=== PATIENT | female | born 1980 | race Caucasian/White ===

== ENCOUNTER 2016-12-05 14:22 | Emergency (ER) | payer SELFPAY ==
[~2016-12-05] VITALS: Ht 162.6 cm; Wt 95.3 kg
--- NOTE | 2016-12-05 15:18 | ED GU-Female ---
General Chief Complaint: -Female Stated Complaint: HEAVY MENSTRUAL BLEEDING FOR 7 WEEKS Nursing Triage Note: PT C/O HEAVY VAGINAL BLEEDING X 7 WEEKS. SHE IS ALSO C/O CRAMPING AND BLOATING. Nursing Sepsis Screen: No Definite Risk Source: patient Exam Limitations: no limitations History of Present Illness Time seen by provider: 15:18 Initial Comments 36-year-old female patient presents to the emergency department complaints of heavy bleeding for 7 weeks. States she was seen by Dr. Avalos in [place] approximately 2 months ago. Does complain of abdominal bloating and cramping. 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 Denies dizziness, SOA, chest pain. Patient does report recurrent outbreak of genital warts. Has had previous abnormal Pap smears and biopsies/colposcopies. States it has been several years since her last Pap smear. Timing/Duration: other (7 wks) Severity/Quality: cramping Location: vaginal (vaginal bleeding), other (generalized abdomen) Radiation: none Activities at Onset: none Prior Genitourinary Problems: none Sexual Honaker History: single partner Allergies and Home Medications Allergies Coded Allergies: Penicillins (Unverified Allergy, Unknown, 12/05/16) Home Medications Metronidazole 500 Mg Tablet, 500 MG PO BID, #14 Ref 0 Prescribed by: OZZIE INIGUEZ on 12/05/161708 Tramadol HCl 50 Mg Tablet, 50 MG PO Q4H PRN for PAIN-MODERATE TO SEVERE, #10 Ref 0 Prescribed by: OZZIE INIGUEZ on 12/05/161708 Constitutional: No chills, No diaphoresis, No dizziness, No fever, No malaise, No weakness EENTM: no symptoms reported Respiratory: No cough, No dyspnea on exertion, No short of breath Cardiovascular: No chest pain, No palpitations, No syncope Gastrointestinal: see HPI, abdominal pain, No constipation, No diarrhea, No nausea, No vomiting Genitourinary: see HPI, denies burning, denies dysuria, denies frequency, denies flank pain, other (vaginal bleeding and recurrent genital wart outbreak) Musculoskeletal: no symptoms reported Skin: see HPI Psychiatric/Neurological: No Symptoms Reported Hematologic/Lymphatic: No Symptoms Reported All Other Systemes Reviewed Negative Unless Noted: Yes (Negative excepted noted.) Past Jjhlhel-Qclfsi-Pkxtns Hx Patient Social History Alcohol Use: Denies Use Recreational Drug Use: No Smoking Status: Current Everyday Smoker Type Used: Cigarettes 2nd Hand Smoke Exposure: Yes Recent Foreign Travel: No Contact w/Someone Who Travel: No Recent Infectious Disease Expo: No Recent Hopitalizations: No Physical Abuse: No Sexual Abuse: No Seasonal Allergies Seasonal Allergies: No Surgeries History of Surgeries: Yes (COLONOSCOPIES, colposcopies, genital wart destruction) Surgeries: Appendectomy, Orthopedic Respiratory History of Respiratory Disorde: No Cardiovascular History of Cardiac Disorders: No Reproductive System : No Hx : 3 Hx Para: 1 Hx Total # of Abortions (Spona: 2 Hx Reproductive Disorders: Yes (ovarian cysts) Sexually Transmitted Disease: Yes (genital warts) HIV/AIDS: No Female Reproductive Disorders: Polycystic Ovarian Dis Genitourinary History of Genitourinary Disor: No Gastrointestinal History of Gastrointestinal Di: No Musculoskeletal History of Musculoskeletal Dis: No Endocrine History of Endocrine Disorders: No HEENT History of HEENT Disorders: No Cancer History of Cancer: No Psychosocial Suicide Risk Score: 0 Integumentary History of Skin or Integumenta: No Reviewed Nursing Assessment Reviewed/Agree w Nursing PMH: Yes Family Medical History Significant Family History: No Pertinent Family Hx Physical Exam Vital Signs Vital Sign - Last 12Hours 12/05/16 14:47 Temp 97.1 Pulse 88 Resp 20 B/P (MAP) 176/133 Pulse Ox 99 O2 Delivery Room Air Capillary Refill : Less Than 3 Seconds General Appearance: WD/WN, no apparent distress HEENT: PERRL/EOMI, pharynx normal Neck: supple, normal inspection Cardiovascular: normal peripheral pulses, regular rate, rhythm, no edema, no murmur Respiratory: lungs clear, normal breath sounds, no respiratory distress, no accessory muscle use Gastrointestinal: normal bowel sounds, soft, no organomegaly, No distended, No guarding, No rebound, tenderness (mild lower abdominal tenderness. ) Pelvic: no cerv. motion tender, no masses, lesions (flesh colored, raised lesions of the labia and perineum consistent with genital warts.), No mass, tender adnexa (R>L), No tender uterus, vaginal bleeding (dark blood noted in the vagina. ) Back: normal inspection, no CVA tenderness Extremities: no pedal edema, normal capillary refill Neurologic/Psychiatric: alert, normal mood/affect, oriented x 3 Skin: normal color, warm/dry Progress/Results/Core Measures Results/Orders Lab Results Laboratory Tests Test 12/05/16 15:10 12/05/16 16:50 Range/Units White Blood Count 6.5 4.3-11.0 10^3/uL Red Blood Count 4.76 4.35-5.85 10^6/uL Hemoglobin 14.1 11.5-16.0 G/DL Hematocrit 42 35-52 % Mean Corpuscular Volume 87 80-99 FL Mean Corpuscular Hemoglobin 30 25-34 PG Mean Corpuscular Hemoglobin Concent 34 32-36 G/DL Red Cell Distribution Width 13.2 10.0-14.5 % Platelet Count 218 130-400 10^3/uL Mean Platelet Volume 9.6 7.4-10.4 FL Neutrophils (%) (Auto) 55 42-75 % Lymphocytes (%) (Auto) 37 12-44 % Monocytes (%) (Auto) 7 0-12 % Eosinophils (%) (Auto) 2 0-10 % Basophils (%) (Auto) 0 0-10 % Neutrophils # (Auto) 3.6 1.8-7.8 X 10^3 Lymphocytes # (Auto) 2.4 1.0-4.0 X 10^3 Monocytes # (Auto) 0.4 0.0-1.0 X 10^3 Eosinophils # (Auto) 0.1 0.0-0.3 10^3/uL Basophils # (Auto) 0.0 0.0-0.1 10^3/uL Prothrombin Time 12.5 12.2-14.7 SEC INR Comment 0.9 0.8-1.4 Activated Partial Thromboplast Time 29 24-35 SEC Sodium Level 137 135-145 MMOL/L Potassium Level 3.9 3.6-5.0 MMOL/L Chloride Level 108 H 98-107 MMOL/L Carbon Dioxide Level 24 21-32 MMOL/L Anion Gap 5 5-14 MMOL/L Blood Urea Nitrogen 13 7-18 MG/DL Creatinine 0.73 0.60-1.30 MG/DL Estimat Glomerular Filtration Rate > 60 BUN/Creatinine Ratio 18 Glucose Level 92 70-105 MG/DL Calcium Level 9.0 8.5-10.1 MG/DL Total Bilirubin 0.4 0.1-1.0 MG/DL Aspartate Amino Transf (AST/SGOT) 13 5-34 U/L Alanine Aminotransferase (ALT/SGPT) 14 0-55 U/L Alkaline Phosphatase 65 40-136 U/L Total Protein 7.2 6.4-8.2 GM/DL Albumin 4.2 3.2-4.5 GM/DL Serum Test, Qualitative NEGATIVE NEGATIVE Micro Results Microbiology 12/05/16 Genital Culture - Preliminary, Resulted Gardnerella Vaginalis 12/05/16 Wet Prep - Final, Resulted My Orders Orders - OZZIE INIGUEZ Cbc With Automated Diff (12/05/16 14:50) Comprehensive Metabolic Panel (12/05/16 14:50) Hcg,Qualitative Serum (12/05/16 14:50) Protime With Inr (12/05/16 14:50) Partial Thromboplastin Time (12/05/16 14:50) Wet Prep (12/05/16 16:23) Neisseria Gonorrhea Dna (12/05/16 16:23) Chlamydia Dna (12/05/16 16:23) Genital Culture (12/05/16 16:23) Hydrocodone/Apap 5/325 Tablet (Lortab 5 (12/05/16 16:38) Ketorolac Injection (Toradol Injection) (12/05/16 16:38) Im/Sub-Q Injection Non-Ab Ed (12/05/16 ) Vital Signs/I&O Blood Pressure Mean: 147 Departure Communication (Admissions) Progress Notes all laboratory and diagnostic findings discussed with the patient. patient reports pain is improved with the toradol and lortab. plan for dsch to home with f/u as an outpatient with Dr. Medrano or Mariaelena Mccarthy APRN as patient requests to see a female provider. Patient to call for appointment time. Patient given a Rx for flagyl for bacterial vaginosis. Patient instructed to return to the ED for worsened symptoms or any other concerns. Patient ambulated from the ED without difficulty. Impression Impression: Primary Impression: Bacterial vaginosis Additional Impressions: Menorrhagia Genital warts Disposition: HOME, SELF-CARE Condition: Improved Departure-Patient Inst. Decision time for Depature: 17:06 Referrals: SHELTON FLORES KAY W ARNP RAY, MARIANNE C MD (PCP) Primary Care Physician LIS MEDRANO DO Patient Instructions: Bacterial Vaginosis (DC), IRREGULAR VAGINAL BLEEDING Add. Discharge Instructions: All discharge instructions reviewed with patient and/or family. Voiced understanding. Medications as directed. Tylenol Extra Strength over-the- counter as directed for pain. Ibuprofen 800 mg by mouth every 8 hours as needed for pain. No intercourse until released by the counselor/art therapist of your choice. Follow-up with the counselor/art therapist of your choice as an outpatient for a recheck, outpatient ultrasound, formal Pap smear, and further treatment. Call tomorrow for appointment time. Return to the emergency department for worsened pain, fever, vaginal bleeding with greater than 2 pads per hour for greater than 2 hours, vaginal discharge, or any other concerns. Scripts Tramadol HCl (Tramadol HCl) 50 Mg Tablet 50 MG PO Q4H Y for PAIN-MODERATE TO SEVERE, #10 TAB 0 Refills Prov: OZZIE INIGUEZ 12/05/16 Metronidazole (Metronidazole) 500 Mg Tablet 500 MG PO BID, #14 TAB 0 Refills Prov: OZZIE INIGUEZ 12/05/16 Work/School Note: Work Release Form Date Seen in the Emergency Department: Dec 05, 2016 Return to Work: Dec 07, 2016 OZZIE INIGUEZ Dec 05, 2016 15:18
[2016-12-05 15:21] LABS: BASOPHILS % (AUTO) 0 % (0-10); EOSINOPHILS # (AUTO) 0.1 10^3/uL (0.0-0.3); EOSINOPHILS % (AUTO) 2 % (0-10); LYMPHOCYTES # (AUTO) 2.4 X 10^3 (1.0-4.0); LYMPHOCYTES % (AUTO) 37 % (12-44); MEAN CORPUSCULAR HEMOGLOBIN 30 PG (25-34); MEAN CORPUSCULAR HGB CONC 34 G/DL (32-36); MEAN CORPUSCULAR VOLUME 87 FL (80-99); MEAN PLATELET VOLUME 9.6 FL (7.4-10.4); MONOCYTES # (AUTO) 0.4 X 10^3 (0.0-1.0); MONOCYTES % (AUTO) 7 % (0-12); NEUTROPHILS # (AUTO) 3.6 X 10^3 (1.8-7.8); NEUTROPHILS % (AUTO) 55 % (42-75); PLATELET COUNT 218 10^3/uL (130-400); RED BLOOD COUNT 4.76 10^6/uL (4.35-5.85); RED CELL DISTRIBUTION WIDTH 13.2 % (10.0-14.5); WHITE BLOOD COUNT 6.5 10^3/uL (4.3-11.0)
[2016-12-05 15:30] LABS: INR 0.9 (0.8-1.4); PROTHROMBIN TIME PATIENT 12.5 SEC (12.2-14.7)
[2016-12-05 15:40] LABS: ALANINE AMINOTRANSFERASE 14 U/L (0-55); ALBUMIN 4.2 GM/DL (3.2-4.5); ANION GAP 5 MMOL/L (5-14); ASPARTATE AMINO TRANSFERASE 13 U/L (5-34); BILIRUBIN,TOTAL 0.4 MG/DL (0.1-1.0); BLOOD UREA NITROGEN 13 MG/DL (7-18); BUN/CREATININE RATIO 18; CARBON DIOXIDE 24 MMOL/L (21-32); CHLORIDE 108 MMOL/L (98-107); CREATININE SERUM 0.73 MG/DL (0.60-1.30); GFR ESTIMATED > 60; GLUCOSE 92 MG/DL (70-105); POTASSIUM 3.9 MMOL/L (3.6-5.0); SODIUM 137 MMOL/L (135-145); TOTAL PROTEIN 7.2 GM/DL (6.4-8.2)
[2016-12-05] MEDS ORDERED: HYDROcodone/APAP 5 MG/325 MG (LORTAB) TAB PO STA (16:38)
[2016-12-05] MEDS ORDERED: KETOROLAC 60 MG/2 ML VIAL IM STA (16:38)
[2016-12-05] MEDS ORDERED: TRAM50TA2 PO (17:09)
[2016-12-05] MEDS ORDERED: METR500T21 PO (17:09)
[2016-12-05 17:27] VITALS: BP 176/133
== END 2016-12-05 17:27 | disposition home or self-care (01) ==
LOC: ER 14:26
DX: N76.0 Acute vaginitis (principal); B96.89 Other specified bacterial agents as the cause of diseases classified elsewhere; N92.0 Excessive and frequent menstruation with regular cycle; A63.0 Anogenital (venereal) warts; F17.210 Nicotine dependence, cigarettes, uncomplicated; Z90.49 Acquired absence of other specified parts of digestive tract; Z87.448 Personal history of other diseases of urinary system
CPT/HCPCS: 36415; 80053; 84703; 85025; 85610; 85730; 87070; 87210; 87491; 87591; 96372; 99284

== ENCOUNTER 2016-12-26 09:20 | Emergency (ER) | payer SELFPAY ==
[~2016-12-26] VITALS: Ht 162.6 cm; Wt 95.3 kg
[~2016-12-26 09:20] MED LIST: METR500T21 PO; TRAM50TA2 PO
[2016-12-26] MEDS ORDERED: TIZA4CAP8 PO (10:03)
[2016-12-26] MEDS ORDERED: ATEN100T PO (10:03)
[2016-12-26] MEDS ORDERED: DILT120C8 PO (10:03)
[2016-12-26] MEDS ORDERED: NS IV 1000 ML 1,000 ML IV STA (10:24)
--- NOTE | 2016-12-26 10:28 | ED Headache ---
General Chief Complaint: Head/Cervical Problems Stated Complaint: MIGRAINE Nursing Triage Note: AMBULATED TO ROOM 09 WITH COMPLAINTS OF A MIGRAINE. SHE BELIEVES IT IS RELATED TO HER NEW MEDICATION TIXINADINE. Nursing Sepsis Screen: No Definite Risk Source: patient, spouse Exam Limitations: no limitations History of Present Illness Time seen by provider: 10:16 Initial Comments Patient has ER by private conveyance with chief complaint of migraine headache. She has a history of migraines but they do not have infrequent enough that she' s ever needed any prophylactic medicines and does not have any sumatriptan. She recently moved here does not have a primary care physician yet. She has used Vicodin in the past which helped. She is having quite a bit of nausea but no vomiting so far. Anorexia. She has first started expressing this headache about a week ago after using tizanidine a couple times for some back spasms. She thought that tizanidine might of been there culprit so she stopped using it and her migraine headache that better in the next couple days and then she said she had some more back spasms or use another dose last night and her migraine came back on. There is no aura however she does have photophobia phonophobia and describes the headache as right-sided throbbing frontal and constant. She does not have any blindness weakness numbness or paresthesias. She has not have any incontinence of bowel or bladder. She has no cough shortness of breath or chest pain. She has used Motrin with the last dose being about 5 or 6 hours ago. Allergies and Home Medications Allergies Coded Allergies: Penicillins (Unverified Allergy, Unknown, 12/05/16) Home Medications Atenolol 100 Mg Tablet, 100 MG PO DAILY, (Reported) Diltiazem HCl 120 Mg Cap.er.deg, 120 MG PO DAILY, (Reported) Tizanidine HCl 4 Mg Capsule, 4 MG PO PRN, (Reported) Constitutional: No chills, No fever, malaise Eyes: Denies Blindness, Denies Blurred Vision, Denies Drainage Ears, Nose, Mouth, Throat: denies ear pain, denies nose pain Respiratory: No cough, No short of breath Cardiovascular: No chest pain, No palpitations Gastrointestinal: No constipation, No diarrhea, nausea, No vomiting Genitourinary: No discharge, No dysuria Skin: No dryness, No pruritus, No rash Psychiatric/Neurological: See HPI, Headache, Denies Numbness, Denies Paresthesia, Denies Pre-Existing Deficit, Denies Seizure Past Qfvqyqf-Eggehm-Snkmho Hx Patient Social History Alcohol Use: Denies Use Recreational Drug Use: Yes (POT) Smoking Status: Current Everyday Smoker Type Used: Cigarettes 2nd Hand Smoke Exposure: Yes Recent Foreign Travel: No Contact w/Someone Who Travel: No Recent Infectious Disease Expo: No Recent Hopitalizations: No Seasonal Allergies Seasonal Allergies: No Surgeries History of Surgeries: Yes (COLONOSCOPIES, colposcopies, genital wart destruction) Surgeries: Appendectomy, Orthopedic Respiratory History of Respiratory Disorde: No Cardiovascular History of Cardiac Disorders: No Neurological History of Neurological Disord: Yes Neurological Disorders: Headaches /Migraines Reproductive System Hx Reproductive Disorders: Yes (ovarian cysts) Sexually Transmitted Disease: Yes (genital warts) HIV/AIDS: No Female Reproductive Disorders: Polycystic Ovarian Dis Genitourinary History of Genitourinary Disor: No Gastrointestinal History of Gastrointestinal Di: No Musculoskeletal History of Musculoskeletal Dis: No Endocrine History of Endocrine Disorders: No HEENT History of HEENT Disorders: No Cancer History of Cancer: No Integumentary History of Skin or Integumenta: No Family Medical History Significant Family History: No Pertinent Family Hx Physical Exam Vital Signs Vital Sign - Last 12Hours 12/26/16 09:45 Temp 98.0 Pulse 72 Resp 18 B/P (MAP) 147/107 Pulse Ox 97 Capillary Refill : Less Than 3 Seconds General Appearance: WD/WN, mild distress HEENT: PERRL/EOMI, TMs normal, pharynx normal Neck: non-tender, normal inspection Cardiovascular: normal peripheral pulses, regular rate, rhythm, no edema Respiratory: chest non-tender, lungs clear, no respiratory distress Gastrointestinal: non tender, soft Psychiatric: alert, oriented x 3 Crainal Nerves: normal hearing, normal speech, PERRL Coordination/Gait: normal gait Motor/Sensory: no motor deficit, no sensory deficit Skin: normal color, warm/dry Progress/Results/Core Measures Results/Orders My Orders Orders - MIMI WEEKS Ketorolac Injection (Toradol Injection) (12/26/16 10:30) Saline Lock/Iv-Start (12/26/16 10:24) Ns Iv 1000 Ml (Sodium Chloride 0.9%) (12/26/16 10:24) Prochlorperazine Injection (Compazine In (12/26/16 10:30) Ondansetron Injection (Zofran Injectio (12/26/16 10:30) Sumatriptan Injection (Imitrex Injection (12/26/16 10:30) Medications Given in ED Current Medications Medications Dose Ordered Sig/Franklin Route Start Time Stop Time Status Last Admin Dose Admin Ketorolac Tromethamine 15 mg ONCE ONCE IVP 12/26/16 10:30 12/26/16 10:31 DC 12/26/16 10:45 15 MG Ondansetron HCl 4 mg ONCE ONCE IVP 12/26/16 10:30 12/26/16 10:31 DC 12/26/16 10:45 4 MG Prochlorperazine Edisylate 10 mg ONCE ONCE IV 12/26/16 10:30 12/26/16 10:31 DC 12/26/16 10:46 10 MG Sumatriptan Succinate 6 mg ONCE ONCE SQ 12/26/16 10:30 12/26/16 10:31 DC 12/26/16 10:43 6 MG Vital Signs/I&O Vital Sign - Last 12Hours 12/26/16 09:45 Temp 98.0 Pulse 72 Resp 18 B/P (MAP) 147/107 Pulse Ox 97 Blood Pressure Mean: 120 Progress Note : Time: 11:54 Progress Note Patient present to ER with a headache 8 out of 10 and is now down to a 5 out of 10. Her nausea is gone and she feels much better. We'll give her some Compazine and Imitrex and she is going to follow up with her PCP from [place], [place] and try to establish someone closer eventually. Departure Impression Impression: Primary Impression: Migraine Qualified Codes: G43.009 - Migraine without aura, not intractable, without status migrainosus Disposition: 01 HOME, SELF-CARE Condition: Stable Departure-Patient Inst. Decision time for Depature: 11:55 Referrals: FIDENCIO JUSTIN MD (PCP/Family) Primary Care Physician Patient Instructions: Migraine Headache (DC) Add. Discharge Instructions: Drink plenty of cool fluids and get some rest in a call him quite dark place. Earplugs and I am asked are recommended. If you're having nausea you can take the Compazine every 6 hours by mouth and if your headache persists you can take the Imitrex. Plan to follow up with her primary care physician for further management of your migraine. All discharge instructions reviewed with patient and/or family. Voiced understanding. Scripts Prochlorperazine Maleate (Compazine) 10 Mg Tablet 10 MG PO Q6H Y for NAUSEA/VOMITING-1ST LINE, #10 TAB 0 Refills Prov: MIMI WEEKS 12/26/16 Sumatriptan Succinate (Sumatriptan Succinate) 25 Mg Tablet 25 MG PO Q2H Y for MIGRAINE, #8 TAB 0 Refills Do not exceed 4 tablets in 24 hours. Prov: MIMI WEEKS 12/26/16 Work/School Note: Work Release Form Date Seen in the Emergency Department: Dec 26, 2016 Return to Work: Dec 28, 2016 Restrictions: No Restrictions MIMI WEEKS Dec 26, 2016 10:28
[2016-12-26] MEDS ORDERED: SUMAtriptan 6 MG/0.5 ML (IMITREX) INJ SQ ONE (10:30)
[2016-12-26] MEDS ORDERED: KETOROLAC 30 MG/ML VIAL IVP ONE (10:30)
[2016-12-26] MEDS ORDERED: ONDANSETRON 4 MG/2 ML (SDV) Z0FRAN IVP ONE (10:30)
[2016-12-26] MEDS ORDERED: PROCHLORPERAZINE 10 MG/2ML INJ (COMPAZINE) IV ONE (10:30)
[2016-12-26] MEDS ORDERED: PROC-1 PO (11:59)
[2016-12-26] MEDS ORDERED: SUMA25TA4 PO (11:59)
[2016-12-26 12:04] VITALS: BP 147/102
[2016-12-27] MEDS ORDERED: PROM25TA14 PO (17:47)
== END 2016-12-26 12:04 | disposition home or self-care (01) ==
LOC: EDUNIT# 09:20 → ER 09:24
DX: G43.909 Migraine, unspecified, not intractable, without status migrainosus (principal); F17.210 Nicotine dependence, cigarettes, uncomplicated; F12.10 Cannabis abuse, uncomplicated; Z87.448 Personal history of other diseases of urinary system; Z90.49 Acquired absence of other specified parts of digestive tract
CPT/HCPCS: 96361; 96372; 96374; 96375

== ENCOUNTER 2016-12-27 14:55 | Emergency (ER) | payer SELFPAY ==
[~2016-12-27] VITALS: Ht 162.6 cm; Wt 95.3 kg
[~2016-12-27 14:55] MED LIST changes: +ATEN100T PO; +DILT120C8 PO; +PROC-1 PO; +SUMA25TA4 PO; +TIZA4CAP8 PO
--- NOTE | 2016-12-27 15:57 | ED Headache ---
General Chief Complaint: Head/Cervical Problems Stated Complaint: SEIZURE Nursing Triage Note: patient reports headache for 1 week. patient reports was taking a bath and got out and had a seizure. Nursing Sepsis Screen: No Definite Risk Source: patient, family (PAULIE ANDRADE MD) History of Present Illness Time seen by provider: 15:56 Initial Comments This 36-year-old white female presents with recurrent migraine headache. She's had long-standing migraine headaches. She normally responds well to Toradol IV. The patient denies associated fever, chills, hematemesis, diarrhea, or chest pain palpitations. Patient has had paresthesias in both right and left side of her body. She denies loss of visual acuity or balance. (PAULIE ANDRADE MD) Initial Comments Requested by emergency department practical nursing instructor to evaluate patient. Evaluation 37-year-old female for recurrent migraines, she has had a long medical history, she is currently going through additional testing and evaluation by Dr. Avalos and Gaby. Her records are multiple facilities across several states, and they're all being obtained by Dr. Avalos. There is concerns of possible lupus or MS. patient was evaluated for migraines yesterday she was prescribed Imitrex and Compazine, she has not obtained either of these as she has no financial ability to pay for her prescriptions. Her partner will be paid in 6 days and then she will be able to obtain these. Location: frontal Prior Headaches/Recent Trauma: chronic headaches (SRINI QUISPE) Allergies and Home Medications Allergies Coded Allergies: Penicillins (Unverified Allergy, Unknown, 12/05/16) Home Medications Atenolol 100 Mg Tablet, 100 MG PO DAILY, (Reported) Diltiazem HCl 120 Mg Cap.er.deg, 120 MG PO DAILY, (Reported) Prochlorperazine Maleate 10 Mg Tablet, 10 MG PO Q6H PRN for NAUSEA/VOMITING-1ST LINE, #10 Ref 0 Prescribed by: MIMI WEEKS on 12/26/16 1159 Promethazine HCl 25 Mg Tablet, 25 MG PO Q6H PRN for NAUSEA/VOMITING, #12 Ref 0 Prescribed by: SRINI QUISPE on 12/27/16 1747 Sumatriptan Succinate 25 Mg Tablet, 25 MG PO Q2H PRN for MIGRAINE, #8 Ref 0 Do not exceed 4 tablets in 24 hours. Prescribed by: MIMI WEEKS on 12/26/16 1159 Tizanidine HCl 4 Mg Capsule, 4 MG PO PRN, (Reported) Constitutional: No chills, No fever Eyes: Denies Blurred Vision Ears, Nose, Mouth, Throat: denies epistaxis Respiratory: No cough Cardiovascular: No chest pain Gastrointestinal: No abdominal pain, No constipation, nausea Genitourinary: no symptoms reported Musculoskeletal: no symptoms reported Skin: no symptoms reported Psychiatric/Neurological: Numbness, Paresthesia (PAULIE ANDRADE MD) Past Yphbzwn-Ktxzvz-Noqgxq Hx Patient Social History Alcohol Use: Denies Use Recreational Drug Use: No Smoking Status: Current Everyday Smoker Type Used: Cigarettes 2nd Hand Smoke Exposure: Yes Recent Foreign Travel: No Contact w/Someone Who Travel: No Recent Infectious Disease Expo: No Recent Hopitalizations: No (PAULIE ANDRADE MD) Seasonal Allergies Seasonal Allergies: No (PAULIE ANDRADE MD) Surgeries History of Surgeries: Yes (COLONOSCOPIES, colposcopies, genital wart destruction) Surgeries: Appendectomy, Orthopedic (PAULIE ANDRADE MD) Respiratory History of Respiratory Disorde: No (PAULIE ANDRADE MD) Cardiovascular History of Cardiac Disorders: No (PAULIE ANDRADE MD) Neurological History of Neurological Disord: Yes Neurological Disorders: Headaches /Migraines (PAULIE ANDRADE MD) Reproductive System Hx Reproductive Disorders: Yes (ovarian cysts) Sexually Transmitted Disease: Yes (genital warts) HIV/AIDS: No Female Reproductive Disorders: Polycystic Ovarian Dis (PAULIE ANDRADE MD) Genitourinary History of Genitourinary Disor: No (PAULIE ANDRADE MD) Gastrointestinal History of Gastrointestinal Di: No (PAULIE ANDRADE MD) Musculoskeletal History of Musculoskeletal Dis: No (PAULIE ANDRADE MD) Endocrine History of Endocrine Disorders: No (PAULIE ANDRADE MD) HEENT History of HEENT Disorders: No (PAULIE ANDRADE MD) Cancer History of Cancer: No (PAULIE ANDRADE MD) Integumentary History of Skin or Integumenta: No (PAULIE ANDRADE MD) Reviewed Nursing Assessment Reviewed/Agree w Nursing PMH: Yes (PAULIE ANDRADE MD) Family Medical History Significant Family History: No Pertinent Family Hx (PAULIE ANDRADE MD) Physical Exam Vital Signs Vital Sign - Last 12Hours 12/27/16 12/27/16 14:56 17:48 Temp 98.7 Pulse 58 Resp 18 B/P (MAP) 139/92 Pulse Ox 97 (SRINI QUISPE) Vital Signs Capillary Refill : Less Than 3 Seconds (PAULIE ANDRADE MD) General Appearance: WD/WN, no apparent distress HEENT: normal ENT inspection Neck: normal inspection Cardiovascular: normal peripheral pulses, regular rate, rhythm Respiratory: chest non-tender, lungs clear Gastrointestinal: normal bowel sounds, non tender Back: normal inspection, no CVA tenderness Extremities: normal range of motion, non-tender, normal inspection Psychiatric: alert, oriented x 3, depressed affect Crainal Nerves: normal hearing, normal speech, PERRL (PAULIE ANDRADE MD) Progress/Results/Core Measures Results/Orders Medications Given in ED Current Medications Medications Dose Ordered Sig/Franklin Route Start Time Stop Time Status Last Admin Dose Admin Diphenhydramine HCl 25 mg ONCE ONCE IM 12/27/16 16:00 12/27/16 16:01 DC 12/27/16 16:30 25 MG Ketorolac Tromethamine 30 mg ONCE ONCE IVP 12/27/16 16:00 12/27/16 16:01 DC 12/27/16 16:29 30 MG Promethazine HCl 25 mg ONCE ONCE IVP 12/27/16 16:00 12/27/16 16:01 DC 12/27/16 16:30 25 MG (SRINI QUISPE) Vital Signs/I&O Vital Sign - Last 12Hours 12/27/16 12/27/16 14:56 17:48 Temp 98.7 98.7 Pulse 58 58 Resp 18 18 B/P (MAP) 139/92 Pulse Ox 97 (SRINI QUISPE) Blood Pressure Mean: 108 Progress Note : Progress Note 1630 evaluation can occur with Dr. Andrade's, cranial nerves II through XII grossly intact. She has reported paresthesias in the right upper extremity at this time however she reports prior to arrival she had them in the left upper extremity and they have resolved. 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 Discussed at length the importance of her establishing care at [facility], as her resources or limited in they will have more ability to assist her. Her symptoms and treatment will be difficult to manage if she is unable to obtain the prescriptions we have recommended. She verbalized understanding of this and agrees to follow-up with Dr. Avalos in [place]. (SRINI QUISPE) Departure Impression Impression: Primary Impression: Migraine Qualified Codes: G43.019 - Migraine without aura, intractable, without status migrainosus Disposition: HOME, SELF-CARE Condition: Stable Departure-Patient Inst. Decision time for Depature: 17:00 (SRINI QUISPE) Referrals: FIDENCIO AVALOS MD (PCP/Family) Primary Care Physician Patient Instructions: Migraine Headache (DC) Add. Discharge Instructions: Take medication as prescribed. All up with primary care provider. Return to emergency room for seizure activity or new problems. All discharge instructions reviewed with patient and/or family. Voiced understanding. Scripts Promethazine HCl (Promethazine Tablet) 25 Mg Tablet 25 MG PO Q6H Y for NAUSEA/VOMITING, #12 TAB 0 Refills Prov: SRINI QUISPE 12/27/16 PAULIE ANDRADE MD Dec 27, 2016 15:57 SRINI QUISPE Dec 27, 2016 17:47
[2016-12-27] MEDS ORDERED: KETOROLAC 30 MG/ML VIAL IVP ONE (16:00)
[2016-12-27] MEDS ORDERED: NS IV 1000 ML 1,000 ML IV SCH (16:00)
[2016-12-27] MEDS ORDERED: PROMETHAZINE INJ 25 MG/ML (PHENERGAN) AMP IVP ONE (16:00)
[2016-12-27] MEDS ORDERED: diphenhydrAMINE 50 MG/ML INJ (BENADRYL) IM ONE (16:00)
[2016-12-27] MEDS ORDERED: PROM25TA14 PO (17:47)
[2016-12-27 17:48] VITALS: BP 139/92
== END 2016-12-27 17:48 | disposition home or self-care (01) ==
LOC: EDUNIT# 14:55 → ER 14:56
DX: G43.909 Migraine, unspecified, not intractable, without status migrainosus (principal); F17.210 Nicotine dependence, cigarettes, uncomplicated; Z87.448 Personal history of other diseases of urinary system; Z90.49 Acquired absence of other specified parts of digestive tract
CPT/HCPCS: 96361; 96372; 96374; 96375; 99282

== ENCOUNTER 2018-02-27 17:10 | Emergency (ER) | payer BC, OTHER ==
[~2018-02-27] VITALS: Ht 162.6 cm; Wt 99.8 kg
[~2018-02-27 17:10] MED LIST changes: +METR-197 PO; -METR500T21 PO; +PROM25TA14 PO
--- OUTSIDE RECORDS SUMMARY | 2018-02-27 17:15 | XMS REPORT ---
Author Author MAO MOSES [facility] Address [address] [place] [address] Care Team Providers Care Efficiency Expert Name Role Phone MAO MOSES Unavailable PROBLEMS Type Condition ICD9-CM Code [id number] Code Onset Dates Condition Status SNOMED Code Problem Severe episode of recurrent major depressive disorder, without psychotic features F33.2 Active 61583440 Problem Neuropathy G62.9 Active 739386694 Problem Night terrors, adult F51.4 Active 349213726 Problem Menorrhagia with regular cycle N92.0 Active 416527096 Problem Intractable migraine without aura and without status migrainosus G43.019 Active 085989612 Problem Cannabis use disorder, mild, abuse F12.10 Active 01316843 Problem History of PCOS Z87.42 Active 005450178 Problem Opioid use disorder, severe, in sustained remission F11.21 Active 80147427 Problem Methamphetamine use disorder, mild, 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 Active 859298168 Problem Bipolar disorder, current episode mixed, severe, without psychotic features F31.63 Active 297985104 Problem PTSD (post-traumatic stress disorder) F43.10 Active 83409777 Problem Pain in right hip M25.551 Active 70564901 Problem Pain in left elbow M25.522 Active 27456883 Problem Seizure R56.9 Active 12436534 Problem Pain in left hip M25.552 Active 49904160 Problem Muscle spasm M62.838 Active 58289152 Problem Obesity (BMI 30-39.9) E66.9 Active 246622022 Problem Pain in right elbow M25.521 Active 337773993 Problem Essential hypertension I10 Active 38574733 Problem Rash and nonspecific skin eruption R21 Active 665951288 Problem Anxiety F41.9 Active 31760102 ALLERGIES Substance Reaction Event Type Date Status Penicillin V Potassium hives Drug Allergy Jan, Active Morphine Sulfate rash Drug Allergy Jan, Active ENCOUNTERS Encounter Location Date Diagnosis [facility] [place] [id number] [place] [address] Mar, [place] [address] [address] Feb, [facility] [place] [id number] [place] [address]- [address]871 Jan, Lower back pain M54.5 [place] [address] [address] Jan, Essential hypertension I10 [place] [address] [address] Jan, Intractable migraine without aura and without status migrainosus G43.019 and Essential hypertension I10 [place] [address] [address] Dec, Menorrhagia with regular cycle N92.0 [place] [address] [address] Jun, [place] [address] [address] Jun, Muscle spasm M62.838 ; Acute left-sided low back pain without sciatica M54.5 and Bipolar disorder, current episode mixed, severe, without psychotic features F31.63 [place] [id number] [place] [address]- 1472 Jun, [place] [id number] [place] [address]34- 29[address] May, Essential hypertension I10 ; Neuropathy G62.9 ; Acute non- recurrent maxillary sinusitis J01.00 ; Intractable migraine without aura and without status migrainosus G43.019 and Night terrors, adult F51.4 [place] [id number] [place] [address]- [address] Apr, [place] [address] [address] 07 Apr, 2017 Bipolar disorder, current episode mixed, severe, without psychotic features F31.63 ; PTSD (post-traumatic stress disorder) F43.10 ; Cannabis use disorder, mild, abuse F12.10 ; Methamphetamine use disorder, mild, 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 and Opioid use disorder, severe, in sustained remission F11.21 [place] [address] [address] 06 Apr, 2017 Severe episode of recurrent major depressive disorder, without psychotic features F33.2 ; Anxiety F41.9 and PTSD (post-traumatic stress disorder) F43.10 [place] [address] [address] Feb, Muscle spasm M62.838 [place] [address] [address] Feb, Intractable migraine without aura and without status migrainosus G43.019 [place] [address] [address] Jan, Rheumatoid factor positive with cyclic citrullinated peptide (CCP) antibody negative R76.8 ; Muscle spasm M62.838 ; Folliculitis L73.9 ; Essential hypertension I10 and Obesity (BMI 30-39.9) E66.9 [place] [id number] [place] [address] 83[address] Jan, Intractable migraine without aura and without status migrainosus G43.019 ; Dysuria R30.0 ; Essential hypertension I10 ; Anxiety F41.9 ; Vaginal discharge N89.8 ; Seizure R56.9 and Muscle spasm M62.[address] [facility] [id number] [place] [address] Dec, Lower back pain M54.5 [facility] [place] [address] [address] Dec, Intractable migraine without aura and without status migrainosus G43.019 ; Seizure R56.9 ; Muscle spasm M62.838 ; Pain in right elbow M25.521 ; Pain in left elbow M25.522 ; Pain in right hip M25.551 ; Pain in left hip M25.552 ; Rash and nonspecific skin eruption R21 and History of PCOS Z87.42 IMMUNIZATIONS No Known Immunizations SOCIAL HISTORY Never Assessed REASON FOR VISIT Pt states she is having pain in lower back, knees, and hips Sukhjinder COHEN PLAN OF CARE Activity Details Follow Up 03/06 w/ Nohelia Echevarria Reason:establish care VITAL SIGNS Height 5'4" in 2018-01-22 Weight 219.2 lbs 2018-01-22 Temperature 98.5 degrees Fahrenheit 2018-01-22 Heart Rate 90 bpm 2018-01-22 Respiratory Rate 18 2018-01-22 BMI 37.62 kg/m2 2018-01-22 Blood pressure systolic 112 mmHg 2018-01-22 Blood pressure diastolic 82 mmHg 2018-01-22 MEDICATIONS Medication Instructions Dosage Frequency Start Date End Date Duration Status Baclofen 10 MG/20ML as directed Active Ibuprofen 800 MG Orally Three times a day 1 tablet with food or milk as needed 8h Active Flonase 50 MCG/ACT Nasally Once a day 1 spray in each nostril 24h May, 30 day(s) Active Topamax 25 MG Orally Twice a day 2 tablets 12h Dec, 30 days Active Cyclobenzaprine HCl 5 MG Orally Three times a day 1 tablet as needed 8h Jan, 10 days Active Diclofenac Sodium 1 % Transdermal 2 times a day Apply 2 grams to lower back. 12h Jan, 14 days Active Diltiazem CD 240 MG Orally Once a day 1 capsule 24h Jan, 30 day (s) Active Imitrex 25 MG Orally Twice a day prn 1 tablet as needed Jan, Active Atenolol 100 mg Orally Once a day 1 tablet 24h 30 days Active RESULTS No Results PROCEDURES No Known procedures INSTRUCTIONS MEDICATIONS ADMINISTERED No Known Medications MEDICAL (GENERAL) HISTORY Type Description Date Medical History HTN Medical History RA Medical History Depression Medical History Barretts esophagus Medical History SVT/Afib Medical History hx of conversion disorder seizure activity-hx of neurology in [place]. Medical History demyelinating disease Surgical History Right knee scope for meniscus tear Surgical History Appendectomy Surgical History Colonoscopy- reports of IBS Surgical History EGD- Barretts esophagus Surgical History D& C x 2 Hospitalization History Surgeries only Hospitalization History inpatient psychiatric treatment 2005 x 2 for OD and 2011 x 2 for OD in [place]
--- OUTSIDE RECORDS SUMMARY | 2018-02-27 17:15 | XMS REPORT ---
Author Author KATHY GAONA Organization [facility] [place] Address [address] [place] [address] Care Team Providers Care Machine Skiver Name Role Phone SHILO GAONATA Unavailable PROBLEMS Type Condition ICD9-CM Code [id number] Code Onset Dates Condition Status SNOMED Code Problem Severe episode of recurrent major depressive disorder, without psychotic features F33.2 Active 47565985 Problem Neuropathy G62.9 Active 601786542 Problem Night terrors, adult F51.4 Active 618843029 Problem Menorrhagia with regular cycle N92.0 Active 195705097 Problem Intractable migraine without aura and without status migrainosus G43.019 Active 441558254 Problem Cannabis use disorder, mild, abuse F12.10 Active 13021684 Problem History of PCOS Z87.42 Active 196665916 Problem Opioid use disorder, severe, in sustained remission F11.21 Active 56753564 Problem Methamphetamine use disorder, mild, 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 Active 270873120 Problem Bipolar disorder, current episode mixed, severe, without psychotic features F31.63 Active 248638036 Problem PTSD (post-traumatic stress disorder) F43.10 Active 38751428 Problem Pain in right hip M25.551 Active 76822584 Problem Pain in left elbow M25.522 Active 61206221 Problem Seizure R56.9 Active 36431840 Problem Pain in left hip M25.552 Active 64072684 Problem Muscle spasm M62.838 Active 15063364 Problem Obesity (BMI 30-39.9) E66.9 Active 076847483 Problem Pain in right elbow M25.521 Active 852411284 Problem Essential hypertension I10 Active 42436048 Problem Rash and nonspecific skin eruption R21 Active 585087279 Problem Anxiety F41.9 Active 15727670 ALLERGIES No Information ENCOUNTERS Encounter Location Date Diagnosis [facility] [place] [address] [facility] [id number] [address] Mar, [facility] [place] [address] [address] Mar, [facility] [place] [id number] [place], [place] [id number] Mar, [facility] [place] [id number] [place] [address]- [address] Feb, [facility] [place] [id number] [place] [address]09- [address] Feb, [facility] [place] [id number] [place] [address] 0[address]- 9463 Feb, [facility] [place] [id number] [place] [address] 0[address]21- [address] Feb, [facility] [place] [id number] [place] [address] 02321- 9406 Feb, Bipolar disorder, current episode mixed, severe, without psychotic features F31.63 and Increased frequency of urination R35.0 [facility] [place] [address] [place] [address]31- 7[address] Feb, Bipolar disorder, current episode mixed, severe, without psychotic features F31.63 ; PTSD (post-traumatic stress disorder) F43.10 ; Cannabis use disorder, mild, abuse F12.10 ; Opioid use disorder, severe, in sustained remission F11.21 ; Methamphetamine use disorder, mild, 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 and Increased frequency of urination R35.0 [facility] [place] [address] [place] [address]46- 23[address] Jan, Lower back pain M54.5 [facility] [place] [id number] [place] [address] 99816- 9269 Jan, Essential hypertension I10 [facility] [place] [id number] [place] [address]57- 2029 Jan, Intractable migraine without aura and without status migrainosus G43.019 and Essential hypertension I10 [facility] [place] [id number] [place] [address] 31618- 8[address] Dec, Menorrhagia with regular cycle N92.0 [place] [address] [address] Jun, [place] [id number] [place] [address]- [address]28 Jun, Muscle spasm M62.838 ; Acute left-sided low back pain without sciatica M54.5 and Bipolar disorder, current episode mixed, severe, without psychotic features F31.63 [place] [id number] [place] [address] 00993- 0379 Jun, [place] [id number] [place] [address] 36847- 2[address] May, Essential hypertension I10 ; Neuropathy G62.9 ; Acute non- recurrent maxillary sinusitis J01.00 ; Intractable migraine without aura and without status migrainosus G43.019 and Night terrors, adult F51.4 [place] [id number] [place] [address] 60[address]- [address] Apr, [place] [address] [address] 07 Apr, 2017 Bipolar disorder, current episode mixed, severe, without psychotic features F31.63 ; PTSD (post-traumatic stress disorder) F43.10 ; Cannabis use disorder, mild, abuse F12.10 ; Methamphetamine use disorder, mild, 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 and Opioid use disorder, severe, in sustained remission F11.21 [place] [id number] [place] [address]48- 27[address] 06 Apr, 2017 Severe episode of recurrent major depressive disorder, without psychotic features F33.2 ; Anxiety F41.9 and PTSD (post-traumatic stress disorder) F43.10 [place] [id number] [place] [address]11- [address] 08 Feb, 2017 Muscle spasm M62.838 [place] [address] [address]- [address] Feb, Intractable migraine without aura and without status migrainosus G43.019 [facility] [place] [address] [address]- [address] Jan, Rheumatoid factor positive with cyclic citrullinated peptide (CCP) antibody negative R76.8 ; Muscle spasm M62.838 ; Folliculitis L73.9 ; Essential hypertension I10 and Obesity (BMI 30-39.9) E66.9 [facility] [place] [id number] [place] [address] 01431- 8[address] Jan, Intractable migraine without aura and without status migrainosus G43.019 ; Dysuria R30.0 ; Essential hypertension I10 ; Anxiety F41.9 ; Vaginal discharge N89.8 ; Seizure R56.9 and Muscle spasm M62.838 [facility] [id number] [place] [phone] Dec, Lower back pain M54.5 [facility] [place] [id number] [place] [address] 73775- [address]58 Dec, Intractable migraine without aura and without [...] SOCIAL HISTORY Never Assessed REASON FOR VISIT med update PLAN OF CARE VITAL SIGNS MEDICATIONS Medication Instructions Dosage Frequency Start Date End Date Duration Status Fish Oil 1000 MG Orally Once a day 1 capsule 24h Feb, 30 day(s ) Active RESULTS No Results PROCEDURES No Known procedures INSTRUCTIONS MEDICATIONS ADMINISTERED No Known Medications MEDICAL (GENERAL) HISTORY Type Description Date Medical History HTN Medical History RA Medical History Depression Medical History Barretts esophagus Medical History SVT/Afib Medical History hx of conversion disorder seizure activity-hx of neurology in [place]. Medical History demyelinating disease Surgical History Right knee scope for meniscus tear Surgical History Appendectomy Surgical History Colonoscopy- reports of IBS Surgical History EGD- Barretts esophagus Surgical History D& C x 2 Hospitalization History Surgeries only Hospitalization History inpatient psychiatric treatment 2006 x 2 for OD and 2012 x 2 for OD in [place]
--- OUTSIDE RECORDS SUMMARY | 2018-02-27 17:15 | XMS REPORT ---
Author Author JIMENEZ KATHY Organization [facility] Address [address] [place] [address] Care Team Providers Care Joiner Apprentice Name Role Phone KATHY GAONA Unavailable PROBLEMS Type Condition ICD9-CM Code [id number] Code Onset Dates Condition Status SNOMED Code Problem Severe episode of recurrent major depressive disorder, without psychotic features F33.2 Active 04617787 Problem Neuropathy G62.9 Active 533303152 Problem Night terrors, adult F51.4 Active 179160836 Problem Menorrhagia with regular cycle N92.0 Active 221916761 Problem Intractable migraine without aura and without status migrainosus G43.019 Active 121028935 Problem Cannabis use disorder, mild, abuse F12.10 Active 03004832 Problem History of PCOS Z87.42 Active 432134878 Problem Opioid use disorder, severe, in sustained remission F11.21 Active 74395987 Problem Methamphetamine use disorder, mild, 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 Active 435470613 Problem Bipolar disorder, current episode mixed, severe, without psychotic features F31.63 Active 576625081 Problem PTSD (post-traumatic stress disorder) F43.10 Active 42754553 Problem Pain in right hip M25.551 Active 69232870 Problem Pain in left elbow M25.522 Active 80325352 Problem Seizure R56.9 Active 02679762 Problem Pain in left hip M25.552 Active 99548813 Problem Muscle spasm M62.838 Active 09070119 Problem Obesity (BMI 30-39.9) E66.9 Active 305364951 Problem Pain in right elbow M25.521 Active 187107227 Problem Essential hypertension I10 Active 32331456 Problem Rash and nonspecific skin eruption R21 Active 506807108 Problem Anxiety F41.9 Active 20089231 ALLERGIES Substance Reaction Event Type Date Status Penicillin V Potassium hives Drug Allergy Jan, Active Morphine Sulfate rash Drug Allergy Jan, Active ENCOUNTERS Encounter Location Date Diagnosis [facility] [id number] [place] [address] Jan, Essential hypertension I10 [place] [address] [address] Jan, Intractable migraine without aura and without status migrainosus G43.019 and Essential hypertension I10 [place] [address] [address]- [address] Dec, Menorrhagia with regular cycle N92.0 [place] [id number] [place] [address]- 5040 Jun, [address] [address] Jun, Muscle spasm M62.838 ; Acute left-sided low back pain without sciatica M54.5 and Bipolar disorder, current episode mixed, severe, without psychotic features F31.63 [place] [address] [address]- [address] Jun, [place] [id number] [place] [address]- 9[address] May, Essential hypertension I10 ; Neuropathy G62.9 ; Acute non- recurrent maxillary sinusitis J01.00 ; Intractable migraine without aura and without status migrainosus G43.019 and Night terrors, adult F51.4 [place] [id number] [place] [address] 8[address]- 2696 Apr, [place] [id number] [place] [address] 51352- 3246 07 Apr, 2017 Bipolar disorder, current episode mixed, severe, without psychotic features F31.63 ; PTSD (post-traumatic stress disorder) F43.10 ; Cannabis use disorder, mild, abuse F12.10 ; Methamphetamine use disorder, mild, 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 and Opioid use disorder, severe, in sustained remission F11.21 [place] [id number] [place] [address] 39[address]- 9893 Apr, Severe episode of recurrent major depressive disorder, without psychotic features F33.2 ; Anxiety F41.9 and PTSD (post-traumatic stress disorder) F43.10 [place] [address] [address]- [address] Feb, Muscle spasm M62.838 [facility] [address] [address]- [address] Feb, Intractable migraine without aura and without status migrainosus G43.019 [place] [address] [address]- [address] Jan, Rheumatoid factor positive with cyclic citrullinated peptide (CCP) antibody negative R76.8 ; Muscle spasm M62.838 ; Folliculitis L73.9 ; Essential hypertension I10 and Obesity (BMI 30-39.9) E66.9 [place] [address] [address]- [address] Jan, Intractable migraine without aura and without status migrainosus G43.019 ; Dysuria R30.0 ; Essential hypertension I10 ; Anxiety F41.9 ; Vaginal discharge N89.8 ; Seizure R56.9 and Muscle spasm M62.838 [facility] [address] [address] Dec, Lower back pain M54.5 [place] [address] [address]- [address]26 Dec, Intractable migraine without aura and without status migrainosus G43.019 ; Seizure R56.9 ; Muscle spasm M62.838 ; Pain in right elbow M25.521 ; Pain in left elbow M25.522 ; Pain in right hip M25.551 ; Pain in left hip M25.552 ; Rash and nonspecific skin eruption R21 and History of PCOS Z87.42 IMMUNIZATIONS Vaccine Route Administration Date Status PHENERGAN (IM) 25 MG (25 MG/ML) IM Intramuscular Jan 09, 2018 Administered TORADOL (IM) 60 MG/2ML (UP TO 15 MG) IM Intramuscular Jan 09, 2018 Administered SOCIAL HISTORY Never Assessed REASON FOR VISIT Migraine x1 week Ken Meyer MA, Patient would also like to discuss a mole on her breast that she has had for over a year, it is growing and is changing colors now. PLAN OF CARE Activity Details Follow Up 4 Weeks Reason:needs IPT VITAL SIGNS Height 5'4" in 2018-01-09 Weight 220.6 lbs 2018-01-09 Temperature 97.4 degrees Fahrenheit 2018-01-09 Heart Rate 89 bpm 2018-01-09 Respiratory Rate 20 2018-01-09 BMI 37.86 kg/m2 2018-01-09 Blood pressure systolic 130 mmHg 2018-01-09 Blood pressure diastolic 72 mmHg 2018-01-09 MEDICATIONS Medication Instructions Dosage Frequency Start Date End Date Duration Status Imitrex 25 MG Orally Twice a day prn 1 tablet as needed Jan, Active Topamax 25 MG Orally Twice a day 2 tablets 12h Dec, 30 days Active Ibuprofen 800 MG Orally Three times a day 1 tablet with food or milk as needed 8h Active Diltiazem HCl ER 120 MG Orally Twice a day 1 capsule 12h 30 days Active Atenolol 100 mg Orally Once a day 1 tablet 24h 30 days Active Baclofen 10 MG/20ML as directed Active Flonase 50 MCG/ACT Nasally Once a day 1 spray in each nostril 24h May, 30 day(s) Active RESULTS No Results PROCEDURES Procedure Date Ordered Result Body Site TORADOL (IM) 60 MG/2ML (UP TO 15 MG) Jan 09, 2018 PHENERGAN (IM) 25 MG (25 MG/ML) Jan 09, 2018 THER/PROPH/DIAG INJ, SC/IM Jan 09, 2018 INSTRUCTIONS MEDICATIONS ADMINISTERED No Known Medications MEDICAL (GENERAL) HISTORY Type Description Date Medical History HTN Medical History RA Medical History Depression Medical History Barretts esophagus Medical History SVT/Afib Medical History hx of conversion disorder seizure activity-hx of neurology in [place]. Medical History demyelinating disease Surgical History Right knee scope for meniscus tear Surgical History Appendectomy Surgical History Colonoscopy- reports of IBS Surgical History EGD- Barretts esophagus Surgical History D& C x 2 Hospitalization History Surgeries only Hospitalization History inpatient psychiatric treatment 2005 x 2 for OD and 2012 x 2 for OD in [place]
--- OUTSIDE RECORDS SUMMARY | 2018-02-27 17:15 | XMS REPORT ---
Author Author MELLISA LEWIS Organization [facility] Address [address] [place] [address] Care Team Providers Care Records Specialist Name Role Phone MELLISA LEWIS Unavailable PROBLEMS Type Condition ICD9-CM Code LSF12-NP Code Onset Dates Condition Status SNOMED Code Problem Severe episode of recurrent major depressive disorder, without psychotic features F33.2 Active 18556849 Problem Neuropathy G62.9 Active 021267301 Problem Night terrors, adult F51.4 Active 422485035 Problem Menorrhagia with regular cycle N92.0 Active 114532529 Problem Intractable migraine without aura and without status migrainosus G43.019 Active 582172737 Problem Cannabis use disorder, mild, abuse F12.10 Active 24040629 Problem History of PCOS Z87.42 Active 629509073 Problem Opioid use disorder, severe, in sustained remission F11.21 Active 06092341 Problem Methamphetamine use disorder, mild, 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 Active 450048657 Problem Bipolar disorder, current episode mixed, severe, without psychotic features F31.63 Active 771677445 Problem PTSD (post-traumatic stress disorder) F43.10 Active 39846548 Problem Pain in right hip M25.551 Active 86194871 Problem Pain in left elbow M25.522 Active 69799952 Problem Seizure R56.9 Active 99271775 Problem Pain in left hip M25.552 Active 54514611 Problem Muscle spasm M62.838 Active 86311391 Problem Obesity (BMI 30-39.9) E66.9 Active 559619190 Problem Pain in right elbow M25.521 Active 270293537 Problem Essential hypertension I10 Active 45705300 Problem Rash and nonspecific skin eruption R21 Active 380511662 Problem Anxiety F41.9 Active 13708981 ALLERGIES No Information ENCOUNTERS Encounter Location Date Diagnosis [facility] [address] [facility] [id number] [address] Mar, [place] [address] [place] [id number] [place] [address] Mar, [place] [address] [place] [id number] [place] [address] Mar, [place] [address] [place] [id number] [place] [address] Feb, Bipolar disorder, current episode mixed, severe, without psychotic features F31.63 and Increased frequency of urination R35.0 [place] [address] [place] [id number] [place] [address] 10 Feb, 2018 Bipolar disorder, current episode mixed, severe, without psychotic features F31.63 ; PTSD (post-traumatic stress disorder) F43.10 ; Cannabis use disorder, mild, abuse F12.10 ; Opioid use disorder, severe, in sustained remission F11.21 ; Methamphetamine use disorder, mild, 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 and Increased frequency of urination R35.0 [place] [address] [place] [id number] [place] [address] Jan, Lower back pain M54.5 [place] [address] [place] [id number] [place] [address] Jan, Essential hypertension I10 [place] [address] [place] [id number] [place] [address]- [address] Jan, Intractable migraine without aura and without status migrainosus G43.019 and Essential hypertension I10 [place] [address] [place] [id number] [place] [address] Dec, Menorrhagia with regular cycle N92.0 [place] [address] [address] Jun, [place] [address] [place] [id number] [place] [address] 39[address]- 6647 Jun, Muscle spasm M62.838 ; Acute left-sided low back pain without sciatica M54.5 and Bipolar disorder, current episode mixed, severe, without psychotic features F31.63 [place] [address] [place] [id number] [place] [address] 9[address]61- 28[address] Jun, [place] [id number] [place] [address] 9[address] May, Essential hypertension I10 ; Neuropathy G62.9 ; Acute non- recurrent maxillary sinusitis J01.00 ; Intractable migraine without aura and without status migrainosus G43.019 and Night terrors, adult F51.4 [place] [address] [place] [id number] [place] [address] 23748- 34[address] 28 Apr, [address] [address] 07 Apr, 2017 Bipolar disorder, current episode mixed, severe, without psychotic features F31.63 ; PTSD (post-traumatic stress disorder) F43.10 ; Cannabis use disorder, mild, abuse F12.10 ; Methamphetamine use disorder, mild, 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 and Opioid use disorder, severe, in sustained remission F11.21 [place] [address] [place] [id number] [place] [address] 79372- [address] 06 Apr, 2017 Severe episode of recurrent major depressive disorder, without psychotic features F33.2 ; Anxiety F41.9 and PTSD (post-traumatic stress disorder) F43.10 [place] [id number] [place] [address] 89117- 37[address] Feb, Muscle spasm M62.838 [place] [id number] [place] [address] 79420- 9328 Feb, Intractable migraine without aura and without status migrainosus G43.[address] [address] Jan, Rheumatoid factor positive with cyclic citrullinated peptide (CCP) antibody negative R76.8 ; Muscle spasm M62.838 ; Folliculitis L73.9 ; Essential hypertension I10 and Obesity (BMI 30-39.9) E66.9 [address] [address] Jan, Intractable migraine without aura and without status migrainosus G43.019 ; Dysuria R30.0 ; Essential hypertension I10 ; Anxiety F41.9 ; Vaginal discharge N89.8 ; Seizure R56.9 and Muscle spasm M62.838 [facility] [address] [facility] [id number] [address] Dec, Lower back pain M54.5 [facility] [address] [facility] [id number] [address] Dec, Intractable migraine without aura and without [...] SOCIAL HISTORY Never Assessed REASON FOR VISIT Lab PLAN OF CARE Activity Details Pending Test LIPID PANEL Pending Test CMP Pending Test CBC Pending Test TSH Pending Test A1C VITAL SIGNS MEDICATIONS Unknown Medications RESULTS No Results PROCEDURES Procedure Date Ordered Result Body Site COMPLETE CBC W/AUTO DIFF WBC Feb 13, 2018 COMPREHEN METABOLIC PANEL Feb 13, 2018 Hemoglobin Test Send Out 0 dollar Feb 13, 2018 ASSAY THYROID STIM HORMONE Feb 13, 2018 VENIPUNCT, ROUTINE* Feb 13, 2018 LIPID PANEL Feb 13, 2018 INSTRUCTIONS MEDICATIONS ADMINISTERED No Known Medications MEDICAL (GENERAL) HISTORY Type Description Date Medical History HTN Medical History RA Medical History Depression Medical History Barretts esophagus Medical History SVT/Afib Medical History hx of conversion disorder seizure activity-hx of neurology in [place]. Medical History demyelinating disease Surgical History Right knee scope for meniscus tear Surgical History Appendectomy Surgical History Colonoscopy- reports of IBS Surgical History EGD- Barretts esophagus Surgical History D& C x 2 Hospitalization History Surgeries only Hospitalization History inpatient psychiatric treatment 2005 x 2 for OD and 2011 x 2 for OD in [place]
--- OUTSIDE RECORDS SUMMARY | 2018-02-27 17:15 | XMS REPORT ---
Author Author WANDA MELLISA Organization [facility] Address [address] [place] [address] Care Team Providers Care Dependency Counselor Name Role Phone JUNIORJOVITA VALDIVIAA Unavailable PROBLEMS Type Condition ICD9-CM Code NLB20-IR Code Onset Dates Condition Status SNOMED Code Problem Severe episode of recurrent major depressive disorder, without psychotic features F33.2 Active 77067327 Problem Neuropathy G62.9 Active 813537992 Problem Night terrors, adult F51.4 Active 654767548 Problem Menorrhagia with regular cycle N92.0 Active 734823221 Problem Intractable migraine without aura and without status migrainosus G43.019 Active 088837613 Problem Cannabis use disorder, mild, abuse F12.10 Active 68775592 Problem History of PCOS Z87.42 Active 191525051 Problem Opioid use disorder, severe, in sustained remission F11.21 Active 20792583 Problem Methamphetamine use disorder, mild, 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 Active 083016420 Problem Bipolar disorder, current episode mixed, severe, without psychotic features F31.63 Active 964947183 Problem PTSD (post-traumatic stress disorder) F43.10 Active 34574598 Problem Pain in right hip M25.551 Active 98614768 Problem Pain in left elbow M25.522 Active 52924748 Problem Seizure R56.9 Active 85155225 Problem Pain in left hip M25.552 Active 23626984 Problem Muscle spasm M62.838 Active 23733022 Problem Obesity (BMI 30-39.9) E66.9 Active 765937713 Problem Pain in right elbow M25.521 Active 641893752 Problem Essential hypertension I10 Active 70351795 Problem Rash and nonspecific skin eruption R21 Active 412442530 Problem Anxiety F41.9 Active 12165111 ALLERGIES No Information ENCOUNTERS Encounter Location Date Diagnosis [facility] [address] [facility] [id number], [place] [address] Mar, [facility] [address] [place] [id number] [place] [address] Mar, [facility] [address] [address] Feb, Bipolar disorder, current episode mixed, severe, without psychotic features F31.63 ; PTSD (post-traumatic stress disorder) F43.10 ; Cannabis use disorder, mild, abuse F12.10 ; Opioid use disorder, severe, in sustained remission F11.21 ; Methamphetamine use disorder, mild, 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 and Increased frequency of urination R35.0 [facility] [address] [address] Jan, Lower back pain M54.5 [facility] [address] [address] Jan, Essential hypertension I10 [place] [address] [address]- [address] Jan, Intractable migraine without aura and without status migrainosus G43.019 and Essential hypertension I10 [facility] [address] [address] Dec, Menorrhagia with regular cycle N92.0 [facility] [address] [address] Jun, [facility] [address] [address] Jun, Muscle spasm M62.838 ; Acute left-sided low back pain without sciatica M54.5 and Bipolar disorder, current episode mixed, severe, without psychotic features F31.63 [facility] [address] [address] Jun, [facility] [address] [address] May, Essential hypertension I10 ; Neuropathy G62.9 ; Acute non- recurrent maxillary sinusitis J01.00 ; Intractable migraine without aura and without status migrainosus G43.019 and Night terrors, adult F51.4 [place] [address] [place] [address] Apr, [place] [address] [address] 07 Apr, 2017 Bipolar disorder, current episode mixed, severe, without psychotic features F31.63 ; PTSD (post-traumatic stress disorder) F43.10 ; Cannabis use disorder, mild, abuse F12.10 ; Methamphetamine use disorder, mild, 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 and Opioid use disorder, severe, in sustained remission F11.21 [place] [address] [address] 06 Apr, 2017 Severe episode of recurrent major depressive disorder, without psychotic features F33.2 ; Anxiety F41.9 and PTSD (post-traumatic stress disorder) F43.10 [place] [address] [address]- [address] Feb, Muscle spasm M62.838 [place] [address] [address]- [address] Feb, Intractable migraine without aura and without status migrainosus G43.019 [place] [address] [address] Jan, Rheumatoid factor positive with cyclic citrullinated peptide (CCP) antibody negative R76.8 ; Muscle spasm M62.838 ; Folliculitis L73.9 ; Essential hypertension I10 and Obesity (BMI 30-39.9) E66.9 [place] [address] [address]- [address] Jan, Intractable migraine without aura and without status migrainosus G43.019 ; Dysuria R30.0 ; Essential hypertension I10 ; Anxiety F41.9 ; Vaginal discharge N89.8 ; Seizure R56.9 and Muscle spasm M62.838 [facility] [address] [place] [address] Dec, Lower back pain M54.5 [facility] [address] [facility] [id number], [place] [address] Dec, Intractable migraine without aura and without [...] SOCIAL HISTORY Never Assessed REASON FOR VISIT f/uRyan guillermo ma PLAN OF CARE Activity Details Follow Up 4 Weeks Reason: VITAL SIGNS Height 5'4" in 2018-02-10 Weight 220.1 lbs 2018-02-10 Heart Rate 112 bpm 2018-02-10 Respiratory Rate 20 2018-02-10 BMI 37.78 kg/m2 2018-02-10 Blood pressure systolic 134 mmHg 2018-02-10 Blood pressure diastolic 104 mmHg 2018-02-10 MEDICATIONS Medication Instructions Dosage Frequency Start Date End Date Duration Status Diltiazem CD 240 MG Orally Once a day 1 capsule 24h Jan, 30 day (s) Active Cyclobenzaprine HCl 5 MG Orally Three times a day 1 tablet as needed 8h Jan, 10 days Active Atenolol 100 mg Orally Once a day 1 tablet 24h 30 days Active Abilify 10 MG Orally Once a day 1 tablet 24h Feb, 30 day(s) Active Flonase 50 MCG/ACT Nasally Once a day 1 spray in each nostril 24h May, 30 day(s) Active Diclofenac Sodium 1 % Transdermal 2 times a day Apply 2 grams to lower back. 12h Jan, 14 days Active Topamax 25 MG Orally Twice a day 2 tablets 12h Dec, Active Ibuprofen 800 MG Orally Three times a day 1 tablet with food or milk as needed 8h Active Baclofen 10 MG/20ML as directed Active Imitrex 25 MG Orally Twice a day prn 1 tablet as needed Jan, Active Doxepin HCl 10 MG Orally Once a day 1 capsule at bedtime 24h Feb, 30 day(s) Active RESULTS No Results PROCEDURES No Known procedures INSTRUCTIONS MEDICATIONS ADMINISTERED No Known Medications MEDICAL (GENERAL) HISTORY Type Description Date Medical History HTN Medical History RA Medical History Depression Medical History Barretts esophagus Medical History SVT/Afib Medical History hx of conversion disorder seizure activity-hx of neurology in [place]. Medical History demyelinating disease Surgical History Right knee scope for meniscus tear Surgical History Appendectomy Surgical History Colonoscopy- reports of IBS Surgical History EGD- Barretts esophagus Surgical History D& C x 2 Hospitalization History Surgeries only Hospitalization History inpatient psychiatric treatment 2005 x 2 for OD and 2012 x 2 for OD in [place]
--- OUTSIDE RECORDS SUMMARY | 2018-02-27 17:16 | XMS REPORT ---
Author Author DANIELSPRISCILLA Hale Organization [facility] Address [address] [place] [address] Care Team Providers Care Machine Stacker Name Role Phone PRISCILLA DANIELS Unavailable PROBLEMS Type Condition ICD9-CM Code XPS76-NB Code Onset Dates Condition Status SNOMED Code Problem Anxiety F41.9 Active 49116819 Problem Night terrors, adult F51.4 Active 810043980 Problem Severe episode of recurrent major depressive disorder, without psychotic features F33.2 Active 65975943 Problem Bipolar disorder, current episode mixed, severe, without psychotic features F31.63 Active 682757706 Problem History of PCOS Z87.42 Active 597483417 Problem PTSD (post-traumatic stress disorder) F43.10 Active 18756313 Problem Methamphetamine use disorder, mild, 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 Active 642147707 Problem Neuropathy G62.9 Active 073716780 Problem Cannabis use disorder, mild, abuse F12.10 Active 39868762 Problem Opioid use disorder, severe, in sustained remission F11.21 Active 59408984 Problem Pain in right hip M25.551 Active 19590222 Problem Pain in left elbow M25.522 Active 40851302 Problem Seizure R56.9 Active 06335904 Problem Pain in left hip M25.552 Active 18078119 Problem Rash and nonspecific skin eruption R21 Active 928307259 Problem Muscle spasm M62.838 Active 03679601 Problem Pain in right elbow M25.521 Active 591410229 Problem Obesity (BMI 30-39.9) E66.9 Active 824103879 Problem Intractable migraine without aura and without status migrainosus G43.019 Active 802080187 Problem Essential hypertension I10 Active 60118144 ALLERGIES No Information ENCOUNTERS Encounter Location Date Diagnosis [facility] [address] [facility] [id number] [address] Jun, [facility] [address] [place] [id number] [place] [address] Jun, Muscle spasm M62.838 ; Acute left-sided low back pain without sciatica M54.5 and Bipolar disorder, current episode mixed, severe, without psychotic features F31.63 [place] [address] [place] [id number] [place] [address]- [address] Jun, [place] [address] [address] May, Essential hypertension I10 ; Neuropathy G62.9 ; Acute non- recurrent maxillary sinusitis J01.00 ; Intractable migraine without aura and without status migrainosus G43.019 and Night terrors, adult F51.4 [place] [address] [address] Apr, [address] [address] Apr, Bipolar disorder, current episode mixed, severe, without psychotic features F31.63 ; PTSD (post-traumatic stress disorder) F43.10 ; Cannabis use disorder, mild, abuse F12.10 ; Methamphetamine use disorder, mild, 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 and Opioid use disorder, severe, in sustained remission F11.21 [place] [address] [place] [id number] [place] [address] Apr, Severe episode of recurrent major depressive disorder, without psychotic features F33.2 ; Anxiety F41.9 and PTSD (post-traumatic stress disorder) F43.10 [place] [address] [place] [id number] [place] [address] Feb, Muscle spasm M62.[address] [address] Feb, Intractable migraine without aura and without status migrainosus G43.019 [place] [address] [place] [id number] [place] [address]- [address] Jan, Rheumatoid factor positive with cyclic citrullinated peptide (CCP) antibody negative R76.8 ; Muscle spasm M62.838 ; Folliculitis L73.9 ; Essential hypertension I10 and Obesity (BMI 30-39.9) E66.9 [facility] [address] [id number], [place] [address] Jan, Intractable migraine without aura and without status migrainosus G43.019 ; Dysuria R30.0 ; Essential hypertension I10 ; Anxiety F41.9 ; Vaginal discharge N89.8 ; Seizure R56.9 and Muscle spasm M62.838 [facility] [address] [facility] [id number], [place] [address] Dec, Lower back pain M54.5 [facility] [address] [id number], [place] [address] Dec, Intractable migraine without aura and without [...] SOCIAL HISTORY Never Assessed REASON FOR VISIT FYI PLAN OF CARE VITAL SIGNS MEDICATIONS Medication Instructions Dosage Frequency Start Date End Date Duration Status Baclofen 20 mg Orally Three times a day 1 tablet with food or milk 8h Active RESULTS No Results PROCEDURES No Known procedures INSTRUCTIONS MEDICATIONS ADMINISTERED No Known Medications MEDICAL (GENERAL) HISTORY Type Description Date Medical History HTN Medical History RA Medical History Depression Medical History Barretts esophagus Medical History SVT/Afib Medical History hx of conversion disorder seizure activity-hx of neurology in [place]. Medical History demyelinating disease Surgical History Right knee scope for meniscus tear Surgical History Appendectomy Surgical History Colonoscopy- reports of IBS Surgical History EGD- Barretts esophagus Surgical History D& C x 2 Hospitalization History Surgeries only Hospitalization History inpatient psychiatric treatment 2005 x 2 for OD and 2012 x 2 for OD in [place]
--- OUTSIDE RECORDS SUMMARY | 2018-02-27 17:16 | XMS REPORT ---
Author Author DANIELSPRISCILLA Hale Organization [facility] Address [address] [place] [address] Care Team Providers Care Traffic Observer Name Role Phone PRISCILLA DANIELS Unavailable PROBLEMS Type Condition ICD9-CM Code [id number] Code Onset Dates Condition Status SNOMED Code Problem Anxiety F41.9 Active 52992230 Problem Night terrors, adult F51.4 Active 236038432 Problem Severe episode of recurrent major depressive disorder, without psychotic features F33.2 Active 32460640 Problem Bipolar disorder, current episode mixed, severe, without psychotic features F31.63 Active 335297581 Problem History of PCOS Z87.42 Active 308352824 Problem PTSD (post-traumatic stress disorder) F43.10 Active 30422632 Problem Methamphetamine use disorder, mild, 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 Active 771824921 Problem Neuropathy G62.9 Active 558535928 Problem Cannabis use disorder, mild, abuse F12.10 Active 68453932 Problem Opioid use disorder, severe, in sustained remission F11.21 Active 99855131 Problem Pain in right hip M25.551 Active 48931966 Problem Pain in left elbow M25.522 Active 77512145 Problem Seizure R56.9 Active 84481267 Problem Pain in left hip M25.552 Active 80229792 Problem Rash and nonspecific skin eruption R21 Active 129329928 Problem Muscle spasm M62.838 Active 39663774 Problem Pain in right elbow M25.521 Active 133835401 Problem Obesity (BMI 30-39.9) E66.9 Active 503071507 Problem Intractable migraine without aura and without status migrainosus G43.019 Active 537875586 Problem Essential hypertension I10 Active 41870836 ALLERGIES No Information ENCOUNTERS Encounter Location Date Diagnosis [facility] [address] [facility] [address] [facility] [id number], [place] [address] Jun, [facility] [address] [address] [id number] [place] [address] Jun, Muscle spasm M62.838 ; Acute left-sided low back pain without sciatica M54.5 and Bipolar disorder, current episode mixed, severe, without psychotic features F31.63 [place] [address] [place] [id number] [place] [address] Jun, [place] [address] [address] May, Essential hypertension I10 ; Neuropathy G62.9 ; Acute non- recurrent maxillary sinusitis J01.00 ; Intractable migraine without aura and without status migrainosus G43.019 and Night terrors, adult F51.4 [place] [address] [address] Apr, [address] [address] Apr, Bipolar disorder, current episode mixed, severe, without psychotic features F31.63 ; PTSD (post-traumatic stress disorder) F43.10 ; Cannabis use disorder, mild, abuse F12.10 ; Methamphetamine use disorder, mild, 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 and Opioid use disorder, severe, in sustained remission F11.21 [place] [address] [place] [id number] [place] [address] Apr, Severe episode of recurrent major depressive disorder, without psychotic features F33.2 ; Anxiety F41.9 and PTSD (post-traumatic stress disorder) F43.10 [place] [address] [place] [id number] [place] [address] Feb, Muscle spasm M62.[address] [address] Feb, Intractable migraine without aura and without status migrainosus G43.019 [place] [address] [place] [address] [id number] [place] [address] Jan, Rheumatoid factor positive with cyclic citrullinated peptide (CCP) antibody negative R76.8 ; Muscle spasm M62.838 ; Folliculitis L73.9 ; Essential hypertension I10 and Obesity (BMI 30-39.9) E66.9 [facility] [address] [id number], [place] [address] Jan, Intractable migraine without aura and without status migrainosus G43.019 ; Dysuria R30.0 ; Essential hypertension I10 ; Anxiety F41.9 ; Vaginal discharge N89.8 ; Seizure R56.9 and Muscle spasm M62.838 [facility] [address] [facility] [id number], [place] [address] Dec, Lower back pain M54.5 [facility] [id number], [place] [address] Dec, Intractable migraine without aura and without [...] SOCIAL HISTORY Never Assessed REASON FOR VISIT Medication question PLAN OF CARE VITAL SIGNS MEDICATIONS Unknown Medications RESULTS No Results PROCEDURES No Known procedures INSTRUCTIONS MEDICATIONS ADMINISTERED No Known Medications MEDICAL (GENERAL) HISTORY Type Description Date Medical History HTN Medical History RA Medical History Depression Medical History Barretts esophagus Medical History SVT/Afib Medical History hx of conversion disorder seizure activity-hx of neurology in [place]. Medical History demyelinating disease Surgical History Right knee scope for meniscus tear Surgical History Appendectomy Surgical History Colonoscopy- reports of IBS Surgical History EGD- Barretts esophagus Surgical History D& C x 2 Hospitalization History Surgeries only Hospitalization History inpatient psychiatric treatment 2005 x 2 for OD and 2011 x 2 for OD in [place]
--- OUTSIDE RECORDS SUMMARY | 2018-02-27 17:16 | XMS REPORT ---
Author Author DANIELSPRISCILLA Hale Organization [facility] Address [address] [place] [address] Care Team Providers Care Agronomy Research Manager Name Role Phone PRISCILLA DANIELS Unavailable PROBLEMS Type Condition ICD9-CM Code BWT36-EC Code Onset Dates Condition Status SNOMED Code Problem Anxiety F41.9 Active 84834022 Problem Night terrors, adult F51.4 Active 873493713 Problem Severe episode of recurrent major depressive disorder, without psychotic features F33.2 Active 80570382 Problem Bipolar disorder, current episode mixed, severe, without psychotic features F31.63 Active 994041316 Problem History of PCOS Z87.42 Active 611158968 Problem PTSD (post-traumatic stress disorder) F43.10 Active 88692240 Problem Methamphetamine use disorder, mild, 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 Active 205891342 Problem Neuropathy G62.9 Active 300828789 Problem Cannabis use disorder, mild, abuse F12.10 Active 77232720 Problem Opioid use disorder, severe, in sustained remission F11.21 Active 00642766 Problem Pain in right hip M25.551 Active 30895750 Problem Pain in left elbow M25.522 Active 65609535 Problem Seizure R56.9 Active 06632830 Problem Pain in left hip M25.552 Active 59426108 Problem Rash and nonspecific skin eruption R21 Active 020351005 Problem Muscle spasm M62.838 Active 04927987 Problem Pain in right elbow M25.521 Active 188926960 Problem Obesity (BMI 30-39.9) E66.9 Active 362305869 Problem Intractable migraine without aura and without status migrainosus G43.019 Active 715565473 Problem Essential hypertension I10 Active 33026657 ALLERGIES Substance Reaction Event Type Date Status Penicillin V Potassium hives Drug Allergy Jan, Active Morphine Sulfate Unknown Drug Allergy Jan, Active ENCOUNTERS Encounter Location Date Diagnosis [facility] [address] [facility] [id number] [address] Jun, [place] [address] [place] [address] Jun, Muscle spasm M62.838 ; Acute left-sided low back pain without sciatica M54.5 and Bipolar disorder, current episode mixed, severe, without psychotic features F31.63 [place] [address] [place] [id number] [place] [address] Jun, [place] [address] [place] [id number] [place] [address] May, Essential hypertension I10 ; Neuropathy G62.9 ; Acute non- recurrent maxillary sinusitis J01.00 ; Intractable migraine without aura and without status migrainosus G43.019 and Night terrors, adult F51.4 [place] [address] [place] [id number] [place] [address] Apr, [address] [address] Apr, Bipolar disorder, current episode mixed, severe, without psychotic features F31.63 ; PTSD (post-traumatic stress disorder) F43.10 ; Cannabis use disorder, mild, abuse F12.10 ; Methamphetamine use disorder, mild, 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 and Opioid use disorder, severe, in sustained remission F11.21 [place] [address] [place] [id number] [place] [address] Apr, Severe episode of recurrent major depressive disorder, without psychotic features F33.2 ; Anxiety F41.9 and PTSD (post-traumatic stress disorder) F43.10 [place] [address] [place] [id number] [place] [address] Feb, Muscle spasm M62.838 [place] [address] [place] [id number] [place] [address] Feb, Intractable migraine without aura and without status migrainosus G43.019 [place] [address] [place] [id number] Jan, Rheumatoid factor positive with cyclic citrullinated peptide (CCP) antibody negative R76.8 ; Muscle spasm M62.838 ; Folliculitis L73.9 ; Essential hypertension I10 and Obesity (BMI 30-39.9) E66.9 [facility] [address] [place] [address] [id number], [place] [address] Jan, Intractable migraine without aura and without status migrainosus G43.019 ; Dysuria R30.0 ; Essential hypertension I10 ; Anxiety F41.9 ; Vaginal discharge N89.8 ; Seizure R56.9 and Muscle spasm M62.838 [facility] [address] [place] [address] Dec, Lower back pain M54.5 [facility] [address] [place] [address] [id number], [place] [address] Dec, Intractable migraine without aura and without [...] SOCIAL HISTORY Never Assessed REASON FOR VISIT Establish Care---RAJENRDA Villavicencio PLAN OF CARE Activity Details Follow Up 3 Months Reason:[facility] SIGNS Height 5'4" in 2017-01-31 Weight 219.0 lbs 2017-01-31 Temperature 98.5 degrees Fahrenheit 2017-01-31 Heart Rate 90 bpm 2017-01-31 Respiratory Rate 18 2017-01-31 BMI 37.59 kg/m2 2017-01-31 Blood pressure systolic 137 mmHg 2017-01-31 Blood pressure diastolic 83 mmHg 2017-01-31 MEDICATIONS Medication Instructions Dosage Frequency Start Date End Date Duration Status Amitriptyline HCl 50 mg Orally Once a day 1 tablet daily at bedtime 24h Jan, 30 day(s) Active Baclofen 5mg Orally Three times a day 1 tablet with food or milk 8h Active Baclofen 10 mg Orally Three times a day 1 tablet with food or milk 8h Apr, 30 days Active Diltiazem HCl ER 120 MG Orally Twice a day 1 capsule 12h 30 days Active ibuprofen 1 tab Active Atenolol 100 mg Orally Once a day 1 tablet 24h 30 days Active Topamax 25 MG Orally Twice a day 1 tablet each evening for one week then one tablet twice daily 12h Dec, 30 day(s) Active Benzoyl Peroxide-Erythromycin 5-3 % Externally Twice a day apply thin layer to affected areas on shins 12h Jan, Feb, 10 days Active RESULTS Name Result Date Reference Range ESR/SED RATE 2017-01-31 SED RATE BY MODIFIED WESTERGREN 11 < OR=20 PROCEDURES Procedure Date Ordered Result Body Site RBC SED RATE, AUTOMATED Jan 31, 2017 VENIPUNCT, ROUTINE* Jan 31, 2017 INSTRUCTIONS MEDICATIONS ADMINISTERED No Known Medications MEDICAL (GENERAL) HISTORY Type Description Date Medical History HTN Medical History RA Medical History Depression Medical History Barretts esophagus Medical History SVT/Afib Medical History hx of conversion disorder seizure activity-hx of neurology in [place]. Medical History demyelinating disease Surgical History Right knee scope for meniscus tear Surgical History Appendectomy Surgical History Colonoscopy- reports of IBS Surgical History EGD- Barretts esophagus Surgical History D& C x 2 Hospitalization History Surgeries only Hospitalization History inpatient psychiatric treatment 2005 x 2 for OD and 2011 x 2 for OD in [place]
--- OUTSIDE RECORDS SUMMARY | 2018-02-27 17:16 | XMS REPORT ---
Author Author KATHY GAONA Organization [facility] Address [address] [place] [address] Care Team Providers Care Shot Blast Equipment Operator Name Role Phone SHILO GAONATA Unavailable PROBLEMS Type Condition ICD9-CM Code XEF31-SM Code Onset Dates Condition Status SNOMED Code Problem Severe episode of recurrent major depressive disorder, without psychotic features F33.2 Active 62421939 Problem Neuropathy G62.9 Active 954036332 Problem Night terrors, adult F51.4 Active 072785928 Problem Menorrhagia with regular cycle N92.0 Active 928516124 Problem Intractable migraine without aura and without status migrainosus G43.019 Active 309572498 Problem Cannabis use disorder, mild, abuse F12.10 Active 60727928 Problem History of PCOS Z87.42 Active 953746244 Problem Opioid use disorder, severe, in sustained remission F11.21 Active 30890888 Problem Methamphetamine use disorder, mild, 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 Active 236998248 Problem Bipolar disorder, current episode mixed, severe, without psychotic features F31.63 Active 829989872 Problem PTSD (post-traumatic stress disorder) F43.10 Active 71143439 Problem Pain in right hip M25.551 Active 60841085 Problem Pain in left elbow M25.522 Active 87213136 Problem Seizure R56.9 Active 76582148 Problem Pain in left hip M25.552 Active 49906284 Problem Muscle spasm M62.838 Active 10785705 Problem Obesity (BMI 30-39.9) E66.9 Active 702625073 Problem Pain in right elbow M25.521 Active 165098434 Problem Essential hypertension I10 Active 18126355 Problem Rash and nonspecific skin eruption R21 Active 240575829 Problem Anxiety F41.9 Active 91472745 ALLERGIES No Information ENCOUNTERS Encounter Location Date Diagnosis [facility] [address] [facility] [id number], [place] [address] Jan, Essential hypertension I10 [place] [address] [place] [id number] [place] [address] Jan, Intractable migraine without aura and without status migrainosus G43.019 and Essential hypertension I10 [place] [address] [place] [id number] [place] [address] Dec, Menorrhagia with regular cycle N92.0 [place] [address] [address] Jun, [place] [address] [place] [id number] [place] [address] Jun, Muscle spasm M62.838 ; Acute left-sided low back pain without sciatica M54.5 and Bipolar disorder, current episode mixed, severe, without psychotic features F31.63 [place] [address] [place] [id number] [place] [address]- [address] Jun, [place] [address] [place] [id number] [place] [address]- [address] May, Essential hypertension I10 ; Neuropathy G62.9 ; Acute non- recurrent maxillary sinusitis J01.00 ; Intractable migraine without aura and without status migrainosus G43.019 and Night terrors, adult F51.4 [place] [address] [place] [id number] [place] [address]- [address] Apr, [place] [address] [place] [id number] [place] [address]- [address] Apr, Bipolar disorder, current episode mixed, severe, without psychotic features F31.63 ; PTSD (post-traumatic stress disorder) F43.10 ; Cannabis use disorder, mild, abuse F12.10 ; Methamphetamine use disorder, mild, 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 and Opioid use disorder, severe, in sustained remission F11.21 [place] [address] [place] [id number] [place] [address]- [address] 06 Apr, 2017 Severe episode of recurrent major depressive disorder, without psychotic features F33.2 ; Anxiety F41.9 and PTSD (post-traumatic stress disorder) F43.10 [place] [address] [place] [address] [id number] [place] [address]- 5[address] Feb, Muscle spasm M62.838 [facility] [address] [place] [id number] [place] [address] Feb, Intractable migraine without aura and without status migrainosus G43.019 [place] [address] [address] Jan, Rheumatoid factor positive with cyclic citrullinated peptide (CCP) antibody negative R76.8 ; Muscle spasm M62.838 ; Folliculitis L73.9 ; Essential hypertension I10 and Obesity (BMI 30-39.9) E66.9 [place] [address] [address] Jan, Intractable migraine without aura and without status migrainosus G43.019 ; Dysuria R30.0 ; Essential hypertension I10 ; Anxiety F41.9 ; Vaginal discharge N89.8 ; Seizure R56.9 and Muscle spasm M62.838 [facility] [address] [address] Dec, Lower back pain M54.5 [place] [address] [address] Dec, Intractable migraine without aura and without [...] SOCIAL HISTORY Never Assessed REASON FOR VISIT Cardiezem PLAN OF CARE VITAL SIGNS MEDICATIONS Medication Instructions Dosage Frequency Start Date End Date Duration Status Diltiazem CD 240 MG Orally Once a day 1 capsule 24h Jan, 30 day (s) Active RESULTS No Results PROCEDURES No Known procedures INSTRUCTIONS MEDICATIONS ADMINISTERED No Known Medications MEDICAL (GENERAL) HISTORY Type Description Date Medical History HTN Medical History RA Medical History Depression Medical History Barretts esophagus Medical History SVT/Afib Medical History hx of conversion disorder seizure activity-hx of neurology in [place]. Medical History demyelinating disease Surgical History Right knee scope for meniscus tear Surgical History Appendectomy Surgical History Colonoscopy- reports of IBS Surgical History EGD- Barretts esophagus Surgical History D& C x 2 Hospitalization History Surgeries only Hospitalization History inpatient psychiatric treatment 2006 x 2 for OD and 2012 x 2 for OD in [place]
--- OUTSIDE RECORDS SUMMARY | 2018-02-27 17:16 | XMS REPORT ---
Author Author DANIELSPRISCILLA Hale Organization [facility] Address [address] [place] [address] Care Team Providers Care Tomb Maker Helper Name Role Phone PRISCILLA DANIELS Unavailable PROBLEMS Type Condition ICD9-CM Code SQK87-II Code Onset Dates Condition Status SNOMED Code Problem Anxiety F41.9 Active 52349204 Problem Night terrors, adult F51.4 Active 799568566 Problem Severe episode of recurrent major depressive disorder, without psychotic features F33.2 Active 47752489 Problem Bipolar disorder, current episode mixed, severe, without psychotic features F31.63 Active 656342612 Problem History of PCOS Z87.42 Active 974537692 Problem PTSD (post-traumatic stress disorder) F43.10 Active 47457155 Problem Methamphetamine use disorder, mild, 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 Active 282079380 Problem Neuropathy G62.9 Active 515388609 Problem Cannabis use disorder, mild, abuse F12.10 Active 65884745 Problem Opioid use disorder, severe, in sustained remission F11.21 Active 47301759 Problem Pain in right hip M25.551 Active 86126522 Problem Pain in left elbow M25.522 Active 16055553 Problem Seizure R56.9 Active 94513768 Problem Pain in left hip M25.552 Active 60241006 Problem Rash and nonspecific skin eruption R21 Active 212102901 Problem Muscle spasm M62.838 Active 54571660 Problem Pain in right elbow M25.521 Active 872433340 Problem Obesity (BMI 30-39.9) E66.9 Active 068402375 Problem Intractable migraine without aura and without status migrainosus G43.019 Active 207024786 Problem Essential hypertension I10 Active 05292641 ALLERGIES No Information ENCOUNTERS Encounter Location Date Diagnosis [facility] [address] [facility] [id number] [address] Jun, [facility] [address] [place] [id number] [place] [address] Jun, Muscle spasm M62.838 ; Acute left-sided low back pain without sciatica M54.5 and Bipolar disorder, current episode mixed, severe, without psychotic features F31.63 [place] [address] [place] [id number] [place] [address] Jun, [place] [address] [address] May, Essential hypertension I10 ; Neuropathy G62.9 ; Acute non- recurrent maxillary sinusitis J01.00 ; Intractable migraine without aura and without status migrainosus G43.019 and Night terrors, adult F51.4 [place] [address] [address] Apr, [address] [address] Apr, Bipolar disorder, current episode mixed, severe, without psychotic features F31.63 ; PTSD (post-traumatic stress disorder) F43.10 ; Cannabis use disorder, mild, abuse F12.10 ; Methamphetamine use disorder, mild, 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 and Opioid use disorder, severe, in sustained remission F11.21 [place] [address] [place] [id number] [place] [address] Apr, Severe episode of recurrent major depressive disorder, without psychotic features F33.2 ; Anxiety F41.9 and PTSD (post-traumatic stress disorder) F43.10 [place] [address] [place] [id number] [place] [address]- [address] Feb, Muscle spasm M62.[address] [address] Feb, Intractable migraine without aura and without status migrainosus G43.019 [place] [address] [place] [id number] [place] [address] Jan, Rheumatoid factor positive with cyclic citrullinated peptide (CCP) antibody negative R76.8 ; Muscle spasm M62.838 ; Folliculitis L73.9 ; Essential hypertension I10 and Obesity (BMI 30-39.9) E66.9 [facility] [address] [place] [id number] [address] Jan, Intractable migraine without aura and without status migrainosus G43.019 ; Dysuria R30.0 ; Essential hypertension I10 ; Anxiety F41.9 ; Vaginal discharge N89.8 ; Seizure R56.9 and Muscle spasm M62.838 [facility] [address] [facility] [id number] [address] Dec, Lower back pain M54.5 [facility] [address] [place] [id number] [address] Dec, Intractable migraine without aura and without [...] HISTORY Never Assessed REASON FOR VISIT Medication refill request PLAN OF CARE VITAL SIGNS MEDICATIONS Medication Instructions Dosage Frequency Start Date End Date Duration Status Topamax 25 MG Orally Twice a day 1 tablet each evening for one week then one tablet twice daily 12h Dec, 30 day(s) Active RESULTS No Results PROCEDURES No Known procedures INSTRUCTIONS MEDICATIONS ADMINISTERED No Known Medications MEDICAL (GENERAL) HISTORY Type Description Date Medical History HTN Medical History RA Medical History Depression Medical History Barretts esophagus Medical History SVT/Afib Medical History hx of conversion disorder seizure activity-hx of neurology in [place]. Medical History demyelinating disease Surgical History Right knee scope for meniscus tear Surgical History Appendectomy Surgical History Colonoscopy- reports of IBS Surgical History EGD- Barretts esophagus Surgical History D& C x 2 Hospitalization History Surgeries only Hospitalization History inpatient psychiatric treatment 2005 x 2 for OD and 2012 x 2 for OD in [place]
--- OUTSIDE RECORDS SUMMARY | 2018-02-27 17:16 | XMS REPORT ---
Author Author IAN ORDAZ Organization [facility] Address [address] [place] [address] Care Team Providers Care Can Inspector Name Role Phone IAN ORDAZ Unavailable PROBLEMS Type Condition ICD9-CM Code [id number] Code Onset Dates Condition Status SNOMED Code Problem Severe episode of recurrent major depressive disorder, without psychotic features F33.2 Active 79986123 Problem Neuropathy G62.9 Active 578468659 Problem Night terrors, adult F51.4 Active 341304450 Problem Menorrhagia with regular cycle N92.0 Active 822538040 Problem Intractable migraine without aura and without status migrainosus G43.019 Active 283223623 Problem Cannabis use disorder, mild, abuse F12.10 Active 17320516 Problem History of PCOS Z87.42 Active 207348730 Problem Opioid use disorder, severe, in sustained remission F11.21 Active 67145874 Problem Methamphetamine use disorder, mild, 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 Active 542759923 Problem Bipolar disorder, current episode mixed, severe, without psychotic features F31.63 Active 366833518 Problem PTSD (post-traumatic stress disorder) F43.10 Active 98355994 Problem Pain in right hip M25.551 Active 20536164 Problem Pain in left elbow M25.522 Active 76914089 Problem Seizure R56.9 Active 79605340 Problem Pain in left hip M25.552 Active 51593491 Problem Muscle spasm M62.838 Active 54221446 Problem Obesity (BMI 30-39.9) E66.9 Active 472955206 Problem Pain in right elbow M25.521 Active 806673607 Problem Essential hypertension I10 Active 50450924 Problem Rash and nonspecific skin eruption R21 Active 555196834 Problem Anxiety F41.9 Active 71950906 ALLERGIES Substance Reaction Event Type Date Status Penicillin V Potassium hives Drug Allergy Dec, Active Morphine Sulfate rash Drug Allergy Dec, Active ENCOUNTERS Encounter Location Date Diagnosis [place] [id number] [place] [address] 09 Dec, 2017 Menorrhagia with regular cycle N92.0 [place] [address] [address] Jun, [place] [address] [address] Jun, Muscle spasm M62.838 ; Acute left-sided low back pain without sciatica M54.5 and Bipolar disorder, current episode mixed, severe, without psychotic features F31.63 [place] [address] [place] [id number] [place] [address] Jun, [place] [address] [place] [id number] [place] [address] May, Essential hypertension I10 ; Neuropathy G62.9 ; Acute non- recurrent maxillary sinusitis J01.00 ; Intractable migraine without aura and without status migrainosus G43.019 and Night terrors, adult F51.4 [place] [address] [place] [id number] [place] [address] Apr, [place] [address] [place] [id number] [place] [address] 07 Apr, 2017 Bipolar disorder, current episode mixed, severe, without psychotic features F31.63 ; PTSD (post-traumatic stress disorder) F43.10 ; Cannabis use disorder, mild, abuse F12.10 ; Methamphetamine use disorder, mild, 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 and Opioid use disorder, severe, in sustained remission F11.21 [place] [address] [place] [id number] [place] [address] 260[address] 06 Apr, 2017 Severe episode of recurrent major depressive disorder, without psychotic features F33.2 ; Anxiety F41.9 and PTSD (post-traumatic stress disorder) F43.10 [place] [address] [place] [id number] [place] [address] Feb, Muscle spasm M62.838 [place] [address] [place] [address] 18[address] 349[address] Feb, Intractable migraine without aura and without status migrainosus G43.019 [place] [address] [place] [id number] [place] [address] Jan, Rheumatoid factor positive with cyclic citrullinated peptide (CCP) antibody negative R76.8 ; Muscle spasm M62.838 ; Folliculitis L73.9 ; Essential hypertension I10 and Obesity (BMI 30-39.9) E66.9 [place] [address] [address] Jan, Intractable migraine without aura and without status migrainosus G43.019 ; Dysuria R30.0 ; Essential hypertension I10 ; Anxiety F41.9 ; Vaginal discharge N89.8 ; Seizure R56.9 and Muscle spasm M62.838 [facility] [address] [place] [id number] [place] [address] Dec, Lower back pain M54.5 [place] [address] [place] [id number] [place] [address] 109[address] Dec, Intractable migraine without aura and without [...] SOCIAL HISTORY Never Assessed REASON FOR VISIT Vaginal bleeding, irregular--tcuppettRN, Pt reports for the past 6 months has been having irregular periods. She has had a period every month except for one month, but has been having severe pain and bloating. This period this month has been really light and pt usually has heavy periods. PLAN OF CARE Activity Details Follow Up prn Reason: VITAL SIGNS Height 5'4" in 2017-12-10 Weight 221.9 lbs 2017-12-10 Temperature 98.8 degrees Fahrenheit 2017-12-10 Heart Rate 84 bpm 2017-12-10 Respiratory Rate 20 2017-12-10 BMI 38.08 kg/m2 2017-12-10 Blood pressure systolic 142 mmHg 2017-12-10 Blood pressure diastolic 72 mmHg 2017-12-10 MEDICATIONS Medication Instructions Dosage Frequency Start Date End Date Duration Status Ibuprofen 800 MG Orally Three times a day 1 tablet with food or milk as needed 8h Active Diltiazem HCl ER 120 MG Orally Twice a day 1 capsule 12h 90 days Active Topamax 25 MG Orally Twice a day 2 tablets 12h 27 Dec, 2016 90 days Active Flonase 50 MCG/ACT Nasally Once a day 1 spray in each nostril 24h May, 30 day(s) Active Atenolol 100 mg Orally Once a day 1 tablet 24h 90 days Active RESULTS No Results PROCEDURES No Known procedures INSTRUCTIONS MEDICATIONS ADMINISTERED No Known Medications MEDICAL (GENERAL) HISTORY Type Description Date Medical History HTN Medical History RA Medical History Depression Medical History Barretts esophagus Medical History SVT/Afib Medical History hx of conversion disorder seizure activity-hx of neurology in [place]. Medical History demyelinating disease Surgical History Right knee scope for meniscus tear Surgical History Appendectomy Surgical History Colonoscopy- reports of IBS Surgical History EGD- Barretts esophagus Surgical History D& C x 2 Hospitalization History Surgeries only Hospitalization History inpatient psychiatric treatment 2005 x 2 for OD and 2011 x 2 for OD in [place]
--- OUTSIDE RECORDS SUMMARY | 2018-02-27 17:16 | XMS REPORT ---
Author Author SUTHERLANDPRISCILLA Hale Organization [facility] Address [address] [place] [address] Care Team Providers Care Brokerage Branch Manager Name Role Phone PRISCILLA SUTHERLAND Unavailable PROBLEMS Type Condition ICD9-CM Code DIP68-GO Code Onset Dates Condition Status SNOMED Code Problem Anxiety F41.9 Active 94670050 Problem Night terrors, adult F51.4 Active 810773890 Problem Severe episode of recurrent major depressive disorder, without psychotic features F33.2 Active 17753001 Problem Bipolar disorder, current episode mixed, severe, without psychotic features F31.63 Active 016358195 Problem History of PCOS Z87.42 Active 730773329 Problem PTSD (post-traumatic stress disorder) F43.10 Active 94019612 Problem Methamphetamine use disorder, mild, 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 Active 020255149 Problem Neuropathy G62.9 Active 274750260 Problem Cannabis use disorder, mild, abuse F12.10 Active 86020320 Problem Opioid use disorder, severe, in sustained remission F11.21 Active 40911451 Problem Pain in right hip M25.551 Active 90958853 Problem Pain in left elbow M25.522 Active 82517624 Problem Seizure R56.9 Active 97157129 Problem Pain in left hip M25.552 Active 64188802 Problem Rash and nonspecific skin eruption R21 Active 007171796 Problem Muscle spasm M62.838 Active 00262403 Problem Pain in right elbow M25.521 Active 144288154 Problem Obesity (BMI 30-39.9) E66.9 Active 341506244 Problem Intractable migraine without aura and without status migrainosus G43.019 Active 194124385 Problem Essential hypertension I10 Active 06900033 ALLERGIES No Information ENCOUNTERS Encounter Location Date Diagnosis [facility] [address] [facility] [id number] [address] Jun, [facility] [address] [place] [id number] [place] [address] Jun, Muscle spasm M62.838 ; Acute left-sided low back pain without sciatica M54.5 and Bipolar disorder, current episode mixed, severe, without psychotic features F31.63 [place] [address] [place] [id number] [place] [address] Jun, [place] [address] [address] May, Essential hypertension I10 ; Neuropathy G62.9 ; Acute non- recurrent maxillary sinusitis J01.00 ; Intractable migraine without aura and without status migrainosus G43.019 and Night terrors, adult F51.4 [place] [address] [address] Apr, [address] [address] Apr, Bipolar disorder, current episode mixed, severe, without psychotic features F31.63 ; PTSD (post-traumatic stress disorder) F43.10 ; Cannabis use disorder, mild, abuse F12.10 ; Methamphetamine use disorder, mild, 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 and Opioid use disorder, severe, in sustained remission F11.21 [place] [address] [place] [id number] [place] [address] 8[address]89- [address] Apr, Severe episode of recurrent major depressive disorder, without psychotic features F33.2 ; Anxiety F41.9 and PTSD (post-traumatic stress disorder) F43.10 [place] [address] [place] [id number] [place] [address] 614[address]- 94[address] Feb, Muscle spasm M62.[address] [address] Feb, Intractable migraine without aura and without status migrainosus G43.019 [place] [address] [place] [id number] [place] [address] 7[address]- [address] Jan, Rheumatoid factor positive with cyclic citrullinated peptide (CCP) antibody negative R76.8 ; Muscle spasm M62.838 ; Folliculitis L73.9 ; Essential hypertension I10 and Obesity (BMI 30-39.9) E66.9 [facility] [address] [address] Jan, Intractable migraine without aura and without status migrainosus G43.019 ; Dysuria R30.0 ; Essential hypertension I10 ; Anxiety F41.9 ; Vaginal discharge N89.8 ; Seizure R56.9 and Muscle spasm M62.838 [facility] [address] [place] [address] Dec, Lower back pain M54.5 [facility] [address] [place] [id number] [place] [address]- [address] Dec, Intractable migraine without aura and without [...] SOCIAL HISTORY Never Assessed REASON FOR VISIT lower back pain. denies any injury. also complaining of dysuria. ua obtained and negative for any infection. encouraged pt to increase water intake and keep appt with leora sutherland. barbara pt has an appt with leora sutherland on 01/31/2017 PLAN OF CARE VITAL SIGNS Height 5'4" in 2016-12-31 Weight 212.6 lbs 2016-12-31 BMI 36.49 kg/m2 2016-12-31 MEDICATIONS Medication Instructions Dosage Frequency Start Date End Date Duration Status Atenolol 100 MG Orally Once a day 1 tablet 24h Active Topamax 25 MG Orally Twice a day 1 tablet each evening for one week then one tablet twice daily 12h Dec, 30 day(s) Active Diltiazem HCl ER 120 MG Orally Twice a day 1 capsule 12h Active Baclofen 20 mg Orally every 8 hrs take 15 mg three times per day as needed 8h Dec, Jan, 30 day(s) Active ibuprofen 1 tab Active RESULTS Name Result Date Reference Range UA LONG DIP (IN HOUSE) 2016-12-31 Lot # [id number] Exp date 01/31/18 Clarity clear Color yellow Odor no GLU negative CHRIS negative KET negative SG 1.015 BLO negative pH 7.0 Protein negative URO 0.2 NIT negative GONZALEZ negative Lot # [id number] Exp date 06/2017 PROCEDURES Procedure Date Ordered Result Body Site URINALYSIS, AUTO, W/O SCOPE Dec 31, 2016 INSTRUCTIONS MEDICATIONS ADMINISTERED No Known Medications MEDICAL (GENERAL) HISTORY Type Description Date Medical History HTN Medical History RA Medical History Depression Medical History Barretts esophagus Medical History SVT/Afib Medical History hx of conversion disorder seizure activity-hx of neurology in [place]. Medical History demyelinating disease Surgical History Right knee scope for meniscus tear Surgical History Appendectomy Surgical History Colonoscopy- reports of IBS Surgical History EGD- Barretts esophagus Surgical History D& C x 2 Hospitalization History Surgeries only Hospitalization History inpatient psychiatric treatment 2005 x 2 for OD and 2011 x 2 for OD in [place]
--- OUTSIDE RECORDS SUMMARY | 2018-02-27 17:17 | XMS REPORT ---
Author Author DANIELSPRISCILLA Hale Organization [facility] Address [address] [place] [address] Care Team Providers Care Field Party Manager Name Role Phone PRISCILLA DANIELS Unavailable PROBLEMS Type Condition ICD9-CM Code JED72-UQ Code Onset Dates Condition Status SNOMED Code Problem Anxiety F41.9 Active 08382315 Problem Night terrors, adult F51.4 Active 719913550 Problem Severe episode of recurrent major depressive disorder, without psychotic features F33.2 Active 52716020 Problem Bipolar disorder, current episode mixed, severe, without psychotic features F31.63 Active 262597114 Problem History of PCOS Z87.42 Active 961693839 Problem PTSD (post-traumatic stress disorder) F43.10 Active 58008435 Problem Methamphetamine use disorder, mild, 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 Active 915766653 Problem Neuropathy G62.9 Active 240538765 Problem Cannabis use disorder, mild, abuse F12.10 Active 99107074 Problem Opioid use disorder, severe, in sustained remission F11.21 Active 65492920 Problem Pain in right hip M25.551 Active 02259836 Problem Pain in left elbow M25.522 Active 94959861 Problem Seizure R56.9 Active 50833593 Problem Pain in left hip M25.552 Active 18324647 Problem Rash and nonspecific skin eruption R21 Active 386987826 Problem Muscle spasm M62.838 Active 46572420 Problem Pain in right elbow M25.521 Active 819546415 Problem Obesity (BMI 30-39.9) E66.9 Active 322610061 Problem Intractable migraine without aura and without status migrainosus G43.019 Active 582964177 Problem Essential hypertension I10 Active 28548998 ALLERGIES No Information ENCOUNTERS Encounter Location Date Diagnosis [facility] [address] [facility] [id number] [address] Jun, [facility] [address] [place] [id number] [place] [address] Jun, Muscle spasm M62.838 ; Acute left-sided low back pain without sciatica M54.5 and Bipolar disorder, current episode mixed, severe, without psychotic features F31.63 [place] [address] [place] [id number] [place] [address] Jun, [place] [address] [address] May, Essential hypertension I10 ; Neuropathy G62.9 ; Acute non- recurrent maxillary sinusitis J01.00 ; Intractable migraine without aura and without status migrainosus G43.019 and Night terrors, adult F51.4 [place] [address] [address] Apr, [address] [address] Apr, Bipolar disorder, current episode mixed, severe, without psychotic features F31.63 ; PTSD (post-traumatic stress disorder) F43.10 ; Cannabis use disorder, mild, abuse F12.10 ; Methamphetamine use disorder, mild, 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 and Opioid use disorder, severe, in sustained remission F11.21 [place] [address] [place] [id number] [place] [address]- [address] Apr, Severe episode of recurrent major depressive disorder, without psychotic features F33.2 ; Anxiety F41.9 and PTSD (post-traumatic stress disorder) F43.10 [place] [address] [place] [id number] [place] [address]- [address] Feb, Muscle spasm M62.[address] [address]- [address] Feb, Intractable migraine without aura and without status migrainosus G43.019 [place] [address] [place] [id number] [place] [address]- [address] Jan, Rheumatoid factor positive with cyclic citrullinated peptide (CCP) antibody negative R76.8 ; Muscle spasm M62.838 ; Folliculitis L73.9 ; Essential hypertension I10 and Obesity (BMI 30-39.9) E66.9 [facility] [address] [place] [id number] [address] Jan, Intractable migraine without aura and without status migrainosus G43.019 ; Dysuria R30.0 ; Essential hypertension I10 ; Anxiety F41.9 ; Vaginal discharge N89.8 ; Seizure R56.9 and Muscle spasm M62.838 [facility] [address] [facility] [id number] [address] Dec, Lower back pain M54.5 [facility] [address] [place] [id number] [address] Dec, Intractable migraine without aura and without [...] SOCIAL HISTORY Never Assessed REASON FOR VISIT Xray results. PLAN OF CARE VITAL SIGNS MEDICATIONS Unknown Medications RESULTS No Results PROCEDURES No Known procedures INSTRUCTIONS MEDICATIONS ADMINISTERED No Known Medications MEDICAL (GENERAL) HISTORY Type Description Date Medical History HTN Medical History RA Medical History Depression Medical History Barretts esophagus Medical History SVT/Afib Medical History hx of conversion disorder seizure activity-hx of neurology in [place]. Medical History demyelinating disease Surgical History Right knee scope for meniscus tear Surgical History Appendectomy Surgical History Colonoscopy- reports of IBS Surgical History EGD- Barretts esophagus Surgical History D& C x 2 Hospitalization History Surgeries only Hospitalization History inpatient psychiatric treatment 2005 x 2 for OD and 2011 x 2 for OD in [place]
--- OUTSIDE RECORDS SUMMARY | 2018-02-27 17:17 | XMS REPORT ---
Author Author DANIELSPRISCILLA Hale Organization [facility] Address [address] [place] [address] Care Team Providers Care Story Editor Name Role Phone PRISCILLA DANIELS Unavailable PROBLEMS Type Condition ICD9-CM Code [id number] Code Onset Dates Condition Status SNOMED Code Problem Anxiety F41.9 Active 94049230 Problem Night terrors, adult F51.4 Active 397001931 Problem Severe episode of recurrent major depressive disorder, without psychotic features F33.2 Active 11708557 Problem Bipolar disorder, current episode mixed, severe, without psychotic features F31.63 Active 273925909 Problem History of PCOS Z87.42 Active 512481784 Problem PTSD (post-traumatic stress disorder) F43.10 Active 04776417 Problem Methamphetamine use disorder, mild, 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 Active 317991154 Problem Neuropathy G62.9 Active 222356831 Problem Cannabis use disorder, mild, abuse F12.10 Active 69766016 Problem Opioid use disorder, severe, in sustained remission F11.21 Active 02141918 Problem Pain in right hip M25.551 Active 98786286 Problem Pain in left elbow M25.522 Active 99453020 Problem Seizure R56.9 Active 06758245 Problem Pain in left hip M25.552 Active 95398187 Problem Rash and nonspecific skin eruption R21 Active 292111555 Problem Muscle spasm M62.838 Active 75091557 Problem Pain in right elbow M25.521 Active 312395663 Problem Obesity (BMI 30-39.9) E66.9 Active 171177344 Problem Intractable migraine without aura and without status migrainosus G43.019 Active 257697510 Problem Essential hypertension I10 Active 02560133 ALLERGIES Substance Reaction Event Type Date Status Penicillin V Potassium hives Drug Allergy May, Active Morphine Sulfate rash Drug Allergy May, Active ENCOUNTERS Encounter Location Date Diagnosis [facility] [address] [facility] [id number] [address] Jun, [place] [address] [place] [address] Jun, Muscle spasm M62.838 ; Acute left-sided low back pain without sciatica M54.5 and Bipolar disorder, current episode mixed, severe, without psychotic features F31.63 [place] [address] [place] [id number] [place] [phone] Jun, [place] [address] [place] [id number] [place] [address] May, Essential hypertension I10 ; Neuropathy G62.9 ; Acute non- recurrent maxillary sinusitis J01.00 ; Intractable migraine without aura and without status migrainosus G43.019 and Night terrors, adult F51.4 [place] [address] [place] [id number] [place] [address] Apr, [address] [address] Apr, Bipolar disorder, current episode mixed, severe, without psychotic features F31.63 ; PTSD (post-traumatic stress disorder) F43.10 ; Cannabis use disorder, mild, abuse F12.10 ; Methamphetamine use disorder, mild, 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 and Opioid use disorder, severe, in sustained remission F11.21 [place] [address] [place] [id number] [place] [address] Apr, Severe episode of recurrent major depressive disorder, without psychotic features F33.2 ; Anxiety F41.9 and PTSD (post-traumatic stress disorder) F43.10 [place] [address] [place] [id number] [place] [address] Feb, Muscle spasm M62.838 [place] [address] [place] [id number] [place] [address] Feb, Intractable migraine without aura and without status migrainosus G43.019 [place] [address] [place] [id number] Jan, Rheumatoid factor positive with cyclic citrullinated peptide (CCP) antibody negative R76.8 ; Muscle spasm M62.838 ; Folliculitis L73.9 ; Essential hypertension I10 and Obesity (BMI 30-39.9) E66.9 [facility] [address] [id number] [address] Jan, Intractable migraine without aura and without status migrainosus G43.019 ; Dysuria R30.0 ; Essential hypertension I10 ; Anxiety F41.9 ; Vaginal discharge N89.8 ; Seizure R56.9 and Muscle spasm M62.838 [facility] [address] [place] [phone] Dec, Lower back pain M54.5 [facility] [address] [id number] [address] Dec, Intractable migraine without aura and without [...] SOCIAL HISTORY Never Assessed REASON FOR VISIT Blood Pressure f/u Ester COHEN, pt. started school- having pains in knees, hands , and feet. hx of fibromyalgia. Wanted to see if she could get anything for the numbness and pain PLAN OF CARE Activity Details Follow Up 3 Months, prn Reason:CHM/HTN VITAL SIGNS Height 5'4" in 2017-05-21 Weight 228.1 lbs 2017-05-21 Temperature 96.9 degrees Fahrenheit 2017-05-21 Heart Rate 76 bpm 2017-05-21 Respiratory Rate 2017-05-21 BMI 39.15 kg/m2 2017-05-21 Blood pressure systolic 138 mmHg 2017-05-21 Blood pressure diastolic 94 mmHg 2017-05-21 MEDICATIONS Medication Instructions Dosage Frequency Start Date End Date Duration Status Flonase 50 MCG/ACT Nasally Once a day 1 spray in each nostril 24h 20 Mar, 2018 30 day(s) Active Azithromycin 250 MG Orally Once a day 2 tablets on the first day, then 1 tablet daily for 4 days 24h May, May, 5 day(s) Active Abilify 5 MG Orally Once a day 1 tablet 24h Apr, 30 day(s) Active Atenolol 100 mg Orally Once a day 1 tablet 24h 90 days Active Topamax 25 MG Orally Twice a day 2 tablets 12h Dec, 90 days Active Diltiazem HCl ER 120 MG Orally Twice a day 1 capsule 12h 90 days Active Duloxetine HCl 30 MG Orally Once a day 1 capsule 24h May, 30 day(s) Active Baclofen 20 mg Orally Three times a day 1 tablet with food or milk 8h Sep, 30 days Active Prazosin HCl 1 MG Orally Once a day 1 cap every night 5 nights then take 2 caps every night 24h Apr, 90 days Active RESULTS No Results PROCEDURES No Known procedures INSTRUCTIONS MEDICATIONS ADMINISTERED No Known Medications MEDICAL (GENERAL) HISTORY Type Description Date Medical History HTN Medical History RA Medical History Depression Medical History Barretts esophagus Medical History SVT/Afib Medical History hx of conversion disorder seizure activity-hx of neurology in [place]. Medical History demyelinating disease Surgical History Right knee scope for meniscus tear Surgical History Appendectomy Surgical History Colonoscopy- reports of IBS Surgical History EGD- Barretts esophagus Surgical History D& C x 2 Hospitalization History Surgeries only Hospitalization History inpatient psychiatric treatment 2005 x 2 for OD and 2012 x 2 for OD in [place]
--- OUTSIDE RECORDS SUMMARY | 2018-02-27 17:17 | XMS REPORT ---
Author Author WANDAJOVITAA Organization [facility] Address [address] [place] [address] Care Team Providers Care Veterinary Parasitologist Name Role Phone JUNIORMELLISA VALDIVIA Unavailable PROBLEMS Type Condition ICD9-CM Code [id number] Code Onset Dates Condition Status SNOMED Code Problem Anxiety F41.9 Active 06634005 Problem Night terrors, adult F51.4 Active 079034878 Problem Severe episode of recurrent major depressive disorder, without psychotic features F33.2 Active 23452910 Problem Bipolar disorder, current episode mixed, severe, without psychotic features F31.63 Active 037489846 Problem History of PCOS Z87.42 Active 736352809 Problem PTSD (post-traumatic stress disorder) F43.10 Active 13616072 Problem Methamphetamine use disorder, mild, 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 Active 175284188 Problem Neuropathy G62.9 Active 910358309 Problem Cannabis use disorder, mild, abuse F12.10 Active 95148519 Problem Opioid use disorder, severe, in sustained remission F11.21 Active 84231663 Problem Pain in right hip M25.551 Active 36578367 Problem Pain in left elbow M25.522 Active 43947660 Problem Seizure R56.9 Active 09083247 Problem Pain in left hip M25.552 Active 49805094 Problem Rash and nonspecific skin eruption R21 Active 725496419 Problem Muscle spasm M62.838 Active 70269167 Problem Pain in right elbow M25.521 Active 711541184 Problem Obesity (BMI 30-39.9) E66.9 Active 658548191 Problem Intractable migraine without aura and without status migrainosus G43.019 Active 453518161 Problem Essential hypertension I10 Active 10711927 ALLERGIES Substance Reaction Event Type Date Status Penicillin V Potassium hives Drug Allergy Apr, Active Morphine Sulfate rash Drug Allergy Apr, Active ENCOUNTERS Encounter Location Date Diagnosis [facility] [address] [facility] [id number] [place] [address] Jun, [place] [address] [place] [address] Jun, Muscle spasm M62.838 ; Acute left-sided low back pain without sciatica M54.5 and Bipolar disorder, current episode mixed, severe, without psychotic features F31.63 [place] [address] [place] [id number] [place] [address] Jun, [place] [address] [place] [id number] [place] [address] May, Essential hypertension I10 ; Neuropathy G62.9 ; Acute non- recurrent maxillary sinusitis J01.00 ; Intractable migraine without aura and without status migrainosus G43.019 and Night terrors, adult F51.4 [place] [address] [place] [id number] [place] [address]12- [address]573 Apr, [place] [address] [place] [id number] [place] [address] 6[address]33[address] Apr, Bipolar disorder, current episode mixed, severe, without psychotic features F31.63 ; PTSD (post-traumatic stress disorder) F43.10 ; Cannabis use disorder, mild, abuse F12.10 ; Methamphetamine use disorder, mild, 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 and Opioid use disorder, severe, in sustained remission F11.21 [place] [address] [place] [address] Apr, Severe episode of recurrent major depressive disorder, without psychotic features F33.2 ; Anxiety F41.9 and PTSD (post-traumatic stress disorder) F43.10 [place] [address] [place] [id number] [place] [address]116- [address] Feb, Muscle spasm M62.838 [place] [address] [place] [id number] [place] [address]26- [address] Feb, Intractable migraine without aura and without status migrainosus G43.019 [place] [address] [place] [address] Jan, Rheumatoid factor positive with cyclic citrullinated peptide (CCP) antibody negative R76.8 ; Muscle spasm M62.838 ; Folliculitis L73.9 ; Essential hypertension I10 and Obesity (BMI 30-39.9) E66.9 [facility] [address] [place] [address] 28032- [address] Jan, Intractable migraine without aura and without status migrainosus G43.019 ; Dysuria R30.0 ; Essential hypertension I10 ; Anxiety F41.9 ; Vaginal discharge N89.8 ; Seizure R56.9 and Muscle spasm M62.838 [facility] [address] [place] [address] Dec, Lower back pain M54.5 [facility] [address] [place] [id number] [place] [address]41- [address] Dec, Intractable migraine without aura and without [...] SOCIAL HISTORY Never Assessed REASON FOR VISIT intake PLAN OF CARE Activity Details Follow Up 4 Weeks Reason: VITAL SIGNS Height 5'4" in 2017 Weight 225 lbs 2017 Heart Rate 88 bpm 2017 Respiratory Rate 20 2017 BMI 38.62 kg/m2 2017 Blood pressure systolic 138 mmHg 2017 Blood pressure diastolic 80 mmHg 2017 MEDICATIONS Medication Instructions Dosage Frequency Start Date End Date Duration Status Atenolol 100 mg Orally Once a day 1 tablet 24h 30 days Active Diltiazem HCl ER 120 MG Orally Twice a day 1 capsule 12h 30 days Active Amitriptyline HCl 50 MG TAKE ONE TABLET BY MOUTH ONCE DAILY AT BEDTIME 30 Not-Taking Topamax 50 MG Orally Twice a day 1 tablet 12h Dec, 30 days Active Baclofen 20 mg Orally Three times a day 1 tablet with food or milk 8h Active Abilify 5 MG Orally Once a day 1 tablet 24h Apr, 30 day(s) Active Prazosin HCl 1 MG Orally Once a day 1 cap every night 5 nights then take 2 caps every night 24h Apr, 30 day(s) Active RESULTS No Results PROCEDURES No Known procedures INSTRUCTIONS MEDICATIONS ADMINISTERED No Known Medications MEDICAL (GENERAL) HISTORY Type Description Date Medical History HTN Medical History RA Medical History Depression Medical History Barretts esophagus Medical History SVT/Afib Medical History hx of conversion disorder seizure activity-hx of neurology in [place]. Medical History demyelinating disease Surgical History Right knee scope for meniscus tear Surgical History Appendectomy Surgical History Colonoscopy- reports of IBS Surgical History EGD- Barretts esophagus Surgical History D& C x 2 Hospitalization History Surgeries only Hospitalization History inpatient psychiatric treatment 2005 x 2 for OD and 2012 x 2 for OD in [place]
--- OUTSIDE RECORDS SUMMARY | 2018-02-27 17:17 | XMS REPORT ---
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 Name Role Phone PRISCILLA DANIELS Unavailable PROBLEMS Type Condition ICD9-CM Code [id number] Code Onset Dates Condition Status SNOMED Code Problem Anxiety F41.9 Active 15230493 Problem Night terrors, adult F51.4 Active 214238896 Problem Severe episode of recurrent major depressive disorder, without psychotic features F33.2 Active 80798659 Problem Bipolar disorder, current episode mixed, severe, without psychotic features F31.63 Active 886406081 Problem History of PCOS Z87.42 Active 776544221 Problem PTSD (post-traumatic stress disorder) F43.10 Active 81367948 Problem Methamphetamine use disorder, mild, 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 Active 458517856 Problem Neuropathy G62.9 Active 837691733 Problem Cannabis use disorder, mild, abuse F12.10 Active 62473909 Problem Opioid use disorder, severe, in sustained remission F11.21 Active 75798489 Problem Pain in right hip M25.551 Active 29596045 Problem Pain in left elbow M25.522 Active 72343186 Problem Seizure R56.9 Active 17569784 Problem Pain in left hip M25.552 Active 87968316 Problem Rash and nonspecific skin eruption R21 Active 056265995 Problem Muscle spasm M62.838 Active 02416174 Problem Pain in right elbow M25.521 Active 888527438 Problem Obesity (BMI 30-39.9) E66.9 Active 314013230 Problem Intractable migraine without aura and without status migrainosus G43.019 Active 761716500 Problem Essential hypertension I10 Active 34645772 ALLERGIES Substance Reaction Event Type Date Status Penicillin V Potassium hives Drug Allergy Jun, Active Morphine Sulfate rash Drug Allergy Jun, Active ENCOUNTERS Encounter Location Date Diagnosis [facility] [address] [facility] [id number] [address] Jun, [place] [address] [place] [address]- [address] Jun, Muscle spasm M62.838 ; Acute left-sided low back pain without sciatica M54.5 and Bipolar disorder, current episode mixed, severe, without psychotic features F31.63 [place] [address] [place] [id number] [place] [address] Jun, [place] [address] [place] [id number] [place] [address] 10416- [address] May, Essential hypertension I10 ; Neuropathy G62.9 ; Acute non- recurrent maxillary sinusitis J01.00 ; Intractable migraine without aura and without status migrainosus G43.019 and Night terrors, adult F51.4 [place] [address] [place] [id number] [place] [address]119- [address]707 Apr, [address] [address] Apr, Bipolar disorder, current episode mixed, severe, without psychotic features F31.63 ; PTSD (post-traumatic stress disorder) F43.10 ; Cannabis use disorder, mild, abuse F12.10 ; Methamphetamine use disorder, mild, 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 and Opioid use disorder, severe, in sustained remission F11.21 [place] [address] [place] [id number] [place] [address] 00973- 2702 Apr, Severe episode of recurrent major depressive disorder, without psychotic features F33.2 ; Anxiety F41.9 and PTSD (post-traumatic stress disorder) F43.10 [place] [address] [place] [id number] [place] [address] 00209- 5248 Feb, Muscle spasm M62.838 [place] [address] [place] [id number] [place] [address] 15236- 9056 Feb, Intractable migraine without aura and without status migrainosus G43.019 [place] [address] [place] [phone] Jan, Rheumatoid factor positive with cyclic citrullinated peptide (CCP) antibody negative R76.8 ; Muscle spasm M62.838 ; Folliculitis L73.9 ; Essential hypertension I10 and Obesity (BMI 30-39.9) E66.9 [facility] [address] [place] [id number] [address] Jan, Intractable migraine without aura and without status migrainosus G43.019 ; Dysuria R30.0 ; Essential hypertension I10 ; Anxiety F41.9 ; Vaginal discharge N89.8 ; Seizure R56.9 and Muscle spasm M62.838 [facility] [address] [place] [id number] [place] [address] Dec, Lower back pain M54.5 [facility] [address] [place] [id number] [address] Dec, Intractable migraine without aura and without [...] SOCIAL HISTORY Never Assessed REASON FOR VISIT Back pain, x 3days, left side, questioning pinched nerve or pulled muscle.RONNY Thompson PLAN OF CARE Activity Details Follow Up 3 Months, prn Reason: VITAL SIGNS Height 5'4" in 2017-06-25 Weight 228.6 lbs 2017-06-25 Temperature 97.9 degrees Fahrenheit 2017-06-25 Heart Rate 85 bpm 2017-06-25 Respiratory Rate 18 2017-06-25 BMI 39.23 kg/m2 2017-06-25 Blood pressure systolic 118 mmHg 2017-06-25 Blood pressure diastolic 66 mmHg 2017-06-25 MEDICATIONS Medication Instructions Dosage Frequency Start Date End Date Duration Status Atenolol 100 mg Orally Once a day 1 tablet 24h 90 days Active Diltiazem HCl ER 120 MG Orally Twice a day 1 capsule 12h 90 days Active Topamax 25 MG Orally Twice a day 2 tablets 12h 27 Dec, 2016 90 days Active Baclofen 10 MG TAKE ONE TABLET BY MOUTH THREE TIMES DAILY WITH FOOD OR MILK 30 Not-Taking Flonase 50 MCG/ACT Nasally Once a day 1 spray in each nostril 24h May, 30 day(s) Active Baclofen 20 mg Orally Three times a day 1 tablet with food or milk 8h Oct, 30 days Active PredniSONE 10 mg Orally Once a day 4 tabs x 4 days, 3 tabs x 4 days, 2 tabs x 4 days then 1 tab x 4 days 24h Jun, July, 16 days Active Duloxetine HCl 30 MG Orally Once a day 1 capsule 24h May, 30 day(s) Active Prazosin HCl 1 MG Orally Once a day 1 cap every night 5 nights then take 2 caps every night 24h Apr, 90 days Active Abilify 5 MG Orally Once a day 1 tablet 24h Apr, 30 day(s) Active RESULTS Name Result Date Reference Range Xray : Spine, Lumbar 2-3 views (IN HOUSE) 2017-06-25 PROCEDURES Procedure Date Ordered Result Body Site X-RAY EXAM OF LOWER SPINE June 25, 2017 INSTRUCTIONS MEDICATIONS ADMINISTERED No Known Medications [...] and 2011 x 2 for OD in [place]
--- OUTSIDE RECORDS SUMMARY | 2018-02-27 17:18 | XMS REPORT | Continuity of Care Document ---
Author Author [facility] Organization [facility] Address Unknown Phone Unavailable Allergies Active Description Code Type Severity Reaction Onset Reported/Identified Relationship to Patient Clinical Status Yes Hydromorphone Drug Allergy N/ A Adverse Reaction 08/17/2010 Yes Latex Drug Allergy N/A Adverse Reaction 08/17/2010 Yes Penicillins Drug Allergy N/A Adverse Reaction 08/17/2010 Yes No Known Drug Allergies Drug Allergy N/A N/A 05/21/2013 Yes No Known Drug Allergies Drug Allergy N/A N/A 05/21/2013 Yes HYDROmorphone NKMA N/A Adverse Reaction 07/01/2013 Yes Latex NKMA N/A Adverse Reaction 07/01/2013 Yes penicillin NKMA N/A Adverse Reaction 07/01/2013 Yes Penicillins Penicillins Drug Allergy Severe RASH/HIVES/REDNESS/VOMITING Yes amoxicillin trihydrate amoxicillin trihydrate Drug Allergy Moderate SAME PCN REACTION 08/14/2013 Yes hydromorphone HCl hydromorphone HCl Drug Allergy Moderate RASH 08/14/2013 Yes latex latex Drug Allergy Moderate RASH/HIVES/REDNESS 08/14/2013 Yes potassium clavulanate potassium clavulanate Drug Allergy Moderate SAME PCN REACTION 08/14/2013 Yes Penicillins [id number] Drug Allergy Unknown N/A 12/05/2016 Medications Medication Packaging Start Date Stop Date Route Dosage Sig DILTIAZEM HCL [id number] 11/13/2012 12/13/2012 ORAL [id number] Problems Date Dx Coded Attending Type Code Diagnosis Diagnosed By 08/09/2012 F 300.00 Carrol Garcia MD 08/09/2012 F 311 Carrol Garcia MD 08/09/2012 F 401.9 Carrol Garcia MD 08/09/2012 F 786.59 Carrol Garcia MD 08/09/2012 F 787.02 Joes BECK, Carrol Haque 08/18/2012 Alessandra Martinez MD Final 558.9 NONINF GASTROENT NEC NOS 08/18/2012 Alessandra Martinez MD Admitting 789.00 ABDOMINAL PAIN-SITE NOS 08/18/2012 Alessandra Martinez MD 789.09 ABDOMINAL PAIN-SITE NEC 05/21/2013 Final 300.00 ANXIETY STATE NOS 05/21/2013 Final 345.90 EPILEPSY NOS W/O INTRACT 05/21/2013 Final 401.9 HYPERTENSION NOS 05/21/2013 Final 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.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 05/21/2013 Final 714.0 RHEUMATOID ARTHRITIS 05/21/2013 Admitting 789.00 ABDOMINAL PAIN-SITE NOS 06/13/2013 Sree Samayoa III, MD Final 305.1 TOBACCO USE DISORDER 06/13/2013 Sree Samayoa III, MD Final 311 DEPRESSIVE DISORDER NEC 06/13/2013 Sree Samayoa III, MD Final 345.90 EPILEPSY NOS W/O INTRACT 06/13/2013 Sree Samayoa III, MD Final 401.9 HYPERTENSION NOS 06/13/2013 Sree Samayoa III, MD Final 427.89 OTH CARDIAC DYSRHYTHMIAS 06/13/2013 Sree Samayoa III, MD Final 788.0 RENAL COLIC 06/13/2013 Sree Samayoa III, MD Admitting 789.03 RLQ ABDOMINAL PAIN 12/05/2016 OZZIE JACKSON Ot 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 12/05/2016 OZZIE JACKSNO Ot B96.89 OTH BACTERIAL AGENTS THE CAUSE OF DIS 12/05/2016 OZZIE JACKSON Ot F17.210 NICOTINE DEPENDENCE, CIGARETTES, UNCOMPL 12/05/2016 OZZIE JACKSON Ot N76.0 ACUTE VAGINITIS 12/05/2016 OZZIE JACKSON Ot N92.0 EXCESSIVE AND FREQUENT MENSTRUATION WITH 12/05/2016 OZZIE JACKSON Ot N93.9 ABNORMAL UTERINE AND VAGINAL BLEEDING, U 12/05/2016 OZZIE JACKSON Ot Z87.448 PERSONAL HISTORY OF OTHER DISEASES OF UR 12/05/2016 OZZIE JACKSON Ot Z90.49 ACQUIRED ABSENCE OF OTHER SPECIFIED PART 12/11/2016 HIRA PA, OZZIE L Ot 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 12/11/2016 OZZIE JACKSON Sukhi Ot B96.89 OTH BACTERIAL AGENTS THE CAUSE OF DIS 12/11/2016 HIRA CHURCHILL OZZIE Sukhi Ot F17.210 NICOTINE DEPENDENCE, CIGARETTES, UNCOMPL 12/11/2016 HIRA KERLINE OZZIE Sukhi Ot N76.0 ACUTE VAGINITIS 12/11/2016 HIRA KERLINE OZZIE Sukhi Ot N92.0 EXCESSIVE AND FREQUENT MENSTRUATION WITH 12/11/2016 HIRA KERLINE OZZIE Sukhi Ot N93.9 ABNORMAL UTERINE AND VAGINAL BLEEDING, U 12/11/2016 HIRA KERLINE OZZIE Sukhi Ot Z87.448 PERSONAL HISTORY OF OTHER DISEASES OF UR 12/11/2016 HIRA CHURCHILL OZZIE Sukhi Ot Z90.49 ACQUIRED ABSENCE OF OTHER SPECIFIED PART 12/26/2016 MIMI WEEKS MD Ot F12.10 CANNABIS ABUSE, UNCOMPLICATED 12/26/2016 MIMI WEEKS MD Ot F17.210 NICOTINE DEPENDENCE, CIGARETTES, UNCOMPL 12/26/2016 MIMI WEEKS MD Ot G43.909 MIGRAINE, UNSP, NOT INTRACTABLE, WITHOUT 12/26/2016 MIMI WEEKS MD Ot Z87.448 PERSONAL HISTORY OF OTHER DISEASES OF UR 12/26/2016 MIMI WEEKS MD, Ot Z90.49 ACQUIRED ABSENCE OF OTHER SPECIFIED PART Procedures There is no data. <section xmlns="urn:hl7-org:v3" xmlns:xsi="http:// www.w3.org/2001/XMLSchema-instance"> <templateId root= "[email or web address]" /> <templateId root= "[email or web address]" /> <code codeSystemName="LOINC" codeSystem= "[id number]" code="07590-3" displayName="Results" /> <title>Results< /title> <text> <table> <thead> <tr> <th>Test</th> <th>Result</th> <th>Range</th> </tr> </thead> < tbody> <tr> <th colspan="10">[facility] PANEL, [facility] - 13:35</th> </tr> <tr> <td>POTASSIUM</td> <td> 3.7 mmol/L</td> <td>3.5-5.3</td> </tr> <tr> <td> EST GFR (MDRD)</td> <td>> 60 mL/min</td> <td>> 59</td> </tr> <tr> <td>ANION GAP</td> <td>14 mmol/L</td > <td>5-15</td> </tr> <tr> <td>EST CrCl (CG)</td > <td>> 60 mL/min</td> <td>> 59</td> </tr> <tr> <td>GLUCOSE</td> <td>101 mg/dL</td> <td>70-99< /td> </tr> <tr> <td>CALCIUM</td> <td>8.6 mg/dL</ td> <td>8.5-10.1</td> </tr> <tr> <td>BLOOD UREA NITROGEN</td> <td>16 mg/dL</td> <td>7-20</td> </tr> <tr> <td>CREATININE</td> <td>0.8 mg/dL</td> <td> 0.6-1.0</td> </tr> <tr> <td>SODIUM</td> <td>140 mmol/L</td> <td>135-148</td> </tr> <tr> <td> CHLORIDE</td> <td>105 mmol/L</td> <td>98-110</td> </tr > <tr> <td>AST/SGOT</td> <td>13 Units/L</td> < td>10-37</td> </tr> <tr> <td>ALT/SGPT</td> <td> 25 Units/L</td> <td>< 66</td> </tr> <tr> <td> CARBON DIOXIDE</td> <td>21 mmol/L</td> <td>21-32</td> < /tr> <tr> <td>TOTAL PROTEIN</td> <td>8.3 gm/dL</td> <td>6.4-8.2</td> </tr> <tr> <td>ALBUMIN</td> <td>4.0 gm/dL</td> <td>3.4-5.0</td> </tr> <tr> <td>BILI TOTAL</td> <td>0.4 mg/dL</td> <td>0.0-1.0</td> </tr> <tr> <td>ALKALINE PHOSPHATASE TOTAL</td> < td>60 Units/L</td> <td>50-136</td> </tr> <tr> < th colspan="10">LIPASE - 08/19/12 13:35</th> </tr> <tr> < td>LIPASE</td> <td>74 Units/L</td> <td>73-393</td> </tr > <tr> < colspan="10">CBC W/DIFF - 08/19/12 13:35</th> </tr> <tr> <td>COMMENT</td> <td>REVIEWED </td> <td /> </tr> <tr> <td>GRANULOCYTE #</td> <td> 7.8 k/cumm</td> <td>2.0-9.0</td> </tr> <tr> <td> GRANULOCYTE %</td> <td>83 %</td> <td>50-75</td> </tr> <tr> <td>LYMPHOCYTE #</td> <td>1.1 k/cumm</td> <td>1.0-4.0</td> </tr> <tr> <td>LYMPHOCYTE &#37 ;</td> <td>12 %</td> <td>20-30</td> </tr> < tr> <td>MEAN CELL HGB</td> <td>30.1 pg</td> <td>27.0- 33.0</td> </tr> <tr> <td>MEAN CELL HGB CONCENTRATION</td > <td>33.2 g/dl</td> <td>32.0-36.0</td> </tr> < tr> <td>MEAN CELL VOLUME</td> <td>90.5 fl</td> <td> 80.0-100.0</td> </tr> <tr> <td>MONOCYTE #</td> < td>0.5 k/cumm</td> <td>0.1-1.0</td> </tr> <tr> < td>MONOCYTE %</td> <td>5 %</td> <td>4-6</td> </ tr> <tr> <td>RED BLOOD CELL</td> <td>4.97 m/cumm</td> <td>4.00-6.00</td> </tr> <tr> <td>RED CELL DISTRIBUTION WIDTH</td> <td>13.5 %</td> <td>11.0-15.6</td > </tr> <tr> <td>WHITE BLOOD CELL</td> <td>9.4 k /cumm</td> <td>5.0-10.0</td> </tr> <tr> <td> HEMOGLOBIN</td> <td>14.9 gm/dL</td> <td>12.0-16.0</td> </tr> <tr> <td>HEMATOCRIT</td> <td>45.0 %</td> <td>37.0-47.0</td> </tr> <tr> <td>PLATELET COUNT</ td> <td>263 k/cumm</td> <td>150-450</td> </tr> < tr> <th colspan="10">UR TEST - 08/19/12 13:55</th> </ tr> <tr> <td>UR TEST</td> <td>NEGATIVE </td> <td>NEGATIVE</td> </tr> <tr> <th colspan="10"> URINALYSIS WITH MICROSCOPIC - 08/19/12 13:55</th> </tr> <tr> <td>UA LEUKOCYTE ESTERASE DIPSTICK</td> <td>1+ </td> <td> NEGATIVE</td> </tr> <tr> <td>UA NITRITE DIPSTICK</td> <td>NEGATIVE </td> <td>NEGATIVE</td> </tr> <tr> <td>UA PROTEIN DIPSTICK</td> <td>1+ </td> <td>NEGATIVE </td> </tr> <tr> <td>UA GLUCOSE DIPSTICK</td> < td>NEGATIVE </td> <td>NEGATIVE</td> </tr> <tr> < td>UA KETONE DIPSTICK</td> <td>TRACE </td> <td>NEGATIVE</td> </tr> <tr> <td>UA UROBILINOGEN DIPSTICK</td> <td >NORMAL </td> <td>NORMAL</td> </tr> <tr> <td>UA BILIRUBIN DIPSTICK</td> <td>NEGATIVE </td> <td>NEGATIVE</td> </tr> <tr> <td>UA BLOOD DIPSTICK</td> <td> NEGATIVE </td> <td>NEGATIVE</td> </tr> <tr> <td> UA BACTERIA</td> <td>2+ </td> <td>NEGATIVE</td> </tr> <tr> <td>UA EPITHELIAL CELLS</td> <td>2+ epi/hpf</td> <td>0 - 1+</td> </tr> <tr> <td>UA MUCUS</td> <td>1+ </td> <td>NEG TO 1+</td> </tr> <tr> <td>UA RBC</td> <td>0-3 rbc/hpf</td> <td>0 - 3</td> </tr> <tr> <td>UA VOLUME FOR EXAM</td> <td>10.0 mL</td > <td>(12mL STD)</td> </tr> <tr> <td>UA WBC</td > <td>2-5 wbc/hpf</td> <td>0 - 5</td> </tr> <tr > <td>UA SPECIFIC GRAVITY</td> <td>1.020 </td> <td> 1.015-1.025</td> </tr> <tr> <td>UR PH</td> <td> 5.0 </td> <td>5.0-7.0</td> </tr> <tr> <th colspan="10">CAMPYLOBACTER ANTIGEN - 08/19/12 15:00</th> </tr> <tr > <td>Uncategorized</td> <td> </td> <td /> </ tr> <tr> <th colspan="10">STOOL LEUKOCYTES - 08/19/12 15:00</th > </tr> <tr> <td>Uncategorized</td> <td> </td> <td /> </tr> <tr> <th colspan="10">URINALYSIS, ROUTINE - 05/12/13 02:03</th> </tr> <tr> <td>UA LEUKOCYTE ESTERASE DIPSTICK</td> <td>TRACE </td> <td>NEGATIVE< /td> </tr> <tr> <td>UA NITRITE DIPSTICK</td> <td >NEGATIVE </td> <td>NEGATIVE</td> </tr> <tr> <td >UA PROTEIN DIPSTICK</td> <td>NEGATIVE </td> <td>NEGATIVE</td > </tr> <tr> <td>UA GLUCOSE DIPSTICK</td> <td> NEGATIVE </td> <td>NEGATIVE</td> </tr> <tr> <td> UA KETONE DIPSTICK</td> <td>NEGATIVE </td> <td>NEGATIVE</td> </tr> <tr> <td>UA UROBILINOGEN DIPSTICK</td> <td >NORMAL </td> <td>NORMAL</td> </tr> <tr> <td>UA BILIRUBIN DIPSTICK</td> <td>NEGATIVE </td> <td>NEGATIVE</td> </tr> <tr> <td>UA BLOOD DIPSTICK</td> <td>4+ </ td> <td>NEGATIVE</td> </tr> <tr> <td>UA BACTERIA </td> <td>3+ </td> <td>NEGATIVE</td> </tr> <tr> <td>UA EPITHELIAL CELLS</td> <td>2+ epi/hpf</td> <td >0 - 1+</td> </tr> <tr> <td>UA MUCUS</td> <td>3 + </td> <td>NEG TO 1+</td> </tr> <tr> <td>UA RBC </td> <td>3-5 rbc/hpf</td> <td>0 - 3</td> </tr> <tr> <td>UA VOLUME FOR EXAM</td> <td>12.0 mL</td> <td >(12mL STD)</td> </tr> <tr> <td>UA WBC</td> <td> 0-1 wbc/hpf</td> <td>0 - 5</td> </tr> <tr> <td> UA SPECIFIC GRAVITY</td> <td>1.020 </td> <td>1.015-1.025</td> </tr> <tr> <td>UR PH</td> <td>6.0 </td> <td>5.0-7.0</td> </tr> <tr> <th colspan="10">CHEM/HEM PROFILE-BEDSIDE - 07/08/13 15:37</th> </tr> <tr> <td> POTASSIUM</td> <td>3.9 mmol/L</td> <td>3.5-5.3</td> </ tr> <tr> <td>METHOD</td> <td>Bedside </td> < td /> </tr> <tr> <td>ANION GAP</td> <td>17 mmol/ L</td> <td>10-20</td> </tr> <tr> <td>METHOD</td > <td>Bedside </td> <td /> </tr> <tr> < td>GLUCOSE</td> <td>127 mg/dL</td> <td>70-99</td> </tr > <tr> <td>BLOOD UREA NITROGEN</td> <td>8 mg/dL</td> <td>7-20</td> </tr> <tr> <td>CREATININE</td> <td>0.7 mg/dL</td> <td>0.6-1.0</td> </tr> <tr> <td>HEMOGLOBIN</td> <td>15.6 gm/dL</td> <td>12.0-16.0</ td> </tr> <tr> <td>HEMATOCRIT</td> <td>46.0 &#37 ;</td> <td>37.0-47.0</td> </tr> <tr> <td>SODIUM< /td> <td>141 mmol/L</td> <td>135-148</td> </tr> <tr> <td>CHLORIDE</td> <td>105 mmol/L</td> <td>98-110 </td> </tr> <tr> <td>CARBON DIOXIDE</td> <td>24 mmol/L</td> <td>21-32</td> </tr> <tr> <td> CALCIUM IONIZED</td> <td>4.8 mg/dL</td> <td>4.5-5.3</td> </tr> <tr> < colspan="10">URINALYSIS, ROUTINE - 07/08/13 15 :46</th> </tr> <tr> <td>UA LEUKOCYTE ESTERASE DIPSTICK</ td> <td>1+ </td> <td>NEGATIVE</td> </tr> <tr> <td>UA NITRITE DIPSTICK</td> <td>NEGATIVE </td> <td> NEGATIVE</td> </tr> <tr> <td>UA PROTEIN DIPSTICK</td> <td>TRACE </td> <td>NEGATIVE</td> </tr> <tr> <td>UA GLUCOSE DIPSTICK</td> <td>NEGATIVE </td> <td> NEGATIVE</td> </tr> <tr> <td>UA KETONE DIPSTICK</td> <td>NEGATIVE </td> <td>NEGATIVE</td> </tr> <tr> <td>UA UROBILINOGEN DIPSTICK</td> <td>NORMAL </td> <td> NORMAL</td> </tr> <tr> <td>UA BILIRUBIN DIPSTICK</td> <td>POSITIVE </td> <td>NEGATIVE</td> </tr> <tr> <td>UA BLOOD DIPSTICK</td> <td>2+ </td> <td>NEGATIVE</ td> </tr> <tr> <td>UA SPECIFIC GRAVITY</td> <td> 1.010 </td> <td>1.015-1.025</td> </tr> <tr> <td> UR PH</td> <td>7.0 </td> <td>5.0-7.0</td> </tr> <tr> <th colspan="10">UA MICROSCOPIC - 07/08/13 15:46</th> </tr > <tr> <td>UA BACTERIA</td> <td>2+ </td> <td> NEGATIVE</td> </tr> <tr> <td>UA EPITHELIAL CELLS</td> <td>3+ epi/hpf</td> <td>0 - 1+</td> </tr> <tr> <td>UA MUCUS</td> <td>5+ </td> <td>NEG TO 1+</td> </tr> <tr> <td>UA RBC</td> <td>20-50 rbc/hpf</td> <td>0 - 3</td> </tr> <tr> <td>UA VOLUME FOR EXAM< /td> <td>12.0 mL</td> <td>(12mL STD)</td> </tr> <tr> <td>UA WBC</td> <td>0-1 wbc/hpf</td> <td>0 - 5</ td> </tr> <tr> < colspan="10">URINALYSIS, ROUTINE - 12:55</th> </tr> <tr> <td>UA LEUKOCYTE ESTERASE DIPSTICK</td> <td>TRACE </td> <td>NEGATIVE</td> </tr> <tr> <td>UA NITRITE DIPSTICK</td> <td>NEGATIVE </td> <td>NEGATIVE</td> </tr> <tr> <td>UA PROTEIN DIPSTICK</td> <td>TRACE </td> <td>NEGATIVE</td> </tr> <tr> <td>UA GLUCOSE DIPSTICK</td> <td>NEGATIVE </td> <td>NEGATIVE</td> </tr> <tr> <td>UA KETONE DIPSTICK</td> <td>NEGATIVE </td> <td>NEGATIVE</td> </tr > <tr> <td>UA UROBILINOGEN DIPSTICK</td> <td>NORMAL </ td> <td>NORMAL</td> </tr> <tr> <td>UA BILIRUBIN DIPSTICK</td> <td>NEGATIVE </td> <td>NEGATIVE</td> </tr > <tr> <td>UA BLOOD DIPSTICK</td> <td>3+ </td> <td>NEGATIVE</td> </tr> <tr> <td>UA SPECIFIC GRAVITY</ td> <td>1.025 </td> <td>1.015-1.025</td> </tr> < tr> <td>UR PH</td> <td>5.0 </td> <td>5.0-7.0</td> </tr> <tr> < colspan="10">UA MICROSCOPIC - 07/22/13 12:55 </th> </tr> <tr> <td>UA AMORPHOUS SEDIMENT</td> <td>2+ </td> <td /> </tr> <tr> <td>UA BACTERIA</ td> <td>3+ </td> <td>NEGATIVE</td> </tr> <tr> <td>UA EPITHELIAL CELLS</td> <td>3+ epi/hpf</td> <td> 0 - 1+</td> </tr> <tr> <td>UA MUCUS</td> <td>4+ </td> <td>NEG TO 1+</td> </tr> <tr> <td>UA RBC</ td> <td>3-5 rbc/hpf</td> <td>0 - 3</td> </tr> < tr> <td>UA VOLUME FOR EXAM</td> <td>12.0 mL</td> <td> (12mL STD)</td> </tr> <tr> <td>UA WBC</td> <td>2 -5 wbc/hpf</td> <td>0 - 5</td> </tr> <tr> < colspan="10">CBC W/DIFF - 07/22/13 13:55</th> </tr> <tr> <td>EOSINOPHIL #</td> <td>0.1 k/cumm</td> <td>0.1-0.5</td> </tr> <tr> <td>EOSINOPHIL %</td> <td>2 %</ td> <td>2-4</td> </tr> <tr> <td>GRANULOCYTE #</ td> <td>3.1 k/cumm</td> <td>2.0-9.0</td> </tr> < tr> <td>GRANULOCYTE %</td> <td>57 %</td> <td> 50-75</td> </tr> <tr> <td>LYMPHOCYTE #</td> <td> 1.8 k/cumm</td> <td>1.0-4.0</td> </tr> <tr> <td> LYMPHOCYTE %</td> <td>33 %</td> <td>20-30</td> </tr> <tr> <td>MEAN CELL HGB</td> <td>30.5 pg</td> <td>27.0-33.0</td> </tr> <tr> <td>MEAN CELL HGB CONCENTRATION</td> <td>34.3 g/dL</td> <td>32.0-37.0</td> </tr> <tr> <td>MEAN CELL VOLUME</td> <td>89.1 fl</td > <td>80.0-100.0</td> </tr> <tr> <td>MONOCYTE #< /td> <td>0.5 k/cumm</td> <td>0.1-1.0</td> </tr> <tr> <td>MONOCYTE %</td> <td>8 %</td> <td>4-6 </td> </tr> <tr> <td>RED BLOOD CELL</td> <td> 4.42 m/cumm</td> <td>4.00-6.00</td> </tr> <tr> < td>RED CELL DISTRIBUTION WIDTH</td> <td>12.7 %</td> <td> 11.0-15.6</td> </tr> <tr> <td>WHITE BLOOD CELL</td> <td>5.5 k/cumm</td> <td>5.0-10.0</td> </tr> <tr> <td>HEMOGLOBIN</td> <td>13.5 gm/dL</td> <td>12.0-16.0</ td> </tr> <tr> <td>HEMATOCRIT</td> <td>39.4 &#37 ;</td> <td>37.0-47.0</td> </tr> <tr> <td> PLATELET COUNT</td> <td>186 k/cumm</td> <td>150-450</td> </tr> <tr> <th colspan="10">METABOLIC PANEL, COMPREHN - 07/22 13:55</th> </tr> <tr> <td>POTASSIUM</td> <td >3.8 mmol/L</td> <td>3.5-5.3</td> </tr> <tr> <td >EST GFR (MDRD)</td> <td>> 60 mL/min</td> <td>> 59</td> </tr> <tr> <td>ANION GAP</td> <td>9 mmol/L</td > <td>5-15</td> </tr> <tr> <td>EST CrCl (CG)</td > <td>> 60 mL/min</td> <td>> 59</td> </tr> <tr> <td>GLUCOSE</td> <td>82 mg/dL</td> <td>70-99</ td> </tr> <tr> <td>CALCIUM</td> <td>8.1 mg/dL</ td> <td>8.5-10.1</td> </tr> <tr> <td>BLOOD UREA NITROGEN</td> <td>12 mg/dL</td> <td>7-20</td> </tr> <tr> <td>CREATININE</td> <td>0.8 mg/dL</td> <td> 0.6-1.0</td> </tr> <tr> <td>SODIUM</td> <td>142 mmol/L</td> <td>135-148</td> </tr> <tr> <td> CHLORIDE</td> <td>107 mmol/L</td> <td>98-110</td> </tr > <tr> <td>AST/SGOT</td> <td>17 Units/L</td> < td>10-37</td> </tr> <tr> <td>ALT/SGPT</td> <td> 24 Units/L</td> <td>< 66</td> </tr> <tr> <td> CARBON DIOXIDE</td> <td>26 mmol/L</td> <td>21-32</td> < /tr> <tr> <td>TOTAL PROTEIN</td> <td>6.1 gm/dL</td> <td>6.4-8.2</td> </tr> <tr> <td>ALBUMIN</td> <td>3.2 gm/dL</td> <td>3.4-5.0</td> </tr> <tr> <td>BILI TOTAL</td> <td>0.2 mg/dL</td> <td>0.0-1.0</td> </tr> <tr> <td>ALKALINE PHOSPHATASE TOTAL</td> < td>53 IU/L</td> <td>45-117</td> </tr> <tr> <th colspan="10">LIPASE - 07/22/13 13:55</th> </tr> <tr> <td> LIPASE</td> <td>120 Units/L</td> <td>73-393</td> </tr> <tr> <th colspan="10">Complete blood count (CBC) with automated white blood cell (WBC) differential - 12/05/16 15:10</th> </tr > <tr> <td>Blood leukocytes automated count (number/volume)</td > <td>6.5 10*3/uL</td> <td>4.3-11.0</td> </tr> < tr> <td>Blood erythrocytes automated count (number/volume)</td> <td>4.76 10*6/uL</td> <td>4.35-5.85</td> </tr> <tr> <td>Venous blood hemoglobin measurement (mass/volume)</td> <td> 14.1 g/dL</td> <td>11.5-16.0</td> </tr> <tr> <td >Blood hematocrit (volume fraction)</td> <td>42 %</td> <td >35-52</td> </tr> <tr> <td>Automated erythrocyte mean corpuscular volume</td> <td>87 [foz_us]</td> <td>80-99</td> </tr> <tr> <td>Automated erythrocyte mean corpuscular hemoglobin (mass per erythrocyte)</td> <td>30 pg</td> <td>25- 34</td> </tr> <tr> <td>Automated erythrocyte mean corpuscular hemoglobin concentration measurement (mass/volume)</td> <td >34 g/dL</td> <td>32-36</td> </tr> <tr> <td> Automated erythrocyte distribution width ratio</td> <td>13.2 %</td > <td>10.0-14.5</td> </tr> <tr> <td>Automated blood platelet count (count/volume)</td> <td>218 10*3/uL</td> <td>130-400</td> </tr> <tr> <td>Automated blood platelet mean volume measurement</td> <td>9.6 [foz_us]</td> <td>7.4- 10.4</td> </tr> <tr> <td>Automated blood neutrophils/100 leukocytes</td> <td>55 %</td> <td>42-75</td> </tr> <tr> <td>Automated blood lymphocytes/100 leukocytes</td> <td>37 %</td> <td>12-44</td> </tr> <tr> <td>Blood monocytes/100 leukocytes</td> <td>7 %</td> <td>0 -12</td> </tr> <tr> <td>Automated blood eosinophils/100 leukocytes</td> <td>2 %</td> <td>0-10</td> </tr> <tr> <td>Automated blood basophils/100 leukocytes</td> < td>0 %</td> <td>0-10</td> </tr> <tr> <td> Blood neutrophils automated count (number/volume)</td> <td>3.6 10*3</td > <td>1.8-7.8</td> </tr> <tr> <td>Blood lymphocytes automated count (number/volume)</td> <td>2.4 10*3</td> <td>1.0-4.0</td> </tr> <tr> <td>Blood monocytes automated count (number/volume)</td> <td>0.4 10*3</td> <td>0.0 -1.0</td> </tr> <tr> <td>Automated eosinophil count</td> <td>0.1 10*3/uL</td> <td>0.0-0.3</td> </tr> <tr > <td>Automated blood basophil count (count/volume)</td> <td> 0.0 10*3/uL</td> <td>0.0-0.1</td> </tr> <tr> < th colspan="10">PT panel in platelet poor plasma by coagulation assay - 15:10</th> </tr> <tr> <td>Prothrombin time (PT) in platelet poor plasma by coagulation assay</td> <td>12.5 s</td> <td>12.2-14.7</td> </tr> <tr> <td>INR in platelet poor plasma or blood by coagulation assay</td> <td>0.9 </td> <td> 0.8-1.4</td> </tr> <tr> <th colspan="10">Activated partial thromboplastin time (aPTT) in platelet poor plasma bycoagulation assay - 12/05/16 15:10</th> </tr> <tr> <td>Activated partial thromboplastin time (aPTT) in platelet poor plasma bycoagulation assay</td> <td>29 s</td> <td>24-35</td> </tr> <tr> < th colspan="10">Serum or plasma choriogonadotropin ( test) detection - 12/05/16 15:10</th> </tr> <tr> <td>Serum or plasma choriogonadotropin ( test) detection</td> <td>NEGATIVE </td> <td>NEGATIVE</td> </tr> <tr> <th colspan="10"> Comprehensive metabolic panel - 12/05/16 15:10</th> </tr> <tr> <td>Serum or plasma sodium measurement (moles/volume)</td> <td> 137 mmol/L</td> <td>135-145</td> </tr> <tr> <td> Serum or plasma potassium measurement (moles/volume)</td> <td>3.9 mmol/ L</td> <td>3.6-5.0</td> </tr> <tr> <td>Serum or plasma chloride measurement (moles/volume)</td> <td>108 mmol/L</td> <td>98-107</td> </tr> <tr> <td>Carbon dioxide</td > <td>24 mmol/L</td> <td>21-32</td> </tr> <tr> <td>Serum or plasma anion gap determination (moles/volume)</td> <td>5 mmol/L</td> <td>5-14</td> </tr> <tr> < td>Serum or plasma urea nitrogen measurement (mass/volume)</td> <td>13 mg/dL</td> <td>7-18</td> </tr> <tr> <td>Serum or plasma creatinine measurement (mass/volume)</td> <td>0.73 mg/dL</td > <td>0.60-1.30</td> </tr> <tr> <td>Serum or plasma urea nitrogen/creatinine mass ratio</td> <td>18 </td> < td>NRG</td> </tr> <tr> <td>Serum or plasma creatinine measurement with calculation of estimated glomerular filtration rate</td> <td>> </td> <td>NRG</td> </tr> <tr> <td> Serum or plasma glucose measurement (mass/volume)</td> <td>92 mg/dL</td > <td>70-105</td> </tr> <tr> <td>Serum or plasma calcium measurement (mass/volume)</td> <td>9.0 mg/dL</td> <td>8.5-10.1</td> </tr> <tr> <td>Serum or plasma total bilirubin measurement (mass/volume)</td> <td>0.4 mg/dL</td> <td>0.1-1.0</td> </tr> <tr> <td>Serum or plasma alkaline phosphatase measurement (enzymatic activity/volume)</td> <td> 65 U/L</td> <td>40-136</td> </tr> <tr> <td> Serum or plasma aspartate aminotransferase measurement (enzymatic activity/ volume)</td> <td>13 U/L</td> <td>5-34</td> </tr> <tr> <td>Serum or plasma alanine aminotransferase measurement ( enzymatic activity/volume)</td> <td>14 U/L</td> <td>0-55</td> </tr> <tr> <td>Serum or plasma protein measurement (mass /volume)</td> <td>7.2 g/dL</td> <td>6.4-8.2</td> </tr> <tr> <td>Serum or plasma albumin measurement (mass/volume)</td > <td>4.2 g/dL</td> <td>3.2-4.5</td> </tr> <tr> <th colspan="10">Bacteria identification in genital specimen by aerobe culture - 12/05/16 16:50</th> </tr> <tr> <td>FREE TEXT EXTERNAL</td> <td>PLUS NORMAL JELANI </td> <td>NRG</td> </tr> <tr> <td>QUANTITY OF GROWTH</td> <td>Scant Growth </td> <td>NRG</td> </tr> <tr> <td> Bacteria identification in genital specimen by aerobe culture</td> <td> [id number] </td> <td>NRG</td> </tr> <tr> <th colspan="10">Microscopic examination by wet preparation - 12/05/16 16:50</th> </tr> <tr> <td>WET PREP RESULTS</td> <td>AT 1658 , 12-06-16 BY </td> <td>NRG</td> </tr> <tr> < th colspan="10">Neisseria gonorrhoeae DNA detection by probe and signal amplification method - 12/05/16 16:50</th> </tr> <tr> <td >Gonorrhea amp DNA-urine</td> <td>Not Detected </td> <td>Not Detected</td> </tr> <tr> <th colspan="10">Chlamydia trachomatis DNA detection by probe and signal amplification method - 12/05/16 16 :50</th> </tr> <tr> <td>Chlamydia trachomatis DNA detection by probe and target amplification method</td> <td>Not Detected </td> <td>Not Detected</td> </tr> <tr> <th colspan="10">A1C - 01/10/17 12:02</th> </tr> <tr> <td >HEMOGLOBIN A1c</td> <td>5.0 % of total Hgb</td> <td>< 5.7</td> </tr> <tr> <th colspan="10">SUREPATH PAP AND HPV mRNA E6/E7 - 01/10/17 12:02</th> </tr> <tr> <td> CLINICAL INFORMATION:</td> <td> </td> <td>NRG</td> </tr > <tr> <td>LMP:</td> <td>01/04/17 </td> <td>NRG </td> </tr> <tr> <td>PREV. PAP:</td> <td> ABNORMAL </td> <td>NRG</td> </tr> <tr> <td> PREV. BX:</td> <td> </td> <td>NRG</td> </tr> <tr > <td>SOURCE:</td> <td>[facility] </td> <td>NRG</td> </tr> <tr> <td>STATEMENT OF ADEQUACY:</td> <td> </ td> <td>NRG</td> </tr> <tr> <td>INTERPRETATION/ RESULT:</td> <td> </td> <td>NRG</td> </tr> <tr> <td>COP:</td> <td> </td> <td>NRG</td> </tr> <tr> <td>HPV mRNA E6/E7, SUREPATH VIAL</td> <td>Not Detected </td> <td>NOT DETECTED</td> </tr> <tr > <td>GENERAL CATEGORIZATION:</td> <td> </td> <td>NRG </td> </tr> <tr> <td>COMMENT:</td> <td> </td> <td>NRG</td> </tr> <tr> <td>PATHOLOGIST:</td> <td> </td> <td>NRG</td> </tr> <tr> <th colspan="10">INSULIN LEVEL - 01/10/17 12:02</th> </tr> <tr> <td>INSULIN</td> <td>16.8 uIU/mL </td> <td>2.0-19.6</td> </tr> <tr> <th colspan="10">ESR/SED RATE - 01/31/17 09:10 </th> </tr> <tr> <td>SED RATE BY MODIFIED WESTERGREN</td > <td>11 mm/h</td> <td>< OR=20</td> </tr> <tr > <th colspan="10">TSH - 02/13/18 12:57</th> </tr> <tr> <td>TSH</td> <td>0.55 mIU/L</td> <td>NRG</td> </tr> <tr> <th colspan="10">A1C - 02/13/18 12:57</th> </ tr> <tr> <td>HEMOGLOBIN A1c</td> <td>5.1 % of total Hgb</td> <td><5.7</td> </tr> </tbody> </table> </text> <entry> <organizer moodCode="EVN" classCode="BATTERY"> < templateId root="[id number]" /> <id nullFlavor="NA" /> <code codeSystem="local" code="METABC" displayName="METABOLIC PANEL, COMPREHN" /> <statusCode code="completed" /> <component> < observation moodCode="EVN" classCode="OBS"> <templateId root= "2.16.840.1.454689.10..22.4.2" /> <id nullFlavor="NA" /> < code codeSystem="local" code="K" displayName="POTASSIUM" /> < statusCode code="completed" /> <effectiveTime value="320180668526" /> <value unit="mmol/L" xsi:type="PQ" value="3.7" /> < referenceRange> <observationRange> <text>3.5-5.3</text> </observationRange> </referenceRange> </observation > </component> <component> <observation moodCode="EVN" classCode="OBS"> <templateId root="216.840.1.005063.10...4.2" /> <id nullFlavor="NA" /> <code codeSystem="local" code="eGFR" displayName="EST GFR (MDRD)" /> <statusCode code="completed" /> <effectiveTime value="548565446256" /> <value unit="mL/min" xsi:type ="PQ" value="> 60" /> <referenceRange> <observationRange > <text>> 59</text> </observationRange> </ referenceRange> </observation> </component> <component> <observation moodCode="EVN" classCode="OBS"> <templateId root= "16.840.1.929719.10..4.2" /> <id nullFlavor="NA" /> < code codeSystem="local" code="GAP" displayName="ANION GAP" /> < statusCode code="completed" /> <effectiveTime value="347751474388" /> <value unit="mmol/L" xsi:type="PQ" value="14" /> < referenceRange> <observationRange> <text>5-15</text> </observationRange> </referenceRange> </observation> </component> <component> <observation moodCode="EVN" classCode= "OBS"> <templateId root="16.840.1.965407.10..4.2" /> < id nullFlavor="NA" /> <code codeSystem="local" code="eCrCl" displayName ="EST CrCl (CG)" /> <statusCode code="completed" /> < effectiveTime value="319686160475" /> <value unit="mL/min" xsi:type="PQ " value="> 60" /> <referenceRange> <observationRange> <text>> 59</text> </observationRange> </ referenceRange> </observation> </component> <component> <observation moodCode="EVN" classCode="OBS"> <templateId root= "216.840.1.629570.22.4.2" /> <id nullFlavor="NA" /> < code codeSystem="local" code="GLU" displayName="GLUCOSE" /> < statusCode code="completed" /> <effectiveTime value="011719128059" /> <value unit="mg/dL" xsi:type="PQ" value="101" /> < interpretationCode codeSystem="local" code="*" /> <referenceRange> <observationRange> <text>70-99</text> </ observationRange> </referenceRange> </observation> </ component> <component> <observation moodCode="EVN" classCode="OBS"> <templateId root="04.19.840.1.405940.12.21.21.4.2" /> <id nullFlavor="NA" /> <code codeSystem="local" code="CA" displayName= "CALCIUM" /> <statusCode code="completed" /> <effectiveTime value="856236281186" /> <value unit="mg/dL" xsi:type="PQ" value="8.6" / > <referenceRange> <observationRange> <text>8.5 -10.1</text> </observationRange> </referenceRange> </ observation> </component> <component> <observation moodCode= "EVN" classCode="OBS"> <templateId root="04.19.840.1.033351.12.21.21.4.2 " /> <id nullFlavor="NA" /> <code codeSystem="local" code="BUN " displayName="BLOOD UREA NITROGEN" /> <statusCode code="completed" /> <effectiveTime value="" /> <value unit="mg/dL" xsi:type="PQ" value="16" /> <referenceRange> < observationRange> <text>7-20</text> </observationRange> </referenceRange> </observation> </component> < component> <observation moodCode="EVN" classCode="OBS"> < templateId root="2.16.840.1.143441.12.21.21.4.2" /> <id nullFlavor="NA " /> <code codeSystem="local" code="CREAT" displayName="CREATININE" /> <statusCode code="completed" /> <effectiveTime value= "" /> <value unit="mg/dL" xsi:type="PQ" value="0.8" /> <referenceRange> <observationRange> <text>0.6-1.0< /text> </observationRange> </referenceRange> </ observation> </component> <component> <observation moodCode= "EVN" classCode="OBS"> <templateId root="2.16.840.1.724091.12.21.21.4.2 " /> <id nullFlavor="NA" /> <code codeSystem="local" code="NA " displayName="SODIUM" /> <statusCode code="completed" /> < effectiveTime value="" /> <value unit="mmol/L" xsi:type="PQ " value="140" /> <referenceRange> <observationRange> <text>135-148</text> </observationRange> </ referenceRange> </observation> </component> <component> <observation moodCode="EVN" classCode="OBS"> <templateId root= "216.840.1.033519.10..22.4.2" /> <id nullFlavor="NA" /> < code codeSystem="local" code="CL" displayName="CHLORIDE" /> < statusCode code="completed" /> <effectiveTime value="" /> <value unit="mmol/L" xsi:type="PQ" value="105" /> < referenceRange> <observationRange> <text>98-110</text> </observationRange> </referenceRange> </observation> </component> <component> <observation moodCode="EVN" classCode ="OBS"> <templateId root="16.840.1.667650.12.21.21.4.2" /> < id nullFlavor="NA" /> <code codeSystem="local" code="AST" displayName= "AST/SGOT" /> <statusCode code="completed" /> <effectiveTime value="" /> <value unit="Units/L" xsi:type="PQ" value="13" /> <referenceRange> <observationRange> <text>10 -37</text> </observationRange> </referenceRange> </ observation> </component> <component> <observation moodCode= "EVN" classCode="OBS"> <templateId root="04.19.840.1.547826.1022.4.2 " /> <id nullFlavor="NA" /> <code codeSystem="local" code="ALT " displayName="ALT/SGPT" /> <statusCode code="completed" /> < effectiveTime value="" /> <value unit="Units/L" xsi:type= "PQ" value="25" /> <referenceRange> <observationRange> <text>< 66</text> </observationRange> </ referenceRange> </observation> </component> <component> <observation moodCode="EVN" classCode="OBS"> <templateId root= "16.840.1.783138.22.4.2" /> <id nullFlavor="NA" /> < code codeSystem="local" code="CO2" displayName="CARBON DIOXIDE" /> < statusCode code="completed" /> <effectiveTime value="" /> <value unit="mmol/L" xsi:type="PQ" value="21" /> < referenceRange> <observationRange> <text>21-32</text> </observationRange> </referenceRange> </observation> </component> <component> <observation moodCode="EVN" classCode= "OBS"> <templateId root="04.19.840.1.703782.12.21.214.2" /> < id nullFlavor="NA" /> <code codeSystem="local" code="TP" displayName= "TOTAL PROTEIN" /> <statusCode code="completed" /> < effectiveTime value="" /> <value unit="gm/dL" xsi:type="PQ " value="8.3" /> <interpretationCode codeSystem="local" code="*" /> <referenceRange> <observationRange> <text>6.4-8.2 </text> </observationRange> </referenceRange> </ observation> </component> <component> <observation moodCode= "EVN" classCode="OBS"> <templateId root="04.19.840.1.389115.12.21.21.4.2 " /> <id nullFlavor="NA" /> <code codeSystem="local" code="ALB " displayName="ALBUMIN" /> <statusCode code="completed" /> < effectiveTime value="" /> <value unit="gm/dL" xsi:type="PQ " value="4.0" /> <referenceRange> <observationRange> <text>3.4-5.0</text> </observationRange> </ referenceRange> </observation> </component> <component> <observation moodCode="EVN" classCode="OBS"> <templateId root= "2.16.840.1.859164.10..22.4.2" /> <id nullFlavor="NA" /> < code codeSystem="local" code="BILTOT" displayName="BILI TOTAL" /> < statusCode code="completed" /> <effectiveTime value="765588228320" /> <value unit="mg/dL" xsi:type="PQ" value="0.4" /> < referenceRange> <observationRange> <text>0.0-1.0</text> </observationRange> </referenceRange> </observation > </component> <component> <observation moodCode="EVN" classCode="OBS"> <templateId root="216.840.1.221950.10...4.2" /> <id nullFlavor="NA" /> <code codeSystem="local" code="ALKP" displayName="ALKALINE PHOSPHATASE TOTAL" /> <statusCode code="completed " /> <effectiveTime value="968474196983" /> <value unit="Units /L" xsi:type="PQ" value="60" /> <referenceRange> < observationRange> <text>50-136</text> </observationRange > </referenceRange> </observation> </component> </ organizer> </entry> <entry> <organizer moodCode="EVN" classCode="BATTERY"> <templateId root="2.16.840.1.693470.10.20.22.4.1" /> <id nullFlavor= "NA" /> <code codeSystem="local" code="LIP" displayName="LIPASE" /> < statusCode code="completed" /> <component> <observation moodCode= "EVN" classCode="OBS"> <templateId root="16.840.1.435654.10..4.2 " /> <id nullFlavor="NA" /> <code codeSystem="local" code="LIP " displayName="LIPASE" /> <statusCode code="completed" /> < effectiveTime value="171932044052" /> <value unit="Units/L" xsi:type= "PQ" value="74" /> <referenceRange> <observationRange> <text>73-393</text> </observationRange> </ referenceRange> </observation> </component> </organizer> </entry > <entry> <organizer moodCode="EVN" classCode="BATTERY"> <templateId root="16.840.1.475449.10..22.4.1" /> <id nullFlavor="NA" /> <code codeSystem="local" code="CBCD" displayName="CBC W/DIFF" /> <statusCode code ="completed" /> <component> <observation moodCode="EVN" classCode= "OBS"> <templateId root="16.840.1.992168.10...4.2" /> < id nullFlavor="NA" /> <code codeSystem="local" code="CBCCOM" displayName="COMMENT" /> <statusCode code="completed" /> < effectiveTime value="113100091870" /> <value unit="" xsi:type="PQ" value="REVIEWED" /> <referenceRange> <observationRange> <text /> </observationRange> </referenceRange> </observation> </component> <component> <observation moodCode="EVN" classCode="OBS"> <templateId root= "04.19.840.1.448868.10.20.22.4.2" /> <id nullFlavor="NA" /> < code codeSystem="local" code="GR#" displayName="GRANULOCYTE #" /> < statusCode code="completed" /> <effectiveTime value="573961180617" /> <value unit="k/cumm" xsi:type="PQ" value="7.8" /> < referenceRange> <observationRange> <text>2.0-9.0</text> </observationRange> </referenceRange> </observation > </component> <component> <observation moodCode="EVN" classCode="OBS"> <templateId root="04.19.840.1.967436.1022.4.2" /> <id nullFlavor="NA" /> <code codeSystem="local" code="GR% " displayName="GRANULOCYTE %" /> <statusCode code="completed" /> <effectiveTime value="" /> <value unit="%" xsi: type="PQ" value="83" /> <interpretationCode codeSystem="local" code="* " /> <referenceRange> <observationRange> <text> 50-75</text> </observationRange> </referenceRange> </ observation> </component> <component> <observation moodCode= "EVN" classCode="OBS"> <templateId root="04.19.840.1.332368.10.2022.4.2 " /> <id nullFlavor="NA" /> <code codeSystem="local" code="LY# " displayName="LYMPHOCYTE #" /> <statusCode code="completed" /> <effectiveTime value="966544177802" /> <value unit="k/cumm" xsi:type ="PQ" value="1.1" /> <referenceRange> <observationRange> <text>1.0-4.0</text> </observationRange> </ referenceRange> </observation> </component> <component> <observation moodCode="EVN" classCode="OBS"> <templateId root= "16.840.1.856091.10.20.22.4.2" /> <id nullFlavor="NA" /> < code codeSystem="local" code="LY%" displayName="LYMPHOCYTE %" /> <statusCode code="completed" /> <effectiveTime value="205678134241" /> <value unit="%" xsi:type="PQ" value="12" /> < interpretationCode codeSystem="local" code="*" /> <referenceRange> <observationRange> <text>20-30</text> </ observationRange> </referenceRange> </observation> </ component> <component> <observation moodCode="EVN" classCode="OBS"> <templateId root="04.19.840.1.006394.10.4.2" /> <id nullFlavor="NA" /> <code codeSystem="local" code="MCH" displayName= "MEAN CELL HGB" /> <statusCode code="completed" /> < effectiveTime value="234373672061" /> <value unit="pg" xsi:type="PQ" value="30.1" /> <referenceRange> <observationRange> <text>27.0-33.0</text> </observationRange> </ referenceRange> </observation> </component> <component> <observation moodCode="EVN" classCode="OBS"> <templateId root= "04.19.840.1.412199.10.20.22.4.2" /> <id nullFlavor="NA" /> < code codeSystem="local" code="MCHC" displayName="MEAN CELL HGB CONCENTRATION" / > <statusCode code="completed" /> <effectiveTime value= "578235815215" /> <value unit="g/dl" xsi:type="PQ" value="33.2" /> <referenceRange> <observationRange> <text>32.0- 36.0</text> </observationRange> </referenceRange> </ observation> </component> <component> <observation moodCode= "EVN" classCode="OBS"> <templateId root="216.840.1.144141.10.20.22.4.2 " /> <id nullFlavor="NA" /> <code codeSystem="local" code="MCV " displayName="MEAN CELL VOLUME" /> <statusCode code="completed" /> <effectiveTime value="" /> <value unit="fl" xsi:type ="PQ" value="90.5" /> <referenceRange> <observationRange> <text>80.0-100.0</text> </observationRange> </ referenceRange> </observation> </component> <component> <observation moodCode="EVN" classCode="OBS"> <templateId root= "16.840.1.757283.10.20.22.4.2" /> <id nullFlavor="NA" /> < code codeSystem="local" code="MO#" displayName="MONOCYTE #" /> < statusCode code="completed" /> <effectiveTime value="945486267163" /> <value unit="k/cumm" xsi:type="PQ" value="0.5" /> < referenceRange> <observationRange> <text>0.1-1.0</text> </observationRange> </referenceRange> </observation > </component> <component> <observation moodCode="EVN" classCode="OBS"> <templateId root="216.840.1.502112.10.20.22.4.2" /> <id nullFlavor="NA" /> <code codeSystem="local" code="MO% " displayName="MONOCYTE %" /> <statusCode code="completed" /> <effectiveTime value="371215672903" /> <value unit="%" xsi: type="PQ" value="5" /> <referenceRange> <observationRange> <text>4-6</text> </observationRange> </ referenceRange> </observation> </component> <component> <observation moodCode="EVN" classCode="OBS"> <templateId root= "16.840.1.801506.10..22.4.2" /> <id nullFlavor="NA" /> < code codeSystem="local" code="RBC" displayName="RED BLOOD CELL" /> < statusCode code="completed" /> <effectiveTime value="770394145985" /> <value unit="m/cumm" xsi:type="PQ" value="4.97" /> < referenceRange> <observationRange> <text>4.00-6.00</text > </observationRange> </referenceRange> </observation > </component> <component> <observation moodCode="EVN" classCode="OBS"> <templateId root="16.840.1.559639.10.20.22.4.2" /> <id nullFlavor="NA" /> <code codeSystem="local" code="RDW" displayName="RED CELL DISTRIBUTION WIDTH" /> <statusCode code= "completed" /> <effectiveTime value="326737491069" /> <value unit="%" xsi:type="PQ" value="13.5" /> <referenceRange> <observationRange> <text>11.0-15.6</text> </ observationRange> </referenceRange> </observation> </ component> <component> <observation moodCode="EVN" classCode="OBS"> <templateId root="216.840.1.863939.10..4.2" /> <id nullFlavor="NA" /> <code codeSystem="local" code="WBC" displayName= "WHITE BLOOD CELL" /> <statusCode code="completed" /> < effectiveTime value="475466907739" /> <value unit="k/cumm" xsi:type="PQ " value="9.4" /> <referenceRange> <observationRange> <text>5.0-10.0</text> </observationRange> </ referenceRange> </observation> </component> <component> <observation moodCode="EVN" classCode="OBS"> <templateId root= "04.19.840.1.281853.12.21.21.4.2" /> <id nullFlavor="NA" /> < code codeSystem="local" code="HGBT" displayName="HEMOGLOBIN" /> < statusCode code="completed" /> <effectiveTime value="759955762439" /> <value unit="gm/dL" xsi:type="PQ" value="14.9" /> < referenceRange> <observationRange> <text>12.0-16.0</text > </observationRange> </referenceRange> </observation > </component> <component> <observation moodCode="EVN" classCode="OBS"> <templateId root="16.840.1.178312.12.21.21.4.2" /> <id nullFlavor="NA" /> <code codeSystem="local" code="HCTT" displayName="HEMATOCRIT" /> <statusCode code="completed" /> < effectiveTime value="930100503787" /> <value unit="%" xsi:type="PQ " value="45.0" /> <referenceRange> <observationRange> <text>37.0-47.0</text> </observationRange> </ referenceRange> </observation> </component> <component> <observation moodCode="EVN" classCode="OBS"> <templateId root= "216.840.1.104955.12.21.21.4.2" /> <id nullFlavor="NA" /> < code codeSystem="local" code="PLT" displayName="PLATELET COUNT" /> < statusCode code="completed" /> <effectiveTime value="273565234284" /> <value unit="k/cumm" xsi:type="PQ" value="263" /> < referenceRange> <observationRange> <text>150-450</text> </observationRange> </referenceRange> </observation > </component> </organizer> </entry> <entry> <organizer moodCode= "EVN" classCode="BATTERY"> <templateId root="216.840.1.586918.12.21.21.4.1 " /> <id nullFlavor="NA" /> <code codeSystem="local" code="PREGU" displayName="UR TEST" /> <statusCode code="completed" /> < component> <observation moodCode="EVN" classCode="OBS"> < templateId root="216.840.1.817494.22.4.2" /> <id nullFlavor="NA " /> <code codeSystem="local" code="PREGU" displayName="UR TEST" /> <statusCode code="completed" /> <effectiveTime value= "235561688072" /> <value unit="" xsi:type="PQ" value="NEGATIVE" /> <referenceRange> <observationRange> <text>NEGATIVE </text> </observationRange> </referenceRange> </ observation> </component> </organizer> </entry> <entry> <organizer moodCode="EVN" classCode="BATTERY"> <templateId root= "16.840.1.942228.10.22.4.1" /> <id nullFlavor="NA" /> <code codeSystem="local" code="UAM" displayName="URINALYSIS WITH MICROSCOPIC" /> <statusCode code="completed" /> <component> <observation moodCode= "EVN" classCode="OBS"> <templateId root="216.840.1.208326.10..4.2 " /> <id nullFlavor="NA" /> <code codeSystem="local" code= "LEUESU" displayName="UA LEUKOCYTE ESTERASE DIPSTICK" /> <statusCode code="completed" /> <effectiveTime value="701174090006" /> < value unit="" xsi:type="PQ" value="1+" /> <interpretationCode codeSystem="local" code="*" /> <referenceRange> < observationRange> <text>NEGATIVE</text> </ observationRange> </referenceRange> </observation> </ component> <component> <observation moodCode="EVN" classCode="OBS"> <templateId root="16.840.1.037065.12.21.21.4.2" /> <id nullFlavor="NA" /> <code codeSystem="local" code="NITRIU" displayName= "UA NITRITE DIPSTICK" /> <statusCode code="completed" /> < effectiveTime value="266298799506" /> <value unit="" xsi:type="PQ" value="NEGATIVE" /> <referenceRange> <observationRange> <text>NEGATIVE</text> </observationRange> </ referenceRange> </observation> </component> <component> <observation moodCode="EVN" classCode="OBS"> <templateId root= "216.840.1.901485.10.4.2" /> <id nullFlavor="NA" /> < code codeSystem="local" code="PROTEIU" displayName="UA PROTEIN DIPSTICK" /> <statusCode code="completed" /> <effectiveTime value= "380629969610" /> <value unit="" xsi:type="PQ" value="1+" /> < interpretationCode codeSystem="local" code="*" /> <referenceRange> <observationRange> <text>NEGATIVE</text> </ observationRange> </referenceRange> </observation> </ component> <component> <observation moodCode="EVN" classCode="OBS"> <templateId root="04.19.840.1.498135.12.21.214.2" /> <id nullFlavor="NA" /> <code codeSystem="local" code="DGLUU" displayName= "UA GLUCOSE DIPSTICK" /> <statusCode code="completed" /> < effectiveTime value="997240353475" /> <value unit="" xsi:type="PQ" value="NEGATIVE" /> <referenceRange> <observationRange> <text>NEGATIVE</text> </observationRange> </ referenceRange> </observation> </component> <component> <observation moodCode="EVN" classCode="OBS"> <templateId root= "16.840.1.496676.12.21.21.4.2" /> <id nullFlavor="NA" /> < code codeSystem="local" code="KETONU" displayName="UA KETONE DIPSTICK" /> <statusCode code="completed" /> <effectiveTime value=" " /> <value unit="" xsi:type="PQ" value="TRACE" /> < interpretationCode codeSystem="local" code="*" /> <referenceRange> <observationRange> <text>NEGATIVE</text> </ observationRange> </referenceRange> </observation> </ component> <component> <observation moodCode="EVN" classCode="OBS"> <templateId root="04.19.840.1.927128.12.21.21.4.2" /> <id nullFlavor="NA" /> <code codeSystem="local" code="UROBILU" displayName= "UA UROBILINOGEN DIPSTICK" /> <statusCode code="completed" /> <effectiveTime value="143190270765" /> <value unit="" xsi:type="PQ" value="NORMAL" /> <referenceRange> <observationRange> <text>NORMAL</text> </observationRange> </ referenceRange> </observation> </component> <component> <observation moodCode="EVN" classCode="OBS"> <templateId root= "840.1.188083.12.21.214.2" /> <id nullFlavor="NA" /> < code codeSystem="local" code="BILU" displayName="UA BILIRUBIN DIPSTICK" /> <statusCode code="completed" /> <effectiveTime value="598495479858 " /> <value unit="" xsi:type="PQ" value="NEGATIVE" /> < referenceRange> <observationRange> <text>NEGATIVE</text > </observationRange> </referenceRange> </observation > </component> <component> <observation moodCode="EVN" classCode="OBS"> <templateId root="04.19.840.1.617248.12.21.21.4.2" /> <id nullFlavor="NA" /> <code codeSystem="local" code="IGNACIA" displayName="UA BLOOD DIPSTICK" /> <statusCode code="completed" /> <effectiveTime value="654532688914" /> <value unit="" xsi:type= "PQ" value="NEGATIVE" /> <referenceRange> <observationRange > <text>NEGATIVE</text> </observationRange> </ referenceRange> </observation> </component> <component> <observation moodCode="EVN" classCode="OBS"> <templateId root= "216.840.1.232766.10..22.4.2" /> <id nullFlavor="NA" /> < code codeSystem="local" code="BACU" displayName="UA BACTERIA" /> < statusCode code="completed" /> <effectiveTime value="067907812821" /> <value unit="" xsi:type="PQ" value="2+" /> < interpretationCode codeSystem="local" code="*" /> <referenceRange> <observationRange> <text>NEGATIVE</text> </ observationRange> </referenceRange> </observation> </ component> <component> <observation moodCode="EVN" classCode="OBS"> <templateId root="216.840.1.731709.10.20.22.4.2" /> <id nullFlavor="NA" /> <code codeSystem="local" code="EPIU" displayName=" UA EPITHELIAL CELLS" /> <statusCode code="completed" /> < effectiveTime value="770407786790" /> <value unit="epi/hpf" xsi:type= "PQ" value="2+" /> <interpretationCode codeSystem="local" code="*" /> <referenceRange> <observationRange> <text>0 - 1 +</text> </observationRange> </referenceRange> </ observation> </component> <component> <observation moodCode= "EVN" classCode="OBS"> <templateId root="216.840.1.359498.10..22.4.2 " /> <id nullFlavor="NA" /> <code codeSystem="local" code= "MUCUSU" displayName="UA MUCUS" /> <statusCode code="completed" /> <effectiveTime value="" /> <value unit="" xsi:type= "PQ" value="1+" /> <referenceRange> <observationRange> <text>NEG TO 1+</text> </observationRange> </ referenceRange> </observation> </component> <component> <observation moodCode="EVN" classCode="OBS"> <templateId root= "16.840.1.168411.12.21.21.4.2" /> <id nullFlavor="NA" /> < code codeSystem="local" code="RBCU" displayName="UA RBC" /> < statusCode code="completed" /> <effectiveTime value="" /> <value unit="rbc/hpf" xsi:type="PQ" value="0-3" /> < referenceRange> <observationRange> <text>0 - 3</text> </observationRange> </referenceRange> </observation> </component> <component> <observation moodCode="EVN" classCode= "OBS"> <templateId root="04.19.840.1.609348.22.4.2" /> < id nullFlavor="NA" /> <code codeSystem="local" code="UAVOL" displayName ="UA VOLUME FOR EXAM" /> <statusCode code="completed" /> < effectiveTime value="" /> <value unit="mL" xsi:type="PQ" value="10.0" /> <referenceRange> <observationRange> <text>(12mL STD)</text> </observationRange> </ referenceRange> </observation> </component> <component> <observation moodCode="EVN" classCode="OBS"> <templateId root= "216.840.1.255218.10.4.2" /> <id nullFlavor="NA" /> < code codeSystem="local" code="WBCU" displayName="UA WBC" /> < statusCode code="completed" /> <effectiveTime value="" /> <value unit="wbc/hpf" xsi:type="PQ" value="2-5" /> < referenceRange> <observationRange> <text>0 - 5</text> </observationRange> </referenceRange> </observation> </component> <component> <observation moodCode="EVN" classCode= "OBS"> <templateId root="04.19.840.1.325877.12.21.21.4.2" /> < id nullFlavor="NA" /> <code codeSystem="local" code="SPGRU" displayName ="UA SPECIFIC GRAVITY" /> <statusCode code="completed" /> < effectiveTime value="" /> <value unit="" xsi:type="PQ" value="1.020" /> <referenceRange> <observationRange> <text>1.015-1.025</text> </observationRange> </ referenceRange> </observation> </component> <component> <observation moodCode="EVN" classCode="OBS"> <templateId root= "16.840.1.175256...4.2" /> <id nullFlavor="NA" /> < code codeSystem="local" code="GORDY" displayName="UR PH" /> <statusCode code="completed" /> <effectiveTime value="897771390281" /> < value unit="" xsi:type="PQ" value="5.0" /> <referenceRange> <observationRange> <text>5.0-7.0</text> </ observationRange> </referenceRange> </observation> </ component> </organizer> </entry> <entry> <organizer moodCode="EVN" classCode="BATTERY"> <templateId root="2.16.840.1.455990.10.20.22.4.1" /> <id nullFlavor="NA" /> <code codeSystem="local" code="CAMPYAG" displayName="CAMPYLOBACTER ANTIGEN" /> <statusCode code="completed" /> <component> <observation moodCode="EVN" classCode="OBS"> < templateId root="2.16.840.1.725020.10.20.22.4.2" /> <id nullFlavor="NA " /> <code codeSystem="local" code="UNC" displayName="Uncategorized" / > <statusCode code="completed" /> <effectiveTime value= "[id number]" /> <value xsi:type="ST" value="<pre><b>CAMPYLOBACTER ANTIGEN - STOOL CULTURE - E. COLI SHIGA-LIKE TOXIN</b> See BelowCAMPYLOBACTER ANTIGEN(F) Katie Date/Time: 08/19/2012 15:00 Sunny Date/Time: 08/21/2012 07:50SOURCE: STOOLSPEC DESC: CAMPYLOBACTER ANTIGENNEGATIVEST. [facility] [phone] [place] [id number] BelowSTOOL CULTURE(F) Katie Date/Time: 08/19/2012 15:00 Sunny Date/Time: 08/21/2012 07:50SOURCE: STOOLSPEC DESC: NO [place]ES[place] OR SHIGNEGATIVE FOR SALMONELLA AND SHIGELLANO E. COLI 0157NO E. COLI 0157 :H7 ISOLATEDST. [facility] [phone] [place], [place] [address]Bip BelowE. COLI SHIGA-LIKE TOXIN(F) Katie Date/Time: 08/19/2012 15:00 Sunny Date/Time: 08/21/2012 07:50SOURCE: STOOLSPEC DESC: SHIGA-TOXIN 1NEGATIVESHIGA-TOXIN 2NEGATIVESAINT [facility] [phone] [place] [address]</pre>" /> <referenceRange> < observationRange> <text /> </observationRange> </referenceRange> </observation> </component> </organizer> </ entry> <entry> <organizer moodCode="EVN" classCode="BATTERY"> < templateId root="2.16.840.1.941422.10.20.22.4.1" /> <id nullFlavor="NA" /> <code codeSystem="local" code="STWBC" displayName="STOOL LEUKOCYTES" /> <statusCode code="completed" /> <component> <observation moodCode="EVN" classCode="OBS"> <templateId root= "2.16.840.1.162832.10..22.4.2" /> <id nullFlavor="NA" /> < code codeSystem="local" code="UNC" displayName="Uncategorized" /> < statusCode code="completed" /> <effectiveTime value="[id number]" /> <value xsi:type="ST" value="<pre><b>STOOL LEUKOCYTES</b> See BelowSTOOL LEUKOCYTES(F) Katie Date/Time: 08/19/2012 15:00 Sunny Date/Time: 08/19/2012 22:49SOURCE: STOOLSPEC DESC: LIQUIDSTWBC RESULTNO NEUTROPHILS [facility] [phone] [place] [address]</pre>" /> <referenceRange> < observationRange> <text /> </observationRange> </referenceRange> </observation> </component> </organizer> </ entry> <entry> <organizer moodCode="EVN" classCode="BATTERY"> < templateId root="2.16.840.1.546765..22.4.1" /> <id nullFlavor="NA" /> <code codeSystem="local" code="UA" displayName="URINALYSIS, ROUTINE" /> <statusCode code="completed" /> <component> <observation moodCode="EVN" classCode="OBS"> <templateId root= "04.19.840.1.145963.12.21.21.4.2" /> <id nullFlavor="NA" /> < code codeSystem="local" code="LEUESU" displayName="UA LEUKOCYTE ESTERASE DIPSTICK" /> <statusCode code="completed" /> <effectiveTime value="348067031710" /> <value unit="" xsi:type="PQ" value="TRACE" /> <interpretationCode codeSystem="local" code="*" /> < referenceRange> <observationRange> <text>NEGATIVE</text > </observationRange> </referenceRange> </observation > </component> <component> <observation moodCode="EVN" classCode="OBS"> <templateId root="840.1.023026.12.21.21.4.2" /> <id nullFlavor="NA" /> <code codeSystem="local" code="NITRIU" displayName="UA NITRITE DIPSTICK" /> <statusCode code="completed" /> <effectiveTime value="249125344173" /> <value unit="" xsi:type= "PQ" value="NEGATIVE" /> <referenceRange> <observationRange > <text>NEGATIVE</text> </observationRange> </ referenceRange> </observation> </component> <component> <observation moodCode="EVN" classCode="OBS"> <templateId root= "04.19.840.1.422085.12.21.21.4.2" /> <id nullFlavor="NA" /> < code codeSystem="local" code="PROTEIU" displayName="UA PROTEIN DIPSTICK" /> <statusCode code="completed" /> <effectiveTime value= "068288437894" /> <value unit="" xsi:type="PQ" value="NEGATIVE" /> <referenceRange> <observationRange> <text>NEGATIVE </text> </observationRange> </referenceRange> </ observation> </component> <component> <observation moodCode= "EVN" classCode="OBS"> <templateId root="04.19.840.1.538045...4.2 " /> <id nullFlavor="NA" /> <code codeSystem="local" code= "DGLUU" displayName="UA GLUCOSE DIPSTICK" /> <statusCode code= "completed" /> <effectiveTime value="363327084766" /> <value unit="" xsi:type="PQ" value="NEGATIVE" /> <referenceRange> < observationRange> <text>NEGATIVE</text> </ observationRange> </referenceRange> </observation> </ component> <component> <observation moodCode="EVN" classCode="OBS"> <templateId root="04.19.840.1.388246.22.4.2" /> <id nullFlavor="NA" /> <code codeSystem="local" code="KETONU" displayName= "UA KETONE DIPSTICK" /> <statusCode code="completed" /> < effectiveTime value="680864607129" /> <value unit="" xsi:type="PQ" value="NEGATIVE" /> <referenceRange> <observationRange> <text>NEGATIVE</text> </observationRange> </ referenceRange> </observation> </component> <component> <observation moodCode="EVN" classCode="OBS"> <templateId root= "04.19.840.1.722192.12.21.21.4.2" /> <id nullFlavor="NA" /> < code codeSystem="local" code="UROBILU" displayName="UA UROBILINOGEN DIPSTICK" / > <statusCode code="completed" /> <effectiveTime value= "606438809949" /> <value unit="" xsi:type="PQ" value="NORMAL" /> <referenceRange> <observationRange> <text>NORMAL</ text> </observationRange> </referenceRange> </ observation> </component> <component> <observation moodCode= "EVN" classCode="OBS"> <templateId root="216.840.1.281790.12.21.21.4.2 " /> <id nullFlavor="NA" /> <code codeSystem="local" code= "BILU" displayName="UA BILIRUBIN DIPSTICK" /> <statusCode code= "completed" /> <effectiveTime value="400324007374" /> <value unit="" xsi:type="PQ" value="NEGATIVE" /> <referenceRange> < observationRange> <text>NEGATIVE</text> </ observationRange> </referenceRange> </observation> </ component> <component> <observation moodCode="EVN" classCode="OBS"> <templateId root="216.840.1.086316.12.21.21.4.2" /> <id nullFlavor="NA" /> <code codeSystem="local" code="IGNACIA" displayName="UA BLOOD DIPSTICK" /> <statusCode code="completed" /> < effectiveTime value="061098761111" /> <value unit="" xsi:type="PQ" value="4+" /> <interpretationCode codeSystem="local" code="*" /> <referenceRange> <observationRange> <text>NEGATIVE</ text> </observationRange> </referenceRange> </ observation> </component> <component> <observation moodCode= "EVN" classCode="OBS"> <templateId root="216.840.1.470150.10..4.2 " /> <id nullFlavor="NA" /> <code codeSystem="local" code= "BACU" displayName="UA BACTERIA" /> <statusCode code="completed" /> <effectiveTime value="255892185588" /> <value unit="" xsi:type= "PQ" value="3+" /> <interpretationCode codeSystem="local" code="*" /> <referenceRange> <observationRange> <text> NEGATIVE</text> </observationRange> </referenceRange> </observation> </component> <component> <observation moodCode ="EVN" classCode="OBS"> <templateId root= "16.840.1.913163.12.21.21.4.2" /> <id nullFlavor="NA" /> < code codeSystem="local" code="EPIU" displayName="UA EPITHELIAL CELLS" /> <statusCode code="completed" /> <effectiveTime value="556111588095" /> <value unit="epi/hpf" xsi:type="PQ" value="2+" /> < interpretationCode codeSystem="local" code="*" /> <referenceRange> <observationRange> <text>0 - 1+</text> </ observationRange> </referenceRange> </observation> </ component> <component> <observation moodCode="EVN" classCode="OBS"> <templateId root="16.840.1.081271.12.21.21.4.2" /> <id nullFlavor="NA" /> <code codeSystem="local" code="MUCUSU" displayName= "UA MUCUS" /> <statusCode code="completed" /> <effectiveTime value="471790276640" /> <value unit="" xsi:type="PQ" value="3+" /> <interpretationCode codeSystem="local" code="*" /> < referenceRange> <observationRange> <text>NEG TO 1+</text > </observationRange> </referenceRange> </observation > </component> <component> <observation moodCode="EVN" classCode="OBS"> <templateId root="216.840.1.444695.1022.4.2" /> <id nullFlavor="NA" /> <code codeSystem="local" code="RBCU" displayName="UA RBC" /> <statusCode code="completed" /> < effectiveTime value="880642988238" /> <value unit="rbc/hpf" xsi:type= "PQ" value="3-5" /> <interpretationCode codeSystem="local" code="*" /> <referenceRange> <observationRange> <text>0 - 3</text> </observationRange> </referenceRange> </ observation> </component> <component> <observation moodCode= "EVN" classCode="OBS"> <templateId root="04.19.840.1.608324.12.21.21.4.2 " /> <id nullFlavor="NA" /> <code codeSystem="local" code= "UAVOL" displayName="UA VOLUME FOR EXAM" /> <statusCode code="completed " /> <effectiveTime value="356701373303" /> <value unit="mL" xsi:type="PQ" value="12.0" /> <referenceRange> < observationRange> <text>(12mL STD)</text> </ observationRange> </referenceRange> </observation> </ component> <component> <observation moodCode="EVN" classCode="OBS"> <templateId root="216.840.1.221172.12.21.21.4.2" /> <id nullFlavor="NA" /> <code codeSystem="local" code="WBCU" displayName=" UA WBC" /> <statusCode code="completed" /> <effectiveTime value="722679314540" /> <value unit="wbc/hpf" xsi:type="PQ" value="0-1 " /> <referenceRange> <observationRange> <text> 0 - 5</text> </observationRange> </referenceRange> </ observation> </component> <component> <observation moodCode= "EVN" classCode="OBS"> <templateId root="2.16.840.1.207591.12.21.21.4.2 " /> <id nullFlavor="NA" /> <code codeSystem="local" code= "SPGRU" displayName="UA SPECIFIC GRAVITY" /> <statusCode code= "completed" /> <effectiveTime value="848071145933" /> <value unit="" xsi:type="PQ" value="1.020" /> <referenceRange> < observationRange> <text>1.015-1.025</text> </ observationRange> </referenceRange> </observation> </ component> <component> <observation moodCode="EVN" classCode="OBS"> <templateId root="2.16.840.1.354062.12.21.21.4.2" /> <id nullFlavor="NA" /> <code codeSystem="local" code="GORDY" displayName="UR PH" /> <statusCode code="completed" /> <effectiveTime value= "886129075861" /> <value unit="" xsi:type="PQ" value="6.0" /> <referenceRange> <observationRange> <text>5.0-7.0</text > </observationRange> </referenceRange> </observation > </component> </organizer> </entry> <entry> <organizer moodCode= "EVN" classCode="BATTERY"> <templateId root="16.840.1.058577.10...4.1 " /> <id nullFlavor="NA" /> <code codeSystem="local" code="iCHEM8" displayName="CHEM/HEM PROFILE-BEDSIDE" /> <statusCode code="completed" /> <component> <observation moodCode="EVN" classCode="OBS"> < templateId root="04.19.840.1.185803...4.2" /> <id nullFlavor="NA " /> <code codeSystem="local" code="K" displayName="POTASSIUM" /> <statusCode code="completed" /> <effectiveTime value=" " /> <value unit="mmol/L" xsi:type="PQ" value="3.9" /> < referenceRange> <observationRange> <text>3.5-5.3</text> </observationRange> </referenceRange> </observation > </component> <component> <observation moodCode="EVN" classCode="OBS"> <templateId root="04.19.840.1.617089.10...4.2" /> <id nullFlavor="NA" /> <code codeSystem="local" code="CMETHOD " displayName="METHOD" /> <statusCode code="completed" /> < effectiveTime value="" /> <value unit="" xsi:type="PQ" value="Bedside" /> <referenceRange> <observationRange> <text /> </observationRange> </referenceRange> </observation> </component> <component> <observation moodCode="EVN" classCode="OBS"> <templateId root= "16.840.1.035470...4.2" /> <id nullFlavor="NA" /> < code codeSystem="local" code="GAP" displayName="ANION GAP" /> < statusCode code="completed" /> <effectiveTime value="" /> <value unit="mmol/L" xsi:type="PQ" value="17" /> < referenceRange> <observationRange> <text>10-20</text> </observationRange> </referenceRange> </observation> </component> <component> <observation moodCode="EVN" classCode= "OBS"> <templateId root="2.16.840.1.604820.10..4.2" /> < id nullFlavor="NA" /> <code codeSystem="local" code="HMETHOD" displayName="METHOD" /> <statusCode code="completed" /> < effectiveTime value="" /> <value unit="" xsi:type="PQ" value="Bedside" /> <referenceRange> <observationRange> <text /> </observationRange> </referenceRange> </observation> </component> <component> <observation moodCode="EVN" classCode="OBS"> <templateId root= "2.16.840.1.865353.10...4.2" /> <id nullFlavor="NA" /> < code codeSystem="local" code="GLU" displayName="GLUCOSE" /> < statusCode code="completed" /> <effectiveTime value="" /> <value unit="mg/dL" xsi:type="PQ" value="127" /> < interpretationCode codeSystem="local" code="*" /> <referenceRange> <observationRange> <text>70-99</text> </ observationRange> </referenceRange> </observation> </ component> <component> <observation moodCode="EVN" classCode="OBS"> <templateId root="216.840.1.282688.10..22.4.2" /> <id nullFlavor="NA" /> <code codeSystem="local" code="BUN" displayName= "BLOOD UREA NITROGEN" /> <statusCode code="completed" /> < effectiveTime value="" /> <value unit="mg/dL" xsi:type="PQ " value="8" /> <referenceRange> <observationRange> <text>7-20</text> </observationRange> </referenceRange > </observation> </component> <component> <observation moodCode="EVN" classCode="OBS"> <templateId root= "216.840.1.040748...22.4.2" /> <id nullFlavor="NA" /> < code codeSystem="local" code="CREAT" displayName="CREATININE" /> < statusCode code="completed" /> <effectiveTime value="" /> <value unit="mg/dL" xsi:type="PQ" value="0.7" /> < referenceRange> <observationRange> <text>0.6-1.0</text> </observationRange> </referenceRange> </observation > </component> <component> <observation moodCode="EVN" classCode="OBS"> <templateId root="16.840.1.258660.10..22.4.2" /> <id nullFlavor="NA" /> <code codeSystem="local" code="HGBT" displayName="HEMOGLOBIN" /> <statusCode code="completed" /> < effectiveTime value="" /> <value unit="gm/dL" xsi:type="PQ " value="15.6" /> <referenceRange> <observationRange> <text>12.0-16.0</text> </observationRange> </ referenceRange> </observation> </component> <component> <observation moodCode="EVN" classCode="OBS"> <templateId root= "216.840.1.995760.10..4.2" /> <id nullFlavor="NA" /> < code codeSystem="local" code="HCTT" displayName="HEMATOCRIT" /> < statusCode code="completed" /> <effectiveTime value="" /> <value unit="%" xsi:type="PQ" value="46.0" /> < referenceRange> <observationRange> <text>37.0-47.0</text > </observationRange> </referenceRange> </observation > </component> <component> <observation moodCode="EVN" classCode="OBS"> <templateId root="04.19.840.1.260783.12.21.21.4.2" /> <id nullFlavor="NA" /> <code codeSystem="local" code="NA" displayName="SODIUM" /> <statusCode code="completed" /> < effectiveTime value="" /> <value unit="mmol/L" xsi:type="PQ " value="141" /> <referenceRange> <observationRange> <text>135-148</text> </observationRange> </ referenceRange> </observation> </component> <component> <observation moodCode="EVN" classCode="OBS"> <templateId root= "216.840.1.230310...4.2" /> <id nullFlavor="NA" /> < code codeSystem="local" code="CL" displayName="CHLORIDE" /> < statusCode code="completed" /> <effectiveTime value="" /> <value unit="mmol/L" xsi:type="PQ" value="105" /> < referenceRange> <observationRange> <text>98-110</text> </observationRange> </referenceRange> </observation> </component> <component> <observation moodCode="EVN" classCode ="OBS"> <templateId root="216.840.1.483712.10.20.22.4.2" /> < id nullFlavor="NA" /> <code codeSystem="local" code="CO2" displayName= "CARBON DIOXIDE" /> <statusCode code="completed" /> < effectiveTime value="" /> <value unit="mmol/L" xsi:type="PQ " value="24" /> <referenceRange> <observationRange> <text>21-32</text> </observationRange> </ referenceRange> </observation> </component> <component> <observation moodCode="EVN" classCode="OBS"> <templateId root= "04.19.840.1.463541.10...4.2" /> <id nullFlavor="NA" /> < code codeSystem="local" code="CAION" displayName="CALCIUM IONIZED" /> < statusCode code="completed" /> <effectiveTime value="975473336503" /> <value unit="mg/dL" xsi:type="PQ" value="4.8" /> < referenceRange> <observationRange> <text>4.5-5.3</text> </observationRange> </referenceRange> </observation > </component> </organizer> </entry> <entry> <organizer moodCode= "EVN" classCode="BATTERY"> <templateId root="16.840.1.151638.10.20.22.4.1 " /> <id nullFlavor="NA" /> <code codeSystem="local" code="UA" displayName="URINALYSIS, ROUTINE" /> <statusCode code="completed" /> < component> <observation moodCode="EVN" classCode="OBS"> < templateId root="216.840.1.043922.12.21.21.4.2" /> <id nullFlavor="NA " /> <code codeSystem="local" code="LEUESU" displayName="UA LEUKOCYTE ESTERASE DIPSTICK" /> <statusCode code="completed" /> < effectiveTime value="" /> <value unit="" xsi:type="PQ" value="1+" /> <interpretationCode codeSystem="local" code="*" /> <referenceRange> <observationRange> <text>NEGATIVE</ text> </observationRange> </referenceRange> </ observation> </component> <component> <observation moodCode= "EVN" classCode="OBS"> <templateId root="04.19.840.1.708060.12.21.214.2 " /> <id nullFlavor="NA" /> <code codeSystem="local" code= "NITRIU" displayName="UA NITRITE DIPSTICK" /> <statusCode code= "completed" /> <effectiveTime value="" /> <value unit="" xsi:type="PQ" value="NEGATIVE" /> <referenceRange> < observationRange> <text>NEGATIVE</text> </ observationRange> </referenceRange> </observation> </ component> <component> <observation moodCode="EVN" classCode="OBS"> <templateId root="04.19.840.1.710049.12.21.21.4.2" /> <id nullFlavor="NA" /> <code codeSystem="local" code="PROTEIU" displayName= "UA PROTEIN DIPSTICK" /> <statusCode code="completed" /> < effectiveTime value="" /> <value unit="" xsi:type="PQ" value="TRACE" /> <interpretationCode codeSystem="local" code="*" /> <referenceRange> <observationRange> <text> NEGATIVE</text> </observationRange> </referenceRange> </observation> </component> <component> <observation moodCode ="EVN" classCode="OBS"> <templateId root= "04.19.840.1.280885.10.4.2" /> <id nullFlavor="NA" /> < code codeSystem="local" code="DGLUU" displayName="UA GLUCOSE DIPSTICK" /> <statusCode code="completed" /> <effectiveTime value=" " /> <value unit="" xsi:type="PQ" value="NEGATIVE" /> < referenceRange> <observationRange> <text>NEGATIVE</text > </observationRange> </referenceRange> </observation > </component> <component> <observation moodCode="EVN" classCode="OBS"> <templateId root="840.1.580630.12.21.21.4.2" /> <id nullFlavor="NA" /> <code codeSystem="local" code="KETONU" displayName="UA KETONE DIPSTICK" /> <statusCode code="completed" /> <effectiveTime value="" /> <value unit="" xsi:type= "PQ" value="NEGATIVE" /> <referenceRange> <observationRange > <text>NEGATIVE</text> </observationRange> </ referenceRange> </observation> </component> <component> <observation moodCode="EVN" classCode="OBS"> <templateId root= "04.19.840.1.097531.12.21.21.4.2" /> <id nullFlavor="NA" /> < code codeSystem="local" code="UROBILU" displayName="UA UROBILINOGEN DIPSTICK" / > <statusCode code="completed" /> <effectiveTime value= "" /> <value unit="" xsi:type="PQ" value="NORMAL" /> <referenceRange> <observationRange> <text>NORMAL</ text> </observationRange> </referenceRange> </ observation> </component> <component> <observation moodCode= "EVN" classCode="OBS"> <templateId root="216.840.1.805814.10..22.4.2 " /> <id nullFlavor="NA" /> <code codeSystem="local" code= "BILU" displayName="UA BILIRUBIN DIPSTICK" /> <statusCode code= "completed" /> <effectiveTime value="" /> <value unit="" xsi:type="PQ" value="POSITIVE" /> <interpretationCode codeSystem="local" code="*" /> <referenceRange> < observationRange> <text>NEGATIVE</text> </ observationRange> </referenceRange> </observation> </ component> <component> <observation moodCode="EVN" classCode="OBS"> <templateId root="216.840.1.064564.10.20.22.4.2" /> <id nullFlavor="NA" /> <code codeSystem="local" code="IGNACIA" displayName="UA BLOOD DIPSTICK" /> <statusCode code="completed" /> < effectiveTime value="" /> <value unit="" xsi:type="PQ" value="2+" /> <interpretationCode codeSystem="local" code="*" /> <referenceRange> <observationRange> <text>NEGATIVE</ text> </observationRange> </referenceRange> </ observation> </component> <component> <observation moodCode= "EVN" classCode="OBS"> <templateId root="216.840.1.384019.10..22.4.2 " /> <id nullFlavor="NA" /> <code codeSystem="local" code= "SPGRU" displayName="UA SPECIFIC GRAVITY" /> <statusCode code= "completed" /> <effectiveTime value="" /> <value unit="" xsi:type="PQ" value="1.010" /> <interpretationCode codeSystem= "local" code="*" /> <referenceRange> <observationRange> <text>1.015-1.025</text> </observationRange> </ referenceRange> </observation> </component> <component> <observation moodCode="EVN" classCode="OBS"> <templateId root= "16.840.1.684681.12.21.21.4.2" /> <id nullFlavor="NA" /> < code codeSystem="local" code="GORDY" displayName="UR PH" /> <statusCode code="completed" /> <effectiveTime value="" /> < value unit="" xsi:type="PQ" value="7.0" /> <referenceRange> <observationRange> <text>5.0-7.0</text> </ observationRange> </referenceRange> </observation> </ component> </organizer> </entry> <entry> <organizer moodCode="EVN" classCode="BATTERY"> <templateId root="216.840.1.182102.10..22.4.1" /> <id nullFlavor="NA" /> <code codeSystem="local" code="UAMICRO" displayName="UA MICROSCOPIC" /> <statusCode code="completed" /> < component> <observation moodCode="EVN" classCode="OBS"> < templateId root="04.19.840.1.143885.10..22.4.2" /> <id nullFlavor="NA " /> <code codeSystem="local" code="BACU" displayName="UA BACTERIA" /> <statusCode code="completed" /> <effectiveTime value= "" /> <value unit="" xsi:type="PQ" value="2+" /> < interpretationCode codeSystem="local" code="*" /> <referenceRange> <observationRange> <text>NEGATIVE</text> </ observationRange> </referenceRange> </observation> </ component> <component> <observation moodCode="EVN" classCode="OBS"> <templateId root="840.1.184006.12.21.21.4.2" /> <id nullFlavor="NA" /> <code codeSystem="local" code="EPIU" displayName=" UA EPITHELIAL CELLS" /> <statusCode code="completed" /> < effectiveTime value="" /> <value unit="epi/hpf" xsi:type= "PQ" value="3+" /> <interpretationCode codeSystem="local" code="*" /> <referenceRange> <observationRange> <text>0 - 1 +</text> </observationRange> </referenceRange> </ observation> </component> <component> <observation moodCode= "EVN" classCode="OBS"> <templateId root="04.19.840.1.782524.10..4.2 " /> <id nullFlavor="NA" /> <code codeSystem="local" code= "MUCUSU" displayName="UA MUCUS" /> <statusCode code="completed" /> <effectiveTime value="" /> <value unit="" xsi:type= "PQ" value="5+" /> <interpretationCode codeSystem="local" code="*" /> <referenceRange> <observationRange> <text>NEG TO 1+</text> </observationRange> </referenceRange> </ observation> </component> <component> <observation moodCode= "EVN" classCode="OBS"> <templateId root="16.840.1.154184.10..22.4.2 " /> <id nullFlavor="NA" /> <code codeSystem="local" code= "RBCU" displayName="UA RBC" /> <statusCode code="completed" /> <effectiveTime value="" /> <value unit="rbc/hpf" xsi:type ="PQ" value="20-50" /> <interpretationCode codeSystem="local" code="*" /> <referenceRange> <observationRange> <text>0 - 3</text> </observationRange> </referenceRange> </ observation> </component> <component> <observation moodCode= "EVN" classCode="OBS"> <templateId root="04.19.840.1.123260...4.2 " /> <id nullFlavor="NA" /> <code codeSystem="local" code= "UAVOL" displayName="UA VOLUME FOR EXAM" /> <statusCode code="completed " /> <effectiveTime value="" /> <value unit="mL" xsi:type="PQ" value="12.0" /> <referenceRange> < observationRange> <text>(12mL STD)</text> </ observationRange> </referenceRange> </observation> </ component> <component> <observation moodCode="EVN" classCode="OBS"> <templateId root="16.840.1.349194.10..22.4.2" /> <id nullFlavor="NA" /> <code codeSystem="local" code="WBCU" displayName=" UA WBC" /> <statusCode code="completed" /> <effectiveTime value="535034469225" /> <value unit="wbc/hpf" xsi:type="PQ" value="0-1 " /> <referenceRange> <observationRange> <text> 0 - 5</text> </observationRange> </referenceRange> </ observation> </component> </organizer> </entry> <entry> <organizer moodCode="EVN" classCode="BATTERY"> <templateId root= "16.840.1.608885.10...4.1" /> <id nullFlavor="NA" /> <code codeSystem="local" code="UA" displayName="URINALYSIS, ROUTINE" /> < statusCode code="completed" /> <component> <observation moodCode= "EVN" classCode="OBS"> <templateId root="16.840.1.739784.10...4.2 " /> <id nullFlavor="NA" /> <code codeSystem="local" code= "LEUESU" displayName="UA LEUKOCYTE ESTERASE DIPSTICK" /> <statusCode code="completed" /> <effectiveTime value="[id number]" /> < value unit="" xsi:type="PQ" value="TRACE" /> <interpretationCode codeSystem="local" code="*" /> <referenceRange> < observationRange> <text>NEGATIVE</text> </ observationRange> </referenceRange> </observation> </ component> <component> <observation moodCode="EVN" classCode="OBS"> <templateId root="04.19.840.1.259126.10...4.2" /> <id nullFlavor="NA" /> <code codeSystem="local" code="NITRIU" displayName= "UA NITRITE DIPSTICK" /> <statusCode code="completed" /> < effectiveTime value="" /> <value unit="" xsi:type="PQ" value="NEGATIVE" /> <referenceRange> <observationRange> <text>NEGATIVE</text> </observationRange> </ referenceRange> </observation> </component> <component> <observation moodCode="EVN" classCode="OBS"> <templateId root= "04.19.840.1.437719.12.21.21.4.2" /> <id nullFlavor="NA" /> < code codeSystem="local" code="PROTEIU" displayName="UA PROTEIN DIPSTICK" /> <statusCode code="completed" /> <effectiveTime value= "" /> <value unit="" xsi:type="PQ" value="TRACE" /> <interpretationCode codeSystem="local" code="*" /> <referenceRange> <observationRange> <text>NEGATIVE</text> </ observationRange> </referenceRange> </observation> </ component> <component> <observation moodCode="EVN" classCode="OBS"> <templateId root="840.1.898776.12.21.21.4.2" /> <id nullFlavor="NA" /> <code codeSystem="local" code="DGLUU" displayName= "UA GLUCOSE DIPSTICK" /> <statusCode code="completed" /> < effectiveTime value="" /> <value unit="" xsi:type="PQ" value="NEGATIVE" /> <referenceRange> <observationRange> <text>NEGATIVE</text> </observationRange> </ referenceRange> </observation> </component> <component> <observation moodCode="EVN" classCode="OBS"> <templateId root= "04.19.840.1.798014.12.21.21.4.2" /> <id nullFlavor="NA" /> < code codeSystem="local" code="KETONU" displayName="UA KETONE DIPSTICK" /> <statusCode code="completed" /> <effectiveTime value=" " /> <value unit="" xsi:type="PQ" value="NEGATIVE" /> < referenceRange> <observationRange> <text>NEGATIVE</text > </observationRange> </referenceRange> </observation > </component> <component> <observation moodCode="EVN" classCode="OBS"> <templateId root="216.840.1.735783.12.21.21.4.2" /> <id nullFlavor="NA" /> <code codeSystem="local" code="UROBILU " displayName="UA UROBILINOGEN DIPSTICK" /> <statusCode code="completed " /> <effectiveTime value="" /> <value unit="" xsi :type="PQ" value="NORMAL" /> <referenceRange> < observationRange> <text>NORMAL</text> </observationRange > </referenceRange> </observation> </component> < component> <observation moodCode="EVN" classCode="OBS"> < templateId root="2.16.840.1.616892.12.21.21.4.2" /> <id nullFlavor="NA " /> <code codeSystem="local" code="BILU" displayName="UA BILIRUBIN DIPSTICK" /> <statusCode code="completed" /> <effectiveTime value="" /> <value unit="" xsi:type="PQ" value="NEGATIVE" / > <referenceRange> <observationRange> <text> NEGATIVE</text> </observationRange> </referenceRange> </observation> </component> <component> <observation moodCode ="EVN" classCode="OBS"> <templateId root= "216.840.1.709019.10..22.4.2" /> <id nullFlavor="NA" /> < code codeSystem="local" code="IGNACIA" displayName="UA BLOOD DIPSTICK" /> < statusCode code="completed" /> <effectiveTime value="" /> <value unit="" xsi:type="PQ" value="3+" /> < interpretationCode codeSystem="local" code="*" /> <referenceRange> <observationRange> <text>NEGATIVE</text> </ observationRange> </referenceRange> </observation> </ component> <component> <observation moodCode="EVN" classCode="OBS"> <templateId root="04.19.840.1.621487.12.21.21.4.2" /> <id nullFlavor="NA" /> <code codeSystem="local" code="SPGRU" displayName= "UA SPECIFIC GRAVITY" /> <statusCode code="completed" /> < effectiveTime value="" /> <value unit="" xsi:type="PQ" value="1.025" /> <referenceRange> <observationRange> <text>1.015-1.025</text> </observationRange> </ referenceRange> </observation> </component> <component> <observation moodCode="EVN" classCode="OBS"> <templateId root= "16.840.1.787856.10.22.4.2" /> <id nullFlavor="NA" /> < code codeSystem="local" code="GORDY" displayName="UR PH" /> <statusCode code="completed" /> <effectiveTime value="" /> < value unit="" xsi:type="PQ" value="5.0" /> <referenceRange> <observationRange> <text>5.0-7.0</text> </ observationRange> </referenceRange> </observation> </ component> </organizer> </entry> <entry> <organizer moodCode="EVN" classCode="BATTERY"> <templateId root="216.840.1.792506.10...4.1" /> <id nullFlavor="NA" /> <code codeSystem="local" code="UAMICRO" displayName="UA MICROSCOPIC" /> <statusCode code="completed" /> < component> <observation moodCode="EVN" classCode="OBS"> < templateId root="216.840.1.536865.10..4.2" /> <id nullFlavor="NA " /> <code codeSystem="local" code="AMORPU" displayName="UA AMORPHOUS SEDIMENT" /> <statusCode code="completed" /> <effectiveTime value="" /> <value unit="" xsi:type="PQ" value="2+" /> <referenceRange> <observationRange> <text /> </observationRange> </referenceRange> </observation> </component> <component> <observation moodCode="EVN" classCode= "OBS"> <templateId root="216.840.1.989258...4.2" /> < id nullFlavor="NA" /> <code codeSystem="local" code="BACU" displayName= "UA BACTERIA" /> <statusCode code="completed" /> < effectiveTime value="" /> <value unit="" xsi:type="PQ" value="3+" /> <interpretationCode codeSystem="local" code="*" /> <referenceRange> <observationRange> <text>NEGATIVE</ text> </observationRange> </referenceRange> </ observation> </component> <component> <observation moodCode= "EVN" classCode="OBS"> <templateId root="216.840.1.191271.10..4.2 " /> <id nullFlavor="NA" /> <code codeSystem="local" code= "EPIU" displayName="UA EPITHELIAL CELLS" /> <statusCode code="completed " /> <effectiveTime value="" /> <value unit="epi/ hpf" xsi:type="PQ" value="3+" /> <interpretationCode codeSystem="local " code="*" /> <referenceRange> <observationRange> <text>0 - 1+</text> </observationRange> </referenceRange > </observation> </component> <component> <observation moodCode="EVN" classCode="OBS"> <templateId root= "04.19.840.1.237177.12.21.214.2" /> <id nullFlavor="NA" /> < code codeSystem="local" code="MUCUSU" displayName="UA MUCUS" /> < statusCode code="completed" /> <effectiveTime value="" /> <value unit="" xsi:type="PQ" value="4+" /> < interpretationCode codeSystem="local" code="*" /> <referenceRange> <observationRange> <text>NEG TO 1+</text> </ observationRange> </referenceRange> </observation> </ component> <component> <observation moodCode="EVN" classCode="OBS"> <templateId root="216.840.1.331817...4.2" /> <id nullFlavor="NA" /> <code codeSystem="local" code="RBCU" displayName=" UA RBC" /> <statusCode code="completed" /> <effectiveTime value="" /> <value unit="rbc/hpf" xsi:type="PQ" value="3-5 " /> <interpretationCode codeSystem="local" code="*" /> < referenceRange> <observationRange> <text>0 - 3</text> </observationRange> </referenceRange> </observation> </component> <component> <observation moodCode="EVN" classCode= "OBS"> <templateId root="2.16.840.1.711078.10..4.2" /> < id nullFlavor="NA" /> <code codeSystem="local" code="UAVOL" displayName ="UA VOLUME FOR EXAM" /> <statusCode code="completed" /> < effectiveTime value="" /> <value unit="mL" xsi:type="PQ" value="12.0" /> <referenceRange> <observationRange> <text>(12mL STD)</text> </observationRange> </ referenceRange> </observation> </component> <component> <observation moodCode="EVN" classCode="OBS"> <templateId root= "2.16.840.1.886043.10..4.2" /> <id nullFlavor="NA" /> < code codeSystem="local" code="WBCU" displayName="UA WBC" /> < statusCode code="completed" /> <effectiveTime value="" /> <value unit="wbc/hpf" xsi:type="PQ" value="2-5" /> < referenceRange> <observationRange> <text>0 - 5</text> </observationRange> </referenceRange> </observation> </component> </organizer> </entry> <entry> <organizer moodCode="EVN " classCode="BATTERY"> <templateId root="2.16.840.1.556415.10..4.1" / > <id nullFlavor="NA" /> <code codeSystem="local" code="CBCD" displayName="CBC W/DIFF" /> <statusCode code="completed" /> <component > <observation moodCode="EVN" classCode="OBS"> <templateId root= "840.1.257458.10.4.2" /> <id nullFlavor="NA" /> < code codeSystem="local" code="EO#" displayName="EOSINOPHIL #" /> < statusCode code="completed" /> <effectiveTime value="" /> <value unit="k/cumm" xsi:type="PQ" value="0.1" /> < referenceRange> <observationRange> <text>0.1-0.5</text> </observationRange> </referenceRange> </observation > </component> <component> <observation moodCode="EVN" classCode="OBS"> <templateId root="840.1.050152.12.21.214.2" /> <id nullFlavor="NA" /> <code codeSystem="local" code="EO% " displayName="EOSINOPHIL %" /> <statusCode code="completed" /> <effectiveTime value="" /> <value unit="%" xsi: type="PQ" value="2" /> <referenceRange> <observationRange> <text>2-4</text> </observationRange> </ referenceRange> </observation> </component> <component> <observation moodCode="EVN" classCode="OBS"> <templateId root= "04.19.840.1.879052.10.4.2" /> <id nullFlavor="NA" /> < code codeSystem="local" code="GR#" displayName="GRANULOCYTE #" /> < statusCode code="completed" /> <effectiveTime value="" /> <value unit="k/cumm" xsi:type="PQ" value="3.1" /> < referenceRange> <observationRange> <text>2.0-9.0</text> </observationRange> </referenceRange> </observation > </component> <component> <observation moodCode="EVN" classCode="OBS"> <templateId root="216.840.1.859337.10..4.2" /> <id nullFlavor="NA" /> <code codeSystem="local" code="GR% " displayName="GRANULOCYTE %" /> <statusCode code="completed" /> <effectiveTime value="" /> <value unit="%" xsi: type="PQ" value="57" /> <referenceRange> <observationRange> <text>50-75</text> </observationRange> </ referenceRange> </observation> </component> <component> <observation moodCode="EVN" classCode="OBS"> <templateId root= "216.840.1.944642.10...4.2" /> <id nullFlavor="NA" /> < code codeSystem="local" code="LY#" displayName="LYMPHOCYTE #" /> < statusCode code="completed" /> <effectiveTime value="[id number]" /> <value unit="k/cumm" xsi:type="PQ" value="1.8" /> < referenceRange> <observationRange> <text>1.0-4.0</text> </observationRange> </referenceRange> </observation > </component> <component> <observation moodCode="EVN" classCode="OBS"> <templateId root="216.840.1.411974.10.22.4.2" /> <id nullFlavor="NA" /> <code codeSystem="local" code="LY% " displayName="LYMPHOCYTE %" /> <statusCode code="completed" /> <effectiveTime value="" /> <value unit="%" xsi: type="PQ" value="33" /> <interpretationCode codeSystem="local" code="* " /> <referenceRange> <observationRange> <text> 20-30</text> </observationRange> </referenceRange> </ observation> </component> <component> <observation moodCode= "EVN" classCode="OBS"> <templateId root="04.19.840.1.594778.10.4.2 " /> <id nullFlavor="NA" /> <code codeSystem="local" code="MCH " displayName="MEAN CELL HGB" /> <statusCode code="completed" /> <effectiveTime value="" /> <value unit="pg" xsi:type= "PQ" value="30.5" /> <referenceRange> <observationRange> <text>27.0-33.0</text> </observationRange> </ referenceRange> </observation> </component> <component> <observation moodCode="EVN" classCode="OBS"> <templateId root= "04.19.840.1.676309.10.2022.4.2" /> <id nullFlavor="NA" /> < code codeSystem="local" code="MCHC" displayName="MEAN CELL HGB CONCENTRATION" / > <statusCode code="completed" /> <effectiveTime value= "" /> <value unit="g/dL" xsi:type="PQ" value="34.3" /> <referenceRange> <observationRange> <text>32.0- 37.0</text> </observationRange> </referenceRange> </ observation> </component> <component> <observation moodCode= "EVN" classCode="OBS"> <templateId root="04.19.840.1.560445.10..4.2 " /> <id nullFlavor="NA" /> <code codeSystem="local" code="MCV " displayName="MEAN CELL VOLUME" /> <statusCode code="completed" /> <effectiveTime value="" /> <value unit="fl" xsi:type ="PQ" value="89.1" /> <referenceRange> <observationRange> <text>80.0-100.0</text> </observationRange> </ referenceRange> </observation> </component> <component> <observation moodCode="EVN" classCode="OBS"> <templateId root= "840.1.613808.12.21.21.4.2" /> <id nullFlavor="NA" /> < code codeSystem="local" code="MO#" displayName="MONOCYTE #" /> < statusCode code="completed" /> <effectiveTime value="" /> <value unit="k/cumm" xsi:type="PQ" value="0.5" /> < referenceRange> <observationRange> <text>0.1-1.0</text> </observationRange> </referenceRange> </observation > </component> <component> <observation moodCode="EVN" classCode="OBS"> <templateId root="04.19.840.1.517856.12.21.21.4.2" /> <id nullFlavor="NA" /> <code codeSystem="local" code="MO% " displayName="MONOCYTE %" /> <statusCode code="completed" /> <effectiveTime value="" /> <value unit="%" xsi: type="PQ" value="8" /> <interpretationCode codeSystem="local" code="*" /> <referenceRange> <observationRange> <text>4- 6</text> </observationRange> </referenceRange> </ observation> </component> <component> <observation moodCode= "EVN" classCode="OBS"> <templateId root="216.840.1.544152.10..22.4.2 " /> <id nullFlavor="NA" /> <code codeSystem="local" code="RBC " displayName="RED BLOOD CELL" /> <statusCode code="completed" /> <effectiveTime value="" /> <value unit="m/cumm" xsi: type="PQ" value="4.42" /> <referenceRange> <observationRange > <text>4.00-6.00</text> </observationRange> </ referenceRange> </observation> </component> <component> <observation moodCode="EVN" classCode="OBS"> <templateId root= "216.840.1.753435.10..22.4.2" /> <id nullFlavor="NA" /> < code codeSystem="local" code="RDW" displayName="RED CELL DISTRIBUTION WIDTH" /> <statusCode code="completed" /> <effectiveTime value= "" /> <value unit="%" xsi:type="PQ" value="12.7" /> <referenceRange> <observationRange> <text>11.0- 15.6</text> </observationRange> </referenceRange> </ observation> </component> <component> <observation moodCode= "EVN" classCode="OBS"> <templateId root="216.840.1.152811.12.21.21.4.2 " /> <id nullFlavor="NA" /> <code codeSystem="local" code="WBC " displayName="WHITE BLOOD CELL" /> <statusCode code="completed" /> <effectiveTime value="" /> <value unit="k/cumm" xsi: type="PQ" value="5.5" /> <referenceRange> <observationRange > <text>5.0-10.0</text> </observationRange> </ referenceRange> </observation> </component> <component> <observation moodCode="EVN" classCode="OBS"> <templateId root= "2.16.840.1.171008.12.21.21.4.2" /> <id nullFlavor="NA" /> < code codeSystem="local" code="HGBT" displayName="HEMOGLOBIN" /> < statusCode code="completed" /> <effectiveTime value="" /> <value unit="gm/dL" xsi:type="PQ" value="13.5" /> < referenceRange> <observationRange> <text>12.0-16.0</text > </observationRange> </referenceRange> </observation > </component> <component> <observation moodCode="EVN" classCode="OBS"> <templateId root="2.16.840.1.085644.22.4.2" /> <id nullFlavor="NA" /> <code codeSystem="local" code="HCTT" displayName="HEMATOCRIT" /> <statusCode code="completed" /> < effectiveTime value="" /> <value unit="%" xsi:type="PQ " value="39.4" /> <referenceRange> <observationRange> <text>37.0-47.0</text> </observationRange> </ referenceRange> </observation> </component> <component> <observation moodCode="EVN" classCode="OBS"> <templateId root= "216.840.1.933105.10...4.2" /> <id nullFlavor="NA" /> < code codeSystem="local" code="PLT" displayName="PLATELET COUNT" /> < statusCode code="completed" /> <effectiveTime value="" /> <value unit="k/cumm" xsi:type="PQ" value="186" /> < referenceRange> <observationRange> <text>150-450</text> </observationRange> </referenceRange> </observation > </component> </organizer> </entry> <entry> <organizer moodCode= "EVN" classCode="BATTERY"> <templateId root="16.840.1.653051.10..22.4.1 " /> <id nullFlavor="NA" /> <code codeSystem="local" code="METABC" displayName="METABOLIC PANEL, COMPREHN" /> <statusCode code="completed" /> <component> <observation moodCode="EVN" classCode="OBS"> < templateId root="216.840.1.461086.10..22.4.2" /> <id nullFlavor="NA " /> <code codeSystem="local" code="K" displayName="POTASSIUM" /> <statusCode code="completed" /> <effectiveTime value=" " /> <value unit="mmol/L" xsi:type="PQ" value="3.8" /> < referenceRange> <observationRange> <text>3.5-5.3</text> </observationRange> </referenceRange> </observation > </component> <component> <observation moodCode="EVN" classCode="OBS"> <templateId root="216.840.1.605951.10..22.4.2" /> <id nullFlavor="NA" /> <code codeSystem="local" code="eGFR" displayName="EST GFR (MDRD)" /> <statusCode code="completed" /> <effectiveTime value="" /> <value unit="mL/min" xsi:type ="PQ" value="> 60" /> <referenceRange> <observationRange > <text>> 59</text> </observationRange> </ referenceRange> </observation> </component> <component> <observation moodCode="EVN" classCode="OBS"> <templateId root= "216.840.1.389552.10..4.2" /> <id nullFlavor="NA" /> < code codeSystem="local" code="GAP" displayName="ANION GAP" /> < statusCode code="completed" /> <effectiveTime value="" /> <value unit="mmol/L" xsi:type="PQ" value="9" /> < referenceRange> <observationRange> <text>5-15</text> </observationRange> </referenceRange> </observation> </component> <component> <observation moodCode="EVN" classCode= "OBS"> <templateId root="16.840.1.166118.12.21.21.4.2" /> < id nullFlavor="NA" /> <code codeSystem="local" code="eCrCl" displayName ="EST CrCl (CG)" /> <statusCode code="completed" /> < effectiveTime value="" /> <value unit="mL/min" xsi:type="PQ " value="> 60" /> <referenceRange> <observationRange> <text>> 59</text> </observationRange> </ referenceRange> </observation> </component> <component> <observation moodCode="EVN" classCode="OBS"> <templateId root= "216.840.1.174790.10.4.2" /> <id nullFlavor="NA" /> < code codeSystem="local" code="GLU" displayName="GLUCOSE" /> < statusCode code="completed" /> <effectiveTime value="" /> <value unit="mg/dL" xsi:type="PQ" value="82" /> < referenceRange> <observationRange> <text>70-99</text> </observationRange> </referenceRange> </observation> </component> <component> <observation moodCode="EVN" classCode= "OBS"> <templateId root="16.840.1.275622.12.21.21.4.2" /> < id nullFlavor="NA" /> <code codeSystem="local" code="CA" displayName= "CALCIUM" /> <statusCode code="completed" /> <effectiveTime value="" /> <value unit="mg/dL" xsi:type="PQ" value="8.1" / > <interpretationCode codeSystem="local" code="*" /> < referenceRange> <observationRange> <text>8.5-10.1</text > </observationRange> </referenceRange> </observation > </component> <component> <observation moodCode="EVN" classCode="OBS"> <templateId root="16.840.1.100560...4.2" /> <id nullFlavor="NA" /> <code codeSystem="local" code="BUN" displayName="BLOOD UREA NITROGEN" /> <statusCode code="completed" /> <effectiveTime value="" /> <value unit="mg/dL" xsi: type="PQ" value="12" /> <referenceRange> <observationRange> <text>7-20</text> </observationRange> </ referenceRange> </observation> </component> <component> <observation moodCode="EVN" classCode="OBS"> <templateId root= "216.840.1.789509.10...4.2" /> <id nullFlavor="NA" /> < code codeSystem="local" code="CREAT" displayName="CREATININE" /> < statusCode code="completed" /> <effectiveTime value="" /> <value unit="mg/dL" xsi:type="PQ" value="0.8" /> < referenceRange> <observationRange> <text>0.6-1.0</text> </observationRange> </referenceRange> </observation > </component> <component> <observation moodCode="EVN" classCode="OBS"> <templateId root="04.19.840.1.127232...4.2" /> <id nullFlavor="NA" /> <code codeSystem="local" code="NA" displayName="SODIUM" /> <statusCode code="completed" /> < effectiveTime value="" /> <value unit="mmol/L" xsi:type="PQ " value="142" /> <referenceRange> <observationRange> <text>135-148</text> </observationRange> </ referenceRange> </observation> </component> <component> <observation moodCode="EVN" classCode="OBS"> <templateId root= "16.840.1.198612.10..22.4.2" /> <id nullFlavor="NA" /> < code codeSystem="local" code="CL" displayName="CHLORIDE" /> < statusCode code="completed" /> <effectiveTime value="" /> <value unit="mmol/L" xsi:type="PQ" value="107" /> < referenceRange> <observationRange> <text>98-110</text> </observationRange> </referenceRange> </observation> </component> <component> <observation moodCode="EVN" classCode ="OBS"> <templateId root="16.840.1.273293.10...4.2" /> < id nullFlavor="NA" /> <code codeSystem="local" code="AST" displayName= "AST/SGOT" /> <statusCode code="completed" /> <effectiveTime value="" /> <value unit="Units/L" xsi:type="PQ" value="17" /> <referenceRange> <observationRange> <text>10 -37</text> </observationRange> </referenceRange> </ observation> </component> <component> <observation moodCode= "EVN" classCode="OBS"> <templateId root="04.19.840.1.834591...4.2 " /> <id nullFlavor="NA" /> <code codeSystem="local" code="ALT " displayName="ALT/SGPT" /> <statusCode code="completed" /> < effectiveTime value="" /> <value unit="Units/L" xsi:type= "PQ" value="24" /> <referenceRange> <observationRange> <text>< 66</text> </observationRange> </ referenceRange> </observation> </component> <component> <observation moodCode="EVN" classCode="OBS"> <templateId root= "04.19.840.1.694082...4.2" /> <id nullFlavor="NA" /> < code codeSystem="local" code="CO2" displayName="CARBON DIOXIDE" /> < statusCode code="completed" /> <effectiveTime value="" /> <value unit="mmol/L" xsi:type="PQ" value="26" /> < referenceRange> <observationRange> <text>21-32</text> </observationRange> </referenceRange> </observation> </component> <component> <observation moodCode="EVN" classCode= "OBS"> <templateId root="2.16.840.1.533468.10..4.2" /> < id nullFlavor="NA" /> <code codeSystem="local" code="TP" displayName= "TOTAL PROTEIN" /> <statusCode code="completed" /> < effectiveTime value="" /> <value unit="gm/dL" xsi:type="PQ " value="6.1" /> <interpretationCode codeSystem="local" code="*" /> <referenceRange> <observationRange> <text>6.4-8.2 </text> </observationRange> </referenceRange> </ observation> </component> <component> <observation moodCode= "EVN" classCode="OBS"> <templateId root="216.840.1.896911.10.22.4.2 " /> <id nullFlavor="NA" /> <code codeSystem="local" code="ALB " displayName="ALBUMIN" /> <statusCode code="completed" /> < effectiveTime value="" /> <value unit="gm/dL" xsi:type="PQ " value="3.2" /> <interpretationCode codeSystem="local" code="*" /> <referenceRange> <observationRange> <text>3.4-5.0 </text> </observationRange> </referenceRange> </ observation> </component> <component> <observation moodCode= "EVN" classCode="OBS"> <templateId root="2.16.840.1.325342.10..4.2 " /> <id nullFlavor="NA" /> <code codeSystem="local" code= "BILTOT" displayName="BILI TOTAL" /> <statusCode code="completed" /> <effectiveTime value="" /> <value unit="mg/dL" xsi: type="PQ" value="0.2" /> <referenceRange> <observationRange > <text>0.0-1.0</text> </observationRange> </ referenceRange> </observation> </component> <component> <observation moodCode="EVN" classCode="OBS"> <templateId root= "216.840.1.441878.12.21.21.4.2" /> <id nullFlavor="NA" /> < code codeSystem="local" code="ALKP" displayName="ALKALINE PHOSPHATASE TOTAL" /> <statusCode code="completed" /> <effectiveTime value= "" /> <value unit="IU/L" xsi:type="PQ" value="53" /> <referenceRange> <observationRange> <text>45-117</ text> </observationRange> </referenceRange> </ observation> </component> </organizer> </entry> <entry> <organizer moodCode="EVN" classCode="BATTERY"> <templateId root= "216.840.1.434946.10...4.1" /> <id nullFlavor="NA" /> <code codeSystem="local" code="LIP" displayName="LIPASE" /> <statusCode code= "completed" /> <component> <observation moodCode="EVN" classCode= "OBS"> <templateId root="2.16.840.1.398060.10.20.22.4.2" /> < id nullFlavor="NA" /> <code codeSystem="local" code="LIP" displayName= "LIPASE" /> <statusCode code="completed" /> <effectiveTime value="782154111308" /> <value unit="Units/L" xsi:type="PQ" value="120 " /> <referenceRange> <observationRange> <text> 73-393</text> </observationRange> </referenceRange> < /observation> </component> </organizer> </entry> <entry> < organizer moodCode="EVN" classCode="BATTERY"> <templateId root= "2.16.840.1.443168.10.20.22.4.1" /> <id nullFlavor="NA" /> <code codeSystem="local" code="88376-4" displayName="Complete blood count (CBC) with automated white blood cell (WBC) differential" /> <statusCode code= "completed" /> <component> <observation moodCode="EVN" classCode= "OBS"> <templateId root="2.16.840.1.890082.10.20.22.4.2" /> < id nullFlavor="NA" /> <code codeSystem="local" code="6690-2" displayName="Blood leukocytes automated count (number/volume)" /> < statusCode code="completed" /> <effectiveTime value="910851052619" /> <value unit="10*3/uL" xsi:type="PQ" value="6.5" /> < referenceRange> <observationRange> <text>4.3-11.0</text > </observationRange> </referenceRange> </observation > </component> <component> <observation moodCode="EVN" classCode="OBS"> <templateId root="2.16.840.1.698524.10.20.22.4.2" /> <id nullFlavor="NA" /> <code codeSystem="local" code="789-8" displayName="Blood erythrocytes automated count (number/volume)" /> < statusCode code="completed" /> <effectiveTime value="603202703218" /> <value unit="10*6/uL" xsi:type="PQ" value="4.76" /> < referenceRange> <observationRange> <text>4.35-5.85</text > </observationRange> </referenceRange> </observation > </component> <component> <observation moodCode="EVN" classCode="OBS"> <templateId root="2.16.840.1.531693.10.20.22.4.2" /> <id nullFlavor="NA" /> <code codeSystem="local" code="72140-2 " displayName="Venous blood hemoglobin measurement (mass/volume)" /> < statusCode code="completed" /> <effectiveTime value="421977464064" /> <value unit="g/dL" xsi:type="PQ" value="14.1" /> < referenceRange> <observationRange> <text>11.5-16.0</text > </observationRange> </referenceRange> </observation > </component> <component> <observation moodCode="EVN" classCode="OBS"> <templateId root="2.16.840.1.368973.10.20.22.4.2" /> <id nullFlavor="NA" /> <code codeSystem="local" code="60098-2 " displayName="Blood hematocrit (volume fraction)" /> <statusCode code= "completed" /> <effectiveTime value="460187719617" /> <value unit="%" xsi:type="PQ" value="42" /> <referenceRange> < observationRange> <text>35-52</text> </observationRange > </referenceRange> </observation> </component> < component> <observation moodCode="EVN" classCode="OBS"> < templateId root="16.840.1.537360.10.20.22.4.2" /> <id nullFlavor="NA " /> <code codeSystem="local" code="787-2" displayName="Automated erythrocyte mean corpuscular volume" /> <statusCode code="completed" / > <effectiveTime value="607373927771" /> <value unit="[fo_us] " xsi:type="PQ" value="87" /> <referenceRange> < observationRange> <text>80-99</text> </observationRange > </referenceRange> </observation> </component> < component> <observation moodCode="EVN" classCode="OBS"> < templateId root="04.19.840.1.631723.10..22.4.2" /> <id nullFlavor="NA " /> <code codeSystem="local" code="785-6" displayName="Automated erythrocyte mean corpuscular hemoglobin (mass per erythrocyte)" /> < statusCode code="completed" /> <effectiveTime value="855275253063" /> <value unit="pg" xsi:type="PQ" value="30" /> <referenceRange> <observationRange> <text>25-34</text> </ observationRange> </referenceRange> </observation> </ component> <component> <observation moodCode="EVN" classCode="OBS"> <templateId root="04.19.840.1.367756.10.20.22.4.2" /> <id nullFlavor="NA" /> <code codeSystem="local" code="786-4" displayName= "Automated erythrocyte mean corpuscular hemoglobin concentration measurement ( mass/volume)" /> <statusCode code="completed" /> < effectiveTime value="240419673512" /> <value unit="g/dL" xsi:type="PQ" value="34" /> <referenceRange> <observationRange> <text>32-36</text> </observationRange> </referenceRange > </observation> </component> <component> <observation moodCode="EVN" classCode="OBS"> <templateId root= "2.16.840.1.789035.10.20.22.4.2" /> <id nullFlavor="NA" /> < code codeSystem="local" code="788-0" displayName="Automated erythrocyte distribution width ratio" /> <statusCode code="completed" /> < effectiveTime value="481243730097" /> <value unit="%" xsi:type="PQ " value="13.2" /> <referenceRange> <observationRange> <text>10.0-14.5</text> </observationRange> </ referenceRange> </observation> </component> <component> <observation moodCode="EVN" classCode="OBS"> <templateId root= "2.16.840.1.539669.10.20.22.4.2" /> <id nullFlavor="NA" /> < code codeSystem="local" code="777-3" displayName="Automated blood platelet count (count/volume)" /> <statusCode code="completed" /> < effectiveTime value="866857772381" /> <value unit="10*3/uL" xsi:type= "PQ" value="218" /> <referenceRange> <observationRange> <text>130-400</text> </observationRange> </ referenceRange> </observation> </component> <component> <observation moodCode="EVN" classCode="OBS"> <templateId root= "2.16.840.1.453336.10.20.22.4.2" /> <id nullFlavor="NA" /> < code codeSystem="local" code="62086-4" displayName="Automated blood platelet mean volume measurement" /> <statusCode code="completed" /> < effectiveTime value="063849482355" /> <value unit="[[facility]]" xsi:type= "PQ" value="9.6" /> <referenceRange> <observationRange> <text>7.4-10.4</text> </observationRange> </ referenceRange> </observation> </component> <component> <observation moodCode="EVN" classCode="OBS"> <templateId root= "216.840.1.608815.10.22.4.2" /> <id nullFlavor="NA" /> < code codeSystem="local" code="770-8" displayName="Automated blood neutrophils/ 100 leukocytes" /> <statusCode code="completed" /> < effectiveTime value="551201394949" /> <value unit="%" xsi:type="PQ " value="55" /> <referenceRange> <observationRange> <text>42-75</text> </observationRange> </ referenceRange> </observation> </component> <component> <observation moodCode="EVN" classCode="OBS"> <templateId root= "216.840.1.330527.10.20.22.4.2" /> <id nullFlavor="NA" /> < code codeSystem="local" code="736-9" displayName="Automated blood lymphocytes/ 100 leukocytes" /> <statusCode code="completed" /> < effectiveTime value="082079806003" /> <value unit="%" xsi:type="PQ " value="37" /> <referenceRange> <observationRange> <text>12-44</text> </observationRange> </ referenceRange> </observation> </component> <component> <observation moodCode="EVN" classCode="OBS"> <templateId root= "2.16.840.1.216878.10.20.22.4.2" /> <id nullFlavor="NA" /> < code codeSystem="local" code="63067-0" displayName="Blood monocytes/100 leukocytes" /> <statusCode code="completed" /> <effectiveTime value="657862985858" /> <value unit="%" xsi:type="PQ" value="7" /> <referenceRange> <observationRange> <text>0-12 </text> </observationRange> </referenceRange> </ observation> </component> <component> <observation moodCode= "EVN" classCode="OBS"> <templateId root="216.840.1.568262.10.20.22.4.2 " /> <id nullFlavor="NA" /> <code codeSystem="local" code="713 -8" displayName="Automated blood eosinophils/100 leukocytes" /> < statusCode code="completed" /> <effectiveTime value="954685450474" /> <value unit="%" xsi:type="PQ" value="2" /> <referenceRange > <observationRange> <text>0-10</text> </ observationRange> </referenceRange> </observation> </ component> <component> <observation moodCode="EVN" classCode="OBS"> <templateId root="2.16.840.1.468764.10.20.22.4.2" /> <id nullFlavor="NA" /> <code codeSystem="local" code="706-2" displayName= "Automated blood basophils/100 leukocytes" /> <statusCode code= "completed" /> <effectiveTime value="985257163436" /> <value unit="%" xsi:type="PQ" value="0" /> <referenceRange> < observationRange> <text>0-10</text> </observationRange> </referenceRange> </observation> </component> < component> <observation moodCode="EVN" classCode="OBS"> < templateId root="2.16.840.1.119660.10.2022.4.2" /> <id nullFlavor="NA " /> <code codeSystem="local" code="751-8" displayName="Blood neutrophils automated count (number/volume)" /> <statusCode code= "completed" /> <effectiveTime value="806706661472" /> <value unit="10*3" xsi:type="PQ" value="3.6" /> <referenceRange> < observationRange> <text>1.8-7.8</text> </ observationRange> </referenceRange> </observation> </ component> <component> <observation moodCode="EVN" classCode="OBS"> <templateId root="216.840.1.452292.10.20.22.4.2" /> <id nullFlavor="NA" /> <code codeSystem="local" code="731-0" displayName= "Blood lymphocytes automated count (number/volume)" /> <statusCode code ="completed" /> <effectiveTime value="291881914010" /> <value unit="10*3" xsi:type="PQ" value="2.4" /> <referenceRange> < observationRange> <text>1.0-4.0</text> </ observationRange> </referenceRange> </observation> </ component> <component> <observation moodCode="EVN" classCode="OBS"> <templateId root="16.840.1.408439.10.20.22.4.2" /> <id nullFlavor="NA" /> <code codeSystem="local" code="742-7" displayName= "Blood monocytes automated count (number/volume)" /> <statusCode code= "completed" /> <effectiveTime value="873599441895" /> <value unit="10*3" xsi:type="PQ" value="0.4" /> <referenceRange> < observationRange> <text>0.0-1.0</text> </ observationRange> </referenceRange> </observation> </ component> <component> <observation moodCode="EVN" classCode="OBS"> <templateId root="16.840.1.851767.22.4.2" /> <id nullFlavor="NA" /> <code codeSystem="local" code="711-2" displayName= "Automated eosinophil count" /> <statusCode code="completed" /> <effectiveTime value="272827473812" /> <value unit="10*3/uL" xsi: type="PQ" value="0.1" /> <referenceRange> <observationRange > <text>0.0-0.3</text> </observationRange> </ referenceRange> </observation> </component> <component> <observation moodCode="EVN" classCode="OBS"> <templateId root= "04.19.840.1.827957.10.2022.4.2" /> <id nullFlavor="NA" /> < code codeSystem="local" code="704-7" displayName="Automated blood basophil count (count/volume)" /> <statusCode code="completed" /> < effectiveTime value="106437253185" /> <value unit="10*3/uL" xsi:type= "PQ" value="0.0" /> <referenceRange> <observationRange> <text>0.0-0.1</text> </observationRange> </ referenceRange> </observation> </component> </organizer> </entry > <entry> <organizer moodCode="EVN" classCode="BATTERY"> <templateId root="216.840.1.396827.10.20.22.4.1" /> <id nullFlavor="NA" /> <code codeSystem="local" code="43434-7" displayName="PT panel in platelet poor plasma by coagulation assay" /> <statusCode code="completed" /> <component> <observation moodCode="EVN" classCode="OBS"> <templateId root= "216.840.1.186403.10.20.22.4.2" /> <id nullFlavor="NA" /> < code codeSystem="local" code="5902-2" displayName="Prothrombin time (PT) in platelet poor plasma by coagulation assay" /> <statusCode code= "completed" /> <effectiveTime value="310700871952" /> <value unit="s" xsi:type="PQ" value="12.5" /> <referenceRange> < observationRange> <text>12.2-14.7</text> </ observationRange> </referenceRange> </observation> </ component> <component> <observation moodCode="EVN" classCode="OBS"> <templateId root="16.840.1.222205.10..22.4.2" /> <id nullFlavor="NA" /> <code codeSystem="local" code="10094-9" displayName= "INR in platelet poor plasma or blood by coagulation assay" /> < statusCode code="completed" /> <effectiveTime value="982754135859" /> <value unit="" xsi:type="PQ" value="0.9" /> <referenceRange> <observationRange> <text>0.8-1.4</text> </ observationRange> </referenceRange> </observation> </ component> </organizer> </entry> <entry> <organizer moodCode="EVN" classCode="BATTERY"> <templateId root="216.840.1.249921.10.20.22.4.1" /> <id nullFlavor="NA" /> <code codeSystem="local" code="35385-0" displayName="Activated partial thromboplastin time (aPTT) in platelet poor plasma bycoagulation assay" /> <statusCode code="completed" /> < component> <observation moodCode="EVN" classCode="OBS"> < templateId root="216.840.1.275377.10.20.22.4.2" /> <id nullFlavor="NA " /> <code codeSystem="local" code="38711-0" displayName="Activated partial thromboplastin time (aPTT) in platelet poor plasma bycoagulation assay" /> <statusCode code="completed" /> <effectiveTime value= "241396760193" /> <value unit="s" xsi:type="PQ" value="29" /> <referenceRange> <observationRange> <text>24-35</text> </observationRange> </referenceRange> </observation> </component> </organizer> </entry> <entry> <organizer moodCode= "EVN" classCode="BATTERY"> <templateId root="216.840.1.617757.10.20.22.4.1 " /> <id nullFlavor="NA" /> <code codeSystem="local" code="2118-8" displayName="Serum or plasma choriogonadotropin ( test) detection" /> <statusCode code="completed" /> <component> <observation moodCode="EVN" classCode="OBS"> <templateId root= "04.19.840.1.395090.10..22.4.2" /> <id nullFlavor="NA" /> < code codeSystem="local" code="2118-8" displayName="Serum or plasma choriogonadotropin ( test) detection" /> <statusCode code= "completed" /> <effectiveTime value="871047953353" /> <value unit="" xsi:type="PQ" value="NEGATIVE" /> <referenceRange> < observationRange> <text>NEGATIVE</text> </ observationRange> </referenceRange> </observation> </ component> </organizer> </entry> <entry> <organizer moodCode="EVN" classCode="BATTERY"> <templateId root="2.16.840.1.970492.10..22.4.1" /> <id nullFlavor="NA" /> <code codeSystem="local" code="61809-2" displayName="Comprehensive metabolic panel" /> <statusCode code="completed " /> <component> <observation moodCode="EVN" classCode="OBS"> <templateId root="2.16.840.1.640282.10..22.4.2" /> <id nullFlavor ="NA" /> <code codeSystem="local" code="2951-2" displayName="Serum or plasma sodium measurement (moles/volume)" /> <statusCode code= "completed" /> <effectiveTime value="545094018942" /> <value unit="mmol/L" xsi:type="PQ" value="137" /> <referenceRange> <observationRange> <text>135-145</text> </ observationRange> </referenceRange> </observation> </ component> <component> <observation moodCode="EVN" classCode="OBS"> <templateId root="216.840.1.992761.12.21.21.4.2" /> <id nullFlavor="NA" /> <code codeSystem="local" code="282-" displayName= "Serum or plasma potassium measurement (moles/volume)" /> <statusCode code="completed" /> <effectiveTime value="301187289996" /> < value unit="mmol/L" xsi:type="PQ" value="3.9" /> <referenceRange> <observationRange> <text>3.6-5.0</text> </ observationRange> </referenceRange> </observation> </ component> <component> <observation moodCode="EVN" classCode="OBS"> <templateId root="2.16.840.1.085598.12.21.21.4.2" /> <id nullFlavor="NA" /> <code codeSystem="local" code="" displayName= "Serum or plasma chloride measurement (moles/volume)" /> <statusCode code="completed" /> <effectiveTime value="525988585155" /> < value unit="mmol/L" xsi:type="PQ" value="108" /> <interpretationCode codeSystem="local" code="" /> <referenceRange> < observationRange> <text>98-107</text> </observationRange > </referenceRange> </observation> </component> < component> <observation moodCode="EVN" classCode="OBS"> < templateId root="2.16.840.1.862425.10..4.2" /> <id nullFlavor="NA " /> <code codeSystem="local" code="2027-11" displayName="Carbon dioxide " /> <statusCode code="completed" /> <effectiveTime value= "287253968454" /> <value unit="mmol/L" xsi:type="PQ" value="24" /> <referenceRange> <observationRange> <text>21-32</ text> </observationRange> </referenceRange> </ observation> </component> <component> <observation moodCode= "EVN" classCode="OBS"> <templateId root="2.16.840.1.209942.10.20.22.4.2 " /> <id nullFlavor="NA" /> <code codeSystem="local" code= "90491-1" displayName="Serum or plasma anion gap determination (moles/volume)" / > <statusCode code="completed" /> <effectiveTime value= "984372175592" /> <value unit="mmol/L" xsi:type="PQ" value="5" /> <referenceRange> <observationRange> <text>5-14</ text> </observationRange> </referenceRange> </ observation> </component> <component> <observation moodCode= "EVN" classCode="OBS"> <templateId root="216.840.1.373153.10..22.4.2 " /> <id nullFlavor="NA" /> <code codeSystem="local" code= "3094-0" displayName="Serum or plasma urea nitrogen measurement (mass/volume)" / > <statusCode code="completed" /> <effectiveTime value= "733546496368" /> <value unit="mg/dL" xsi:type="PQ" value="13" /> <referenceRange> <observationRange> <text>7-18</ text> </observationRange> </referenceRange> </ observation> </component> <component> <observation moodCode= "EVN" classCode="OBS"> <templateId root="2.16.840.1.134554.10.20.22.4.2 " /> <id nullFlavor="NA" /> <code codeSystem="local" code= "2160-0" displayName="Serum or plasma creatinine measurement (mass/volume)" /> <statusCode code="completed" /> <effectiveTime value= "999479268056" /> <value unit="mg/dL" xsi:type="PQ" value="0.73" /> <referenceRange> <observationRange> <text>0.60- 1.30</text> </observationRange> </referenceRange> </ observation> </component> <component> <observation moodCode= "EVN" classCode="OBS"> <templateId root="216.840.1.906289.10..22.4.2 " /> <id nullFlavor="NA" /> <code codeSystem="local" code= "3097-3" displayName="Serum or plasma urea nitrogen/creatinine mass ratio" /> <statusCode code="completed" /> <effectiveTime value= "348933972259" /> <value unit="" xsi:type="PQ" value="18" /> < referenceRange> <observationRange> <text>NRG</text> </observationRange> </referenceRange> </observation> </component> <component> <observation moodCode="EVN" classCode= "OBS"> <templateId root="216.840.1.409899.10..22.4.2" /> < id nullFlavor="NA" /> <code codeSystem="local" code="98162-6" displayName="Serum or plasma creatinine measurement with calculation of estimated glomerular filtration rate" /> <statusCode code="completed" / > <effectiveTime value="554318452075" /> <value unit="" xsi: type="PQ" value=">" /> <referenceRange> <observationRange > <text>NRG</text> </observationRange> </ referenceRange> </observation> </component> <component> <observation moodCode="EVN" classCode="OBS"> <templateId root= "216.840.1.918480.10..22.4.2" /> <id nullFlavor="NA" /> < code codeSystem="local" code="2345-7" displayName="Serum or plasma glucose measurement (mass/volume)" /> <statusCode code="completed" /> <effectiveTime value="023303976620" /> <value unit="mg/dL" xsi:type="PQ " value="92" /> <referenceRange> <observationRange> <text>70-105</text> </observationRange> </ referenceRange> </observation> </component> <component> <observation moodCode="EVN" classCode="OBS"> <templateId root= "216.840.1.274751...22.4.2" /> <id nullFlavor="NA" /> < code codeSystem="local" code="74871-6" displayName="Serum or plasma calcium measurement (mass/volume)" /> <statusCode code="completed" /> <effectiveTime value="862890455372" /> <value unit="mg/dL" xsi:type="PQ " value="9.0" /> <referenceRange> <observationRange> <text>8.5-10.1</text> </observationRange> </ referenceRange> </observation> </component> <component> <observation moodCode="EVN" classCode="OBS"> <templateId root= "04.19.840.1.340571.10..22.4.2" /> <id nullFlavor="NA" /> < code codeSystem="local" code="1974-04" displayName="Serum or plasma total bilirubin measurement (mass/volume)" /> <statusCode code="completed" / > <effectiveTime value="765588216022" /> <value unit="mg/dL" xsi:type="PQ" value="0.4" /> <referenceRange> < observationRange> <text>0.1-1.0</text> </ observationRange> </referenceRange> </observation> </ component> <component> <observation moodCode="EVN" classCode="OBS"> <templateId root="2.16.840.1.707969.10.20.22.4.2" /> <id nullFlavor="NA" /> <code codeSystem="local" code="6768-6" displayName= "Serum or plasma alkaline phosphatase measurement (enzymatic activity/volume)" / > <statusCode code="completed" /> <effectiveTime value= "534059864676" /> <value unit="U/L" xsi:type="PQ" value="65" /> <referenceRange> <observationRange> <text>40-136</ text> </observationRange> </referenceRange> </ observation> </component> <component> <observation moodCode= "EVN" classCode="OBS"> <templateId root="216.840.1.377160.10..22.4.2 " /> <id nullFlavor="NA" /> <code codeSystem="local" code= "192" displayName="Serum or plasma aspartate aminotransferase measurement ( enzymatic activity/volume)" /> <statusCode code="completed" /> <effectiveTime value="389677022878" /> <value unit="U/L" xsi:type="PQ " value="13" /> <referenceRange> <observationRange> <text>5-34</text> </observationRange> </referenceRange > </observation> </component> <component> <observation moodCode="EVN" classCode="OBS"> <templateId root= "216.840.1.920250.10.20.22.4.2" /> <id nullFlavor="NA" /> < code codeSystem="local" code="17404-09" displayName="Serum or plasma alanine aminotransferase measurement (enzymatic activity/volume)" /> < statusCode code="completed" /> <effectiveTime value="295951554764" /> <value unit="U/L" xsi:type="PQ" value="14" /> <referenceRange > <observationRange> <text>0-55</text> </ observationRange> </referenceRange> </observation> </ component> <component> <observation moodCode="EVN" classCode="OBS"> <templateId root="2.16.840.1.517254.10.20.22.4.2" /> <id nullFlavor="NA" /> <code codeSystem="local" code="2885-2" displayName= "Serum or plasma protein measurement (mass/volume)" /> <statusCode code ="completed" /> <effectiveTime value="883317620820" /> <value unit="g/dL" xsi:type="PQ" value="7.2" /> <referenceRange> < observationRange> <text>6.4-8.2</text> </ observationRange> </referenceRange> </observation> </ component> <component> <observation moodCode="EVN" classCode="OBS"> <templateId root="2.16.840.1.240371.10.20.22.4.2" /> <id nullFlavor="NA" /> <code codeSystem="local" code="1751-7" displayName= "Serum or plasma albumin measurement (mass/volume)" /> <statusCode code ="completed" /> <effectiveTime value="757932944321" /> <value unit="g/dL" xsi:type="PQ" value="4.2" /> <referenceRange> < observationRange> <text>3.2-4.5</text> </ observationRange> </referenceRange> </observation> </ component> </organizer> </entry> <entry> <organizer moodCode="EVN" classCode="BATTERY"> <templateId root="16.840.1.186776.10...4.1" /> <id nullFlavor="NA" /> <code codeSystem="local" code="08702-1" displayName="Bacteria identification in genital specimen by aerobe culture" /> <statusCode code="completed" /> <component> <observation moodCode="EVN" classCode="OBS"> <templateId root= "04.19.840.1.963290.12.21.21.4.2" /> <id nullFlavor="NA" /> < code codeSystem="local" code="FTEXTERNAL" displayName="FREE TEXT EXTERNAL" /> <statusCode code="completed" /> <effectiveTime value= "161359753728" /> <value unit="" xsi:type="PQ" value="PLUS NORMAL JELANI " /> <referenceRange> <observationRange> <text> NRG</text> </observationRange> </referenceRange> </ observation> </component> <component> <observation moodCode= "EVN" classCode="OBS"> <templateId root="840.1.297966.12.21.21.4.2 " /> <id nullFlavor="NA" /> <code codeSystem="local" code="G" displayName="QUANTITY OF GROWTH" /> <statusCode code="completed" /> <effectiveTime value="433003498357" /> <value unit="" xsi:type= "PQ" value="Scant Growth" /> <referenceRange> < observationRange> <text>NRG</text> </observationRange> </referenceRange> </observation> </component> < component> <observation moodCode="EVN" classCode="OBS"> < templateId root="04.19.840.1.185374.12.21.21.4.2" /> <id nullFlavor="NA " /> <code codeSystem="local" code="00961-3" displayName="Bacteria identification in genital specimen by aerobe culture" /> <statusCode code="completed" /> <effectiveTime value="396603908640" /> < value unit="" xsi:type="PQ" value="01735325" /> <referenceRange> <observationRange> <text>NRG</text> </ observationRange> </referenceRange> </observation> </ component> </organizer> </entry> <entry> <organizer moodCode="EVN" classCode="BATTERY"> <templateId root="216.840.1.414820.10..22.4.1" /> <id nullFlavor="NA" /> <code codeSystem="local" code="680-9" displayName="Microscopic examination by wet preparation" /> <statusCode code="completed" /> <component> <observation moodCode="EVN" classCode="OBS"> <templateId root="2.16.840.1.779312.10.20.22.4.2" /> <id nullFlavor="NA" /> <code codeSystem="local" code= "WETRESULT" displayName="WET PREP RESULTS" /> <statusCode code= "completed" /> <effectiveTime value="866281050729" /> <value unit="" xsi:type="PQ" value="AT 1658, 10-5-17 BY " /> <referenceRange > <observationRange> <text>NRG</text> </ observationRange> </referenceRange> </observation> </ component> </organizer> </entry> <entry> <organizer moodCode="EVN" classCode="BATTERY"> <templateId root="216.840.1.112645.10..22.4.1" /> <id nullFlavor="NA" /> <code codeSystem="local" code="70523-6" displayName="Neisseria gonorrhoeae DNA detection by probe and signal amplification method" /> <statusCode code="completed" /> <component> <observation moodCode="EVN" classCode="OBS"> <templateId root= "16.840.1.865757.10.20.22.4.2" /> <id nullFlavor="NA" /> < code codeSystem="local" code="19296-8" displayName="Gonorrhea amp DNA-urine" /> <statusCode code="completed" /> <effectiveTime value= "787200707556" /> <value unit="" xsi:type="PQ" value="Not Detected" /> <referenceRange> <observationRange> <text>Not Detected</text> </observationRange> </referenceRange> </observation> </component> </organizer> </entry> <entry> < organizer moodCode="EVN" classCode="BATTERY"> <templateId root= "16.840.1.527994.10.20.22.4.1" /> <id nullFlavor="NA" /> <code codeSystem="local" code="25293-6" displayName="Chlamydia trachomatis DNA detection by probe and signal amplification method" /> <statusCode code= "completed" /> <component> <observation moodCode="EVN" classCode= "OBS"> <templateId root="04.19.840.1.175514.10.20.22.4.2" /> < id nullFlavor="NA" /> <code codeSystem="local" code="68603-8" displayName="Chlamydia trachomatis DNA detection by probe and target amplification method" /> <statusCode code="completed" /> < effectiveTime value="839144276930" /> <value unit="" xsi:type="PQ" value="Not Detected" /> <referenceRange> <observationRange> <text>Not Detected</text> </observationRange> </referenceRange> </observation> </component> </organizer> </ entry> <entry> <organizer moodCode="EVN" classCode="BATTERY"> < templateId root="840.1.197614.1022.4.1" /> <id nullFlavor="NA" /> <code codeSystem="local" code="496" displayName="A1C" /> <statusCode code="completed" /> <component> <observation moodCode="EVN" classCode="OBS"> <templateId root="840.1.659672.12.21.21.4.2" /> <id nullFlavor="NA" /> <code codeSystem="local" code="46281426 " displayName="HEMOGLOBIN A1c" /> <statusCode code="completed" /> <effectiveTime value="710269329885" /> <value unit="% oftotalHgb" xsi:type="PQ" value="5.0" /> <referenceRange> < observationRange> <text><5.7</text> </ observationRange> </referenceRange> </observation> </ component> </organizer> </entry> <entry> <organizer moodCode="EVN" classCode="BATTERY"> <templateId root="840.1.236198.12.21.21.4.1" /> <id nullFlavor="NA" /> <code codeSystem="local" code="20539" displayName="SUREPATH PAP AND HPV mRNA E6/E7" /> <statusCode code= "completed" /> <component> <observation moodCode="EVN" classCode= "OBS"> <templateId root="840.1.670039.1022.4.2" /> < id nullFlavor="NA" /> <code codeSystem="local" code="88234769" displayName="CLINICAL INFORMATION:" /> <statusCode code="completed" /> <effectiveTime value="960529653596" /> <value unit="" xsi: type="PQ" value="" /> <referenceRange> <observationRange> <text>NRG</text> </observationRange> </ referenceRange> </observation> </component> <component> <observation moodCode="EVN" classCode="OBS"> <templateId root= "04.19.840.1.294181.10..4.2" /> <id nullFlavor="NA" /> < code codeSystem="local" code="15445148" displayName="LMP:" /> < statusCode code="completed" /> <effectiveTime value="902411788878" /> <value unit="" xsi:type="PQ" value="01/04/17" /> < referenceRange> <observationRange> <text>NRG</text> </observationRange> </referenceRange> </observation> </component> <component> <observation moodCode="EVN" classCode= "OBS"> <templateId root="04.19.840.1.717697.12.21.21.4.2" /> < id nullFlavor="NA" /> <code codeSystem="local" code="68397353" displayName="PREV. PAP:" /> <statusCode code="completed" /> < effectiveTime value="035455004359" /> <value unit="" xsi:type="PQ" value="ABNORMAL" /> <referenceRange> <observationRange> <text>NRG</text> </observationRange> </ referenceRange> </observation> </component> <component> <observation moodCode="EVN" classCode="OBS"> <templateId root= "04.19.840.1.063226.12.21.21.4.2" /> <id nullFlavor="NA" /> < code codeSystem="local" code="72353022" displayName="PREV. BX:" /> < statusCode code="completed" /> <effectiveTime value="164716597825" /> <value unit="" xsi:type="PQ" value="" /> <referenceRange> <observationRange> <text>NRG</text> </ observationRange> </referenceRange> </observation> </ component> <component> <observation moodCode="EVN" classCode="OBS"> <templateId root="216.840.1.078749.12.21.21.4.2" /> <id nullFlavor="NA" /> <code codeSystem="local" code="28941771" displayName ="SOURCE:" /> <statusCode code="completed" /> <effectiveTime value="476020349252" /> <value unit="" xsi:type="PQ" value="Cervix" /> <referenceRange> <observationRange> <text>NRG< /text> </observationRange> </referenceRange> </ observation> </component> <component> <observation moodCode= "EVN" classCode="OBS"> <templateId root="216.840.1.713320....4.2 " /> <id nullFlavor="NA" /> <code codeSystem="local" code= "33744330" displayName="STATEMENT OF ADEQUACY:" /> <statusCode code= "completed" /> <effectiveTime value="414047903278" /> <value unit="" xsi:type="PQ" value="" /> <referenceRange> < observationRange> <text>NRG</text> </observationRange> </referenceRange> </observation> </component> < component> <observation moodCode="EVN" classCode="OBS"> < templateId root="04.19.840.1.314291.10..22.4.2" /> <id nullFlavor="NA " /> <code codeSystem="local" code="96685232" displayName= "INTERPRETATION/RESULT:" /> <statusCode code="completed" /> < effectiveTime value="426494880720" /> <value unit="" xsi:type="PQ" value="" /> <interpretationCode codeSystem="local" code="*" /> <referenceRange> <observationRange> <text>NRG</text> </observationRange> </referenceRange> </observation> </component> <component> <observation moodCode="EVN" classCode ="OBS"> <templateId root="840.1.733622.10..4.2" /> < id nullFlavor="NA" /> <code codeSystem="local" code="27850756" displayName="COP:" /> <statusCode code="completed" /> <effectiveTime value="108267053220" /> <value unit="" xsi:type= "PQ" value="" /> <referenceRange> <observationRange> <text>NRG</text> </observationRange> </referenceRange > </observation> </component> <component> <observation moodCode="EVN" classCode="OBS"> <templateId root= "04.19.840.1.090494.10..22.4.2" /> <id nullFlavor="NA" /> < code codeSystem="local" code="76919693" displayName="HPV mRNA E6/E7, SUREPATH VIAL" /> <statusCode code="completed" /> <effectiveTime value= "575865597298" /> <value unit="" xsi:type="PQ" value="Not Detected" /> <referenceRange> <observationRange> <text>NOT DETECTED</text> </observationRange> </referenceRange> </observation> </component> <component> <observation moodCode ="EVN" classCode="OBS"> <templateId root= "16.840.1.687811.12.21.21.4.2" /> <id nullFlavor="NA" /> < code codeSystem="local" code="91641036" displayName="GENERAL CATEGORIZATION:" / > <statusCode code="completed" /> <effectiveTime value= "384416087248" /> <value unit="" xsi:type="PQ" value="" /> < interpretationCode codeSystem="local" code="*" /> <referenceRange> <observationRange> <text>NRG</text> </ observationRange> </referenceRange> </observation> </ component> <component> <observation moodCode="EVN" classCode="OBS"> <templateId root="04.19.840.1.750636.12.21.21.4.2" /> <id nullFlavor="NA" /> <code codeSystem="local" code="52588219" displayName ="COMMENT:" /> <statusCode code="completed" /> <effectiveTime value="319359752829" /> <value unit="" xsi:type="PQ" value="" /> <referenceRange> <observationRange> <text>NRG</text > </observationRange> </referenceRange> </observation > </component> <component> <observation moodCode="EVN" classCode="OBS"> <templateId root="04.19.840.1.890666.12.21.21.4.2" /> <id nullFlavor="NA" /> <code codeSystem="local" code="33471291 " displayName="PATHOLOGIST:" /> <statusCode code="completed" /> <effectiveTime value="083123011175" /> <value unit="" xsi:type="PQ" value="" /> <referenceRange> <observationRange> <text>NRG</text> </observationRange> </referenceRange> </observation> </component> </organizer> </entry> <entry> < organizer moodCode="EVN" classCode="BATTERY"> <templateId root= "04.19.840.1.791649.12.21.21.4.1" /> <id nullFlavor="NA" /> <code codeSystem="local" code="561" displayName="INSULIN LEVEL" /> <statusCode code="completed" /> <component> <observation moodCode="EVN" classCode="OBS"> <templateId root="16.840.1.581769.12.21.21.4.2" /> <id nullFlavor="NA" /> <code codeSystem="local" code="11353897 " displayName="INSULIN" /> <statusCode code="completed" /> < effectiveTime value="863953433589" /> <value unit="uIU/mL" xsi:type="PQ " value="16.8" /> <referenceRange> <observationRange> <text>2.0-19.6</text> </observationRange> </ referenceRange> </observation> </component> </organizer> </entry > <entry> <organizer moodCode="EVN" classCode="BATTERY"> <templateId root="04.19.840.1.146375.12.21.21.4.1" /> <id nullFlavor="NA" /> <code codeSystem="local" code="809" displayName="ESR/SED RATE" /> <statusCode code="completed" /> <component> <observation moodCode="EVN" classCode="OBS"> <templateId root="04.19.840.1.537338...22.4.2" /> <id nullFlavor="NA" /> <code codeSystem="local" code="50306857 " displayName="SED RATE BY MODIFIED WENDYREN" /> <statusCode code= "completed" /> <effectiveTime value="598723175912" /> <value unit="mm/h" xsi:type="PQ" value="11" /> <referenceRange> < observationRange> <text>< OR=20</text> </ observationRange> </referenceRange> </observation> </ component> </organizer> </entry> <entry> <organizer moodCode="EVN" classCode="BATTERY"> <templateId root="216.840.1.651791.10..4.1" /> <id nullFlavor="NA" /> <code codeSystem="local" code="899" displayName ="TSH" /> <statusCode code="completed" /> <component> < observation moodCode="EVN" classCode="OBS"> <templateId root= "216.840.1.868174....4.2" /> <id nullFlavor="NA" /> < code codeSystem="local" code="19009375" displayName="TSH" /> < statusCode code="completed" /> <effectiveTime value="244062992338" /> <value unit="mIU/L" xsi:type="PQ" value="0.55" /> < referenceRange> <observationRange> <text>NRG</text> </observationRange> </referenceRange> </observation> </component> </organizer> </entry> <entry> <organizer moodCode="EVN" classCode="BATTERY"> <templateId root="216.840.1.154783.10..22.4.1" /> <id nullFlavor="NA" /> <code codeSystem="local" code="496" displayName ="A1C" /> <statusCode code="completed" /> <component> < observation moodCode="EVN" classCode="OBS"> <templateId root= "2.16.840.1.367667.10.20.22.4.2" /> <id nullFlavor="NA" /> < code codeSystem="local" code="96161023" displayName="HEMOGLOBIN A1c" /> <statusCode code="completed" /> <effectiveTime value="803019115143" / > <value unit="%oftotalHgb" xsi:type="PQ" value="5.1" /> < referenceRange> <observationRange> <text><5.7</text> </observationRange> </referenceRange> </observation > </component> </organizer> </entry></section> Encounters ACCT No. Visit Date/Time Discharge Status Pt. Type Provider Facility Loc./Unit Complaint [id number] 06/13/2013 21:21:00 06/13/2013 23:40:00 DIS Emergency Sree Samayoa III, MD [facility] [id number] 05/21/2013 18:44:00 Document Registration [id number] 05/21/2013 18:44:00 05/21/2013 21:26:00 DIS Emergency Sree Samayoa III, MD [facility] [id number] 08/18/2012 07:59:00 08/18/2012 12:50:00 DIS Emergency Alessandra Martinez MD Via [facility] TERM [id number] 04/02/2014 09:51:00 Document Registration [id number] 02/05/2014 13:09:00 Document Registration [id number] 12/27/2016 14:56:00 12/27/2016 17:48:00 DIS Emergency SRINI QUISPE Via [facility] ER SEIZURE [id number] 12/26/2016 09:24:00 12/26/2016 12:04:00 DIS Emergency DESI BECK, MIMI Haque [facility] ER MIGRAINE [id number] 12/05/2016 14:26:00 12/05/2016 17:27:00 DIS Emergency OZZIE JACKSON [facility] ER HEAVY MENSTRUAL BLEEDING FOR 7 WEEKS [id number] 09/16/2013 15:27:00 09/16/2013 17:50:00 DIS Emergency Max BECK, [facility] W.EDN [id number] 07/22/2013 11:59:00 07/22/2013 15:46:00 DIS Emergency Liborio BECK, [facility] W.EDW [id number] 07/08/2013 14:28:00 07/08/2013 16:47:00 DIS Emergency Allen BECK, [facility] WEDS [id number] 06/24/2013 11:54:00 06/24/2013 12:53:00 DIS Emergency Reginald BECK, [facility].EDW [id number] 05/12/2013 00:58:00 05/12/2013 02:54:00 DIS Emergency Adrian BECK, Hardeep Quinones [facility].EDW [id number] 08/19/2012 12:36:00 08/19/2012 15:40:00 DIS Emergency Tobi Sharma DO [facility].EDW [id number] 03/23/2011 15:21:00 03/23/2011 23:59:59 CLS Emergency [id number] 06/23/2015 12:42:05 06/23/2015 12:42:05 DIS Outpatient [id number] 06/23/2015 12:42:03 06/23/2015 12:42:03 DIS Outpatient [id number] 06/11/2014 09:04:41 06/11/2014 09:04:41 DIS Outpatient [id number] 06/11/2014 09:04:32 06/11/2014 09:04:32 DIS Outpatient [id number] 10/29/2013 09:54:35 10/29/2013 09:54:35 DIS Outpatient [id number] 08/31/2013 17:20:46 08/31/2013 17:20:46 DIS Outpatient [id number] 06/01/2013 11:02:08 06/01/2013 11:02:08 DIS Outpatient [id number] 05/12/2013 14:28:28 05/12/2013 14:28:28 DIS Outpatient [id number] 05/12/2013 14:27:07 05/12/2013 14:27:07 DIS Outpatient [id number] 06/01/2013 10:55:48 Document Registration [id number] 03/17/2013 12:43:21 Document Registration [id number] 08/04/2012 22:29:00 Document Registration [id number] 02/13/2018 13:00:00 02/13/2018 23:59:59 CLS Outpatient MYRON JAMES ANALI [facility] [id number] 02/13/2018 13:00:00 Document Registration [id number] 01/31/2017 08:00:00 Document Registration [id number] 01/10/2017 10:40:00 Document Registration
--- NOTE | 2018-02-27 17:19 | ED Neurological Problem ---
General Chief Complaint: Neurological Problems Stated Complaint: "HAD A SEIZURE 30 MINUTES AGO" Source: patient Exam Limitations: no limitations History of Present Illness Date Seen by Provider: Feb 27, 2018 Time Seen by Provider: 17:17 Initial Comments To ER with reports of a seizure 30 minutes ago. She states that she was sitting on the couch when she felt her heart begin to beat rapidly. She was then with violent jerking according to her partner for an unknown period of time. After coming out of this her heart continued to bound. She does feel very anxious. She reports that she does have a seizure history and she takes Topamax for this. She's also been concerned lately that she is going to have a heart attack do some pressure in her chest. She feels overall better at this time with the exception of some persistent and very bothersome anxiety. Timing/Duration: 1-3 hours Severity: moderate Associated Symptoms: No confusion, No fatigue, No fever/chills, No insomnia, No loss of consciousness, No muscle spasms, No nausea/vomiting, No numbness in legs/feet, No paresthesia, No ringing in ears; seizures; No sleepy, No slurred speech, No tingling in legs/feet, No trouble walking, No vision changes, No weakness Allergies and Home Medications Allergies Coded Allergies: Penicillins (Unverified Allergy, Unknown, 12/05/16) Home Medications Atenolol 100 Mg Tablet, 100 MG PO DAILY, (Reported) Diltiazem HCl 120 Mg Cap.er.deg, 120 MG PO DAILY, (Reported) Sumatriptan Succinate 25 Mg Tablet, 25 MG PO Q2H PRN for MIGRAINE Do not exceed 4 tablets in 24 hours. Prescribed by: MIMI WEEKS on 12/26/16 1159 Patient Home Medication List Home Medication List Reviewed: Yes Review of Systems Review of Systems Constitutional: see HPI Eyes: No Symptoms Reported Ears, Nose, Mouth, Throat: no symptoms reported Respiratory: see HPI Cardiovascular: no symptoms reported Genitourinary: no symptoms reported Musculoskeletal: no symptoms reported Skin: no symptoms reported Psychiatric/Neurological: See HPI, Anxiety, Headache Past Naejisa-Zpsykb-Isnctd Hx Patient Social History Type Used: Cigarettes 2nd Hand Smoke Exposure: Yes Recent Foreign Travel: No Contact w/Someone Who Travel: No Recent Hopitalizations: No Seasonal Allergies Seasonal Allergies: No Past Medical History Surgeries: Yes (COLONOSCOPIES, colposcopies, genital wart destruction) Appendectomy, Orthopedic Respiratory: No Cardiac: No Neurological: Yes Headaches /Migraines Reproductive Disorders: Yes (ovarian cysts) Female Reproductive Disorders: Polycystic Ovarian Dis Sexually Transmitted Disease: Yes (genital warts) HIV/AIDS: No Genitourinary: No Gastrointestinal: No Musculoskeletal: No Endocrine: No HEENT: No Cancer: No Integumentary: No Family Medical History No Pertinent Family Hx Physical Exam Vital Signs Vital Signs - First Documented 02/27/18 17:15 Temp 98.1 Pulse 65 Resp 20 B/P (MAP) 117/75 (89) Pulse Ox 97 Capillary Refill : Height, Weight, BMI Height: 5'4.00" Weight: 210lbs. oz. 95.977085jl; BMI Method:Stated General Appearance: WD/WN, no apparent distress HEENT: PERRL/EOMI, normal ENT inspection Neck: non-tender, full range of motion Respiratory: no respiratory distress, no accessory muscle use Cardiovascular: regular rate, rhythm, no murmur Gastrointestinal: normal bowel sounds, non tender, soft Neurologic/Psychiatric: alert, normal mood/affect, oriented x 3 Crainal Nerves: normal hearing, normal speech, PERRL Motor/Sensory: no motor deficit, no sensory deficit Skin: normal color, warm/dry Progress/Results/Core Measures Results/Orders Lab Results Laboratory Tests Test 02/27/18 17:34 02/27/18 18:16 Range/Units White Blood Count 8.1 4.3-11.0 10^3/uL Red Blood Count 4.93 4.35-5.85 10^6/uL Hemoglobin 14.5 11.5-16.0 G/DL Hematocrit 42 35-52 % Mean Corpuscular Volume 86 80-99 FL Mean Corpuscular Hemoglobin 29 25-34 PG Mean Corpuscular Hemoglobin Concent 34 32-36 G/DL Red Cell Distribution Width 13.7 10.0-14.5 % Platelet Count 268 130-400 10^3/uL Mean Platelet Volume 9.5 7.4-10.4 FL Neutrophils (%) (Auto) 49 42-75 % Lymphocytes (%) (Auto) 41 12-44 % Monocytes (%) (Auto) 8 0-12 % Eosinophils (%) (Auto) 2 0-10 % Basophils (%) (Auto) 0 0-10 % Neutrophils # (Auto) 3.9 1.8-7.8 X 10^3 Lymphocytes # (Auto) 3.3 1.0-4.0 X 10^3 Monocytes # (Auto) 0.7 0.0-1.0 X 10^3 Eosinophils # (Auto) 0.2 0.0-0.3 10^3/uL Basophils # (Auto) 0.0 0.0-0.1 10^3/uL D-Dimer 0.59 H 0.00-0.49 UG/ML Sodium Level 135 135-145 MMOL/L Potassium Level 4.2 3.6-5.0 MMOL/L Chloride Level 109 H 98-107 MMOL/L Carbon Dioxide Level 16 L 21-32 MMOL/L Anion Gap 10 5-14 MMOL/L Blood Urea Nitrogen 17 7-18 MG/DL Creatinine 0.82 0.60-1.30 MG/DL Estimat Glomerular Filtration Rate > 60 BUN/Creatinine Ratio 21 Glucose Level 104 70-105 MG/DL Calcium Level 9.4 8.5-10.1 MG/DL Corrected Calcium 9.2 8.5-10.1 MG/DL Total Bilirubin 0.4 0.1-1.0 MG/DL Aspartate Amino Transf (AST/SGOT) 17 5-34 U/L Alanine Aminotransferase (ALT/SGPT) 18 0-55 U/L Alkaline Phosphatase 71 40-136 U/L Troponin I < 0.30 <0.30 NG/ML Total Protein 7.5 6.4-8.2 GM/DL Albumin 4.3 3.2-4.5 GM/DL Urine Color YELLOW Urine Clarity CLEAR Urine pH 7 5-9 Urine Specific Beaver 1.015 L 1.016-1.022 Urine Protein 1+ H NEGATIVE Urine Glucose (UA) NEGATIVE NEGATIVE Urine Ketones NEGATIVE NEGATIVE Urine Nitrite NEGATIVE NEGATIVE Urine Bilirubin NEGATIVE NEGATIVE Urine Urobilinogen 1 NORMAL MG/DL Urine Leukocyte Esterase 1+ H NEGATIVE Urine RBC (Auto) NEGATIVE NEGATIVE Urine RBC NONE /HPF Urine WBC 0-2 /HPF Urine Squamous Epithelial Cells RARE /HPF Urine Crystals PRESENT H /LPF Urine Amorphous Sediment FEW DIXON URATES H /LPF Urine Bacteria NONE /HPF Urine Casts NONE /LPF Urine Mucus NEGATIVE /LPF Urine Culture Indicated NO Urine Test NEGATIVE NEGATIVE My Orders Orders - MIGEL ROMERO BUFFET ATTENDANT Ua Culture If Indicated (12/27/18 17:19) Cbc With Automated Diff (02/27/18 17:19) Comprehensive Metabolic Panel (02/27/18 17:19) Ekg Tracing (02/27/18 17:19) Fibrin Degradation Products (02/27/18 17:19) Troponin I (02/27/18 17:19) Iv Heplock-Insert (Order) (02/27/18 17:19) Lorazepam Injection (Ativan Injection) (02/27/18 17:30) Ct Angio Chest W (02/27/18 18:07) Iohexol Injection (Omnipaque 350 Mg/Ml 1 (02/27/18 18:15) Contrast Received (Contrast Received) (02/27/18 18:15) Ns (Ivpb) (Sodium Chloride 0.9% Ivpb Bag (02/27/18 18:15) Hcg,Qualitative Urine (02/27/18 18:27) Medications Given in ED Current Medications Medications Dose Ordered Sig/Franklin Route Start Time Stop Time Status Last Admin Dose Admin Iohexol 125 ml ONCE ONCE IV 02/27/18 18:15 02/27/18 18:16 DC 02/27/18 18:26 125 ML Lorazepam 1 mg ONCE PRN IVP 02/27/18 17:30 02/27/18 17:43 1 MG Sodium Chloride 100 ml ONCE ONCE IV 02/27/18 18:15 02/27/18 18:16 DC 02/27/18 18:26 80 ML Vital Signs/I&O 02/27/18 17:15 Temp 98.1 Pulse 65 Resp 20 B/P (MAP) 117/75 (89) Pulse Ox 97 Departure Impression Primary Impression: Seizure-like activity Additional Impressions: Anxiety Palpitations Disposition: HOME, SELF-CARE Condition: Stable (any) Departure-Patient Inst. Decision time for Depature: 17:52 Referrals: [facility] (PCP/Family) Primary Care Physician Patient Instructions: Anxiety, Adult (DC), Seizures, Adult (DC) Add. Discharge Instructions: 1. Call your doctor for follow-up tomorrow 2. Return to ER for any concerns 3. All discharge instructions reviewed with patient and/or family. Voiced understanding. MIGEL ROMERO APRN Feb 27, 2018 17:18
[2018-02-27] MEDS ORDERED: LORazepam INJ 2 MG/ML (ATIVAN) VIAL IVP PRN (17:30)
[2018-02-27] MEDS ORDERED: ARIP10TA10 PO (17:32)
[2018-02-27] MEDS ORDERED: BACL10TA PO (17:32)
[2018-02-27] MEDS ORDERED: CYCL10TA9 PO (17:32)
[2018-02-27] MEDS ORDERED: TOPI50TA37 PO (17:32)
[2018-02-27 17:40] LABS: BASOPHILS % (AUTO) 0 % (0-10); EOSINOPHILS # (AUTO) 0.2 10^3/uL (0.0-0.3); EOSINOPHILS % (AUTO) 2 % (0-10); HEMATOCRIT 42 % (35-52); HEMOGLOBIN 14.5 G/DL (11.5-16.0); LYMPHOCYTES # (AUTO) 3.3 X 10^3 (1.0-4.0); LYMPHOCYTES % (AUTO) 41 % (12-44); MEAN CORPUSCULAR HEMOGLOBIN 29 PG (25-34); MEAN CORPUSCULAR HGB CONC 34 G/DL (32-36); MEAN CORPUSCULAR VOLUME 86 FL (80-99); MEAN PLATELET VOLUME 9.5 FL (7.4-10.4); MONOCYTES # (AUTO) 0.7 X 10^3 (0.0-1.0); MONOCYTES % (AUTO) 8 % (0-12); NEUTROPHILS # (AUTO) 3.9 X 10^3 (1.8-7.8); NEUTROPHILS % (AUTO) 49 % (42-75); PLATELET COUNT 268 10^3/uL (130-400); RED BLOOD COUNT 4.93 10^6/uL (4.35-5.85); RED CELL DISTRIBUTION WIDTH 13.7 % (10.0-14.5); WHITE BLOOD COUNT 8.1 10^3/uL (4.3-11.0)
[2018-02-27 17:57] LABS: ALANINE AMINOTRANSFERASE 18 U/L (0-55); ALBUMIN 4.3 GM/DL (3.2-4.5); ALKALINE PHOSPHATASE 71 U/L (40-136); BILIRUBIN,TOTAL 0.4 MG/DL (0.1-1.0); BUN/CREATININE RATIO 21; CALCIUM 9.4 MG/DL (8.5-10.1); CARBON DIOXIDE 16 MMOL/L (21-32); CHLORIDE 109 MMOL/L (98-107); CREATININE SERUM 0.82 MG/DL (0.60-1.30); GFR ESTIMATED > 60; GLUCOSE 104 MG/DL (70-105); POTASSIUM 4.2 MMOL/L (3.6-5.0); SODIUM 135 MMOL/L (135-145); TOTAL PROTEIN 7.5 GM/DL (6.4-8.2)
[2018-02-27] MEDS ORDERED: RECEIVED CONTRAST (Hold Metformin) IV SCH (18:15)
[2018-02-27] MEDS ORDERED: IOHEXOL 350 MG/ML 150 ML (OMNIPAQUE 350) VIAL IV ONE (18:15)
[2018-02-27] MEDS ORDERED: NS 100 ML (IVPB) BAG IV ONE (18:15)
[2018-02-27 18:37] LABS: BILIRUBIN,URINE NEGATIVE (NEGATIVE); CLARITY,URINE CLEAR; COLOR,URINE YELLOW; GLUCOSE, URINE (UA) NEGATIVE (NEGATIVE); KETONES,URINE NEGATIVE (NEGATIVE); LEUKOCYTE ESTERASE ,URINE 1+ (NEGATIVE); NITRITE,URINE NEGATIVE (NEGATIVE); PH,URINE 7 (5-9); PROTEIN,URINE 1+ (NEGATIVE); UROBILINOGEN,URINE 1 MG/DL (NORMAL)
[2018-02-27 18:45] LABS: AMORPHOUS SEDIMENT,UR FEW AMOR URATES /LPF; SQUAMOUS EPITHELIAL CELL,UR RARE /HPF; WBC,URINE 0-2 /HPF
--- NOTE | 2018-02-27 18:54 | Diagnostic Imaging Report ---
PROCEDURE: CT angiography of the chest with contrast. TECHNIQUE: Multiple contiguous axial images were obtained through the chest after uneventful bolus administration of intravenous contrast. 2D reconstructed CTA MIP acquisitions were also performed. INDICATION: Chest tightness, shortness of breath. COMPARISON: None available. FINDINGS: No significant adenopathy within the chest. No aneurysmal dilatation of the thoracic aorta. The heart is within normal limits in size. No pericardial effusion. No pleural effusion. No pneumothorax. The lungs are clear. No significant filling defect identified within the central or segmental pulmonary arteries. The visualized upper abdomen is unremarkable. No acute osseous abnormality. IMPRESSION: No acute abnormality. In particular, no significant pulmonary embolus. Dictated by: Dictated on workstation # [id number]
[2018-02-27 19:17] VITALS: BP 117/75
== END 2018-02-27 19:17 | disposition home or self-care (01) ==
LOC: EDUNIT# 17:10 → ER 17:11
DX: R25.9 Unspecified abnormal involuntary movements (principal); F41.9 Anxiety disorder, unspecified; R00.2 Palpitations; G43.909 Migraine, unspecified, not intractable, without status migrainosus; Z87.448 Personal history of other diseases of urinary system; Z98.890 Other specified postprocedural states; Z90.49 Acquired absence of other specified parts of digestive tract; Z77.22 Contact with and (suspected) exposure to environmental tobacco smoke (acute) (chronic); Z88.0 Allergy status to penicillin
CPT/HCPCS: 36415; 71275; 80053; 81000; 84484; 84703; 85025; 85379; 93005; 96374

== ENCOUNTER 2018-06-09 06:45 | Outpatient (CLI) | payer OTHER ==
[~2018-06-09] VITALS: Ht 162.6 cm; Wt 96.2 kg
[~2018-06-09 06:45] MED LIST changes: +ARIP10TA10 PO; +BACL10TA PO; +CYCL10TA9 PO; +METR-145 PO; -METR-197 PO; +TOPI50TA37 PO
[2018-06-09] MEDS ORDERED: DESV50TA PO (15:49)
[2018-06-09] MEDS ORDERED: MIRT15TA PO (15:49)
== END 2018-06-09 15:51 | disposition home or self-care (01) ==
LOC: PREOP 06:45
PROVIDERS: ATTEND Surgery
DX: Z01.818 Encounter for other preprocedural examination (principal)

== ENCOUNTER 2018-06-13 09:04 | Day surgery (SDC) | payer OTHER ==
[~2018-06-13] VITALS: Ht 162.6 cm; Wt 96.2 kg
[~2018-06-13 09:04] MED LIST changes: +DESV50TA PO; +LACTATED RINGERS 1,000 ML IV ONE; +MIRT15TA PO
[2018-06-13 09:10] VITALS: BP 105/74
[2018-06-13] MEDS ORDERED: PROPOFOL INJECTION 50 ML IV ONE ×2 (09:15→09:47)
[2018-06-13] MEDS ORDERED: MIDAZOLAM 2 MG/2 ML (VERSED) VIAL ONE (09:16)
--- NOTE | 2018-06-13 09:24 | Progress Note-Pre Operative ---
Pre-Operative Progress Note H&P Reviewed The H&P was reviewed, patient examined and no changes noted. Time Seen by Provider: 09:20 Date H&P Reviewed: Jun 13, 2018 Time H&P Reviewed: 09:21 Pre-Operative Diagnosis: Hematochezia, Gastritis MIKIE FLAHERTY DO Jun 13, 2018 09:23
[2018-06-13] MEDS ORDERED: LACTATED RINGERS 1,000 ML IV STA (09:28)
[2018-06-13] MEDS ORDERED: HURRICAINE EXT TUBE (BENZOCAINE) XX PRN (09:30)
--- NOTE | 2018-06-13 10:07 | Anesthesia-General Post-Op ---
MAC Patient Condition Mental Status/LOC: Same as Preop Cardiovascular: Satisfactory Nausea/Vomiting: Absent Respiratory: Satisfactory Pain: Controlled Complications: Absent Post Op Complications Complications None Follow Up Care/Instructions Patient Instructions None needed. Anesthesiology Discharge Order Discharge Order Patient is doing well, no complaints, stable vital signs, no apparent adverse anesthesia problems. No complications reported per nursing. ADRIAN CUNNINGHAM CRNA Jun 13, 2018 10:07
[2018-06-13] MEDS ORDERED: HURRICAINE EXT TUBE (BENZOCAINE) ONE (10:12)
[2018-06-13 10:15] VITALS: BP 117/77
--- NOTE | 2018-06-13 10:15 | Progress Note-Post Operative ---
Post-Operative Progess Note Surgeon (s)/Gravity Prospector (s) Surgeon MIKIE FLAHERTY DO Gravity Prospector: none Pre-Operative Diagnosis Hematochezia, Gastritis Post-Operative Diagnosis Gastritis Esophageal polyp Descending colon polyp Internal hemorrhoids Procedure & Operative Findings Date of Procedure 06/13/18 Procedure Performed/Findings EGD with bx Colon with snare Anesthesia Type IV sedation by DIETETIC ASSISTANT Estimated Blood Loss Estimated blood loss (mL): scant Specimens/Packing Specimens Removed Antral Bx Bx of polyp GE jxn bx Descending colon polyp MIKIE FLAHERTY DO Jun 13, 2018 10:15
--- NOTE | 2018-06-13 10:16 | Endoscopy Discharge Instruct ---
Endo Procedure/Findings Findings 1.: Gastritis 2.: Polyp 3.: Internal Hemorrhoids Discharge Instructions - Activity: You might feel a little sleepy until tomorrow. This is due to the medicine you received to relax you. Until tomorrow, you should: NOT drive a car, operate machinery or power tools. NOT drink any alcoholic beverages. NOT make any important decisions or sign importortant papers. Do not return to work until tomorrow, unless otherwise instructed. Resume previous activities tomorrow. Diet: Start by taking liquids. If you tolerate liquids, advance to solid food. make an appointment for one week Notify Physician - If you experience excessive bleeding, unusual abdominal pain, fever, or chest pain, contact your doctor immediately. Follow-Up: - I have received and understand the above instructions and will call my doctor if I have any further questions. Patient Signature Date Nurse Signature Other (Relationship) MIKIE FLAHERTY DO Jun 13, 2018 10:16
[2018-06-13 10:50] VITALS: BP 112/74
[2018-06-13 10:52] VITALS: BP 112/74
--- OUTSIDE RECORDS SUMMARY | 2018-06-13 13:44 | XMS REPORT | Continuity of Care Document ---
Author Organization Unknown Address Unknown Allergies Active Description Code Type Severity Reaction Onset Reported/Identified Relationship to Patient Clinical Status Yes Hydromorphone Drug Allergy N/ A Adverse Reaction 08/17/2010 Yes Latex Drug Allergy N/A Adverse Reaction 08/17/2010 Yes Penicillins Drug Allergy N/A Adverse Reaction 08/17/2010 Yes No Known Drug Allergies Drug Allergy N/A N/A 05/21/2013 Yes No Known Drug Allergies Drug Allergy N/A N/A 05/21/2013 Yes Penicillins Penicillins Drug Allergy Severe RASH/HIVES/REDNESS/VOMITING Yes amoxicillin trihydrate amoxicillin trihydrate Drug Allergy Moderate SAME PCN REACTION 08/14/2013 Yes hydromorphone HCl hydromorphone HCl Drug Allergy Moderate RASH 08/14/2013 Yes latex latex Drug Allergy Moderate RASH/HIVES/REDNESS 08/14/2013 Yes potassium clavulanate potassium clavulanate Drug Allergy Moderate SAME PCN REACTION 08/14/2013 Medications There is no data. Problems Date Dx Coded Attending Type Code Diagnosis Diagnosed By 08/18/2012 Alessandra Martinez MD Final 558.9 NONINF GASTROENT NEC NOS 08/18/2012 Alessandra Martinez MD Admitting 789.00 ABDOMINAL PAIN-SITE NOS 08/18/2012 Alessanrda Martinez MD 789.09 ABDOMINAL PAIN-SITE NEC 05/21/2013 [...] III, MD Admitting 789.03 RLQ ABDOMINAL PAIN Procedures There is no data. Results Test Result Range METABOLIC PANEL, COMPREHN - 08/19/12 13:35 POTASSIUM 3.7 mmol/L 3.5-5.3 EST GFR (MDRD) > 60 mL/min > 59 ANION GAP 14 mmol/L 5-15 EST CrCl (CG) > 60 mL/min > 59 GLUCOSE 101 mg/dL 70-99 CALCIUM 8.6 mg/dL 8.5-10.1 BLOOD UREA NITROGEN 16 mg/dL 7-20 CREATININE 0.8 mg/dL 0.6-1.0 SODIUM 140 mmol/L 135-148 CHLORIDE 105 mmol/L 98-110 AST/SGOT 13 Units/L 10-37 ALT/SGPT 25 Units/L < 66 CARBON DIOXIDE 21 mmol/L 21-32 TOTAL PROTEIN 8.3 gm/dL 6.4-8.2 ALBUMIN 4.0 gm/dL 3.4-5.0 BILI TOTAL 0.4 mg/dL 0.0-1.0 ALKALINE PHOSPHATASE TOTAL 60 Units/L 50-136 LIPASE - 08/19/12 13:35 LIPASE 74 Units/L 73-393 CBC W/DIFF - 08/19/12 13:35 COMMENT REVIEWED GRANULOCYTE # 7.8 k/cumm 2.0-9.0 GRANULOCYTE % 83 % 50-75 LYMPHOCYTE # 1.1 k/cumm 1.0-4.0 LYMPHOCYTE % 12 % 20-30 MEAN CELL HGB 30.1 pg 27.0-33.0 MEAN CELL HGB CONCENTRATION 33.2 g/dl 32.0-36.0 MEAN CELL VOLUME 90.5 fl 80.0-100.0 MONOCYTE # 0.5 k/cumm 0.1-1.0 MONOCYTE % 5 % 4-6 RED BLOOD CELL 4.97 m/cumm 4.00-6.00 RED CELL DISTRIBUTION WIDTH 13.5 % 11.0-15.6 WHITE BLOOD CELL 9.4 k/cumm 5.0-10.0 HEMOGLOBIN 14.9 gm/dL 12.0-16.0 HEMATOCRIT 45.0 % 37.0-47.0 PLATELET COUNT 263 k/cumm 150-450 UR TEST - 08/19/12 13:55 UR TEST NEGATIVE NEGATIVE URINALYSIS WITH MICROSCOPIC - 08/19/12 13:55 UA LEUKOCYTE ESTERASE DIPSTICK 1+ NEGATIVE UA NITRITE DIPSTICK NEGATIVE NEGATIVE UA PROTEIN DIPSTICK 1+ NEGATIVE UA GLUCOSE DIPSTICK NEGATIVE NEGATIVE UA KETONE DIPSTICK TRACE NEGATIVE UA UROBILINOGEN DIPSTICK NORMAL NORMAL UA BILIRUBIN DIPSTICK NEGATIVE NEGATIVE UA BLOOD DIPSTICK NEGATIVE NEGATIVE UA BACTERIA 2+ NEGATIVE UA EPITHELIAL CELLS 2+ epi/hpf 0 - 1+ UA MUCUS 1+ NEG TO 1+ UA RBC 0-3 rbc/hpf 0 - 3 UA VOLUME FOR EXAM 10.0 mL (12mL STD) UA WBC 2-5 wbc/hpf 0 - 5 UA SPECIFIC GRAVITY 1.020 1.015-1.025 UR PH 5.0 5.0-7.0 CAMPYLOBACTER ANTIGEN - 08/19/12 15:00 Uncategorized STOOL LEUKOCYTES - 08/19/12 15:00 Uncategorized URINALYSIS, ROUTINE - 05/12/13 02:03 UA LEUKOCYTE ESTERASE DIPSTICK TRACE NEGATIVE UA NITRITE DIPSTICK NEGATIVE NEGATIVE UA PROTEIN DIPSTICK NEGATIVE NEGATIVE UA GLUCOSE DIPSTICK NEGATIVE NEGATIVE UA KETONE DIPSTICK NEGATIVE NEGATIVE UA UROBILINOGEN DIPSTICK NORMAL NORMAL UA BILIRUBIN DIPSTICK NEGATIVE NEGATIVE UA BLOOD DIPSTICK 4+ NEGATIVE UA BACTERIA 3+ NEGATIVE UA EPITHELIAL CELLS 2+ epi/hpf 0 - 1+ UA MUCUS 3+ NEG TO 1+ UA RBC 3-5 rbc/hpf 0 - 3 UA VOLUME FOR EXAM 12.0 mL (12mL STD) UA WBC 0-1 wbc/hpf 0 - 5 UA SPECIFIC GRAVITY 1.020 1.015-1.025 UR PH 6.0 5.0-7.0 CHEM/HEM PROFILE-BEDSIDE - 07/08/13 15:37 POTASSIUM 3.9 mmol/L 3.5-5.3 METHOD Bedside ANION GAP 17 mmol/L 10-20 METHOD Bedside GLUCOSE 127 mg/dL 70-99 BLOOD UREA NITROGEN 8 mg/dL 7-20 CREATININE 0.7 mg/dL 0.6-1.0 HEMOGLOBIN 15.6 gm/dL 12.0-16.0 HEMATOCRIT 46.0 % 37.0-47.0 SODIUM 141 mmol/L 135-148 CHLORIDE 105 mmol/L 98-110 CARBON DIOXIDE 24 mmol/L 21-32 CALCIUM IONIZED 4.8 mg/dL 4.5-5.3 URINALYSIS, ROUTINE - 07/08/13 15:46 UA LEUKOCYTE ESTERASE DIPSTICK 1+ NEGATIVE UA NITRITE DIPSTICK NEGATIVE NEGATIVE UA PROTEIN DIPSTICK TRACE NEGATIVE UA GLUCOSE DIPSTICK NEGATIVE NEGATIVE UA KETONE DIPSTICK NEGATIVE NEGATIVE UA UROBILINOGEN DIPSTICK NORMAL NORMAL UA BILIRUBIN DIPSTICK POSITIVE NEGATIVE UA BLOOD DIPSTICK 2+ NEGATIVE UA SPECIFIC GRAVITY 1.010 1.015-1.025 UR PH 7.0 5.0-7.0 UA MICROSCOPIC - 07/08/13 15:46 UA BACTERIA 2+ NEGATIVE UA EPITHELIAL CELLS 3+ epi/hpf 0 - 1+ UA MUCUS 5+ NEG TO 1+ UA RBC 20-50 rbc/hpf 0 - 3 UA VOLUME FOR EXAM 12.0 mL (12mL STD) UA WBC 0-1 wbc/hpf 0 - 5 URINALYSIS, ROUTINE - 07/22/13 12:55 UA LEUKOCYTE ESTERASE DIPSTICK TRACE NEGATIVE UA NITRITE DIPSTICK NEGATIVE NEGATIVE UA PROTEIN DIPSTICK TRACE NEGATIVE UA GLUCOSE DIPSTICK NEGATIVE NEGATIVE UA KETONE DIPSTICK NEGATIVE NEGATIVE UA UROBILINOGEN DIPSTICK NORMAL NORMAL UA BILIRUBIN DIPSTICK NEGATIVE NEGATIVE UA BLOOD DIPSTICK 3+ NEGATIVE UA SPECIFIC GRAVITY 1.025 1.015-1.025 UR PH 5.0 5.0-7.0 UA MICROSCOPIC - 07/22/13 12:55 UA AMORPHOUS SEDIMENT 2+ UA BACTERIA 3+ NEGATIVE UA EPITHELIAL CELLS 3+ epi/hpf 0 - 1+ UA MUCUS 4+ NEG TO 1+ UA RBC 3-5 rbc/hpf 0 - 3 UA VOLUME FOR EXAM 12.0 mL (12mL STD) UA WBC 2-5 wbc/hpf 0 - 5 CBC W/DIFF - 07/22/13 13:55 EOSINOPHIL # 0.1 k/cumm 0.1-0.5 EOSINOPHIL % 2 % 2-4 GRANULOCYTE # 3.1 k/cumm 2.0-9.0 GRANULOCYTE % 57 % 50-75 LYMPHOCYTE # 1.8 k/cumm 1.0-4.0 LYMPHOCYTE % 33 % 20-30 MEAN CELL HGB 30.5 pg 27.0-33.0 MEAN CELL HGB CONCENTRATION 34.3 g/dL 32.0-37.0 MEAN CELL VOLUME 89.1 fl 80.0-100.0 MONOCYTE # 0.5 k/cumm 0.1-1.0 MONOCYTE % 8 % 4-6 RED BLOOD CELL 4.42 m/cumm 4.00-6.00 RED CELL DISTRIBUTION WIDTH 12.7 % 11.0-15.6 WHITE BLOOD CELL 5.5 k/cumm 5.0-10.0 HEMOGLOBIN 13.5 gm/dL 12.0-16.0 HEMATOCRIT 39.4 % 37.0-47.0 PLATELET COUNT 186 k/cumm 150-450 METABOLIC PANEL, COMPREHN - 07/22/13 13:55 POTASSIUM 3.8 mmol/L 3.5-5.3 EST GFR (MDRD) > 60 mL/min > 59 ANION GAP 9 mmol/L 5-15 EST CrCl (CG) > 60 mL/min > 59 GLUCOSE 82 mg/dL 70-99 CALCIUM 8.1 mg/dL 8.5-10.1 BLOOD UREA NITROGEN 12 mg/dL 7-20 CREATININE 0.8 mg/dL 0.6-1.0 SODIUM 142 mmol/L 135-148 CHLORIDE 107 mmol/L 98-110 AST/SGOT 17 Units/L 10-37 ALT/SGPT 24 Units/L < 66 CARBON DIOXIDE 26 mmol/L 21-32 TOTAL PROTEIN 6.1 gm/dL 6.4-8.2 ALBUMIN 3.2 gm/dL 3.4-5.0 BILI TOTAL 0.2 mg/dL 0.0-1.0 ALKALINE PHOSPHATASE TOTAL 53 IU/L 45-117 LIPASE - 07/22/13 13:55 LIPASE 120 Units/L 73-393 A1C - 01/10/17 12:02 HEMOGLOBIN A1c 5.0 % of total Hgb <5.7 SUREPATH PAP AND HPV mRNA E6/E7 - 01/10/17 12:02 CLINICAL INFORMATION: NRG LMP: 01/04/17 NRG PREV. PAP: ABNORMAL NRG PREV. BX: NRG SOURCE: Cervix NRG STATEMENT OF ADEQUACY: NRG INTERPRETATION/RESULT: NRG PROCESS SAFETY MANAGEMENT ENGINEER: NRG HPV mRNA E6/E7, SUREPATH VIAL Not Detected NOT DETECTED GENERAL CATEGORIZATION: NRG COMMENT: NRG PATHOLOGIST: NRG INSULIN LEVEL - 01/10/17 12:02 INSULIN 16.8 uIU/mL 2.0-19.6 ESR/SED RATE - 01/31/17 09:10 SED RATE BY MODIFIED WESTERGREN 11 mm/h < OR=20 LIPID PANEL - 02/13/18 12:57 CHOLESTEROL, TOTAL 183 mg/dL <200 HDL CHOLESTEROL 37 mg/dL >50 TRIGLYCERIDES 229 mg/dL <150 LDL-CHOLESTEROL 111 mg/dL (calc) NRG CHOL/HDLC RATIO 4.9 (calc) <5.0 NON HDL CHOLESTEROL 146 mg/dL (calc) <130 RA (RHEUMATOID) FACTOR - 04/23/18 11:37 RHEUMATOID FACTOR 59 IU/mL <14 NICKI - 04/23/18 11:37 NICKI SCREEN, IFA NEGATIVE NEGATIVE SUREPATH PAP AND HPV mRNA E6/E7 - 05/23/18 15:22 CLINICAL INFORMATION: NRG LMP: NRG PREV. PAP: NRG PREV. BX: NRG SOURCE: Cervix NRG STATEMENT OF ADEQUACY: NRG INTERPRETATION/RESULT: NRG PROCESS SAFETY MANAGEMENT ENGINEER: NRG HPV mRNA E6/E7, SUREPATH VIAL Not Detected NOT DETECTED REVIEW PROCESS SAFETY MANAGEMENT ENGINEER: NRG INFECTION: NRG COMMENT NRG Radiology Report from [id number] on 08/18/2012 10:18:00 Final ReportADMITTING DIAGNOSIS: Abd Pain ABD. PAINKUB,UPRIGHT /OR DECUB - 08/18/2012 [facility] RESULT: TIME:9:16 AM.INDICATION:Right lower quadrant pain.FINDINGS:Supine and upright views the abdomen show an air/fluid level inthe stomach which could be from recently ingested food and fluidor retained secretions. There is air in the colon which isnondilated. There are scattered air and fluid-filled loops ofnondilated small bowel. These changes may be related to a mildileus or gastroenteritis. No obstruction or perforation isevident. There is no mass or abnormal calcification.IMPRESSION: Probable mild ileus.Dictated on workstation # [id number] BY: CHACORTA CRABTREE M.D., RADIOLOGISTELECTRONICALLY SIGNED BY: CHACORTA CRABTREE M.D., RADIOLOGISTD Aug 18 2012 9:19AT JM : Aug 18 2012 10:16AS Aug 18 2012 10:16A Radiology Report from [id number] on 08/18/2012 16:08:00 Final ReportADMITTING DIAGNOSIS: Abd Pain ABD PAINGALLBLADDER SONO - 08/18/2012 [facility] RESULT: INDICATION: Right upper quadrant pain.COMPARISON: NoneFINDINGS: The echogenicity of liver is normal without focal massor intrahepatic biliary duct dilatation. The common bile duct isnormal at 2.5 mm. The gallbladder is contracted withquestionable pericholecystic fluid. No definite gallstone ispresent. The right kidney and pancreas are normal.IMPRESSION: 1. Thickwalled contracted gallbladder with questionablepericholecystic fluid. Chronic/acute cholecystitis not excluded.Please correlate with a nonfasting state. HIDA scan and/or CTabdomen and pelvis may be of further value.Dictated on workstation # [id number] RADIOLOGIST: SCOTT PACHECO M.D., RADIOLOGISTELECTRONICALLY SIGNED BY: SCOTT PACHECO M.D., RADIOLOGISTD Aug 18 2012 9:42AT RF : Aug 18 2012 4:05PS Aug 18 2012 4:05P Radiology Report from [id number] on 08/18/2012 17:00:00 Final ReportADMITTING DIAGNOSIS: Abd Pain ABD. PAINCT ABD W W/O,PELVIS W - 08/18/2012 [facility] RESULT: PROCEDURE: CT abdomen with and without contrast, CT pelvis withcontrast.TECHNIQUE: Multiple contiguous axial images were obtainedthrough the abdomen and pelvis after administration ofintravenous contrast. Pre contrast acquisitions were acquiredthrough the abdomen.INDICATION: Pain.FINDINGS: The gallbladder is partially contracted. There was noappreciable pericholecystic fluid. There were no findingssuggestive of pericholecystic edema involving its adjacentliver. Liver is hypodense consistent with fatty infiltration.There is no dilatation of the bile ducts. The pancreas and itsduct appeared normal. The intra- and extrahepatic biliary ductsare normal. The spleen is negative. The adrenals are negative.The kidneys are unobstructed. There are no opaque kidney stonesand there is no hydronephrosis. The appendix is well-visualizedand normal. There were no findings of a bowel obstruction. Thereis no ascites, abscess or hemorrhage. No bowel wall thickeningor pericolonic/perienteric edema. There is a right ovarian cystmeasuring 2.9 cm. The uterus and left adnexa are normal. Theurinary bladder is normal.IMPRESSION: Right ovarian cyst, unobstructed urinary tracts withnormal appendix and partially contracted gallbladder with nobiliary dilatation or focal inflammatory process demonstrated.Probable mild fatty infiltration of the liver with normalspleen.Dictated on workstation # [id number] BY: NEGRA VALENZUELA M.D., RADIOLOGISTELECTRONICALLY SIGNED BY: NEGRA VALENZUELA M.D., RADIOLOGISTD Aug 18 2012 11:57AT KB : Aug 18 2012 4:57PS Aug 18 2012 4:57P Radiology Report from [place] on 08/19/2012 16:38:[address] DI[address] REPORT [facility] - [address] [place] [address] PHONE #: [phone] FAX #: [phone] ------- Name: XUAN GALE [facility] No: : 1980 Age: 32 Sex: F Status: DEP Unit No: [id number] Phys: Tobi Soares DO Acct: [id number] Reason For Exam: abd pain Exam Date: 08/19/2012 EXAMS: CPT CODE: [id number] ABD-KUB /FEB OR CHEST 92762 TIME OF STUDY: 08/19/2012 2:19 PM REASON FOR EXAM: Right upper quadrant abdominal pain COMPARISON: KUB performed on 06/16/2011 FINDINGS: Portable supine and upright views of the abdomen demonstrate mildly dilated loops of small bowel with a few scattered air-fluid levels. No large free intraperitoneal air collection is visualized. No abnormal extraosseous calcifications are present. The osseous structures are age-appropriate. Single PA view of the chest was obtained. No mass or consolidation. Normal central pulmonary vascularity. Normal cardiomediastinal silhouette. No pleural effusion. No pneumothorax. Regional osseous structures demonstrate no acute abnormality. IMPRESSION: 1. Mildly dilated loops of small bowel with a few scattered air-fluid levels which can be seen in the setting of mild ileus. No definite focal bowel obstruction is identified. 2. No acute cardiopulmonary process. I have personally reviewed these images and approved or corrected the resident physician's interpretation. at 1632 * * RESIDENT: SRINI DOWNEY MD Reported and signed by: LUIZA TAMAYO MD CC: Technologist: TOMMY AVILA Transcribed Date/Time: 08/19/2012 (2552)Warehouse Supervisor: PZARCADM Printed Date/Time: 08/19/2012 (0742) BATCH NO: N/A PAGE 1 Signed Report Radiology Report from [id number] on 06/14/2013 12:14:00 Final ReportADMITTING DIAGNOSIS: n/v, lower back pain, hist of painCT URINARY TRACT R/O STONES - 06/13/2013 [facility] RESULT: PROCEDURE: CT urinary tract r/o kidney stone.TECHNIQUE: Multiple contiguous axial images were obtainedthrough the abdomen and pelvis without the use of intravenouscontrast.INDICATION: Flank pain, possible kidney stones.COMPARISON: .CT abdomen:The gallbladder is contracted likely from the postprandialstate. There is moderate amount of material within the stomach.The liver, spleen, pancreas, adrenal glands, kidneys, vascularstructures, and bowel normal. There was no mass orhydronephrosis. No renal calculi.CT pelvis:The uterus is intact. Distal ureters and urinary bladder arenormal. No inflammation seen. The appendix is normal. Bonystructures are age-appropriate.IMPRESSION: Negative CT abdomen and pelvis.Dictated on workstation # [id number] BY : SCOTT PACHECO M.D., RADIOLOGISTELECTRONICALLY SIGNED BY: SCOTT PACHECO M.D., RADIOLOGISTD Jun 14 2013 5:59AT MK4: Jun 14 2013 12:10PS Jun 14 2013 12:10P Radiology Report from [facility] on 07/22/2013 14:13:[address] DI[address] REPORT [facility] - [address] [address] PHONE #: [phone] FAX #: [phone] ------- Name: XUAN GALE Loc: [facility] Radiology No: : 1980 Age: 33 Sex: F Status: REG ER Unit No: [id number] Phys: Fran Mendes MD Acct: [id number] Reason For Exam: abd pain, suspect cnstipation Exam Date: 07/22/2013 EXAMS: CPT CODE: [id number] ABD-KUB /FEB PA CHEST 81222 Abdomen series The reason for examination: Abdominal pain Technique: Upright PA chest, supine and upright abdomen done Prior: 08/19/2012 Findings: Upright chest shows no abnormality. There is no pleural effusion or free air under the diaphragm and the lungs are clear. Heart size is normal. Supine and upright abdomen show mild gaseous distention of multiple loops of small bowel with air-fluid levels present. The upright shows multiple air-fluid levels throughout the abdomen. There is a moderate amount of stool scattered throughout the colon including the rectosigmoid area. No free peritoneal air seen. Several round calcific densities present in the pelvis bilaterally which were present on the prior and presumably represent phleboliths. IMPRESSION: Findings are consistent with mild generalized ileus. There is moderate fecal retention. There is no evidence of bowel obstruction or perforation. at 140 Reported and signed by : MYKE GARCIA MD CC: Fran Capone MD Technologist: TOMMY AVILA Transcribed Date/Time: 07/22/2013 (0199)Warehouse Supervisor: ANIRUDHDA Printed Date/Time: 07/22/2013 (7269) BATCH NO: N/A PAGE 1 Signed Report Radiology Report from [facility] on 07/22/2013 15:17:00 DIAG[address]STIC IMAGING REPORT [facility] - [address] [address] PHONE #: [phone] FAX #: [phone] ------- Name: XUAN GALECHACEBrigid Loc: [facility] Radiology No: : 1980 Age: 33 Sex: F Status: REG ER Unit No: [id number] Phys: Fran Mendes MD Acct: [id number] Reason For Exam: abd pain abn kub Exam Date: 07/22/2013 EXAMS: CPT CODE: [id number] CT ABD/PELVIS WITH CONTRAST 86835 TIME OF STUDY: 07/22/2013 2:47 PM REASON FOR EXAM: abd pain, abnormal KUB COMPARISON: None. TECHNIQUE: Helical contrast enhanced images were obtained through the abdomen and contrast helical images were obtained through the pelvis. FINDINGS: CT Abdomen: The included lung bases are clear. The liver, spleen, pancreas, kidneys and adrenal glands all have normal appearance. There is no mesenteric or retroperitoneal adenopathy. The bowel loops are nondilated. No bowel obstruction is seen. There is no free fluid or free air. CT Pelvis: The ureters and bladder are grossly normal. A normal appendix is visualized. However, there is no inflammation in the right lower quadrant. There is no free air, free fluid, loculated collection or adenopathy in the pelvis. The osseous and soft tissue structures are age appropriate. IMPRESSION: 1. No acute abnormalities in the abdomen or pelvis. No evidence of bowel obstruction. Findings were discussed with Fran Capone MD on 07/22/2013 2:52 PM. I have personally reviewed these images and approved or corrected the resident physician's interpretation. at 4616 RESIDENT: BABITA BOB MD Reported and signed by: TOBI SHAH MD PAGE 1 Signed Report (CONTINUED) DIAGNOSTIC IMAGING REPORT [facility] - [address] [place] [address] PHONE #: [phone] FAX #: Name: XUAN GALE [facility] Radiology No: : 1980 Age: 33 Sex: F Status: REG ER Unit No: [id number] Phys : Fran Mendes MD Acct: [id number] Reason For Exam: abd pain abn kub Exam Date: 07/22/2013 EXAMS: CPT CODE: [id number] CT ABD/PELVIS WITH CONTRAST 61158 <Continued> CC: Fran Capone MD Technologist: TOMMY AVILA Transcribed Date/Time: (1501)Warehouse Supervisor: JOANNE Printed Date /Time: 07/22/2013 (4070) BATCH NO: N/A PAGE 2 Signed Report Encounters ACCT No. Visit Date/Time Discharge Status Pt. Type Provider Facility Loc./Unit Complaint [id number] 05/23/2018 12:20:00 05/23/2018 23:59:59 [id number] 05/23/2018 12:20:00 Document Registration [id number] 04/23/2018 10:40:00 Document Registration [id number] 02/13/2018 13:00:00 Document Registration [id number] 01/31/2017 08:00:00 Document Registration [id number] 01/10/2017 10:40:00 Document Registration [id number] 05/21/2013 18:44:00 05/21/2013 21:26:00 DIS Emergency Danita CHAVEZ MD, Sree Haque [facility] [id number] 08/18/2012 07:59:00 08/18/2012 12:50:00 DIS Emergency Michelle BECK, Alessandra Wren [facility] TERM [id number] 09/16/2013 15:27:00 09/16/2013 17:50:00 DIS Emergency Max [id number] 07/22/2013 11:59:00 07/22/2013 15:46:00 DIS Emergency Liborio BECK, Fran Harrell [facility] W.EDW [id number] 07/08/2013 14:28:00 07/08/2013 16:47:00 DIS Emergency Allen BECK, Cl [place] [facility] [id number] 06/24/2013 11:54:00 06/24/2013 12:53:00 DIS Emergency [id number] 05/12/2013 00:58:00 05/12/2013 02:54:00 DIS Emergency Adrian BECK, Hardeep Quinones [facility].EDW [id number] 08/19/2012 12:36:00 08/19/2012 15:40:00 DIS Emergency Zachary LIU, Tobi Isbell [facility] W.EDW [id number] 03/23/2011 15:21:00 03/23/2011 23:59:59 [facility] Emergency [id number] 06/13/2013 21:21:00 06/13/2013 23:40:00 DIS Emergency Danita CHAVEZ MD, Sree Haque [facility] on [place] [id number] 05/21/2013 18:44:00 Document Registration
--- NOTE | 2018-06-13 18:36 | OPERATIVE REPORT ---
DATE OF SERVICE: 06/13/2018 PREOPERATIVE DIAGNOSES: 1. Gastritis: 2. Hematochezia. POSTOPERATIVE DIAGNOSES: 1. Gastritis, esophageal polyp, possible esophagitis. 2. Descending colon polyp. 3. Internal hemorrhoids. PROCEDURES: 1. EGD with biopsy. 2. Colonoscopy with snare polypectomy. SURGEON: Sloan Rapp DO FISCAL SPECIALIST: None. ANESTHESIA: IV sedation by the COLOR MAKER DYER. SPECIMEN: One biopsy from the antrum and one biopsy from esophageal polyp, one biopsy from GE junction and then descending colon polyp. BLOOD LOSS: Scant. FLUIDS: Per anesthesia. POSTOPERATIVE CONDITION: Stable. INDICATION FOR PROCEDURE: The patient is a 38-year-old female, who has been having some rectal bleeding, also some history of gastritis, questionable history of Stoddard's esophagus. FINDINGS: The patient had some gastritis, had what looked like possibly esophageal polyp, maybe esophagitis, but mild and she also had a polyp in the descending colon as well as some grade II internal hemorrhoids. PROCEDURE NOTE: After informed consent was obtained, the patient was brought to the endoscopy suite and placed in the bed in left lateral decubitus position. She was administered IV sedation by the COLOR MAKER DYER, who then monitored her vitals the entire time, heart rate, blood pressure and pulse ox. Then, started with the EGD, placed the scope down the mouth through the esophagus into the stomach. Upon entering the stomach, noted some little bit of gastritis, took a picture, then pushed through the pylorus into the duodenum. Duodenum looked fine. Backed up and then did a biopsy of the antrum, retroflexed the scope, did not really see a hiatal hernia, but saw what looked like esophageal polyp almost right at the GE junction just below it, did a biopsy of this polyp, pulled back into the GE junction, elected to do a biopsy here as well, suctioned out the stomach and then pulled the scope up the esophagus and out the mouth, rest of the esophagus looked fine. Switched scopes, switched gloves and went down below to start the colonoscopy and placed the scope through the rectum, pushed all the way to the cecum. On the way in, in the descending colon just before the transverse colon, saw a polyp, took a picture of this and then did snare polypectomy and then able to get all the way to cecum, took a picture of the appendiceal orifice, noted the ileocecal valve and then slowly withdrew the scope insufflating to look circumferentially at the magana looking at the cecum, up the ascending colon to the hepatic flexure, down the transverse colon and splenic flexure, into the descending colon down in the sigmoid and finally in the rectum, retroflexed in rectal vault, saw some internal hemorrhoids, took a picture of this and then removed the scope. The patient tolerated the procedure. She was recovered in endoscopy suite. Job ID: [id number] DocumentID: [id number] Dictated Date: 06/13/2018 10:20:01 Hat Blocking Operator Date: 06/13/2018 18:35:57 Dictated By: SLOAN RAPP DO
== END 2018-06-13 10:55 | disposition home or self-care (01) ==
LOC: ENDO 09:04
PROVIDERS: ATTEND Surgery
DX: D12.4 Benign neoplasm of descending colon (principal); K64.8 Other hemorrhoids; K29.50 Unspecified chronic gastritis without bleeding; K31.7 Polyp of stomach and duodenum; K21.9 Gastro-esophageal reflux disease without esophagitis; I10 Essential (primary) hypertension; I48.2 Chronic atrial fibrillation; R56.9 Unspecified convulsions; F32.9 Major depressive disorder, single episode, unspecified; F41.9 Anxiety disorder, unspecified; F17.210 Nicotine dependence, cigarettes, uncomplicated; Z79.899 Other long term (current) drug therapy
CPT/HCPCS: 84703

== ENCOUNTER 2018-09-03 06:59 | Emergency (ER) | payer OTHER ==
[~2018-09-03] VITALS: Ht 162.6 cm; Wt 97.5 kg
[~2018-09-03 06:59] MED LIST changes: -LACTATED RINGERS 1,000 ML IV ONE
--- OUTSIDE RECORDS SUMMARY | 2018-09-03 07:08 | XMS REPORT | Continuity of Care Document ---
Author Organization Unknown Address Unknown Allergies Active Description Code Type Severity Reaction Onset Reported/Identified Relationship to Patient Clinical Status Yes Hydromorphone Drug Allergy N/A Adverse Reaction 08/17/2010 Yes Latex Drug Allergy N/A Adverse Reaction 08/17/2010 Yes Penicillins Drug Allergy N/A Adverse Reaction 08/17/2010 Yes No Known Drug Allergies Drug Allergy N/A N/A 05/21/2013 Yes No Known Drug Allergies Drug Allergy N/A N/A 05/21/2013 Yes Penicillins Penicillins Drug Allergy Severe RASH/HIVES/REDNESS/VOMITING 08/14/2013 Yes amoxicillin trihydrate amoxicillin trihydrate Drug Allergy Moderate SAME PCN REACTION 08/14/2013 Yes hydromorphone HCl hydromorphone HCl Drug Allergy Moderate RASH 08/14/2013 Yes latex latex Drug Allergy Moderate RASH/HIVES/REDNESS 08/14/2013 Yes potassium clavulanate potassium clavulanate Drug Allergy Moderate SAME PCN REACTION 08/14/2013 Yes Penicillins [id number] Drug Allergy Unknown N/A 12/05/2016 Yes hydromorphone [id number] Drug Allergy Unknown ANAPHYLAXIS 06/09/2018 Yes latex [id number] Drug Allergy Unknown HIVES 06/09/2018 Medications There is no data. 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 12/11/2016 OZZIE JACKSON Ot B96.89 OTH BACTERIAL AGENTS THE CAUSE OF DIS 12/11/2016 OZZIE JACKSON Ot F17.210 NICOTINE DEPENDENCE, CIGARETTES, UNCOMPL 12/11/2016 OZZIE JACKSON Ot N76.0 ACUTE VAGINITIS 12/11/2016 OZZIE JACKSON Ot N92.0 EXCESSIVE AND FREQUENT MENSTRUATION WITH 12/11/2016 OZZIE JACKSON Ot N93.9 ABNORMAL UTERINE AND VAGINAL BLEEDING, U 12/11/2016 OZZIE JACKSON Ot Z87.448 PERSONAL HISTORY OF OTHER DISEASES OF UR 12/11/2016 OZZIE JACKSON Ot Z90.49 ACQUIRED ABSENCE OF OTHER SPECIFIED PART 12/26/2016 MIMI WEEKS MD Ot F12.10 CANNABIS ABUSE, UNCOMPLICATED 12/26/2016 MIMI WEEKS MD Ot F17.210 NICOTINE DEPENDENCE, CIGARETTES, UNCOMPL 12/26/2016 MIMI WEEKS MD Ot G43.909 MIGRAINE, UNSP, NOT INTRACTABLE, WITHOUT 12/26/2016 MIMI WEEKS MD Ot Z87.448 PERSONAL HISTORY OF OTHER DISEASES OF UR 12/26/2016 MIMI WEEKS MD Ot Z90.49 ACQUIRED ABSENCE OF OTHER SPECIFIED PART 12/27/2016 JOSE ENRIQUESRINI Chatman Ot F17.210 NICOTINE DEPENDENCE, CIGARETTES, UNCOMPL 12/27/2016 SRINI QUISPEP Ot G43.909 MIGRAINE, UNSP, NOT INTRACTABLE, WITHOUT 12/27/2016 JOSE ENRIQUESRINI ChatmanP Ot Z87.448 PERSONAL HISTORY OF OTHER DISEASES OF UR 12/27/2016 SRINI QUISPEP Ot Z90.49 ACQUIRED ABSENCE OF OTHER SPECIFIED PART 02/27/2018 MIGEL ROMERO APRN Ot F41.9 ANXIETY DISORDER, UNSPECIFIED 02/27/2018 MIGEL ROMERO APRN Ot G43.909 MIGRAINE, UNSP, NOT INTRACTABLE, WITHOUT 02/27/2018 MIGEL ROMERO APRN Ot R00.2 PALPITATIONS 02/27/2018 MIGEL ROMERO APRN Ot R25.9 UNSPECIFIED ABNORMAL INVOLUNTARY MOVEMEN 02/27/2018 MIGEL ROMERO APRN Ot R56.9 UNSPECIFIED CONVULSIONS 02/27/2018 MGIEL ROMERO APRN Ot Z77.22 CNTCT W AND EXPSR TO ENVIRON TOBACCO SMO 02/27/2018 MIGEL ROMERO APRN Ot Z87.448 PERSONAL HISTORY OF OTHER DISEASES OF UR 02/27/2018 MIGEL ROMERO APRN Ot Z88.0 ALLERGY STATUS TO PENICILLIN 02/27/2018 MIGEL ROMERO APRN Ot Z90.49 ACQUIRED ABSENCE OF OTHER SPECIFIED PART 02/27/2018 MIGEL ROMERO APRN Ot Z98.890 OTHER SPECIFIED POSTPROCEDURAL STATES 03/03/2018 ROMERO, PETER J WELDING PANTOGRAPH OPERATOR Ot F41.9 ANXIETY DISORDER, UNSPECIFIED 03/03/2018 MIGEL ROMERO APRN Ot G43.909 MIGRAINE, UNSP, NOT INTRACTABLE, WITHOUT 03/03/2018 MIGEL ROMERO APRN Ot R00.2 PALPITATIONS 03/03/2018 MIGEL ROMERO APRN Ot R25.9 UNSPECIFIED ABNORMAL INVOLUNTARY MOVEMEN 03/03/2018 MIGEL ROMERO APRN Ot R56.9 UNSPECIFIED CONVULSIONS 03/03/2018 MIGEL ROMERO APRN Ot Z77.22 CNTCT W AND EXPSR TO ENVIRON TOBACCO SMO 03/03/2018 MIGEL ROMERO APRN Ot Z87.448 PERSONAL HISTORY OF OTHER DISEASES OF UR 03/03/2018 MIGEL ROMERO APRN Ot Z88.0 ALLERGY STATUS TO PENICILLIN 03/03/2018 MIGEL ROMERO APRN Ot Z90.49 ACQUIRED ABSENCE OF OTHER SPECIFIED PART 03/03/2018 MIGEL ROMERO APRN Ot Z98.890 OTHER SPECIFIED POSTPROCEDURAL STATES 06/09/2018 MIKIE FLAHERTY DO Ot Z01.818 ENCOUNTER FOR OTHER PREPROCEDURAL EXAMIN 06/13/2018 MIKIE FLAHERTY DO Ot D12.4 BENIGN NEOPLASM OF DESCENDING COLON 06/13/2018 MIKIE FLAHERTY DO Ot F17.210 NICOTINE DEPENDENCE, CIGARETTES, UNCOMPL 06/13/2018 MIKIE FLAHERTY DO B Ot F32.9 MAJOR DEPRESSIVE DISORDER, SINGLE EPISOD 06/13/2018 MIKIE FLAHERTY DO Ot F41.9 ANXIETY DISORDER, UNSPECIFIED 06/13/2018 MIKIE FLAHERTY DO B Ot I10 ESSENTIAL (PRIMARY) HYPERTENSION 06/13/2018 MIKIE FLAHERTY DO B Ot I48.2 CHRONIC ATRIAL FIBRILLATION 06/13/2018 MIKIE FLAHERTY DO B Ot K21.9 GASTRO-ESOPHAGEAL REFLUX DISEASE WITHOUT 06/13/2018 MIKIE FLAHERTY DO B Ot K29.50 UNSPECIFIED CHRONIC GASTRITIS WITHOUT BL 06/13/2018 MIKIE FLAHERTY DO Ot K31.7 POLYP OF STOMACH AND DUODENUM 06/13/2018 MIKIE FLAHERTY DO Ot K64.8 OTHER HEMORRHOIDS 06/13/2018 MIKIE FLAHERTY DO Ot R56.9 UNSPECIFIED CONVULSIONS 06/13/2018 MIKIE FLAHERTY DO Ot Z79.899 OTHER [facility] (CURRENT) DRUG THERAPY 06/17/2018 REYNOLD DO, MIKIE B Ot D12.4 BENIGN NEOPLASM OF DESCENDING COLON 06/17/2018 REYNOLD DO, MIKIE B Ot F17.210 NICOTINE DEPENDENCE, CIGARETTES, UNCOMPL 06/17/2018 REYNOLD DO MIKIE B Ot F32.9 MAJOR DEPRESSIVE DISORDER, SINGLE EPISOD 06/17/2018 REYNOLD DO, MIKIE B Ot F41.9 ANXIETY DISORDER, UNSPECIFIED 06/17/2018 REYNOLD DO, MIKIE B Ot I10 ESSENTIAL (PRIMARY) HYPERTENSION 06/17/2018 REYNOLD DO, MIKIE B Ot I48.2 CHRONIC ATRIAL FIBRILLATION 06/17/2018 REYNOLD DO, MIKIE B Ot K21.9 GASTRO-ESOPHAGEAL REFLUX DISEASE WITHOUT 06/17/2018 DELMAN DO, MIKIE B Ot K29.50 UNSPECIFIED CHRONIC GASTRITIS WITHOUT BL 06/17/2018 REYNOLD DO, MIKIE B Ot K31.7 POLYP OF STOMACH AND DUODENUM 06/17/2018 CARLIEHAILE DO MIKIE B Ot K64.8 OTHER HEMORRHOIDS 06/17/2018 CARLIEHAILE DO, MIKIE B Ot R56.9 UNSPECIFIED CONVULSIONS 06/17/2018 REYNOLD LIU, MIKIE B Ot Z79.899 OTHER [facility] (CURRENT) DRUG THERAPY 06/20/2018 REYNODL LIU, MIKIE B Ot D12.4 BENIGN NEOPLASM OF DESCENDING COLON 06/20/2018 REYNOLD LIU, MIKIE B Ot F17.210 NICOTINE DEPENDENCE, CIGARETTES, UNCOMPL 06/20/2018 REYNOLD LIU MIKIE B Ot F32.9 MAJOR DEPRESSIVE DISORDER, SINGLE EPISOD 06/20/2018 REYNOLD DO MIKIE B Ot F41.9 ANXIETY DISORDER, UNSPECIFIED 06/20/2018 REYNOLD DO, MIKIE B Ot I10 ESSENTIAL (PRIMARY) HYPERTENSION 06/20/2018 REYNOLD DO, MIKIE B Ot I48.2 CHRONIC ATRIAL FIBRILLATION 06/20/2018 CARLIEHAILE DO, MIKIE B Ot K21.9 GASTRO-ESOPHAGEAL REFLUX DISEASE WITHOUT 06/20/2018 DELMAN DO, MIKIE B Ot K29.50 UNSPECIFIED CHRONIC GASTRITIS WITHOUT BL 06/20/2018 CARLIEHAILE DO, MIKIE B Ot K31.7 POLYP OF STOMACH AND DUODENUM 06/20/2018 CARLIEHAILE DO MIKIE B Ot K64.8 OTHER HEMORRHOIDS 06/20/2018 MIKIE FLAHERTY DO Ot R56.9 UNSPECIFIED CONVULSIONS 06/20/2018 MIKIE FLAHERTY DO Ot Z79.899 OTHER [facility] (CURRENT) DRUG THERAPY Procedures There is no data. Results Test [...] - 07/22/13 13:55 LIPASE 120 Units/L 73-393 Complete blood count (CBC) with automated white blood cell (WBC) differential - 12/05/16 15:10 Blood leukocytes automated count (number/volume) 6.5 10*3/uL 4.3-11.0 Blood erythrocytes automated count (number/volume) 4.76 10*6/uL 4.35-5.85 Venous blood hemoglobin measurement (mass/volume) 14.1 g/dL 11.5-16.0 Blood hematocrit (volume fraction) 42 % 35-52 Automated erythrocyte mean corpuscular volume 87 [foz_us] 80-99 Automated erythrocyte mean corpuscular hemoglobin (mass per erythrocyte) 30 pg 25-34 Automated erythrocyte mean corpuscular hemoglobin concentration measurement (mass/volume) 34 g/dL 32-36 Automated erythrocyte distribution width ratio 13.2 % 10.0- 14.5 Automated blood platelet count (count/volume) 218 10*3/uL 130-400 Automated blood platelet mean volume measurement 9.6 [foz_us] 7.4-10.4 Automated blood neutrophils/100 leukocytes 55 % 42-75 Automated blood lymphocytes/100 leukocytes 37 % 12-44 Blood monocytes/100 leukocytes 7 % 0-12 Automated blood eosinophils/100 leukocytes 2 % 0-10 Automated blood basophils/100 leukocytes 0 % 0-10 Blood neutrophils automated count (number/volume) 3.6 10*3 1.8-7.8 Blood lymphocytes automated count (number/volume) 2.4 10*3 1.0-4.0 Blood monocytes automated count (number/volume) 0.4 10*3 0.0- 1.0 Automated eosinophil count 0.1 10*3/uL 0.0-0.3 Automated blood basophil count (count/volume) 0.0 10*3/uL 0.0-0.1 PT panel in platelet poor plasma by coagulation assay - 12/05/16 15:10 Prothrombin time (PT) in platelet poor plasma by coagulation assay 12.5 s 12.2-14.7 INR in platelet poor plasma or blood by coagulation assay 0.9 0.8-1.4 Activated partial thromboplastin time (aPTT) in platelet poor plasma bycoagulation assay - 12/05/16 15:10 Activated partial thromboplastin time (aPTT) in platelet poor plasma bycoagulation assay 29 s 24-35 Serum or plasma choriogonadotropin ( test) detection - 12/05/16 15:10 Serum or plasma choriogonadotropin ( test) detection NEGATIVE NEGATIVE Comprehensive metabolic panel - 12/05/16 15:10 Serum or plasma sodium measurement (moles/volume) 137 mmol/L 135-145 Serum or plasma potassium measurement (moles/volume) 3.9 mmol/L 3.6-5.0 Serum or plasma chloride measurement (moles/volume) 108 mmol/L 98-107 Carbon dioxide 24 mmol/L 21-32 Serum or plasma anion gap determination (moles/volume) 5 mmol/L 5-14 Serum or plasma urea nitrogen measurement (mass/volume) 13 mg/dL 7-18 Serum or plasma creatinine measurement (mass/volume) 0.73 mg/dL 0.60-1.30 Serum or plasma urea nitrogen/creatinine mass ratio 18 NRG Serum or plasma creatinine measurement with calculation of estimated glomerular filtration rate > NRG Serum or plasma glucose measurement (mass/volume) 92 mg/dL 70-105 Serum or plasma calcium measurement (mass/volume) 9.0 mg/dL 8.5-10.1 Serum or plasma total bilirubin measurement (mass/volume) 0.4 mg/dL 0.1-1.0 Serum or plasma alkaline phosphatase measurement (enzymatic activity/volume) 65 U/L 40-136 Serum or plasma aspartate aminotransferase measurement (enzymatic activity/volume) 13 U/L 5-34 Serum or plasma alanine aminotransferase measurement (enzymatic activity/volume) 14 U/L 0-55 Serum or plasma protein measurement (mass/volume) 7.2 g/dL 6.4-8.2 Serum or plasma albumin measurement (mass/volume) 4.2 g/dL 3.2-4.5 Bacteria identification in genital specimen by aerobe culture - 12/05/16 16:50 FREE TEXT EXTERNAL PLUS NORMAL JELANI NRG QUANTITY OF GROWTH Scant Growth NRG Bacteria identification in genital specimen by aerobe culture [id number] NRG Microscopic examination by wet preparation - 12/05/16 16:50 WET PREP RESULTS AT 1658, 12-06-16 BY NR Neisseria gonorrhoeae DNA detection by probe and signal amplification method - 12/05/16 16:50 Gonorrhea amp DNA-urine Not Detected Not Detected Chlamydia trachomatis DNA detection by probe and signal amplification method - 12/05/16 16:50 Chlamydia trachomatis DNA detection by probe and target amplification method Not Detected Not Detected A1C - 01/10/17 12:02 HEMOGLOBIN A1c 5.0 % of total Hgb <5.7 SUREPATH PAP AND HPV mRNA E6/E7 - 01/10/17 12:02 CLINICAL INFORMATION: NRG LMP: 01/04/17 NRG PREV. PAP: ABNORMAL NRG PREV. BX: NRG SOURCE: Cervix NR STATEMENT OF ADEQUACY: NR INTERPRETATION/RESULT: NR SHELTERED WORKSHOP EXECUTIVE DIRECTOR: NRG HPV mRNA E6/E7, SUREPATH VIAL Not Detected NOT DETECTED GENERAL CATEGORIZATION: NRG COMMENT: NR PATHOLOGIST: NRG INSULIN LEVEL - 01/10/17 12:02 INSULIN 16.8 uIU/mL 2.0-19.6 ESR/SED RATE - 01/31/17 09:10 SED RATE BY MODIFIED WESTERGREN 11 mm/h < OR=20 LIPID PANEL - 02/13/18 12:57 CHOLESTEROL, TOTAL 183 mg/dL <200 HDL CHOLESTEROL 37 mg/dL >50 TRIGLYCERIDES 229 mg/dL <150 LDL-CHOLESTEROL 111 mg/dL (calc) NRG CHOL/HDLC RATIO 4.9 (calc) <5.0 NON HDL CHOLESTEROL 146 mg/dL (calc) <130 Complete blood count (CBC) with automated white blood cell (WBC) differential - 02/27/18 17:34 Blood leukocytes automated count (number/volume) 8.1 10*3/uL 4.3-11.0 Blood erythrocytes automated count (number/volume) 4.93 10*6/uL 4.35-5.85 Venous blood hemoglobin measurement (mass/volume) 14.5 g/dL 11.5-16.0 Blood hematocrit (volume fraction) 42 % 35-52 Automated erythrocyte mean corpuscular volume 86 [foz_us] 80-99 Automated erythrocyte mean corpuscular hemoglobin (mass per erythrocyte) 29 pg 25-34 Automated erythrocyte mean corpuscular hemoglobin concentration measurement (mass/volume) 34 g/dL 32-36 Automated erythrocyte distribution width ratio 13.7 % 10.0- 14.5 Automated blood platelet count (count/volume) 268 10*3/uL 130-400 Automated blood platelet mean volume measurement 9.5 [foz_us] 7.4-10.4 Automated blood neutrophils/100 leukocytes 49 % 42-75 Automated blood lymphocytes/100 leukocytes 41 % 12-44 Blood monocytes/100 leukocytes 8 % 0-12 Automated blood eosinophils/100 leukocytes 2 % 0-10 Automated blood basophils/100 leukocytes 0 % 0-10 Blood neutrophils automated count (number/volume) 3.9 10*3 1.8-7.8 Blood lymphocytes automated count (number/volume) 3.3 10*3 1.0-4.0 Blood monocytes automated count (number/volume) 0.7 10*3 0.0- 1.0 Automated eosinophil count 0.2 10*3/uL 0.0-0.3 Automated blood basophil count (count/volume) 0.0 10*3/uL 0.0-0.1 Fibrin D-dimer FEU measurement in platelet poor plasma (mass/volume) - 02/27/18 17:34 Fibrin D-dimer FEU measurement in platelet poor plasma (mass/volume) 0.59 ug/mL 0.00-0.49 Comprehensive metabolic panel - 02/27/18 17:34 Serum or plasma sodium measurement (moles/volume) 135 mmol/L 135-145 Serum or plasma potassium measurement (moles/volume) 4.2 mmol/L 3.6-5.0 Serum or plasma chloride measurement (moles/volume) 109 mmol/L 98-107 Carbon dioxide 16 mmol/L 21-32 Serum or plasma anion gap determination (moles/volume) 10 mmol/L 5-14 Serum or plasma urea nitrogen measurement (mass/volume) 17 mg/dL 7-18 Serum or plasma creatinine measurement (mass/volume) 0.82 mg/dL 0.60-1.30 Serum or plasma urea nitrogen/creatinine mass ratio 21 NRG Serum or plasma creatinine measurement with calculation of estimated glomerular filtration rate > NRG Serum or plasma glucose measurement (mass/volume) 104 mg/dL 70-105 Serum or plasma calcium measurement (mass/volume) 9.4 mg/dL 8.5-10.1 Serum or plasma total bilirubin measurement (mass/volume) 0.4 mg/dL 0.1-1.0 Serum or plasma alkaline phosphatase measurement (enzymatic activity/volume) 71 U/L 40-136 Serum or plasma aspartate aminotransferase measurement (enzymatic activity/volume) 17 U/L 5-34 Serum or plasma alanine aminotransferase measurement (enzymatic activity/volume) 18 U/L 0-55 Serum or plasma protein measurement (mass/volume) 7.5 g/dL 6.4-8.2 Serum or plasma albumin measurement (mass/volume) 4.3 g/dL 3.2-4.5 CALCIUM CORRECTED 9.2 mg/dL 8.5-10.1 Serum or plasma troponin i.cardiac measurement (mass/volume) - 02/27/18 17:34 Serum or plasma troponin i.cardiac measurement (mass/volume) < ng/mL <0.30 Urine beta human chorionic gonadotropin (hCG) measurement - 02/27/18 18:16 Urine beta human chorionic gonadotropin (hCG) measurement NEGATIVE NEGATIVE Complete urinalysis with reflex to culture - 02/27/18 18:16 Urine color determination YELLOW NRG Urine clarity determination CLEAR NRG Urine pH measurement by test strip 7 5-9 Specific gravity of urine by test strip 1.015 1.016-1.022 Urine protein assay by test strip, semi-quantitative 1+ NEGATIVE Urine glucose detection by automated test strip NEGATIVE NEGATIVE Erythrocytes detection in urine sediment by light microscopy NEGATIVE NEGATIVE Urine ketones detection by automated test strip NEGATIVE NEGATIVE Urine nitrite detection by test strip NEGATIVE NEGATIVE Urine total bilirubin detection by test strip NEGATIVE NEGATIVE Urine urobilinogen measurement by automated test strip (mass/volume) 1 mg/dL NORMAL Urine leukocyte esterase detection by dipstick 1+ NEGATIVE Automated urine sediment erythrocyte count by microscopy (number/high power field) NONE NRG Automated urine sediment leukocyte count by microscopy (number/high power field) [HPF] NRG Bacteria detection in urine sediment by light microscopy NONE NRG Squamous epithelial cells detection in urine sediment by light microscopy RARE NRG Crystals detection in urine sediment by light microscopy PRESENT NRG Casts detection in urine sediment by light microscopy NONE NRG Mucus detection in urine sediment by light microscopy NEGATIVE NRG Complete urinalysis with reflex to culture NO NRG Amorphous sediment detection in urine sediment by light microscopy FEW DIXON URATES NRG RA (RHEUMATOID) FACTOR - 04/23/18 11:37 RHEUMATOID FACTOR 59 IU/mL <14 NICKI - 04/23/18 11:37 NICKI SCREEN, IFA NEGATIVE NEGATIVE SUREPATH PAP AND HPV mRNA E6/E7 - 05/23/18 15:22 CLINICAL INFORMATION: NRG LMP: NRG PREV. PAP: NRG PREV. BX: NRG SOURCE: Cervix NRG STATEMENT OF ADEQUACY: NRG INTERPRETATION/RESULT: NRG SHELTERED WORKSHOP EXECUTIVE DIRECTOR: NRG HPV mRNA E6/E7, SUREPATH VIAL Not Detected NOT DETECTED REVIEW SHELTERED WORKSHOP EXECUTIVE DIRECTOR: NRG INFECTION: NRG COMMENT NRG CBC - 08/11/18 16:35 WHITE BLOOD CELL COUNT 6.7 Thousand/uL 3.8-10.8 RED BLOOD CELL COUNT 4.92 Million/uL 3.80-5.10 HEMOGLOBIN 14.2 g/dL 11.7-15.5 HEMATOCRIT 43.2 % 35.0-45.0 MCV 87.8 fL 80.0-100.0 MCH 28.9 pg 27.0-33.0 MCHC 32.9 g/dL 32.0-36.0 RDW 13.1 % 11.0-15.0 PLATELET COUNT 233 Thousand/uL 140-400 MPV 10.1 fL 7.5-12.5 ABSOLUTE NEUTROPHILS 4027 cells/uL 8940-7850 ABSOLUTE LYMPHOCYTES 2198 cells/uL 850-3900 ABSOLUTE MONOCYTES 369 cells/uL 200-950 ABSOLUTE EOSINOPHILS 80 cells/uL 15-500 ABSOLUTE BASOPHILS 27 cells/uL 0-200 NEUTROPHILS 60.1 % NRG LYMPHOCYTES 32.8 % NRG MONOCYTES 5.5 % NRG EOSINOPHILS 1.2 % NRG BASOPHILS 0.4 % NRG Radiology Report from [id number] on 08/18/2012 10:18:00 Final ReportADMITTING DIAGNOSIS: Abd Pain ABD. PAINKUB,UPRIGHT /OR DECUB - 08/18/2012 [facility] RESULT: TIME:9:16 AM.INDICATION:Right lower quadrant pain.FINDINGS:Supine and [...] isevident. There is no mass or abnormal calcifica tion.IMPRESSION: Probable mild ileus.Dictated on workstation # [id number] BY: CHACORTA CRABTREE M.D., RADIOLOGISTELECTRONICALLY SIGNED BY: CHACORTA CRABTREE M.D., RADIOLOGISTD Aug 18 2012 9:19AT JM : Aug 18 2012 10:16AS Aug 18 2012 10:16A Radiology Report from [id number] on 08/18/2012 16:08:00 Final ReportADMITTING DIAGNOSIS: Abd Pain ABD PAINGALLBLADDER SONO - 08/18/2012 [facility] RESULT: INDICATION: Right upper quadrant pain.COMPARISON: NoneFINDINGS: The echogenicity of liver is normal without focal massor intrahepatic biliary duct dilatation. The common bile duct isnormal at 2.5 mm. The gallbladder is contracted withquestionable pericholecystic fluid. No definite gallstone ispresent. The right kidney and pancreas are normal.IMPRESSION: 1. Thickwalled contracted gallbladder with questionablepericholecystic fluid. Chronic/acute cholecystitis not excluded .Please correlate with a nonfasting state. HIDA scan and/or CTabdomen and pelvis may be of further value.Dictated on workstation # [id number] RADIOLOGIST: SCOTT PACHECO M.D., RADIOLOGISTELECTRONICALLY SIGNED BY: SCOTT PACHECO M.D., RADIOLOGISTD Aug 18 2012 9:42AT RF : Aug 18 2012 4:05PS Aug 18 2012 4:05P Radiology Report from [id number] on 08/18/2012 17:00:00 Final ReportADMITTING DIAGNOSIS: Abd Pain ABD. PAINCT ABD W W/O,PELVIS W - 08/18/2012 [facility] RESULT: PROCEDURE: CT abdomen with and without [...] the liver with normalspleen.Dictated on workstation # [id number] BY: NEGRA VALENZUELA M.D., RADIOLOGISTELECTRONICALLY SIGNED BY: NEGRA VALENZUELA M.D., RADIOLOGISTD Aug 18 2012 11:57AT KB : Aug 18 2012 4:57PS Aug 18 2012 4:57P Radiology Report from [facility] on 08/19/2012 16:38:00 DIAGNOSTIC IMAGING REPORT [facility] - [address] [place] [address] PHONE #: [phone] FAX #: [phone] Name: XUAN GALE Loc: W.EDW Radiology No: : 1980 Age: 32 Sex: F Status: DEP ER Unit No: [id number] Phys: Tobi Soares DO Acct: [id number] Reason For Exam: abd pain Exam Date: 08/19/2012 EXAMS: CPT CODE: [id number] ABD-KUB PA CHEST 92152 TIME OF STUDY: 08/19/2012 2:19 PM REASON [...] corrected the resident physician's interpretation. at 1632 RESIDENT: SRINI DOWNEY MD Reported and signed by: LUIZA TAMAYO MD CC: Technologist: TOMMY AVILA Transcribed Date/Time: 08/19/2012 (9641)Commissions Specialist: ORI Printed Date/Time: 08/19/2012 (1877) BATCH NO: N/A PAGE 1 Signed Report Radiology Report from [id number] on 06/14/2013 12:14:00 Final ReportADMITTING DIAGNOSIS: n/v, lower back pain, hist of painCT URINARY TRACT R/O STONES - 06/13/2013 [facility] RESULT: PROCEDURE: CT urinary tract r/o kidney stone.TECHNIQUE: Multiple contiguous axial images were obtainedthrough the abdomen and pelvis without the use of intravenouscontrast.INDICATION: Flank pain, possible kidney stones.COMPARISON: 08/18/2012.CT abdomen:The gallbladder is contracted likely from the postprandialstate. There is moderate amount of material within the stomach.The liver, spleen, pancreas, adrenal glands, kidneys, vascularstructures, and bowel normal. There was no mass orhydronephrosis. No renal calculi.CT pelvis:The uterus is intact. Distal ureters and urinary bladder arenormal. No inflammation seen. The appendix is normal. Bonystructures are age-appropriate.IMPRESSION: Negative CT abdomen and pelvis.Dictated on workstation # [id number] BY: SCOTT PACHECO M.D., RADIOLOGISTELECTRONICALLY SIGNED BY: SCOTT PACHECO M.D., RADIOLOGISTD Jun 14 2013 5:59AT MK4: Jun 14 2013 12:10PS Jun 14 2013 12:10P Radiology Report from [facility] on 07/22/2013 14:13:00 DIAGNOSTIC IMAGING REPORT [facility] - [address] [place] [address] PHONE #: [phone] FAX #: [phone] Name: XUAN GALE Loc: MATT Radiology No: : 1980 Age: 33 Sex: F Status: REG ER Unit No: [id number] Phys: RICKY - Fran Capone MD Acct: [id number] Reason For Exam: abd pain, suspect cnstipation Exam Date: 07/22/2013 EXAMS: CPT CODE: [id number] ABD-KUB /FEB PA CHEST 09651 Abdomen series The reason for examination: Abdominal [...] evidence of bowel obstruction or perforation. at 1408 Reported and signed by: MYKE GARCIA MD CC: Fran Capone MD Technologist: TOMMY AVILA Transcribed Date/Time: 07/22/2013 (3375)Commissions Specialist: LENNY Printed Date/Time: 07/22/2013 (2357) BATCH NO: N/A PAGE 1 Signed Report Radiology Report from RICK[facility] on 07/22/2013 15:17:00 DIAGNOSTIC IMAGING REPORT [facility] - [address] [place] [address] PHONE #: [phone] FAX #: [phone] Name: XUAN GALE Loc: DmEDW Radiology No: : 1980 Age: 33 Sex: F Status: REG ER Unit No: [id number] Phys: Fran Mendes MD Acct: [id number] Reason For Exam: abd pain abn kub Exam Date: 07/22/2013 EXAMS: CPT CODE: [id number] CT ABD/PELVIS WITH CONTRAST 13622 TIME OF STUDY: 07/22/2013 2:47 PM REASON [...] or corrected the resident physician's interpretation. at 1506 RESIDENT: BABITA BOB MD Reported and signed by: TOBI SHAH MD PAGE 1 Signed Report (CONTINUED) DIAGNOSTIC IMAGING REPORT [facility] - [address] [place] [address] PHONE #: [phone] FAX #: [phone] Name: XUAN GALE Loc: [facility]Komal[facility]W Radiology No: : 1980 Age: 33 Sex: F Status: REG ER Unit No: [id number] Phys: Fran Mendes MD Acct: [id number] Reason For Exam: abd pain abn kub Exam Date: 07/22/2013 EXAMS: CPT CODE: [id number] CT ABD/PELVIS WITH CONTRAST 23455 <Continued> CC: Fran Capone MD Technologist: TOMMY AVILA Transcribed Date/Time: 07/22/2013 (1506)Commissions Specialist: JOANNE Printed Date/Time: 07/22/2013 (2431) BATCH NO: N/A PAGE 2 Signed Report Encounters ACCT No. Visit Date/Time Discharge Status Pt. Type Provider Facility Loc./Unit Complaint [id number] 08/11/2018 16:00:00 08/11/2018 23:59:59 [facility] Outpatient KATHY GAONA [facility] [id number] 08/11/2018 16:00:00 Document Registration [id number] 05/23/2018 12:20:00 Document Registration [id number] 04/23/2018 10:40:00 Document Registration [id number] 02/13/2018 13:00:00 Document Registration [id number] 01/31/2017 08:00:00 Document Registration [id number] 01/10/2017 10:40:00 Document Registration [id number] 07/09/2018 14:59:00 07/09/2018 23:59:59 CLS Preadmit BAIROCHELLE COHEN 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 Via [facility] CARD ESSENTIAL HYPERTENSION, HEART PALPITATIONS [id number] 07/09/2018 14:53:00 07/09/2018 23:59:59 CLS Preadmit BAIMAROCHELLE L 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 Via [facility] CARD ESSENTIAL HYPERTENSION, PALPITATIONS [id number] 07/09/2018 14:43:00 07/09/2018 23:59:59 CLS Preadmit BAIMAROCHELLE L 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 Via [facility] ESSENTIAL HYPERTENSION, PALPITATIONS [id number] 06/13/2018 09:04:00 06/13/2018 10:55:00 DIS Outpatient MIKIE FLAHERTY DO Via [facility] ENDO RECTAL BLEEDING/HX MAY'S [id number] 06/09/2018 06:45:00 06/09/2018 15:51:00 DIS Outpatient MIKIE FLAHERTY DO Via [facility] PREOP COLONOSCOPY/EGD [id number] 02/27/2018 17:11:00 02/27/2018 19:17:00 DIS Emergency MIGEL ROMERO APRN Via [facility] ER "HAD A SEIZURE 30 MINUTES AGO" [id number] 12/27/2016 14:56:00 12/27/2016 17:48:00 DIS Emergency SRINI QUISPE Via [facility] ER SEIZURE [id number] 12/26/2016 09:24:00 12/26/2016 12:04:00 DIS Emergency MIMI WEEKS MD Via [facility] ER MIGRAINE [id number] 12/05/2016 14:26:00 12/05/2016 17:27:00 DIS Emergency OZZIE JACKSON Via [facility] ER HEAVY MENSTRUAL BLEEDING FOR 7 WEEKS [id number] 05/21/2013 18:44:00 05/21/2013 21:26:00 DIS Emergency Sree Samayoa III, MD Via [facility] on [facility] [id number] 08/18/2012 07:59:00 08/18/2012 12:50:00 DIS Emergency Michelle BECK, [facility]ess[facility] TERM [id number] 09/16/2013 15:27:00 09/16/2013 17:50:00 DIS Emergency Max BECK, [place] .EDN [id number] 07/22/2013 11:59:00 07/22/2013 15:46:00 DIS Emergency Liborio BECK, [facility] W.EDW [id number] 07/08/2013 14:28:00 07/08/2013 16:47:00 DIS [id number] 06/24/2013 11:54:00 06/24/2013 12:53:00 DIS Emergency Reginald BECK, Jim[facility].EDW [id number] 05/12/2013 00:58:00 05/12/2013 02:54:00 DIS Emergency Adrian BECK, Hardeep Quinones [facility] W.EDW [id number] 08/19/2012 12:36:00 08/19/2012 15:40:00 DIS Emergency Zachary LIU, Tobi [facility].EDW [id number] 03/23/2011 15:21:00 03/23/2011 23:59:59 CLS Emergency [id number] 06/13/2013 21:21:00 06/13/2013 23:40:00 DIS Emergency Danita CHAVEZ MD, Sree [facility] on [place] [id number] 05/21/2013 18:44:00 Document Registration
[2018-09-03 07:38] VITALS: BP 143/93
--- NOTE | 2018-09-03 07:38 | ED Neurological Problem ---
General Chief Complaint: Neuro-Stroke Like Symptoms Stated Complaint: FACE DROOPING,FACE NUMB Nursing Triage Note: PT PRESENTS TO THE ED WITH LEFT SIDED FACIAL DROOP THAT STARTED SHORTLY AFTER SHE WOKE UP THIS AM. PT HAS LEFT SIDED LIP NUMBNESS FOR 48 HOURS. PT HAS NOT BEEN FEELING WELL FOR THE LAST FEW DAYS WHICH HAS INCLUDED LOVE, STOMACH ACHE, NAUSEA, AND SINUS DRAINAGE. Nursing Sepsis Screen: No Definite Risk Source: patient Exam Limitations: no limitations History of Present Illness Date Seen by Provider: Sep 03, 2018 Time Seen by Provider: 07:06 Initial Comments This 38-year-old woman presents to the emergency room with complaints of left- sided facial drooping and numbness. She reports symptoms were first noticed 2 days ago with slight numbness to the left side of her lips. This morning she noticed no symptoms when drinking her coffee but then noticed some weakness and numbness to the lower face before leaving for work. For several days she has had symptoms of upper respiratory infection including congestion, nasal drainage, and upset stomach. She denies any other neurologic symptoms. Allergies and Home Medications Allergies Coded Allergies: hydromorphone (Verified Allergy, Severe, ANAPHYLAXIS, 09/03/18) Penicillins (Unverified Allergy, Mild, hives, 09/03/18) latex (Verified Allergy, Unknown, HIVES, 06/09/18) Home Medications Acyclovir 400 Mg Tablet, 400 MG PO UD 5 times daily Prescribed by: ERLINDA HAYNES on 09/03/18818 Atenolol 100 Mg Tablet, 100 MG PO DAILY, (Reported) Baclofen 10 Mg Tablet, 10 MG PO TID, (Reported) Desvenlafaxine Succinate 50 Mg Tab.er.24h, 50 MG PO DAILY, (Reported) Diltiazem HCl 120 Mg Cap.er.deg, 120 MG PO DAILY, (Reported) Mirtazapine 15 Mg Tablet, 15 MG PO HS, (Reported) Prednisone 20 Mg Tab, 60 MG PO DAILY Prescribed by: ERLINDA HAYNES on 09/03/18818 Sumatriptan Succinate 25 Mg Tablet, 25 MG PO Q2H PRN for MIGRAINE Do not exceed 4 tablets in 24 hours. Prescribed by: MIMI WEEKS on 12/26/16 1159 Topiramate 50 Mg Tablet, 50 MG PO BID, (Reported) Patient Home Medication List Home Medication List Reviewed: Yes Review of Systems Review of Systems Constitutional: no symptoms reported Eyes: No Symptoms Reported Ears, Nose, Mouth, Throat: see HPI Respiratory: no symptoms reported Cardiovascular: no symptoms reported Gastrointestinal: see HPI Genitourinary: no symptoms reported : No Musculoskeletal: no symptoms reported Skin: no symptoms reported Psychiatric/Neurological: See HPI Endocrine: No Symptoms Reported Hematologic/Lymphatic: No Symptoms Reported Past Ufcvrsu-Sdbddl-Irdvxk Hx Past Med/Social Hx: Reviewed and Corrections made Patient Social History Recreational Drug Use: Yes Drug of Choice: MARIJUANA Type Used: Cigarettes 2nd Hand Smoke Exposure: Yes Recent Foreign Travel: No Contact w/Someone Who Travel: No Recent Infectious Disease Expo: No Recent Hopitalizations: No Seasonal Allergies Seasonal Allergies: No Past Medical History Surgeries: Yes ( genital wart destruction, knee scope, ) Appendectomy, Orthopedic Respiratory: No Cardiac: Yes High Cholesterol, Hypertension, Palpitations Neurological: Yes Headaches /Migraines, Seizure Disorder Reproductive Disorders: Yes (ovarian cysts) Female Reproductive Disorders: Polycystic Ovarian Dis Sexually Transmitted Disease: Yes (hx of genital warts) HIV/AIDS: No Genitourinary: No Gastrointestinal: Yes (riojas's, rectal bleeding) Musculoskeletal: Yes Fibromyalgia, Rheumatoid Arthritis Endocrine: No HEENT: No Cancer: No Psychosocial: Yes (MOOD DISORDER, FIBROMYLGIA, CONVERSION DIORDER) Sleep Difficulties, Anxiety, Bipolar, Depression Integumentary: No Blood Disorders: No Family Medical History No Pertinent Family Hx Physical Exam Vital Signs Vital Signs - First Documented 09/03/18 07:05 Temp 97.4 Pulse 82 Resp 15 B/P (MAP) 144/125 (131) Pulse Ox 98 Capillary Refill : Less Than 3 Seconds Height, Weight, BMI Height: 5'4.00" Weight: 215lbs. 0.0oz. 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 Subtle decreased muscle tension of the left forehead), motor weakness (slight weakness of the left facial muscles), sensory deficit (slight numbness of the left lower face) Crainal Nerves: normal hearing, normal speech, PERRL Coordination/Gait: normal finger to nose, normal gait Skin: normal color, warm/dry Progress/Results/Core Measures Results/Orders My Orders Orders - ERLINDA BRADY MD Ct Head Wo (09/03/18 07:17) Vital Signs/I&O 09/03/18 09/03/18 07:05 07:38 Temp 97.4 Pulse 82 80 Resp 15 15 B/P (MAP) 144/125 (131) 143/93 Pulse Ox 98 99 Blood Pressure Mean: 131 Progress Progress Note #1: Progress Note Clinical scenario is highly suspicious for López's palsy. However, the forehead asymmetry with use of the facial muscles is very subtle. Central nervous system lesion cannot be 100 percent ruled out by exam and history alone. Although I am fairly certain this is López's palsy, I offered CT to the patient since I cannot guarantee it based on exam and history. Risks and benefits were discussed. Patient elects CT scan. Patient is not a candidate for any acute stroke treatment such as TPA because she is 48 hours since time of onset and symptoms are very minor. Progress Note #2: Progress Note CT scan was viewed by me and discussed with the radiologist. There was a small area of increased density on the left that likely represented a calcification. Hemorrhage was less likely and certainly did not correlate with her symptoms or history. This finding was discussed with the patient. Patient is being empirically treated for López's palsy. Diagnostic Imaging Diagonstic Imaging: CT Plain Films/CT/US/NM/MRI: head Comments CT head viewed by me and report reviewed. Discussed with radiologist. See report below: NAME: XUAN YAN MED REC#: [id number] PT STATUS: REG ER : 1980 PHYSICIAN: ERLINDA BRADY MD ADMIT DATE: 09/03/18/ER Draft Date of Exam:09/03/18 CT HEAD WO PROCEDURE: CT head without contrast. TECHNIQUE: Multiple contiguous axial images were obtained through the brain without the use of intravenous contrast. Auto Exposure Controls were utilized during the CT exam to meet ALARA standards for radiation dose reduction. INDICATION: Left-sided facial numbness. FINDINGS: There is no mass, shift of midline or hemorrhage to suggest an acute intracranial abnormality. The ventricles are not abnormally dilated and similar in size to the prior exam of 05/28/2004. In the interval since the prior study, a small 4 MM area of increased density has developed in the left basal ganglia. I suspect this is more likely due to calcification than to hemorrhage. The bone window show no sign of fracture or destructive lesion. The orbits and sinuses were not visualized in their entirety. Where visualized, there is no acute abnormality. IMPRESSION: 1. There is no evidence for an acute intracranial abnormality. 2. If clinical concern regarding an underlying abnormality persists, then MRI would be recommended for further study. Dictated on workstation # [id number] Dict: 09/03/18 0800 Trans: 09/03/18 0812 [id number] Interpreted by: JUANITA PUGA MD Departure Impression Primary Impression: Weakness on left side of face Disposition: 01 HOME, SELF-CARE Condition: Stable Departure-Patient Inst. Decision time for Depature: 08:13 Referrals: [facility] (PCP[facility]Family) Primary Care Physician Patient Instructions: López's Palsy Add. Discharge Instructions: Your facial weakness and numbness is likely related to López's palsy, possibly triggered by a viral illness. If you develop other neurologic symptoms such as numbness or weakness of an arm or leg, difficulty speaking, confusion, vision changes, etc. please return to the emergency room. Despite treatment, your symptoms of facial weakness and numbness may worsen before they improve. Medications should reduce the intensity and speed the recovery of symptoms. The prednisone steroid your taking may cause sleep disturbance, jitteriness, or upset stomach. Take early in the day with food or milk to reduce risk of side effects. Return to the emergency room if you have any further problems or concerns. If you develop weakness of your eyelid causing difficulty with blinking or closing her eye, please wear eye protection such as sunglasses when in [place] or windy environments. You may use medical or athletic tape to tape your eyelid shut at night to protect it while you sleep. All discharge instructions reviewed with patient and/or family. Voiced understanding. Scripts Acyclovir (Acyclovir) 400 Mg Tablet 400 MG PO UD, #35 TAB 5 times daily Prov: ERLINDA BRADY MD 09/03/18 Prednisone (Prednisone) 20 Mg Tab 60 MG PO DAILY, #21 TAB 0 Refills Prov: ERLINDA BRADY MD 09/03/18 Copy Copies To 1: VIRGIL FLANAGAN JOSHUA T MD Sep 03, 2018 07:38
--- NOTE | 2018-09-03 08:13 | Diagnostic Imaging Report ---
PROCEDURE: CT head without contrast. TECHNIQUE: Multiple contiguous axial images were obtained through the brain without the use of intravenous contrast. Auto Exposure Controls were utilized during the CT exam to meet ALARA standards for radiation dose reduction. INDICATION: Left-sided facial numbness. FINDINGS: There is no mass, shift of midline or hemorrhage to suggest an acute intracranial abnormality. The ventricles are not abnormally dilated and similar in size to the prior exam of 05/28/2004. In the interval since the prior study, a small 4 MM area of increased density has developed in the left basal ganglia. I suspect this is more likely due to calcification than to hemorrhage. The bone window show no sign of fracture or destructive lesion. The orbits and sinuses were not visualized in their entirety. Where visualized, there is no acute abnormality. IMPRESSION: 1. There is no evidence for an acute intracranial abnormality. 2. If clinical concern regarding an underlying abnormality persists, then MRI would be recommended for further study. Dictated by: Dictated on workstation # [id number]
[2018-09-03] MEDS ORDERED: ACYC400T PO (08:19)
[2018-09-03] MEDS ORDERED: PRD20T PO (08:19)
[2018-09-03 08:23] VITALS: BP 121/91
== END 2018-09-03 08:23 | disposition home or self-care (01) ==
LOC: EDUNIT# 06:59 → ER 07:02
DX: R29.810 Facial weakness (principal); I10 Essential (primary) hypertension; E78.00 Pure hypercholesterolemia, unspecified; G40.909 Epilepsy, unspecified, not intractable, without status epilepticus; G43.909 Migraine, unspecified, not intractable, without status migrainosus; M06.9 Rheumatoid arthritis, unspecified; M79.7 Fibromyalgia; F31.9 Bipolar disorder, unspecified; F41.9 Anxiety disorder, unspecified; F12.10 Cannabis abuse, uncomplicated; Z90.49 Acquired absence of other specified parts of digestive tract; Z77.22 Contact with and (suspected) exposure to environmental tobacco smoke (acute) (chronic); Z88.5 Allergy status to narcotic agent; Z88.0 Allergy status to penicillin; Z91.040 Latex allergy status
CPT/HCPCS: 70450

== ENCOUNTER 2018-11-27 07:59 | Emergency (ER) | payer OTHER ==
[~2018-11-27] VITALS: Ht 162 cm; Wt 93.0 kg
[~2018-11-27 07:59] MED LIST changes: +ACYC400T PO; +PRD20T PO
--- NOTE | 2018-11-27 08:15 | NUR ---
PT COMPLAINS OF PAIN AND SWELLING OVER LEFT HAND WHERE IV WAS ATTEMPTED BY STUDENT. COBAN AND A WARM BLANKET APPLIED TO AREA.
--- NOTE | 2018-11-27 08:23 | NUR ---
UP TO BATHROOM.
--- NOTE | 2018-11-27 08:23 | ED Neurological Problem ---
General Chief Complaint: Neuro-Stroke Like Symptoms Stated Complaint: LEFT SIDE FACIAL DROOP Nursing Triage Note: ARRIVED VIA AMB FROM WORK WITH LEFT SIDED FACIAL DROOP THAT WAS NOTICIED BY A COWORKER 30 MINS BAKER PIE. PT STATES IT WAS NOT THERE WHEN SHE WOKE UP THIS AM AT 0500. Nursing Sepsis Screen: No Definite Risk Source: patient Exam Limitations: no limitations History of Present Illness Date Seen by Provider: Nov 27, 2018 Time Seen by Provider: 08:06 Initial Comments Here with report of onset of left-sided facial droop that was noticed by her coworker about 30 minutes ago. Patient's states that it was not there previous. 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 Denies pain but does report that her blood pressure is elevated and she doesn't feel well. Denies chest pain or breathing problems. Denies fever or chills. Timing/Duration: 1/2 hour, waxing and waning Severity: mild Associated Symptoms: No confusion; fatigue; No nausea/vomiting, No numbness in legs/feet, No slurred speech, No trouble walking, No vision changes, No weakness Allergies and Home Medications Allergies Coded Allergies: hydromorphone (Verified Allergy, Severe, ANAPHYLAXIS, 09/03/18) Penicillins (Unverified Allergy, Mild, hives, 09/03/18) latex (Verified Allergy, Unknown, HIVES, 06/09/18) Home Medications Atenolol 100 Mg Tablet, 100 MG PO DAILY, (Reported) Baclofen 10 Mg Tablet, 10 MG PO TID, (Reported) Desvenlafaxine Succinate 50 Mg Tab.er.24h, 50 MG PO DAILY, (Reported) Diltiazem HCl 120 Mg Cap.er.deg, 120 MG PO DAILY, (Reported) Mirtazapine 15 Mg Tablet, 15 MG PO HS, (Reported) Prednisone 20 Mg Tab, 60 MG PO DAILY Prescribed by: ERLINDA HAYNES on 09/03/18 0819 Sumatriptan Succinate 25 Mg Tablet, 25 MG PO Q2H PRN for MIGRAINE Do not exceed 4 tablets in 24 hours. Prescribed by: MIMI WEEKS on 12/26/16 1159 Topiramate 50 Mg Tablet, 50 MG PO BID, (Reported) Patient Home Medication List Home Medication List Reviewed: Yes Review of Systems Review of Systems Constitutional: see HPI; No chills, No fever; malaise Eyes: No Symptoms Reported Ears, Nose, Mouth, Throat: see HPI; denies ear pain, denies throat pain, denies throat swelling Respiratory: No short of breath, No wheezing Cardiovascular: No chest pain, No palpitations Gastrointestinal: No abdominal pain, No nausea, No vomiting Genitourinary: no symptoms reported Musculoskeletal: no symptoms reported Skin: no symptoms reported Psychiatric/Neurological: See HPI All Other Systems Reviewed Negative Unless Noted: Yes Past Vbxnxwp-Tjsipy-Xxzpsy Hx Past Med/Social Hx: Reviewed Nursing Past Med/Soc Hx Patient Social History Alcohol Use: Denies Use Recreational Drug Use: No Drug of Choice: MARIJUANA Smoking Status: Current Everyday Smoker Type Used: Cigarettes 2nd Hand Smoke Exposure: Yes Recent Foreign Travel: No Contact w/Someone Who Travel: No Recent Infectious Disease Expo: No Recent Hopitalizations: No Seasonal Allergies Seasonal Allergies: No Past Medical History Surgeries: Yes ( genital wart destruction, knee scope, ) Appendectomy, Orthopedic Respiratory: No Cardiac: Yes High Cholesterol, Hypertension, Palpitations Neurological: Yes (BELLS PALSEY) Headaches /Migraines Reproductive Disorders: Yes (ovarian cysts) Female Reproductive Disorders: Polycystic Ovarian Dis Sexually Transmitted Disease: Yes (hx of genital warts) HIV/AIDS: No Genitourinary: No Gastrointestinal: Yes (riojas's, rectal bleeding) Musculoskeletal: Yes Fibromyalgia, Rheumatoid Arthritis Endocrine: No HEENT: No Cancer: No Psychosocial: Yes (MOOD DISORDER, FIBROMYLGIA, CONVERSION DIORDER) Sleep Difficulties, Anxiety, Bipolar, Depression Integumentary: No Blood Disorders: No Family Medical History Reviewed Nursing Family Hx No Pertinent Family Hx Physical Exam Vital Signs Vital Signs - First Documented 11/27/18 07:59 Temp 37.6 Pulse 105 Resp 20 B/P (MAP) 155/115 (128) Pulse Ox 97 O2 Delivery Room Air Capillary Refill : Less Than 3 Seconds Height, Weight, BMI Height: 5'4.00" Weight: 215lbs. 0.0oz. [phone]; 35.00 BMI Method:Stated General Appearance: WD/WN, no apparent distress HEENT: PERRL/EOMI, pharynx normal Neck: full range of motion, supple Respiratory: lungs clear, normal breath sounds Cardiovascular: regular rate, rhythm, no murmur Gastrointestinal: non tender, soft Back: normal inspection, no CVA tenderness, no vertebral tenderness Extremities: normal range of motion, non-tender, normal inspection, no calf tenderness Neurologic/Psychiatric: alert, oriented x 3 Crainal Nerves: normal hearing, normal speech, PERRL, facial droop (intermittent left-sided facial droop at the corner of the mouth and lower face. Does not involve the upper face or forehead. Comes and goes.) Coordination/Gait: normal finger to nose, normal gait Motor/Sensory: no sensory deficit, no pronator drift Skin: normal color, warm/dry Stroke NIH Stroke Scale Assessment Level of Consciousness: 0=Alert (0), Level of Consciousness-Questions: 0=Answers both month/age (0), LOC Commands: 0=Performs both tasks (0), Visual Diaz: 0=No visual loss (0), Facial Movement (Facial Paresis): 1=Minor paralysis (1), Motor Function-Arms Right: 0=No drift (0), Motor Function-Arms Left: 0=No drift (0), Motor Function-Legs Right: 0=No drift (0), Limb Ataxia: 0=Absent (0), Sensory: 0=Normal:no loss (0), Best Language: 0=No aphasia (0), Dysarthria: 0=Normal (0), Extinction & Inattention: 0=No abnormality (0), Total: Progress/Results/Core Measures Results/Orders Lab Results Laboratory Tests Test 11/27/18 08:06 11/27/18 08:12 11/27/18 08:23 Range/Units Glucometer 104 70-110 MG/DL White Blood Count 5.5 4.3-11.0 10^3/uL Red Blood Count 4.99 4.35-5.85 10^6/uL Hemoglobin 14.4 11.5-16.0 G/DL Hematocrit 43 35-52 % Mean Corpuscular Volume 87 80-99 FL Mean Corpuscular Hemoglobin 29 25-34 PG Mean Corpuscular Hemoglobin Concent 33 32-36 G/DL Red Cell Distribution Width 13.0 10.0-14.5 % Platelet Count 196 130-400 10^3/uL Mean Platelet Volume 9.9 7.4-10.4 FL Neutrophils (%) (Auto) 61 42-75 % Lymphocytes (%) (Auto) 30 12-44 % Monocytes (%) (Auto) 7 0-12 % Eosinophils (%) (Auto) 1 0-10 % Basophils (%) (Auto) 0 0-10 % Neutrophils # (Auto) 3.4 1.8-7.8 X 10^3 Lymphocytes # (Auto) 1.7 1.0-4.0 X 10^3 Monocytes # (Auto) 0.4 0.0-1.0 X 10^3 Eosinophils # (Auto) 0.1 0.0-0.3 10^3/uL Basophils # (Auto) 0.0 0.0-0.1 10^3/uL Prothrombin Time 12.0 L 12.2-14.7 SEC INR Comment 0.9 0.8-1.4 Activated Partial Thromboplast Time 29 24-35 SEC D-Dimer 0.73 H 0.00-0.49 UG/ML Sodium Level 138 135-145 MMOL/L Potassium Level 4.0 3.6-5.0 MMOL/L Chloride Level 109 H 98-107 MMOL/L Carbon Dioxide Level 22 21-32 MMOL/L Anion Gap 7 5-14 MMOL/L Blood Urea Nitrogen 12 7-18 MG/DL Creatinine 0.71 0.60-1.30 MG/DL Estimat Glomerular Filtration Rate > 60 BUN/Creatinine Ratio 17 Glucose Level 99 70-105 MG/DL Calcium Level 9.0 8.5-10.1 MG/DL Corrected Calcium 8.8 8.5-10.1 MG/DL Total Bilirubin 0.4 0.1-1.0 MG/DL Aspartate Amino Transf (AST/SGOT) 15 5-34 U/L Alanine Aminotransferase (ALT/SGPT) 16 0-55 U/L Alkaline Phosphatase 68 40-136 U/L Troponin I < 0.028 <0.028 NG/ML Total Protein 7.2 6.4-8.2 GM/DL Albumin 4.3 3.2-4.5 GM/DL Urine Color YELLOW Urine Clarity CLEAR Urine pH 5 5-9 Urine Specific [place] 1.025 H 1.016-1.022 Urine Protein NEGATIVE NEGATIVE Urine Glucose (UA) NEGATIVE NEGATIVE Urine Ketones NEGATIVE NEGATIVE Urine Nitrite NEGATIVE NEGATIVE Urine Bilirubin NEGATIVE NEGATIVE Urine Urobilinogen NORMAL NORMAL MG/DL Urine Leukocyte Esterase NEGATIVE NEGATIVE Urine RBC (Auto) 1+ H NEGATIVE Urine RBC RARE /HPF Urine WBC 0-2 /HPF Urine Squamous Epithelial Cells 10-25 H /HPF Urine Crystals NONE /LPF Urine Bacteria FEW H /HPF Urine Casts NONE /LPF Urine Mucus SMALL H /LPF Urine Culture Indicated NO My Orders Orders - VIVEK HORN MD Cbc With Automated Diff (11/27/18 08:16) Protime With Inr (11/27/18 08:16) Partial Thromboplastin Time (11/27/18 08:16) Comprehensive Metabolic Panel (11/27/18 08:16) Fibrin Degradation Products (11/27/18 08:16) Troponin I (11/27/18 08:16) Ua Culture If Indicated (11/27/18 08:16) Chest 1 View, Ap/Pa Only (11/27/18 08:16) Ekg Tracing (11/27/18 08:16) Nothing By Mouth (11/27/18 Lunch) Accucheck Stat ONCE (11/27/18 08:16) Ed Iv/Invasive Line Start (11/27/18 08:16) Vital Signs Stroke Patient Q15M (11/27/18 08:16) Ct Head Wo-R/O Stroke (11/27/18 08:16) O2 (11/27/18 08:16) Intake & Output 06,14,22 (11/27/18 08:16) Monitor-Rhythm Ecg Trace Only (11/27/18 08:16) Dysphagia Screening Tool (11/27/18 08:16) Lipid Panel (11/28/18 06:00) Vital Signs/I&O 11/27/18 07:59 Temp 37.6 Pulse 105 Resp 20 B/P (MAP) 155/115 (128) Pulse Ox 97 O2 Delivery Room Air Blood Pressure Mean: 128 FSBG Bedside Testing Finger Stick Blood Glucose: 104 Blood Glucose Action Taken: DR JENKINS. Progress Progress Note : Progress Note Seen and evaluated. Patient is presenting with intermittent symptoms and does not seem to be stroke related. He did not activate stroke team but will initiate stroke order set given her history. Stroke scale is 0. No indication for TPA due to no significant persistent findings. Patient does have some intermittent left facial droop but changes with distraction. Monitor patient. 1000: Blood pressure greatly improved. Symptoms still remain intermittent but mostly resolved. No acute findings noted. I will send a copy of the chart to the clinic. She probably needs better blood pressure control and she needs to be restarted on her mental health medicines. She has appointment with mental health mid-December. She feels comfortable with discharge and so does her . Discharged home with return precautions. Patient verbalized understanding of instructions and agreement with plan. Initial ECG Impression Date: Nov 27, 2018 Initial ECG Impression Time: 08:42 Initial ECG Rate: 78 Initial ECG Rhythm: Normal Sinus Initial ECG Comparisson: Unchanged Comment Sinus rhythm with LVH. Normal axis. No evidence of ST elevation NE. Similar to previous of 02/27/18. Interpreted by me. Diagnostic Imaging Diagonstic Imaging: CT Plain Films/CT/US/NM/MRI: head Comments [facility] [place] NAME: YANXUAN Billowby [facility] REC#: [id number] PT STATUS: REG ER : 1980 PHYSICIAN: VIVEK HORN MD ADMIT DATE: 11/27/18/ER Draft Date of Exam:11/27/18 CT HEAD WO-R/O STROKE PROCEDURE: CT head wo r/o stroke. TECHNIQUE: Multiple contiguous axial images were obtained through the brain without the use of intravenous contrast. Auto Exposure Controls were utilized during the CT exam to meet ALARA standards for radiation dose reduction. INDICATION: Left facial droop Comparison is made to the study of 09/03/2018. CT HEAD: CT images of the head were obtained. FINDINGS: Ventricles and sulci are within normal limits for size. There is no intracranial hemorrhage identified. There is no abnormal mass effect or shift of midline structures. IMPRESSION: Unremarkable CT of the head. Dictated on workstation # [id number] Dict: 11/27/18 0900 Trans: 11/27/18 0904 CINDA [id number] Interpreted by: NEGRA SILVA MD Electronically signed by: Diagonstic Imaging: Xray Plain Films/CT/US/NM/MRI: chest Comments [facility] [place], [place] NAME: XUAN YAN Billowby [facility] REC#: [id number] PT STATUS: REG ER : 1980 PHYSICIAN: VIVEK HORN MD ADMIT DATE: 11/27/18/ER Draft Date of Exam:11/27/18 CHEST 1 VIEW, AP/PA ONLY INDICATION: Left facial droop, possible stroke. Portable upright AP view of the chest is obtained. COMPARISON: No previous study is available for comparison at this time. FINDINGS: Heart size and pulmonary vasculature are within normal limits, and the lungs are clear, bilaterally. IMPRESSION: Unremarkable chest. Dictated on workstation # [id number] Dict: 11/27/18910 Trans: 11/27/18913 [id number] Interpreted by: NEGRA SILVA MD Electronically signed by: Departure Impression Primary Impression: Labile hypertension Additional Impression: Left-sided López's palsy Disposition: 01 HOME, SELF-CARE Condition: Stable Departure-Patient Inst. Decision time for Depature: 10:12 Referrals: KATHY GAONA APRN (PCP) Primary Care Physician [facility] (Family) Primary Care Physician Patient Instructions: High Blood Pressure in Adults, López's Palsy (DC) Add. Discharge Instructions: All discharge instructions reviewed with patient and/or family. Voiced understanding. Continue home medications as previously prescribed. Follow-up with your doctor later this week or early next week for recheck and further evaluation especially of your blood pressure. Return for worse pain, fever, vomiting, weakness, breathing problems, difficulty with speech or movement, increasing or changing facial droop or other concerns as needed. Drink plenty of fluids. Rest today. Work/School Note: Work Release Form Date Seen in the Emergency Department: Nov 27, 2018 Return to Work: Nov 28, 2018 Restrictions: No Restrictions Copy Copies To 1: VIRGIL FLANAGAN TIMOTHY D MD Nov 27, 2018 08:23
[2018-11-27 08:25] LABS: BASOPHILS % (AUTO) 0 % (0-10); EOSINOPHILS # (AUTO) 0.1 10^3/uL (0.0-0.3); EOSINOPHILS % (AUTO) 1 % (0-10); HEMATOCRIT 43 % (35-52); HEMOGLOBIN 14.4 G/DL (11.5-16.0); LYMPHOCYTES # (AUTO) 1.7 X 10^3 (1.0-4.0); LYMPHOCYTES % (AUTO) 30 % (12-44); MEAN CORPUSCULAR HEMOGLOBIN 29 PG (25-34); MEAN CORPUSCULAR HGB CONC 33 G/DL (32-36); MEAN CORPUSCULAR VOLUME 87 FL (80-99); MEAN PLATELET VOLUME 9.9 FL (7.4-10.4); MONOCYTES # (AUTO) 0.4 X 10^3 (0.0-1.0); MONOCYTES % (AUTO) 7 % (0-12); NEUTROPHILS # (AUTO) 3.4 X 10^3 (1.8-7.8); NEUTROPHILS % (AUTO) 61 % (42-75); PLATELET COUNT 196 10^3/uL (130-400); WHITE BLOOD COUNT 5.5 10^3/uL (4.3-11.0)
[2018-11-27 08:31] LABS: BILIRUBIN,URINE NEGATIVE (NEGATIVE); CLARITY,URINE CLEAR; COLOR,URINE YELLOW; GLUCOSE, URINE (UA) NEGATIVE (NEGATIVE); KETONES,URINE NEGATIVE (NEGATIVE); LEUKOCYTE ESTERASE ,URINE NEGATIVE (NEGATIVE); NITRITE,URINE NEGATIVE (NEGATIVE); PH,URINE 5 (5-9); PROTEIN,URINE NEGATIVE (NEGATIVE); UROBILINOGEN,URINE NORMAL (NORMAL)
[2018-11-27 08:33] LABS: INR 0.9 (0.8-1.4)
[2018-11-27 08:36] LABS: ALANINE AMINOTRANSFERASE 16 U/L (0-55); ALBUMIN 4.3 GM/DL (3.2-4.5); ALKALINE PHOSPHATASE 68 U/L (40-136); BILIRUBIN,TOTAL 0.4 MG/DL (0.1-1.0); BUN/CREATININE RATIO 17; CARBON DIOXIDE 22 MMOL/L (21-32); CHLORIDE 109 MMOL/L (98-107); CREATININE SERUM 0.71 MG/DL (0.60-1.30); GFR ESTIMATED > 60; GLUCOSE 99 MG/DL (70-105); SODIUM 138 MMOL/L (135-145); TOTAL PROTEIN 7.2 GM/DL (6.4-8.2)
[2018-11-27 08:44] LABS: BACTERIA,URINE FEW /HPF; RBC,URINE RARE /HPF; WBC,URINE 0-2 /HPF
--- NOTE | 2018-11-27 09:00 | NUR ---
PT REPORTS PAIN TO LEFT HAND IS MUCH BETTER.
[2018-11-27 09:03] LABS: FIBRIN DEGRADATION PRODUCTS 0.73 UG/ML (0.00-0.49)
--- NOTE | 2018-11-27 09:04 | Diagnostic Imaging Report ---
PROCEDURE: CT head wo r/o stroke. TECHNIQUE: Multiple contiguous axial images were obtained through the brain without the use of intravenous contrast. Auto Exposure Controls were utilized during the CT exam to meet ALARA standards for radiation dose reduction. INDICATION: Left facial droop Comparison is made to the study of 09/03/2018. CT HEAD: CT images of the head were obtained. FINDINGS: Ventricles and sulci are within normal limits for size. There is no intracranial hemorrhage identified. There is no abnormal mass effect or shift of midline structures. IMPRESSION: Unremarkable CT of the head. Dictated by: Dictated on workstation # [id number]
--- NOTE | 2018-11-27 09:14 | Diagnostic Imaging Report ---
INDICATION: Left facial droop, possible stroke. Portable upright AP view of the chest is obtained. COMPARISON: No previous study is available for comparison at this time. FINDINGS: Heart size and pulmonary vasculature are within normal limits, and the lungs are clear, bilaterally. IMPRESSION: Unremarkable chest. Dictated by: Dictated on workstation # [id number]
--- NOTE | 2018-11-27 09:30 | NUR ---
UP TO BATHROOM.
--- NOTE | 2018-11-27 09:55 | NUR ---
IN TALKING TO PT AT THIS TIME.
[2018-11-27 10:21] VITALS: BP 124/84
== END 2018-11-27 10:21 | disposition home or self-care (01) ==
LOC: EDUNIT# 07:59 → ER 08:00
DX: I10 Essential (primary) hypertension (principal); G51.0 Bell's palsy; E78.00 Pure hypercholesterolemia, unspecified; G43.909 Migraine, unspecified, not intractable, without status migrainosus; M79.7 Fibromyalgia; M06.9 Rheumatoid arthritis, unspecified; F41.9 Anxiety disorder, unspecified; F31.9 Bipolar disorder, unspecified; F17.210 Nicotine dependence, cigarettes, uncomplicated; Z90.49 Acquired absence of other specified parts of digestive tract; Z91.040 Latex allergy status; Z88.0 Allergy status to penicillin; Z88.5 Allergy status to narcotic agent; Z79.52 Long term (current) use of systemic steroids
CPT/HCPCS: 36415; 70450; 71045; 80053; 81000; 82962; 84484; 84703; 85025; 85379; 85610; 85730; 93005; 93041

== ENCOUNTER 2018-12-25 05:32 | Outpatient (CLI) | payer OTHER ==
[~2018-12-25] VITALS: Ht 162.6 cm; Wt 93.6 kg
[2018-12-25] MEDS ORDERED: GABA-488 PO (13:17)
== END 2018-12-25 13:31 | disposition home or self-care (01) ==
LOC: PREOP 05:32
PROVIDERS: ATTEND Surgery
DX: Z01.818 Encounter for other preprocedural examination (principal)

== ENCOUNTER 2018-12-31 06:57 | Day surgery (SDC) | payer OTHER ==
[~2018-12-31] VITALS: Ht 162.6 cm; Wt 93.6 kg
[2018-12-31] VITALS (11 sets, daily range): BP systolic 97–126; BP diastolic 65–85
[~2018-12-31 06:57] MED LIST changes: +GABA-488 PO
[2018-12-31] MEDS ORDERED: SEVOFLURANE (ULTANE) 15 ML INHAL SOLN ONE ×9 (07:07→10:03)
[2018-12-31] MEDS ORDERED: ROCURONIUM 10 MG/ML 5 ML SYRINGE IV ONE (07:07)
[2018-12-31] MEDS ORDERED: proPOfol 200 MG/20 ML (DIPRIVAN) VIAL IV ONE (07:07)
[2018-12-31] MEDS ORDERED: LIDOCAINE PF 2% 5 ML (XYLOCAINE) VIAL ONE (07:07)
[2018-12-31] MEDS ORDERED: fentaNYL INJECTION 100 MCG/2 ML AMP ONE ×3 (07:08→10:50)
[2018-12-31] MEDS ORDERED: MIDAZOLAM 2 MG/2 ML (VERSED) VIAL ONE (07:08)
[2018-12-31] MEDS ORDERED: INDOCYANINE GREEN 25 MG (ICG) VIAL IV ONE (07:30)
[2018-12-31] MEDS ORDERED: CLINDAMYCIN 600 MG/50 ML IVPB 50 ML IV ONE (07:30)
[2018-12-31] MEDS ORDERED: BUP/EPI 0.5% 1:200,000 (SENSORCAINE) 30 ML VIAL ONE (07:50)
[2018-12-31] MEDS: LACTATED RINGERS 1,000 ML IV PRN ×2 (08:01→08:51)
--- NOTE | 2018-12-31 08:06 | Progress Note-Pre Operative ---
Pre-Operative Progress Note H&P Reviewed The H&P was reviewed, patient examined and no changes noted. Time Seen by Provider: 08:01 Date H&P Reviewed: Dec 31, 2018 Time H&P Reviewed: 08:02 Pre-Operative Diagnosis: Caterina/caterina MIKIE FLAHERTY DO Dec 31, 2018 08:06 POS
[2018-12-31] MEDS ORDERED: ONDANSETRON 4 MG/2 ML (SDV) Z0FRAN IVP PRN (08:15)
[2018-12-31] MEDS ORDERED: fentaNYL INJECTION 100 MCG/2 ML AMP IVP ONE (08:15)
[2018-12-31] MEDS ORDERED: OMEP20TA7 PO (08:24)
[2018-12-31] MEDS ORDERED: KETOROLAC 30 MG/ML VIAL ONE (09:24)
[2018-12-31] MEDS ORDERED: GLYCOPYRROLATE 0.2 MG/ML (ROBINUL) 2 ML VIAL ONE (09:24)
[2018-12-31] MEDS ORDERED: NEOSTIGMINE 3 MG/3 ML VIAL ONE (09:24)
--- NOTE | 2018-12-31 10:07 | Progress Note-Post Operative ---
Post-Operative Progess Note Surgeon (s)/Ethylbenzene Oxidizer (s) Surgeon MIKIE FLAHERTY DO Ethylbenzene Oxidizer: Alicia Pre-Operative Diagnosis Caterina/caterina Post-Operative Diagnosis same Procedure & Operative Findings Date of Procedure 12/31/18 Procedure Performed/Findings Lap Caterina with firefly cholangiogram, robotic assistance Anesthesia Type GET Estimated Blood Loss Estimated blood loss (mL): minimal Specimens/Packing Specimens Removed GB and contents MIKIE FLAHERTY DO Dec 31, 2018 10:07 POS
[2018-12-31] MEDS ORDERED: ACHD5005 PO (10:08)
--- NOTE | 2018-12-31 10:09 | Discharge Inst-Surgical ---
Discharge Inst-Surgical Reconcile Patient Problems Problems Reviewed?: Yes Depart Medication/Instructions New, Converted or Re-Newed RX: RX Given to Pt/Family Patient Instructions Follow up Appt: Make appointment for 1 week. [phone] Instructions: No lifting greater than 20 pounds. No strenuous activity. May shower in 24 hours, no tub bath or soaking. Use incentive spirometer at home as directed. No Smoking Skin/Wound Care: May remove bandages in am. You need to leave the Dermabond on incision it will fall off on it's own. Symptoms to Report: Appetite Changes, Extremity Discoloration, Numbness/Tingling, Swelling Increased, Bleeding Excessive, Eyesight Changes, Pain Increased, Urine Color Change, Constipation(Persistent), Fever over 101 degree F, Pain/Pressure in chest, Urinating Difficulty, Cough Up/Vomit Blood, Heart Beat Irreg/Pounding, Pain/Pressure in jaw, Cramps in feet or legs, Lightheadedness, Pain/Pressure in shoulder, Diarrhea(Persistent), Memory Changes Suddenly, Questions/Concerns, Weight gain consecutive days, Dizziness/Fainting, Nausea/Vomiting, Shortness of Breath, Weight gain over 2 pounds If questions or concerns contact your physician Or seek help at emergency department. Activity Activity as Tolerated: Yes Activity Instructions: Avoid Stress to Incision Driving Instructions: No Driving/Refer to Diet Discharge Diet: Avoid Fatty Foods, Low Fat/Low Cholesterol Diet After 24 Hours: Clear Liquid if Nauseous If Any Problems/Questions/Issu: Contact Your Physician, Go to Emergency Room Skin/Wound Care Infection Signs and Symptoms: Increased Redness, Foul Odor of Wound, Increased Drainage, Skin Itchy or Has a Rash, Increased Swelling, Temperature Above 101 F Wound Care Comment: Heating pad to shoulder or neck tonight for pain Bathing Instructions: Shower Stitches/Lico/Dermabond Dis: Dermabond Ice Pack: Ice On and Off Site (as needed for pain at incisions) MIKIE FLAHERTY DO Dec 31, 2018 10:09 POS
--- NOTE | 2018-12-31 11:20 | NUR ---
TO AMB SURG FROM PAR PER CART. ALERT, RATES ABD/SURGICAL SITE PAIN 2-3. DERMABOND INTACT TO X4 LAP ABD SURGICAL SITES, ICE PACK ON. PO FLUIDS AND CRACKERS PROVIDED.
--- NOTE | 2018-12-31 11:45 | NUR ---
TAKING PO FLUIDS AND CRACKERS WITHOUT PROBLEM. RATES PAIN NOW AT 1. PAIN MED OFFERED, REFUSED BY PT. STATES "I'M DOING OK FOR NOW, I'LL TAKE ONE WHEN I GET HOME IF I NEED TO."
--- NOTE | 2018-12-31 12:55 | NUR ---
HAS BEEN UP TO BR WITH ASSIST, VOIDED, GAIT STEADY. ASSISTED BACK TO ROOM AND INSTRUCTED ON INCENTIVE SPIROMETRY AND DISCHARGE INSTRUCTIONS. STATES SHE IS READY FOR DISMISSAL.
--- NOTE | 2018-12-31 14:00 | OPERATIVE REPORT ---
DATE OF SERVICE: 12/31/2018 PREOPERATIVE DIAGNOSES: Cholelithiasis, cholecystitis. POSTOPERATIVE DIAGNOSES: Cholelithiasis, cholecystitis. PROCEDURE: Laparoscopic cholecystectomy with the robot and intraoperative cholangiogram with Firefly. SURGEON: Sloan Rapp DO EDGING MACHINE OPERATOR: Kasi Vargas DO ANESTHESIA: General endotracheal tube. SPECIMEN: Gallbladder and contents. BLOOD LOSS: Minimal. FLUIDS: Per anesthesia. POSTOPERATIVE CONDITION: Stable. INDICATION FOR PROCEDURE: The patient is a 38-year-old female who has been having right upper quadrant pain associated with fried and fatty foods. Had ultrasound, which showed stones in the gallbladder. FINDINGS: The patient had a lot of adhesions to the gallbladder, it is usually indicative of previous gallbladder attacks. Removed and sent to pathology. PROCEDURE NOTE: After informed consent was obtained, the patient was brought to the operating room, placed on the operating table in supine position. She was sterilely prepped and draped in normal fashion. Local lidocaine was used to infiltrate the skin above the umbilicus. I made the incision with #11 blade, carried down through the skin and subcutaneous tissue, then deepened down to subcutaneous tissue with Bovie electrocautery down to fascia. Fascia incised with Bovie electrocautery, bluntly entered the abdomen, swept the finger around, placed 0 Vicryl [id number] suture, then placed a limited trocar port under direct visualization. I then placed 3 more ports, one about 10 cm to the left of the middle of the supraumbilical port and then to the right each about 8 to 10 cm apart from the other. Using local lidocaine, a 11 blade for stab incision and then 8 mm robotic port again done under direct visualization. Robot was then docked. The patient was placed in reverse Trendelenburg and rotated left, able to visualize the gallbladder, grasped at the fundus. There was an adhesion that is usually indicative of previous gallbladder attacks. Carefully took this adhesion down with blunt dissection as well as Bovie electrocautery and inferiorly down to Moreno's pouch. Able to grasp and pull inferolateral direction, started dissecting out cystic duct and cystic artery. Used the Firefly to make sure we were at the cystic duct and identify the common bile duct to do this basically cholangiogram. Could see the duct coming down and then going down towards the small intestine, stayed above this, stayed on the cystic duct and started dissecting out cystic duct and cystic artery, able to get around the cystic duct and cystic artery placed one clip proximally and one distally on the cystic duct and then cut and placed another one distally on the cystic artery, then used the bipolar cautery to cauterize above the cystic artery. Used scissors to cut the cystic duct and then took the gallbladder from bed of liver with L-hook cautery. Encountered what looked like a posterior cystic portion in the liver. Took the gallbladder completely off and then there is a little bit of bleeding from the cystic cavity. Cauterized this with Bovie electrocautery, then placed a Surgicel packing, looked good and there was no bleeding at the end. At this point, then placed a bag in the abdomen, placed the gallbladder in the bag and then removed this through a supraumbilical incision. Had copiously irrigated with normal saline, suctioned this out and then removed all ports under direct visualization, allowed pneumoperitoneum to escape, closed supraumbilical incision, closing the fascia with 0 Vicryl suture previously placed. Copiously irrigated all incisions with normal saline, closing the three 8 mm incisions with a single interrupted 4-0 undyed Monocryl subcuticular stitch, closed supraumbilical incision with three interrupted 4-0 undyed Monocryl subcuticular stitches. Area was cleaned and dried. Dermabond placed. The patient tolerated the procedure. Sponge, instrument and needle count correct at the end of the case. Dr. Vargas assisted on this case helping to make incisions, close incisions and identify anatomy as well as removal of gallbladder. Job ID: [id number] DocumentID: [id number] Dictated Date: 12/31/2018 10:04:30 Magnetic Grinder Operator Date: 12/31/2018 13:59:42 Dictated By: DO URSZULA GARCIA
== END 2018-12-31 12:55 | disposition home or self-care (01) ==
LOC: SDC 06:57
PROVIDERS: ATTEND Surgery
DX: K80.10 Calculus of gallbladder with chronic cholecystitis without obstruction (principal); I10 Essential (primary) hypertension; I48.91 Unspecified atrial fibrillation; K29.50 Unspecified chronic gastritis without bleeding; K31.7 Polyp of stomach and duodenum; F32.9 Major depressive disorder, single episode, unspecified; F17.210 Nicotine dependence, cigarettes, uncomplicated; K22.70 Barrett's esophagus without dysplasia; K21.9 Gastro-esophageal reflux disease without esophagitis; G51.0 Bell's palsy; M06.9 Rheumatoid arthritis, unspecified; I47.1 Supraventricular tachycardia; Z88.6 Allergy status to analgesic agent; Z91.040 Latex allergy status; Z88.5 Allergy status to narcotic agent; Z88.0 Allergy status to penicillin; Z88.8 Allergy status to other drugs, medicaments and biological substances; Z79.899 Other long term (current) drug therapy
CPT/HCPCS: 84703; 87081; 88304

== ENCOUNTER → 2019-02-27 | Outpatient (CLI) | payer OTHER ==
[~2019-02-27] MED LIST changes: +ACHD5005 PO; +OMEP20TA7 PO
--- NOTE | 2019-02-27 16:55 | Diagnostic Imaging Report ---
PROCEDURE: US Non-ob pelvis comp/trans. TECHNIQUE: Multiple realtime grayscale images were obtained of the pelvis in various projections endovaginally. Transabdominal imaging was also performed. INDICATION: Menorrhagia. COMPARISON: There are no prior pelvic ultrasound examinations available for comparison. FINDINGS: The uterus is nongravid, anteverted and not enlarged measuring 8.5 x 4.3 x 4.3 cm. The endometrial lining is not thickened measuring 4 mm. There is no focal mass involving the uterus to suggest a fibroid. Both ovaries are identified. There is good blood flow to each ovary. There is a 2.0 x 1.9 cm rounded hypoechoic area with a few internal echoes associated with the right ovary. I suspect that this finding is a slightly complicated ovarian cyst. There are a few subcentimeter follicles arising from the left ovary. There is no solid pelvic mass or free fluid collection noted. IMPRESSION: There is a roughly 2 cm slightly complicated ovarian cyst on the right. There is no acute pelvic abnormality noted otherwise. Dictated by: Dictated on workstation # [id number]
== END ==
LOC: RAD 15:18
PROVIDERS: ATTEND Obstetrics & Gynecology
DX: N83.201 Unspecified ovarian cyst, right side (principal); E28.2 Polycystic ovarian syndrome; N80.9 Endometriosis, unspecified; N92.0 Excessive and frequent menstruation with regular cycle
CPT/HCPCS: 76830; 76856

== ENCOUNTER 2019-05-13 12:23 | Observation (INO) | payer OTHER ==
[~2019-05-13] VITALS: Ht 162 cm; Wt 101.4 kg
[~2019-05-13 12:23] MED LIST changes: -DILT120C8 PO; -TRAM50TA2 PO; +TRM50T PO; +[UNRECOGNIZED DRUG - CODE] PO
[2019-05-13 12:45] LABS: BASOPHILS % (AUTO) 0 % (0-10); EOSINOPHILS # (AUTO) 0.1 10^3/uL (0.0-0.3); EOSINOPHILS % (AUTO) 1 % (0-10); HEMATOCRIT 49 % (35-52); HEMOGLOBIN 16.5 G/DL (11.5-16.0); LYMPHOCYTES # (AUTO) 2.4 X 10^3 (1.0-4.0); LYMPHOCYTES % (AUTO) 25 % (12-44); MEAN CORPUSCULAR HEMOGLOBIN 30 PG (25-34); MEAN CORPUSCULAR HGB CONC 34 G/DL (32-36); MEAN CORPUSCULAR VOLUME 88 FL (80-99); MEAN PLATELET VOLUME 9.4 FL (7.4-10.4); MONOCYTES # (AUTO) 0.8 X 10^3 (0.0-1.0); MONOCYTES % (AUTO) 8 % (0-12); NEUTROPHILS # (AUTO) 6.4 X 10^3 (1.8-7.8); NEUTROPHILS % (AUTO) 66 % (42-75); PLATELET COUNT 285 10^3/uL (130-400); RED CELL DISTRIBUTION WIDTH 14.1 % (10.0-14.5); WHITE BLOOD COUNT 9.7 10^3/uL (4.3-11.0)
--- NOTE | 2019-05-13 12:46 | ED Neurological Problem ---
General Chief Complaint: Neurological Problems Stated Complaint: LEFT SIDE NUMBNESS;DROOPING Nursing Triage Note: PT CO OF L SIDED FACIAL DROOPING AND TINGLING, L SIDED UPPER EXT TINGLING HANDS AND FINGERS, BOTTOM OF FOOT TINGLING. 1200 STARTED. NO FACIAL DROOPING NOTED. PT HAS 0 ON STROKE SCALE. Nursing Sepsis Screen: No Definite Risk Source: patient History of Present Illness Date Seen by Provider: May 13, 2019 Time Seen by Provider: 12:25 Initial Comments PT ARRIVES VIA POV FROM WORK--WALKS IN ON HER OWN WITHOUT DIFFICULTY PT STATES SHE WAS FINE WHEN SHE WOKE UP THIS MORNING AROUND 0630. 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 HAD BEEN TO A MEETING, AND HAD JUST GOTTEN BACK TO FACILITY, AND WAS SITTING AND WATCHING TV, AND APPROXIMATELY 30 MINUTES AGO, SHE HAD SUDDEN ONSET OF SLIGHT TINGLING TO LEFT HAND AND FINGERS ( [facility] ONLY). 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 NO PROBLEMS SWALLOWING OR TALKING. ONLY ON DIRECT QUESTIONING DOES SHE REPORT SLIGHT TINGLING TO THE BOTTOM OF HER LEFT FOOT AND TOES. NO WEAKNESS OF LEG/FOOT STATES SHE SUDDENLY FELT LIKE HER "HEART WAS BEATING OUT OF HER CHEST" AT ONSET OF SYMPTOMS--THAT HAS IMPROVED. HAS HISTORY OF ANXIETY AND PANIC ATTACKS STATES SHE HAS HAD RIGHT LUTHERAN HEADACHE FOR THE LAST WEEK--STATES "SINUS INFECTION"--HAS FREQUENT HEADACHES AND MIGRAINES--STATES SHE FEELS LIKE IT IS STARTING TO TURN INTO A MIGRAINE NOW. HAS NOT TAKEN ANYTHING FOR HER HEADACHE AT ANY TIME. STATES SHE HAS IMITREX AT HOME. NO VISION CHANGES C/O DIZZINESS AND NAUSEA STATES SHE CHECKED HER BP AT WORK AND IT WAS HIGH--170/130 AND HEART RATE WAS 117 PT TAKES ATENOLOL AND DILTIAZEM FOR HTN, DENIES ANY MISSED DOSES TAKES BACLOFEN FOR RESTLESS LEGS/ LEG PAIN TAKES TOPAMAX FOR HEADACHES AND "SEIZURES"--HAS BEEN DX WITH CONVERSION DISORDER TAKES IMITREX FOR HEADACHES TAKES GABAPENTIN FOR PSYCH ISSUES PCP: [facility] Allergies and Home Medications Allergies Coded Allergies: hydromorphone (Verified Allergy, Severe, ANAPHYLAXIS, 09/03/18) Penicillins (Unverified Allergy, Mild, hives, 09/03/18) morphine (Verified Allergy, Mild, Rash, 12/31/18) latex (Verified Allergy, Unknown, HIVES, 06/09/18) Home Medications Amlodipine Besylate 5 Mg Tablet, 5 MG PO DAILY Prescribed by: BARRETT DELONG on 05/14/19 0730 Aspirin 81 Mg Tab.chew, 81 MG PO DAILY@0900 Prescribed by: KALYAN BACK on 05/14/19 1000 Atorvastatin Calcium 40 Mg Tablet, 40 MG PO DAILY Prescribed by: KALYAN BACK on 05/14/19 1000 Baclofen 10 Mg Tablet, 10 MG PO TID, (Reported) Gabapentin 300 Mg Capsule, 300 MG PO DAILY, (Reported) Lisinopril 10 Mg Tablet, 10 MG PO DAILY Prescribed by: BARRETT DELONG on 05/14/19 0732 Metoprolol Succinate 100 Mg Tab.er.24h, 100 MG PO DAILY Prescribed by: BARRETT DELONG on 05/14/19 0730 Omeprazole 20 Mg Tablet.dr, 20 MG PO DAILY, (Reported) Topiramate 50 Mg Tablet, 50 MG PO BID, (Reported) Patient Home Medication List Home Medication List Reviewed: Yes Review of Systems Review of Systems Constitutional: see HPI, dizziness Eyes: No Symptoms Reported Ears, Nose, Mouth, Throat: no symptoms reported Respiratory: no symptoms reported Cardiovascular: palpitations; No syncope, No vascular heart diseas Gastrointestinal: see HPI; No abdominal pain; nausea; No vomiting; other (HAS CHRONIC INTERMITTENT RECTAL BLEEDING, AND STATES FREQUENTLY IT WILL HAPPEN BEFORE HER MENSTRUAL CYCLE, WHICH IS DUE NEXT WEEK. STATES BLEEDING HAS BEEN HEAVIER THAN NORMAL--ONGOING FOR THE LAST 2 DAYS. HAS AN APPOINTMENT WITH DR. FLAHERTY NEXT WEEK AND WILL DISCUSS THIS WITH HIM AT THAT TIME. ) LMP: Apr 23, 2019 (NORMAL. NO CONTROL) Musculoskeletal: no symptoms reported Skin: no symptoms reported Psychiatric/Neurological: See HPI; Denies Cognitive Dysfunction; Headache, Tingling; Denies Weakness Endocrine: No Symptoms Reported Hematologic/Lymphatic: No Symptoms Reported Past Qbnuerz-Jhsjzp-Nnpizb Hx Past Med/Social Hx: Reviewed and Corrections made Patient Social History Alcohol Use: Denies Use Recreational Drug Use: Yes (HX OF IV METH USE, RX PILLS ABUSE; UDS + FOR THC 05/13/19) Drug of Choice: HX OF BEING AN ADDICT-IV METH, RX PILLS ABUSE, UDS + FOR THC 05/13/19 Smoking Status: Current Everyday Smoker (2 PPD) Type Used: Cigarettes (2 PPD) 2nd Hand Smoke Exposure: Yes Recent Foreign Travel: No Contact w/Someone Who Travel: No Recent Infectious Disease Expo: No Recent Hopitalizations: No Physical Abuse: No Sexual Abuse: No Immunizations Up To Date Date of Influenza Vaccine: Dec 02, 2018 Seasonal Allergies Seasonal Allergies: Yes Past Medical History Surgeries: Yes ( genital wart destruction, knee scope, LIVER BIOPSY WITH LAP YONAS) Appendectomy, Gallbladder, Orthopedic Respiratory: No Cardiac: Yes High Cholesterol, Hypertension, Palpitations Neurological: Yes (BELLS PALSY LEFT SIDE) Headaches /Migraines : No Last Menstrual Period: Mar 23, 2019 Reproductive Disorders: Yes (ovarian cysts) Female Reproductive Disorders: Polycystic Ovarian Dis Sexually Transmitted Disease: Yes (hx of genital warts) HIV/AIDS: No Genitourinary: Yes (FREQUENCY, ANTHONY) Gastrointestinal: Yes (CHRONIC RECTAL BLEEDING; CYST ON LIVER; S/P CHOLECYSTECTOMY) Gastroesophageal Reflux, Stoddard's Esophagus, Hemorrhoids, Gall Bladder Disease Musculoskeletal: Yes (KNEE SCOPE; RESTLESS LEGS/CHRONIC LEG PAIN ) Fibromyalgia, Rheumatoid Arthritis Endocrine: Yes (OBEISTY) HEENT: Yes (VISION CORRECTED WITH CONTACTS) Cancer: No Psychosocial: Yes (MOOD DISORDER, FIBROMYLGIA, CONVERSION DIORDER) Sleep Difficulties, Anxiety, Bipolar, Depression Integumentary: No Blood Disorders: No Family Medical History No Pertinent Family Hx Physical Exam Vital Signs Vital Signs - First Documented 05/13/19 12:25 Temp 36.7 Pulse 90 Resp 18 B/P (MAP) 174/101 (125) Pulse Ox 99 Capillary Refill : Less Than 3 Seconds Height, Weight, BMI Height: 5'4.00" Weight: 215lbs. 0.0oz. 97.479769gv; 38.00 BMI Method:Stated General Appearance: no apparent distress, obese HEENT: PERRL/EOMI, normal ENT inspection, pharynx normal, other (TONGUE MIDLINE) Neck: normal inspection Respiratory: normal breath sounds, no respiratory distress, no accessory muscle use Cardiovascular: normal peripheral pulses, regular rate, rhythm, no murmur Peripheral Pulses: 2+ Dorsalis Pedis (R), 2+ Left Dors-Pedis (L), 2+ Radial Pulses (R), 2+ Radial Pulses (L) Gastrointestinal: non tender, soft Back: no CVA tenderness Extremities: normal inspection, no pedal edema, no calf tenderness, normal capillary refill 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, no motor/sensory deficits, alert, normal mood/affect, oriented x 3; No abnormal cerebellar tests Crainal Nerves: normal hearing, normal speech, PERRL Coordination/Gait: normal finger to nose, normal gait, negative Romberg's sign Motor/Sensory: no motor deficit, no sensory deficit, no pronator drift Reflexes: 2+ Bicep (R), 2+ Bicep (L), 2+ Knee (R), 2+ Knee (L) Skin: normal color, warm/dry, tattoos/piercings (MULTIPLE ) Stroke NIH Stroke Scale Assessment Select: Initial Level of Consciousness: 0=Alert (0), Level of Consciousness- Questions: 0=Answers both month/age (0), LOC Commands: 0=Performs both tasks (0), Gaze: Normal (0), Visual Diaz: 0=No visual loss (0), Facial Movement (Facial Paresis): 0=Normal symmetrical mnt (0), Motor Function-Arms Right: 0=No drift (0), Motor Function-Arms Left: 0=No drift (0), Motor Function-Legs Right: 0=No drift (0), Motor Function-Legs Left: 0=No drift (0), Limb Ataxia: 0=Absent (0), Sensory: 0=Normal:no loss (0), Best Language: 0=No aphasia (0), Dysarthria: 0=Normal (0), Extinction & Inattention: 0=No abnormality (0), Total: 0 Stroke Thrombolytic Exclusion Age 18 or Over: Yes Acute intenal hemorrhage: No History of CVA: No Uncontrolled Coagulation Defec: No Intracranial Hemorrhage: No Severe Hypertension: Yes (170/130 PRIOR TO ARRIVAL, PER PT. ) GI or Bleed: Yes Subarachnoid Hemorrhage: No Intracranial Neoplasm/Aneurysm: No Oral Anticoagulants: No Surgery or Trauma: No Puncture of Non-Compressible V: No Recent CPR: No Diabetic Hemorrhagic Retinopat: No Organ Biopsy: Yes (NOT RECENTLY) Recent Obstetric Delivery: No Glucose: No Significant Hepatic Dysfunctio: No NIH Stoke Scale >22: No Bacterial Endocarditis: No Pericarditis: No Improving Symptoms: Yes Platelets: No TPA Contraindication: Yes (RECTAL BLEEDING, SYMPTOMS IMPROVING, AND NIH IS 0) Progress/Results/Core Measures Results/Orders Lab Results Laboratory Tests Test 05/13/19 12:26 05/13/19 12:31 05/13/19 13:02 Range/Units White Blood Count 9.7 4.3-11.0 10^3/uL Red Blood Count 5.54 4.35-5.85 10^6/uL Hemoglobin 16.5 H 11.5-16.0 G/DL Hematocrit 49 35-52 % Mean Corpuscular Volume 88 80-99 FL Mean Corpuscular Hemoglobin 30 25-34 PG Mean Corpuscular Hemoglobin Concent 34 32-36 G/DL Red Cell Distribution Width 14.1 10.0-14.5 % Platelet Count 285 130-400 10^3/uL Mean Platelet Volume 9.4 7.4-10.4 FL Neutrophils (%) (Auto) 66 42-75 % Lymphocytes (%) (Auto) 25 12-44 % Monocytes (%) (Auto) 8 0-12 % Eosinophils (%) (Auto) 1 0-10 % Basophils (%) (Auto) 0 0-10 % Neutrophils # (Auto) 6.4 1.8-7.8 X 10^3 Lymphocytes # (Auto) 2.4 1.0-4.0 X 10^3 Monocytes # (Auto) 0.8 0.0-1.0 X 10^3 Eosinophils # (Auto) 0.1 0.0-0.3 10^3/uL Basophils # (Auto) 0.0 0.0-0.1 10^3/uL Prothrombin Time 12.5 12.2-14.7 SEC INR Comment 0.9 0.8-1.4 Activated Partial Thromboplast Time 29 24-35 SEC D-Dimer 0.47 0.00-0.49 UG/ML Sodium Level 140 135-145 MMOL/L Potassium Level 4.1 3.6-5.0 MMOL/L Chloride Level 106 98-107 MMOL/L Carbon Dioxide Level 22 21-32 MMOL/L Anion Gap 12 5-14 MMOL/L Blood Urea Nitrogen 15 7-18 MG/DL Creatinine 0.90 0.60-1.30 MG/DL Estimat Glomerular Filtration Rate > 60 BUN/Creatinine Ratio 17 Glucose Level 92 70-105 MG/DL Calcium Level 10.2 H 8.5-10.1 MG/DL Corrected Calcium 8.5-10.1 MG/DL Magnesium Level 2.1 1.6-2.4 MG/DL Total Bilirubin 0.4 0.1-1.0 MG/DL Aspartate Amino Transf (AST/SGOT) 21 5-34 U/L Alanine Aminotransferase (ALT/SGPT) 20 0-55 U/L Alkaline Phosphatase 83 40-136 U/L Troponin I < 0.028 <0.028 NG/ML Total Protein 8.4 H 6.4-8.2 GM/DL Albumin 5.0 H 3.2-4.5 GM/DL TSH Saline Testing 0.91 0.35-4.94 UIU/ML Serum Test, Qualitative NEGATIVE NEGATIVE Acetaminophen Level < 10 L 10-30 UG/ML Serum Alcohol < 10 <10 MG/DL Glucometer 95 70-110 MG/DL Urine Color YELLOW Urine Clarity CLEAR Urine pH 7.0 5-9 Urine Specific [place] 1.020 1.016-1.022 Urine Protein NEGATIVE NEGATIVE Urine Glucose (UA) NEGATIVE NEGATIVE Urine Ketones NEGATIVE NEGATIVE Urine Nitrite NEGATIVE NEGATIVE Urine Bilirubin NEGATIVE NEGATIVE Urine Urobilinogen 0.2 < = 1.0 MG/DL Urine Leukocyte Esterase NEGATIVE NEGATIVE Urine RBC (Auto) NEGATIVE NEGATIVE Urine RBC NONE /HPF Urine WBC RARE /HPF Urine Squamous Epithelial Cells 0-2 /HPF Urine Crystals PRESENT H /LPF Urine Amorphous Sediment FEW DIXON PHOSPHATE H /LPF Urine Bacteria TRACE /HPF Urine Casts NONE /LPF Urine Mucus NEGATIVE /LPF Urine Culture Indicated NO Urine Opiates Screen NEGATIVE NEGATIVE Urine Oxycodone Screen NEGATIVE NEGATIVE Urine Methadone Screen NEGATIVE NEGATIVE Urine Propoxyphene Screen NEGATIVE NEGATIVE Urine Barbiturates Screen NEGATIVE NEGATIVE Ur Tricyclic Antidepressants Screen NEGATIVE NEGATIVE Urine Phencyclidine Screen NEGATIVE NEGATIVE Urine Amphetamines Screen NEGATIVE NEGATIVE Urine Methamphetamines Screen NEGATIVE NEGATIVE Urine Benzodiazepines Screen NEGATIVE NEGATIVE Urine Cocaine Screen NEGATIVE NEGATIVE Urine Cannabinoids Screen POSITIVE H NEGATIVE My Orders Orders - LUCAS MARTINEZ DO Cbc With Automated Diff (05/13/19 12:36) Protime With Inr (05/13/19 12:36) Partial Thromboplastin Time (05/13/19 12:36) Comprehensive Metabolic Panel (05/13/19 12:36) Fibrin Degradation Products (05/13/19 12:36) Troponin I (05/13/19 12:36) Hcg,Qualitative Serum (05/13/19 12:36) Ua Culture If Indicated (05/13/19 12:36) Chest 1 View, Ap/Pa Only (05/13/19 12:36) Ekg Tracing (05/13/19 12:36) Nothing By Mouth (05/13/19 Dinner) Accucheck Stat ONCE (05/13/19 12:36) Ed Iv/Invasive Line Start (05/13/19 12:36) Ed Iv/Invasive Line Start (05/13/19 12:36) Vital Signs Stroke Patient Q15M (05/13/19 12:36) Ct Head Wo-R/O Stroke (05/13/19 12:36) Intake & Output 06,14,22 (05/13/19 12:36) Monitor-Rhythm Ecg Trace Only (05/13/19 12:36) Dysphagia Screening Tool (05/13/19 12:36) Sao2 W/End-Tidal Monitoring (O Q15M (05/13/19 12:36) Acetaminophen (05/13/19 12:36) Alcohol (05/13/19 12:36) Drug Screen Stat (Urine) (05/13/19 12:36) Magnesium (05/13/19 12:36) Thyroid Analyzer (05/13/19 12:36) Ct Angio Head/Neck (05/13/19 13:22) Labetalol Injection (Normodyne Injection (05/13/19 13:30) Iohexol Injection (Omnipaque 350 Mg/Ml 1 (05/13/19 13:45) Received Contrast (Hold Metformin- Contr (05/13/19 13:45) Sodium Chloride Flush (Catheter Flush Sy (05/13/19 13:45) Ns (Ivpb) (Sodium Chloride 0.9% Ivpb Bag (05/13/19 13:45) Labetalol Injection (Normodyne Injection (05/13/19 14:30) Metoprolol Succinate (Xl) Tab (Toprol Xl (05/13/19 14:30) Medications Given in ED Vital Signs/I&O 05/13/19 12:25 Temp 36.7 Pulse 90 Resp 18 B/P (MAP) 174/101 (125) Pulse Ox 99 Blood Pressure Mean: 125 Progress Progress Note : Progress Note DURING ER COURSE, AROUND 1510, PT'S FEMALE FRIEND/S.O. ARRIVES IN ROOM AND PT'S BEHAVIOR BECOMES VERY DRAMATIC AND RAPIDLY ESCALATES, AND INCREASED "ANXIETY", AND AT 1533--PT NOW C/O CHEST PAIN--REPEAT EKG AND LAB ORDERED, AND AT FEMALE'S SUGGESTION, PT NOW SUDDENLY DEVELOPS NEW SYMPTOMS--FEMALE STATES THAT "SHE LOOKS LIKE SHE IS GOING TO HAVE A SEIZURE" AND PT IMMEDIATELY ON CUE HAS A 10 SECOND PSEUDOSEIZURE AT 1535. --NO POST ICTAL SYMPTOMS, NO INCONTINENCE. NORMAL MENTATION IMMEDIATELY AFTERWARD. NO ARRHYTHMIAS OR CHANGES IN VITALS Initial ECG Impression Date: May 13, 2019 Initial ECG Impression Time: 12:27 Initial ECG Rate: 93 Initial ECG Rhythm: Normal Sinus EKG : EKG Time: 15:37 Rate: 76 Rhythm: Normal Sinus ECG Comparisson: Unchanged Diagnostic Imaging Comments CT HEAD--QUESTIONABLE LOW DENSITY AREA IN FRONTAL WHITE MATTER, PER RADIOLOGIST REPORT AT 1322 CXR--NO ACUTE PROCESS, PER RADIOLOGIST REPORT CT ANGIOGRAM OF HEAD/NECK--ESSENTIALLY NORMAL. NO LARGE VESSEL OCCLUSION OR THROMBOEMBOLI , NO EVIDENCE OF INFARCT, NO ABNORMAL ENHANCEMENT --PER RADIOLOGIST REPORT AT 1415 Reviewed: Reviewed by Me Departure Communication (Admissions) 1424--SPOKE WITH DR. 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 ADVISES CARDIOLOGY CONSULT WITH DR. DELONG. 1427--SPOKE WITH DR. DELONG AND INFORMED HIM OF CONSULT. 153--DR. BACK HERE TO SEE PT 1510--DR. DELONG HERE. PT HAS REPORTED TO HIM THAT SHE HAS HISTORY OF SVT AND ATRIAL FIBRILLATION IN THE PAST. Impression Primary Impression: Hypertensive encephalopathy Additional Impression: Conversion disorder Disposition: ADMITTED INPATIENT Condition: Stable Admissions Decision to Admit Reason: Admit from ER (General) Decision to Admit/Date: May 13, 2019 Time/Decision to Admit Time: 14:25 Departure-Patient Inst. [place]: [facility] [place] Primary Care Physician Scripts Atorvastatin Calcium (Atorvastatin Calcium) 40 Mg Tablet 40 MG PO DAILY, #30 TAB Prov: KALYAN BACK DO 05/14/19 Aspirin (Aspirin) 81 Mg Tab.chew 81 MG PO DAILY@0900, #30 TAB Prov: NAZANINKALYAN DO 05/14/19 Lisinopril (Lisinopril) 10 Mg Tablet 10 MG PO DAILY, #30 TAB 3 Refills Prov: BARRETT DELONG MD 05/14/19 Amlodipine Besylate (Amlodipine Besylate) 5 Mg Tablet 5 MG PO DAILY, #30 TAB 3 Refills Prov: BARRETT DELONG MD 05/14/19 Metoprolol Succinate (Metoprolol Succinate) 100 Mg Tab.er.24h 100 MG PO DAILY, #30 TAB 3 Refills Prov: BARRETT DELONG MD 05/14/19 LUCAS MARTINEZ DO May 13, 2019 12:46
[2019-05-13 12:57] LABS: ALANINE AMINOTRANSFERASE 20 U/L (0-55); ALKALINE PHOSPHATASE 83 U/L (40-136); BILIRUBIN,TOTAL 0.4 MG/DL (0.1-1.0); BUN/CREATININE RATIO 17; CALCIUM 10.2 MG/DL (8.5-10.1); CARBON DIOXIDE 22 MMOL/L (21-32); CHLORIDE 106 MMOL/L (98-107); GFR ESTIMATED > 60; GLUCOSE 92 MG/DL (70-105); MAGNESIUM 2.1 MG/DL (1.6-2.4); POTASSIUM 4.1 MMOL/L (3.6-5.0); SODIUM 140 MMOL/L (135-145); TOTAL PROTEIN 8.4 GM/DL (6.4-8.2)
--- NOTE | 2019-05-13 13:07 | Diagnostic Imaging Report ---
PROCEDURE: CT head wo r/o stroke. TECHNIQUE: Multiple contiguous axial images were obtained through the brain without the use of intravenous contrast. Auto Exposure Controls were utilized during the CT exam to meet ALARA standards for radiation dose reduction. INDICATION: Left-sided weakness. Correlation is made with prior head CT from 11/27/2018. The ventricles and sulci are within normal limits. No sulcal effacement or midline shift is identified. No acute intra-axial or extra-axial hemorrhage is detected. Cisterns are patent. The visualized paranasal sinuses are clear. There is a questionable low-density in the white matter adjacent to the frontal horns bilaterally. IMPRESSION: No acute intracranial process is detected. There is some mild subtle low density in the frontal white matter. MRI may be useful for further evaluation. Dictated by: Dictated on workstation # [id number]
[2019-05-13 13:08] LABS: BILIRUBIN,URINE NEGATIVE (NEGATIVE); CLARITY,URINE CLEAR; COLOR,URINE YELLOW; GLUCOSE, URINE (UA) NEGATIVE (NEGATIVE); KETONES,URINE NEGATIVE (NEGATIVE); LEUKOCYTE ESTERASE ,URINE NEGATIVE (NEGATIVE); NITRITE,URINE NEGATIVE (NEGATIVE); PROTEIN,URINE NEGATIVE (NEGATIVE)
[2019-05-13 13:14] LABS: INR 0.9 (0.8-1.4); PROTHROMBIN TIME PATIENT 12.5 SEC (12.2-14.7)
[2019-05-13 13:17] LABS: TSH (THYROID ANALYZER) 0.91 UIU/ML (0.35-4.94)
[2019-05-13 13:22] LABS: BACTERIA,URINE TRACE /HPF; SQUAMOUS EPITHELIAL CELL,UR 0-2 /HPF; WBC,URINE RARE /HPF
[2019-05-13 13:23] LABS: AMORPHOUS SEDIMENT,UR FEW AMOR PHOSPHATE /LPF
[2019-05-13 13:27] LABS: AMPHETAMINE SCREEN, URINE NEGATIVE (NEGATIVE); BARBITURATE SCREEN URINE NEGATIVE (NEGATIVE); BENZODIAZEPINES SCREEN URINE NEGATIVE (NEGATIVE); CANNABINOID SCREEN, URINE POSITIVE (NEGATIVE); COCAINE SCREEN URINE NEGATIVE (NEGATIVE); METHADONE STAT NEGATIVE (NEGATIVE); METHAMPHETAMINE SCREEN URINE S NEGATIVE (NEGATIVE); OPIATE SCREEN URINE NEGATIVE (NEGATIVE); OXYCODONE STAT NEGATIVE (NEGATIVE); PROPOXYPHENE STAT NEGATIVE (NEGATIVE); TRICYCLIC ANTIDEPRESSANTS SCRE NEGATIVE (NEGATIVE)
[2019-05-13 13:30] LABS: FIBRIN DEGRADATION PRODUCTS 0.47 UG/ML (0.00-0.49)
[2019-05-13] MEDS ORDERED: LABETALOL HCL 20 MG/4 ML VIAL IV ONE ×2 (13:30→14:30)
--- NOTE | 2019-05-13 13:31 | Diagnostic Imaging Report ---
INDICATION: Left-sided numbness. COMPARISON: November 27, 2018. TECHNIQUE: Single frontal radiograph of the chest dated May 13, 2019. FINDINGS: The cardiac silhouette and pulmonary vasculature are within normal limits. The lungs are clear. No pleural effusion. No pneumothorax. No acute osseous abnormality. IMPRESSION: No acute cardiopulmonary abnormality. Dictated by: Dictated on workstation # [id number]
[2019-05-13] MEDS ORDERED: NS 100 ML (IVPB) BAG IV ONE (13:45)
[2019-05-13] MEDS ORDERED: CATHETER FLUSH 10 ML SYR IV PRN ×2 (13:45→16:30)
[2019-05-13] MEDS ORDERED: HOLD METFORMIN - RECEIVED CONTRAST 20 ML VIAL IV SCH (13:45)
[2019-05-13] MEDS ORDERED: IOHEXOL 350 MG/ML 100 ML (OMNIPAQUE 350) VIAL IV ONE (13:45)
[2019-05-13 13:48] LABS: ACETAMINOPHEN < 10 UG/ML (10-30)
--- NOTE | 2019-05-13 14:08 | Diagnostic Imaging Report ---
PROCEDURE: CT angiography of the head and CT angiography of the neck with and without contrast. TECHNIQUE: Contiguous noncontrast images were obtained from the skull base through the vertex. After intravenous contrast administration, helical CT angiography of the neck was performed. Source data was reformatted into 3D MIP projections. Delayed post contrast acquisition was also obtained. Auto Exposure Controls were utilized during the CT exam to meet ALARA standards for radiation dose reduction. INDICATION: Left-sided weakness. COMPARISON: Correlation is made with the noncontrast head CT from earlier the same day. FINDINGS: There is a three-vessel branching pattern to the aortic arch. The common carotid arteries are widely patent. Both carotid bifurcations are unremarkable. Both internal carotid arteries are widely patent. The M1 and M2 branches of bilateral middle cerebral arteries are widely patent. No thromboemboli are detected. Right and left anterior cerebral arteries are patent. The basilar artery is patent. Right and left posterior cerebral arteries are patent. Delayed post contrast images are without abnormal enhancement. IMPRESSION: Unremarkable CT angiogram of the head and neck. No thromboemboli or large branch occlusion is identified. Dictated by: Dictated on workstation # [id number]
[2019-05-13] MEDS ORDERED: meTOprolol SUCCINATE 100 MG (TOPROL XL) TAB PO ONE (14:30)
[2019-05-13] MEDS ORDERED: PROMETHAZINE INJ 25 MG/ML (PHENERGAN) AMP IV ONE (15:30)
[2019-05-13] MEDS ORDERED: KETOROLAC 30 MG/ML VIAL IVP ONE (15:30)
[2019-05-13] MEDS ORDERED: diphenhydrAMINE 50 MG/ML INJ (BENADRYL) IV ONE (15:30)
--- NOTE | 2019-05-13 15:30 | Consultation-Cardiology ---
HPI-Cardiology Cardiology Consultation Date of Consultation 05/13/19 Date of Admission Time Seen by Provider: 15:26 Indication: hypertension HPI 39-year-old lady with history of hypertension, syncope, paroxysmal atrial tachycardia and questionable atrial fibrillation in the past. She started to feel some tingling sensation in her arm. Denied any chest pain. No shortness of breath but she was having palpitation. Check her blood pressure and was elevated. Came into the emergency room for evaluation. Her blood pressure is better after receiving multiple doses of IV labetalol. Feeling better at this time. Home Medications & Allergies Allergies: Coded Allergies: hydromorphone (Verified Allergy, Severe, ANAPHYLAXIS, 09/03/18) Penicillins (Unverified Allergy, Mild, hives, 09/03/18) morphine (Verified Allergy, Mild, Rash, 12/31/18) latex (Verified Allergy, Unknown, HIVES, 06/09/18) Home Medication List Reviewed: Yes [id number] Hx Patient Social History Alcohol Use: Denies Use Recreational Drug Use: Yes (HX OF IV METH USE, RX PILLS ABUSE; UDS + FOR THC 05/13/19) Drug of Choice: HX OF BEING AN ADDICT-IV METH, RX PILLS ABUSE, UDS + FOR THC 05/13/19 Smoking Status: Current Everyday Smoker (2 PPD) Type Used: Cigarettes (2 PPD) 2nd Hand Smoke Exposure: Yes Recent Foreign Travel: No Recent Infectious Disease Expo: No Recent Hopitalizations: No Immunizations Up To Date Date of Influenza Vaccine: Dec 02, 2018 Past Medical History Discussed below Family Medical History Significant Family History: No Pertinent Family Hx Family Medical Hx Noncontributory Review of Systems-General Review of Systems Constitutional: no symptoms reported, see HPI, dizziness EENTM: see HPI, no symptoms reported Respiratory: no symptoms reported, see HPI Cardiovascular: see HPI; No chest pain, No edema, No Hx of Intervention; palpitations; No syncope, No vascular heart diseas, No other Gastrointestinal: see HPI; No abdominal pain; nausea; No vomiting; other (HAS CHRONIC INTERMITTENT RECTAL BLEEDING, AND STATES FREQUENTLY IT WILL HAPPEN BEFORE HER MENSTRUAL CYCLE, WHICH IS DUE NEXT WEEK. STATES BLEEDING HAS BEEN HEAVIER THAN NORMAL--ONGOING FOR THE LAST 2 DAYS. HAS AN APPOINTMENT WITH DR. FLAHERTY NEXT WEEK AND WILL DISCUSS THIS WITH HIM AT THAT TIME. ) Genitourinary: see HPI LMP: Apr 23, 2019 (NORMAL. NO CONTROL) Musculoskeletal: no symptoms reported, see HPI Skin: no symptoms reported, see HPI Psychiatric/Neurological: See HPI, Numbness Reviewed Test Results Reviewed Test Results Lab Laboratory Tests Test 05/13/19 12:26 05/13/19 12:31 05/13/19 13:02 Range/Units White Blood Count 9.7 4.3-11.0 10^3/uL Red Blood Count 5.54 4.35-5.85 10^6/uL Hemoglobin 16.5 H 11.5-16.0 G/DL Hematocrit 49 35-52 % Mean Corpuscular Volume 88 80-99 FL Mean Corpuscular Hemoglobin 30 25-34 PG Mean Corpuscular Hemoglobin Concent 34 32-36 G/DL Red Cell Distribution Width 14.1 10.0-14.5 % Platelet Count 285 130-400 10^3/uL Mean Platelet Volume 9.4 7.4-10.4 FL Neutrophils (%) (Auto) 66 42-75 % Lymphocytes (%) (Auto) 25 12-44 % Monocytes (%) (Auto) 8 0-12 % Eosinophils (%) (Auto) 1 0-10 % Basophils (%) (Auto) 0 0-10 % Neutrophils # (Auto) 6.4 1.8-7.8 X 10^3 Lymphocytes # (Auto) 2.4 1.0-4.0 X 10^3 Monocytes # (Auto) 0.8 0.0-1.0 X 10^3 Eosinophils # (Auto) 0.1 0.0-0.3 10^3/uL Basophils # (Auto) 0.0 0.0-0.1 10^3/uL Prothrombin Time 12.5 12.2-14.7 SEC INR Comment 0.9 0.8-1.4 Activated Partial Thromboplast Time 29 24-35 SEC D-Dimer 0.47 0.00-0.49 UG/ML Sodium Level 140 135-145 MMOL/L Potassium Level 4.1 3.6-5.0 MMOL/L Chloride Level 106 98-107 MMOL/L Carbon Dioxide Level 22 21-32 MMOL/L Anion Gap 12 5-14 MMOL/L Blood Urea Nitrogen 15 7-18 MG/DL Creatinine 0.90 0.60-1.30 MG/DL Estimat Glomerular Filtration Rate > 60 BUN/Creatinine Ratio 17 Glucose Level 92 70-105 MG/DL Calcium Level 10.2 H 8.5-10.1 MG/DL Corrected Calcium 8.5-10.1 MG/DL Magnesium Level 2.1 1.6-2.4 MG/DL Total Bilirubin 0.4 0.1-1.0 MG/DL Aspartate Amino Transf (AST/SGOT) 21 5-34 U/L Alanine Aminotransferase (ALT/SGPT) 20 0-55 U/L Alkaline Phosphatase 83 40-136 U/L Troponin I < 0.028 <0.028 NG/ML Total Protein 8.4 H 6.4-8.2 GM/DL Albumin 5.0 H 3.2-4.5 GM/DL TSH Sanders Testing 0.91 0.35-4.94 UIU/ML Serum Test, Qualitative NEGATIVE NEGATIVE Acetaminophen Level < 10 L 10-30 UG/ML Serum Alcohol < 10 <10 MG/DL Glucometer 95 70-110 MG/DL Urine Color YELLOW Urine Clarity CLEAR Urine pH 7.0 5-9 Urine Specific Union 1.020 1.016-1.022 Urine Protein NEGATIVE NEGATIVE Urine Glucose (UA) NEGATIVE NEGATIVE Urine Ketones NEGATIVE NEGATIVE Urine Nitrite NEGATIVE NEGATIVE Urine Bilirubin NEGATIVE NEGATIVE Urine Urobilinogen 0.2 < = 1.0 MG/DL Urine Leukocyte Esterase NEGATIVE NEGATIVE Urine RBC (Auto) NEGATIVE NEGATIVE Urine RBC NONE /HPF Urine WBC RARE /HPF Urine Squamous Epithelial Cells 0-2 /HPF Urine Crystals PRESENT H /LPF Urine Amorphous Sediment FEW DIXON PHOSPHATE H /LPF Urine Bacteria TRACE /HPF Urine Casts NONE /LPF Urine Mucus NEGATIVE /LPF Urine Culture Indicated NO Urine Opiates Screen NEGATIVE NEGATIVE Urine Oxycodone Screen NEGATIVE NEGATIVE Urine Methadone Screen NEGATIVE NEGATIVE Urine Propoxyphene Screen NEGATIVE NEGATIVE Urine Barbiturates Screen NEGATIVE NEGATIVE Ur Tricyclic Antidepressants Screen NEGATIVE NEGATIVE Urine Phencyclidine Screen NEGATIVE NEGATIVE Urine Amphetamines Screen NEGATIVE NEGATIVE Urine Methamphetamines Screen NEGATIVE NEGATIVE Urine Benzodiazepines Screen NEGATIVE NEGATIVE Urine Cocaine Screen NEGATIVE NEGATIVE Urine Cannabinoids Screen POSITIVE H NEGATIVE Physical Exam Physical Exam Vital Signs Vital Signs - First Documented 05/13/19 12:25 Temp 36.7 Pulse 90 Resp 18 B/P (MAP) 174/101 (125) Pulse Ox 99 Capillary Refill : Less Than 3 Seconds Height, Weight, BMI Height: 5'4.00" Weight: 215lbs. 0.0oz. [id number]; 38.00 BMI Method:Stated General Appearance: No Apparent Distress, WD/WN Eyes: Bilateral Eye Normal Inspection, Bilateral Eye PERRL, Bilateral Eye EOMI HEENT: PERRL/EOMI, TMs Normal, Normal ENT Inspection, Pharynx Normal, Moist Mucous Membranes Neck: Full Range of Motion, Normal Inspection, Non Tender, Supple, Carotid Bruit Respiratory: Chest Non Tender, Normal Breath Sounds, No Accessory Muscle Use, No Respiratory Distress Cardiovascular: Regular Rate, Rhythm, No Edema, No Gallop, No JVD, No Murmur, Normal Peripheral Pulses Gastrointestinal: Normal Bowel Sounds, No Organomegaly, No Pulsatile Mass, Non Tender, Soft Back: Normal Inspection, No CVA Tenderness, No Vertebral Tenderness Extremity: Normal Capillary Refill, Normal Inspection, Normal Range of Motion, Non Tender, No Calf Tenderness, No Pedal Edema Neurologic/Psychiatric: Alert, Oriented x3, No Motor/Sensory Deficits, Normal Mood/Affect Reflexes: 2+ Bicep (R), 2+ Bicep (L), 2+ Knee (R), 2+ Knee (L) Skin: Normal Color, Warm/Dry Lymphatic: No Adenopathy A/P-Cardiology Admission Diagnosis TIA Hypertensive emergency Palpitation López's palsy Assessment/Plan Numbness on the left side, questionable TIA. Could be secondary to hypertensive emergency, better at this time. Continue monitoring on telemetry. Evaluate 2-D echo Labile hypertension with hypertensive emergency, history of syncope. I will change her atenolol and Cardizem to Toprol and amlodipine and monitor Palpitation, Questionable history of paroxysmal atrial fibrillation in the past. Had a Holter monitor in the past. We'll consider event recorder versus loop recorder as an outpatient. History of López's palsy History of IVDA in the past. No recent intravenous drug use. BARRETT DELONG MD May 13, 2019 15:29
--- NOTE | 2019-05-13 16:09 | History & Physical-Hospitalist ---
SYLVAIN BRANDT,MED STUDENT 05/13/19 1609: History of Present Illness HPI/Chief Complaint CC: L sided tingling of face, hands and fingers HPI: Ms. Gale is a 39yo WF c/o tingling of the left side of her face, left hand and fingers that began today around noon. She reports having a headache all week, and began to feel worse today so she checked her blood pressure at home which was elevated, and this prompted her to come to the ED. She also admits lightheadedness, nausea and occasional chest tightness. She denies changes in vision, hearing, SOB, focal weakness. She reports a hx of atrial fibrillation, HTN, López's Palsy, and migraines. She has a history of recreational drug use including methamphetamine and prescription medications. Source: patient, family Exam Limitations: no limitations Date Seen 05/13/19 Time Seen by a Provider: 15:30 Attending Physician Raven Back DO [facility] [place] Referring Physician Date of Admission May 13, 2019 at 14:30 Home Medications & Allergies Home Medications Reviewed patient Home Medication Reconciliation performed by pharmacy medication reconciliations instructional media services technician and/or nursing. Patients Allergies have been reviewed. Allergies Allergies Coded Allergies hydromorphone (Verified Allergy, Severe, ANAPHYLAXIS, 09/03/18) Penicillins (Unverified Allergy, Mild, hives, 09/03/18) morphine (Verified Allergy, Mild, Rash, 12/31/18) latex (Verified Allergy, Unknown, HIVES, 06/09/18) Past [id number] Hx Past Med/Social Hx: Reviewed and Corrections made Patient Social History Employed/Student: employed Alcohol Use: Rarely Uses Recreational Drug Use: Yes (HX OF IV METH USE, RX PILLS ABUSE; UDS + FOR THC 05/13/19) Drug of Choice: HX OF BEING AN ADDICT-IV METH, RX PILLS ABUSE, UDS + FOR THC 05/13/19 Smoking Status: Current Everyday Smoker (2 PPD) Type Used: Cigarettes (2 PPD) 2nd Hand Smoke Exposure: Yes Recent Foreign Travel: No Contact w/other who traveled: No Recent Hopitalizations: No Recent Infectious Disease Expo: No Immunizations Up To Date Date of Influenza Vaccine: Dec 02, 2018 Seasonal Allergies Seasonal Allergies: Yes Past Medical History Surgeries: Appendectomy, Gallbladder, Orthopedic Cardiac: High Cholesterol, Hypertension, Palpitations Neurological: Headaches /Migraines : No Reproductive: Yes (ovarian cysts) Sexually Transmitted Disease: Yes (hx of genital warts) HIV/AIDS: No Female Reproductive Disorders: Polycystic Ovarian Dis Gastrointestinal: Gastroesophageal Reflux, Stoddard's Esophagus, Hemorrhoids, Gall Bladder Disease Musculoskeletal: Fibromyalgia, Rheumatoid Arthritis Psychosocial: Sleep Difficulties, Anxiety, Bipolar, Depression History of Blood Disorders: No Family History No Pertinent Family Hx Review of Systems Constitutional: No chills; diaphoresis, dizziness; No fever, No weakness EENTM: No hearing loss, No blurred vision, No double vision, No vision loss, No nose congestion, No throat pain, No throat swelling Respiratory: No cough, No hemoptysis, No short of breath, No wheezing Cardiovascular: chest pain, palpitations; No syncope Gastrointestinal: No abdominal pain, No constipation, No diarrhea, No hematemesis; nausea; No vomiting Genitourinary: no symptoms reported Musculoskeletal: no symptoms reported Psychiatric/Neurological: See HPI, Headache, Tingling; Denies Weakness Physical Exam Physical Exam Vital Signs Vital Signs - First Documented 05/13/19 05/13/19 12:25 15:51 Temp 36.7 Pulse 90 Resp 18 B/P (MAP) 174/101 (125) Pulse Ox 99 O2 Delivery Room Air Capillary Refill : Less Than 3 Seconds Height, Weight, BMI Height: 5'4.00" Weight: 215lbs. 0.0oz. 97.813282cu; 38.00 BMI Method:Stated General Appearance: No Apparent Distress, WD/WN, Anxious HEENT: PERRL/EOMI; No Pale Conjunctivae (L), No Pale Conjunctivae (R), No Scleral Icterus (L), No Scleral Icterus (R) Neck: Full Range of Motion, Normal Inspection Respiratory: Lungs Clear, Normal Breath Sounds, No Accessory Muscle Use, No Respiratory Distress Cardiovascular: Regular Rate, Rhythm, No Edema, No Murmur, Normal Peripheral Pulses Extremity: Normal Capillary Refill, Non Tender, No Calf Tenderness, No Pedal Edema Neurologic/Psychiatric: Alert, Oriented x3 Skin: Normal Color, Warm/Dry Results Results/Procedures Labs Laboratory Tests 05/13/19 12:26 Patient resulted labs reviewed. Assessment/Plan Assessment and Plan Assessment: Hypertensive urgency Palpitations Fibromyalgia Hx of migraines per patient Hx of paroxysmal atrial tachycardia per patient Hx of conversion disorder Hx of IV drug use including methamphetamine UDS positive for cannabinoids Tobacco use Plan: Cardiology consulted Started on metoprolol Admit to cardiac step-down Monitor BP RAVEN BACK DO 05/13/19 2019: History of Present Illness HPI/Chief Complaint CC: HTN encephalopathy with pseudoseizure HPI: This is a 39yoWF clinic patient of Nohelia Echevarria at [facility] w/h/o fibromyalgia, HTN, PAF and lópez's palsy who presents to the ER after noting BP elevation at work as a [employer] along with hand numbness. Patient had a pseudoseizure in the ER as her girlfriend was at the bedside told nurses that she looked like she was going to have a seizure. Dr Kessler has been consulted. ECHO completed. Pt does have h/o conversion disorder. Past Vtnihvq-[id number]-[id number] Hx Past Med/Social Hx: Reviewed Nursing Past Med/Soc Hx, Reviewed and Corrections made Patient Social History Marrital Status: cohabiting Employed/Student: employed Alcohol Use: Rarely Uses Past Medical History Cardiac: Hypertension Neurological: Headaches /Migraines Musculoskeletal: Fibromyalgia Review of Systems Constitutional: see HPI Physical Exam Physical Exam General Appearance: Anxious, Chronically ill Respiratory: Lungs Clear Cardiovascular: Regular Rate, Rhythm Assessment/Plan Admission Diagnosis Assessment: HTN encephalopathy Pseudoseizures HTN OOC Migraines Fibromyalgia Conversion d/o Plan: BP control Add meds Dr Kessler appreciated Admission Status: Observation Diagnosis/Problems Diagnosis/Problems (1) Hypertensive encephalopathy Status: Acute (2) Conversion disorder Status: Acute (3) Migraine Status: Acute (4) Left-sided López's palsy Status: Acute (5) Labile hypertension Status: Acute (6) Anxiety Status: Acute (7) Seizure-like activity Status: Acute Supervisory-Addendum Brief Verification & Attestation Participated in pt care: history, MDM, physical Personally performed: exam, history, MDM, supervision of care Care discussed with: Medical Student Procedures: n/a Results interpretation: Verified all documentation Verification and Attestation of Medical Student E/M Service A medical student performed and documented this service in my presence. I reviewed and verified all information documented by the medical student and made modifications to such information, when appropriate. I personally performed the physical exam and medical decision making. Raven Back May 13, 2019,20:19 SYLVAIN BRANDT,COLEMAN STUDENT May 13, 2019 16:09 RAVEN BACK DO May 13, 2019 20:19
[2019-05-13 16:15] VITALS: BP 177/122
[2019-05-13 17:00] VITALS: BP 155/108
[2019-05-13] MEDS ORDERED: amLODIPine 5 MG (NORVASC) TAB PO NR (17:45)
[2019-05-13] MEDS ORDERED: BACLOFEN 10 MG (LIORESAL) TAB PO NR (17:45)
[2019-05-13 20:00] VITALS: BP 131/92
[2019-05-13] MEDS ORDERED: LOPERAMIDE 2 MG (IMODIUM) TABLET PO PRN (20:30)
[2019-05-13] MEDS ORDERED: MELATONIN 3 MG TABLET PO PRN (20:30)
[2019-05-13] MEDS ORDERED: diphenhydrAMINE 25 MG TAB (BENADRYL) PO PRN (20:30)
[2019-05-13] MEDS ORDERED: ALPRAZolam 0.25 MG (XANAX) TAB PO PRN (20:30)
[2019-05-13] MEDS ORDERED: ONDANSETRON 4 MG/2 ML (SDV) Z0FRAN IVP PRN (20:30)
[2019-05-13] MEDS ORDERED: ENOXAPARIN 40 MG/0.4 ML (LOVENOX) SYR SC SCH (20:30)
[2019-05-13] MEDS ORDERED: CALCIUM CARBONATE 500 MG (TUMS) TAB.CHEW PO PRN (20:30)
[2019-05-13] MEDS ORDERED: HYDROcodone/APAP 5 MG/325 MG (LORTAB) TAB PO PRN (20:30)
[2019-05-13] MEDS ORDERED: DOCUSATE SODIUM 100 MG (COLACE) CAP PO PRN (20:30)
[2019-05-13] MEDS ORDERED: ACETAMINOPHEN 500 MG TAB (TYLENOL) PO PRN (20:30)
[2019-05-13] MEDS ORDERED: ONDANSETRON 4 MG (ZOFRAN) ORAL DISSOLVE TAB PO PRN (20:30)
[2019-05-13] MEDS: BACLOFEN 10 MG (LIORESAL) TAB PO SCH (20:41)
[2019-05-13] MEDS: SENNA W/DOCUSATE (SENOKOT S) TABLET PO SCH (20:41)
[2019-05-13] MEDS: toPIRamate 25 MG (TOPAMAX) TAB PO SCH (20:47)
[2019-05-13] MEDS: CATHETER FLUSH 10 ML SYR IV SCH (20:53)
[2019-05-14] VITALS: BP 121/87
[2019-05-14 03:00] LABS: BASOPHILS % (AUTO) 0 % (0-10); EOSINOPHILS # (AUTO) 0.1 10^3/uL (0.0-0.3); EOSINOPHILS % (AUTO) 1 % (0-10); HEMATOCRIT 45 % (35-52); HEMOGLOBIN 14.8 G/DL (11.5-16.0); LYMPHOCYTES % (AUTO) 34 % (12-44); MEAN CORPUSCULAR HEMOGLOBIN 30 PG (25-34); MEAN CORPUSCULAR HGB CONC 33 G/DL (32-36); MEAN CORPUSCULAR VOLUME 89 FL (80-99); MEAN PLATELET VOLUME 9.6 FL (7.4-10.4); MONOCYTES # (AUTO) 0.8 X 10^3 (0.0-1.0); MONOCYTES % (AUTO) 9 % (0-12); NEUTROPHILS # (AUTO) 4.9 X 10^3 (1.8-7.8); NEUTROPHILS % (AUTO) 55 % (42-75); PLATELET COUNT 246 10^3/uL (130-400); RED CELL DISTRIBUTION WIDTH 14.3 % (10.0-14.5); WHITE BLOOD COUNT 8.8 10^3/uL (4.3-11.0)
[2019-05-14 03:25] LABS: ALANINE AMINOTRANSFERASE 16 U/L (0-55); ALBUMIN 4.1 GM/DL (3.2-4.5); ALKALINE PHOSPHATASE 71 U/L (40-136); BILIRUBIN,TOTAL 0.3 MG/DL (0.1-1.0); BUN/CREATININE RATIO 19; CARBON DIOXIDE 18 MMOL/L (21-32); CHLORIDE 107 MMOL/L (98-107); CREATININE SERUM 0.89 MG/DL (0.60-1.30); GFR ESTIMATED > 60; GLUCOSE 85 MG/DL (70-105); SODIUM 138 MMOL/L (135-145)
[2019-05-14 04:00] VITALS: BP 137/103
--- NOTE | 2019-05-14 07:28 | Cardiology Progress Note ---
Subjective Date Seen by Provider: May 14, 2019 Time Seen by Provider: 07:27 Subjective/Events-last exam Patient is laying down in bed, feeling better, no new complaint. Review of Systems General: No Chills, No Night Sweats, No Fatigue, No Malaise, No Appetite, No Other HEENT: No Head Aches, No Visual Changes, No Eye Pain, No Ear Pain, No Dysphasia, No Sinus Congestion, No Post Nasal Drip, No Sore Throat, No Other Pulmonary: No Dyspnea, No Cough, No Pleuritic Chest Pain, No Other Cardiovascular: No: Chest Pain, Palpitations, Orthopnea, Paroxysmal Noc. Dyspnea, Edema, Lt Headedness, Other Objective-Cardiology Exam Last Set of Vital Signs Vital Signs Capillary Refill : Less Than 3 Seconds I&O Intake and Output 05/14/19 00:00 Intake Total 800 ml Balance 800 ml Intake Oral 800 ml # Voids 1 # Bowel Movements 1 Daily Weight Change No General: Alert, Oriented X3, Cooperative HEENT: Atraumatic, PERRLA Neck: Supple, No JVD, No Thyromegaly Lungs: Clear to Auscultation, Normal Air Movement Heart: Regular Rate, Normal S1, Normal S2, No Murmurs Abdomen: Normal Bowel Sounds, Soft, No Tenderness, No Hepatosplenomegaly, No Masses Extremities: No Clubbing, No Cyanosis, No Edema, Normal Pulses, No Tenderness/Swelling Skin: No Rashes, No Breakdown, No Significant Lesion Neuro: Normal Gait, Normal Speech, Strength at 5/5 X4 Ext, Normal Tone, Sensation Intact Psych/Mental Status: Mental Status NL, Mood NL Results Lab Laboratory Tests 05/13/19 12:26 05/14/19 02:35 05/14/19 03:16 A/P-Cardiology Admission Diagnosis TIA Hypertensive emergency Palpitation López's palsy Assessment/Plan Numbness on the left side, questionable TIA. Could be secondary to hypertensive emergency, better at this time. Labile hypertension with hypertensive emergency, history of syncope. I will change her atenolol and Cardizem to Toprol and amlodipine and monitor Palpitation, Questionable history of paroxysmal atrial fibrillation in the past. Had a Holter monitor in the past. We'll consider event recorder versus loop recorder as an outpatient. History of López's palsy History of IVDA in the past. No recent intravenous drug use. 2-D echo showed normal LV size with ejection fraction 55-65 percent, left atrium is mildly dilated 4.1 cm, PA pressure 30-35 mmHg. Okay for discharge and follow-up as an outpatient. Clinical Quality Measures DVT/VTE Risk/Contraindication: Risk Factor Score Per Nursin RFS Level Per Nursing on Admit: 1=Low/No VTE PPX BARRETT DELONG MD May 14, 2019 07:28
[2019-05-14] MEDS ORDERED: MTP100TCR PO (07:30)
[2019-05-14] MEDS ORDERED: AMLO5TAB9 PO (07:30)
[2019-05-14] MEDS ORDERED: LISI10TA2 PO (07:32)
[2019-05-14 08:00] VITALS: BP 148/104
[2019-05-14] MEDS: toPIRamate 25 MG (TOPAMAX) TAB PO SCH (08:50)
[2019-05-14] MEDS: BACLOFEN 10 MG (LIORESAL) TAB PO SCH (08:50)
[2019-05-14] MEDS: SENNA W/DOCUSATE (SENOKOT S) TABLET PO SCH (08:51)
[2019-05-14] MEDS: CATHETER FLUSH 10 ML SYR IV SCH (08:52)
[2019-05-14] MEDS ORDERED: amLODIPine 5 MG (NORVASC) TAB PO SCH (09:00)
[2019-05-14] MEDS ORDERED: dilTIAZem120 MG (CARDIZEM CD) CAP PO SCH (09:00)
[2019-05-14] MEDS ORDERED: lisINopril 10 MG (PRINIVIL) TABLET PO SCH (09:00)
[2019-05-14] MEDS ORDERED: PANTOPRAZOLE 20 MG TABLET (PROTONIX) PO SCH (09:00)
[2019-05-14] MEDS ORDERED: meTOprolol SUCCINATE 100 MG (TOPROL XL) TAB PO SCH (09:00)
[2019-05-14] MEDS ORDERED: ASPIRIN 81 MG CHEW (CHILDREN'S ASA) PO SCH (09:16)
[2019-05-14 09:32] LABS: CHOLESTEROL 188 MG/DL (< 200); HDL CHOLESTEROL 37 MG/DL (40-60); TRIGLYCERIDES 498 MG/DL (<150)
[2019-05-14] MEDS ORDERED: ATOR40TA70 PO (10:00)
[2019-05-14] MEDS ORDERED: ASPI-999 PO (10:00)
--- NOTE | 2019-05-14 10:21 | Physical Therapy Progress Note ---
Therapy Progress Note No PT indicated due to patient reports independence with all gross motor skills and declined PT intervention. RN notified. 1 visit DEONNA RAIN PT May 14, 2019 10:21
--- NOTE | 2019-05-14 11:47 | Discharge Summary ---
SYLVAIN BRANDT,MED STUDENT 05/14/19 1147: Diagnosis/Chief Complaint Date of Admission May 13, 2019 at 14:30 Date of Discharge May 14, 2019 at 10:54 Discharge Date: May 14, 2019 Admission Diagnosis Assessment: HTN encephalopathy Pseudoseizures HTN OOC Migraines Fibromyalgia Conversion d/o Primary Care Center/[facility] Discharge Diagnosis (1) Hypertensive encephalopathy Status: Acute (2) Conversion disorder Status: Acute (3) Migraine Status: Acute (4) Left-sided López's palsy Status: Acute (5) Labile hypertension Status: Acute (6) Anxiety Status: Acute (7) Seizure-like activity Status: Acute Discharge Summary Discharge Physical Exam Allergies: Coded Allergies: hydromorphone (Verified Allergy, Severe, ANAPHYLAXIS, 09/03/18) Penicillins (Unverified Allergy, Mild, hives, 09/03/18) morphine (Verified Allergy, Mild, Rash, 12/31/18) latex (Verified Allergy, Unknown, HIVES, 06/09/18) Vitals & I&Os Vital Signs Date Time Temp Pulse Resp B/P (MAP) Pulse Ox O2 Delivery O2 Flow Rate FiO2 05/14/19 09:00 96 Room Air 05/14/19 08:00 36.2 05/14/19 08:00 60 29 148/104 (119) General Appearance: No Apparent Distress, WD/WN HEENT: PERRL/EOMI; No Pale Conjunctivae (L), No Pale Conjunctivae (R), No Scleral Icterus (L), No Scleral Icterus (R) Respiratory: Lungs Clear, Normal Breath Sounds, No Accessory Muscle Use, No Respiratory Distress; No Crackles, No Wheezing Cardiovascular: Regular Rate, Rhythm, No Edema, No Murmur, Normal Peripheral Pulses Gastrointestinal: Normal Bowel Sounds, Non Tender, Soft; No Distended, No Guarding Extremity: Normal Capillary Refill, Non Tender, No Calf Tenderness, No Pedal Edema Skin: Normal Color, Warm/Dry Neurologic/Psychiatric: Alert, Oriented x3, No Motor/Sensory Deficits, Normal Mood/Affect Hospital Course Ms. Gale is a 39 yo WF who presented to [facility] ED from her work on 05/13/2019 c/o left-sided tingling in hand and fingers, and palpitations. She has a hx of HTN, López's Palsy, fibromyalgia and conversion disorder, and reports a hx of seizure like activity and migraines. She reports taking atenolol and diltiazem and had checked her blood pressure at work, and her systolic pressure of 170 prompted her to come in. In the ED, her first blood pressure reading was 174/101, and she was given IV labetalol and oral metoprolol. Her NIH stoke scale assessment score was 0, and head CTA showed no thromboembolism or vessel occlusion. Toxicology was positive only for cannabinoids. She was admitted under the care of Dr. Back and cardiology was consulted. An echo was performed which showed normal LV size with LVEF of 55 to 65%. Her atenolol and diltiazem were changed to metoprolol and amlodipine. During the second day of her hospital stay, her blood pressure ranged from 121-148/87-104 and she denied further headache, tingling or palpitations. She will discharge to home and will follow up with Dr. Kessler and [facility]. Labs (last 24 hrs) Laboratory Tests 05/13/19 12:26: White Blood Count 9.7, Red Blood Count 5.54, Hemoglobin 16.5H, Hematocrit 49, Mean Corpuscular Volume 88, Mean Corpuscular Hemoglobin 30, Mean Corpuscular Hemoglobin Concent 34, Red Cell Distribution Width 14.1, Platelet Count 285, Mean Platelet Volume 9.4, Neutrophils (%) (Auto) 66, Lymphocytes (%) (Auto) 25, Monocytes (%) (Auto) 8, Eosinophils (%) (Auto) 1, Basophils (%) (Auto) 0, Neutrophils # (Auto) 6.4, Lymphocytes # (Auto) 2.4, Monocytes # (Auto) 0.8, Eosinophils # (Auto) 0.1, Basophils # (Auto) 0.0, Prothrombin Time 12.5, INR Comment 0.9, Activated Partial Thromboplast Time 29, D-Dimer 0.47, Sodium Level 140, Potassium Level 4.1, Chloride Level 106, Carbon Dioxide Level 22, Anion Gap 12, Blood Urea Nitrogen 15, Creatinine 0.90, Estimat Glomerular Filtration Rate > 60, BUN/Creatinine Ratio 17, Glucose Level 92, Calcium Level 10.2H, Corrected Calcium , Magnesium Level 2.1, Total Bilirubin 0.4, Aspartate Amino Transf (AST/SGOT) 21, Alanine Aminotransferase (ALT/SGPT) 20, Alkaline Phosphatase 83, Troponin I < 0.028, Total Protein 8.4H, Albumin 5.0H, TSH [place] Testing 0.91, Serum Test, Qualitative NEGATIVE, Acetaminophen Level < 10L, Serum Alcohol < 10 05/13/19 12:31: Glucometer 95 05/13/19 13:02: Urine Color YELLOW, Urine Clarity CLEAR, Urine pH 7.0, Urine Specific [place] 1.020, Urine Protein NEGATIVE, Urine Glucose (UA) NEGATIVE, Urine Ketones NEGATIVE, Urine Nitrite NEGATIVE, Urine Bilirubin NEGATIVE, Urine Urobilinogen 0.2, Urine Leukocyte Esterase NEGATIVE, Urine RBC (Auto) NEGATIVE, Urine RBC NONE, Urine WBC RARE, Urine Squamous Epithelial Cells 0-2, Urine Crystals PRESENTH, Urine Amorphous Sediment FEW [place] PHOSPHATEH, Urine Bacteria TRACE, Urine Casts NONE, Urine Mucus NEGATIVE, Urine Culture Indicated NO, Urine Opiates Screen NEGATIVE, Urine Oxycodone Screen NEGATIVE, Urine Methadone Screen NEGATIVE, Urine Propoxyphene Screen NEGATIVE, Urine Barbiturates Screen NEGATIVE, Ur Tricyclic Antidepressants Screen NEGATIVE, Urine Phencyclidine Screen NEGATIVE, Urine Amphetamines Screen NEGATIVE, Urine Methamphetamines Screen NEGATIVE, Urine Benzodiazepines Screen NEGATIVE, Urine Cocaine Screen NEGATIVE, Urine Cannabinoids Screen POSITIVEH 05/13/19 15:35: Troponin I < 0.028 05/14/19 02:35: Sodium Level 138, Potassium Level 4.0, Chloride Level 107, Carbon Dioxide Level 18L, Anion Gap 13, Blood Urea Nitrogen 17, Creatinine 0.89, Estimat Glomerular Filtration Rate > 60, BUN/Creatinine Ratio 19, Glucose Level 85, Calcium Level 9.0, Corrected Calcium 8.9, Total Bilirubin 0.3, Aspartate Amino Transf (AST/SGOT) 15, Alanine Aminotransferase (ALT/SGPT) 16, Alkaline Phosphatase 71, Total Protein 7.0, Albumin 4.1, Triglycerides Level 498H, Cholesterol Level 188, LDL Cholesterol Direct 120, VLDL Cholesterol , HDL Cholesterol 37L 05/14/19 03:16: White Blood Count 8.8, Red Blood Count 5.00, Hemoglobin 14.8, Hematocrit 45, Mean Corpuscular Volume 89, Mean Corpuscular Hemoglobin 30, Mean Corpuscular Hemoglobin Concent 33, Red Cell Distribution Width 14.3, Platelet Count 246, Mean Platelet Volume 9.6, Neutrophils (%) (Auto) 55, Lymphocytes (%) (Auto) 34, Monocytes (%) (Auto) 9, Eosinophils (%) (Auto) 1, Basophils (%) (Auto) 0, Neutrophils # (Auto) 4.9, Lymphocytes # (Auto) 3.0, Monocytes # (Auto) 0.8, Eosinophils # (Auto) 0.1, Basophils # (Auto) 0.0 Patient resulted labs reviewed. Discharge Home Medications: Active Scripts Active Atorvastatin Calcium 40 Mg Tablet 40 Mg PO DAILY Aspirin 81 Mg Tab.chew 81 Mg PO DAILY@0900 Lisinopril 10 Mg Tablet 10 Mg PO DAILY Amlodipine Besylate 5 Mg Tablet 5 Mg PO DAILY Metoprolol Succinate 100 Mg Tab.er.24h 100 Mg PO DAILY Reported Omeprazole 20 Mg Tablet.dr 20 Mg PO DAILY Gabapentin 300 Mg Capsule 300 Mg PO DAILY Topamax (Topiramate) 50 Mg Tablet 50 Mg PO BID Baclofen 10 Mg Tablet 10 Mg PO TID Instructions to patient/family Please see electronic discharge instructions given to patient. Clinical Quality Measures DVT/VTE Risk/Contraindication: Risk Factor Score Per Nursin RFS Level Per Nursing on Admit: 1=Low/No VTE PPX RAVEN BACK DO 05/14/195: Discharge Summary Discharge Physical Exam Allergies: Coded Allergies: hydromorphone (Verified Allergy, Severe, ANAPHYLAXIS, 09/03/18) Penicillins (Unverified Allergy, Mild, hives, 09/03/18) morphine (Verified Allergy, Mild, Rash, 12/31/18) latex (Verified Allergy, Unknown, HIVES, 06/09/18) General Appearance: No Apparent Distress, WD/WN Respiratory: Lungs Clear Cardiovascular: Regular Rate, Rhythm Hospital Course Was the Problem List Reviewed?: Yes Hospital course: Pt had an uneventful hospital course, she was admitted for concern of TIA, lipid panel obtained showing elevated triglycerides and LDL of 121 so Atorvastatin 40 Mg was initiated along with Aspirin therapy. Dr. Kessler did evaluate her echocardiogram performed, Pt was discontinued of Metoprolol and Verapamil and placed on Amlodipine and esequiel-inhibitor. Pt will have close follow- up at [facility] and Dr. Kessler for further evaluation and Aspirin therapy will be continued. Discussion & Recommendations Discharge Planning: <30 minutes discharge planning Supervisory-Addendum Brief Verification & Attestation Participated in pt care: history, MDM, physical Personally performed: exam, history, MDM, supervision of care Care discussed with: Medical Student Procedures: n/a Results interpretation: Verified all documentation Verification and Attestation of Medical Student E/M Service A medical student performed and documented this service in my presence. I reviewed and verified all information documented by the medical student and made modifications to such information, when appropriate. I personally performed the physical exam and medical decision making. Raven Back, May 14, 2019,22:24 SYLVAIN BRANDT,COLEMAN STUDENT May 14, 2019 11:47 RAVEN BACK DO May 14, 2019 22:25
--- OUTSIDE RECORDS SUMMARY | 2019-05-15 09:33 | XMS REPORT ---
Author Author KING Lindsayreynaldo KATHY Organization [facility] Address [address] [place] [address] Care Team Providers Care Wrecking Supervisor Name Role Phone KATYH GAONA Unavailable PROBLEMS Type Condition ICD9-CM Code LEU67-BQ Code Onset Dates Condition S tatus SNOMED Code Problem Muscle spasm M62.838 Active 6225978 6 Problem Seizure R56.9 Active 97492981 Problem Essential hypertension I10 Active 99141931 Problem Obesity (BMI 30-39.9) E66.9 Active 591772043 Problem Severe episode of recurrent major depressive disorder, without psychotic features F33.2 Active 98170393 Problem Anxiety F41.9 Active 03317733 Problem Neuropathy G62.9 Active 712413952 Problem Night terrors, adult F51.4 Active 814490367 Problem PTSD (post-traumatic stress disorder) F43.10 Active 24622305 Problem Bipolar disorder, current ep isode mixed, severe, without psychotic features F31.63 Active 549897457 Problem Cannabis use disorder, mild, abuse F12.10 Active 45892908 Problem Menorrhagia with irregular cycle N92.1 Active 744117916 Problem Opioid use disorder, severe, in sustained remission F11.21 Active 71343054 Problem History of PCOS Z87.42 Active 2719 76419 Problem Menorrhagia with irregular cycle N92.1 Active 009636230 Problem Methamphetamine use disorder, mild, 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 Active 314120981 Problem Intractable migraine without aura and without st atus migrainosus G43.019 Active 549222799 Problem Menorrhagia with regular cycle N92.0 Active 309935246 Problem Other chronic pain G89.29 Active 8 4234714 Problem Atrial fibrillation, unspecified type I48.91 Active 22424098 Problem Anal warts A63.0 Active 268660933 ALLERGIES Substance Reaction Event Type Date Status Penicillin V Potassium hives Drug Allergy May, Activ e Morphine Sulfate rash Drug Allergy May, Active ENCOUNTERS Encounter Location Date [facility] [address] [facility] [id number] [place] [address] Jan, Rash R21 [facility] [address] [address] 15 Dec, 2018 [facility] [address] [address] Dec, Epigastric pain R10.13 ; Menorrhagia wit h irregular cycle N92.1 ; History of drug use Z87.898 and Intractable migraine without aura and without status migrainosus G43.019 [place] [address] [address] 08 Dec, 2018 Bipolar disorder, current episode mixed, severe, without psychotic features F31.63 ; PTSD (post-traumatic stress disorder) F43.10 ; Cannabis use disorder, mild, abuse F12.10 ; Methamphetamine use disorder, mild, 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 and Opioid use disorder, severe, in sustained remission F11.21 [place] [address] [address] 17 Nov, 2018 [place] [address] [address] 10 Nov, 2018 History of drug use Z87.898 [place] [address] [address] 05 Nov, 2018 Menorrhagia with irregular cycle N92.1 ; History of drug use Z87.898 ; Intractable migraine without aura and without status migrainosus G43.019 and Epigastric pain R10.13 [place] [address] [address] Oct, Acute non-recurrent maxillary sinusitis J01.00 [place] [address] [address] Sep, [facility] [address] [address] Aug, Rectal bleeding K62.5 and Anal fissure K 60.[address] [address] Aug, [address] [address] July, Essential hypertension I10 ; Heart palpi tations R00.2 ; Chest discomfort R07.89 ; Exertional dyspnea R06.09 ; History of supraventricular tachycardia Z86.79 ; Obesity (BMI 30-39.9) E66.9 and Suspected sleep apnea R29.[address] [address] Jun, Pain in joints of right hand M25.541 and Pain in joints of left hand M25.[address] [address] Jun, Pain in joints of right hand M25.541 and Pain in joints of left hand M25.[address] [address] Jun, [address] [address] May, Well woman exam with routine gynecologic al exam Z01.419 ; Rectal bleeding K62.5 ; Anal warts A63.0 ; Atrial fibrillation, unspecified type I48.91 and Other chronic pain G89.[address] [address] Apr, Bipolar disorder, current episode mixed, severe, without psychotic features F31.[address] [address] Apr, Neuropathy G62.9 ; Intractable migraine without aura and without status migrainosus G43.019 ; Seizure R56.9 ; Essential hypertension I10 ; Atrial fibrillation, unspecified type I48.91 and Other chronic pain G89.[address] [address] Mar, Bipolar disorder, current episode mixed, severe, without psychotic features F31.63 [facility] [address] [place] [id number] Mar, Bipolar disorder, current episode mixed, severe, without psychotic features F31.63 and Essential hypertension I10 [facility] [address] [place] [address] Feb, [facility] [address] [place] [address] Feb, Intractable migraine without aura and wi thout status migrainosus G43.019 [place] [address] Feb, [place] [address] [place] [address] Feb, [place] [address] [address] Feb, Bipolar disorder, current episode mixed, severe, without psychotic features F31.63 and Increased frequency of urination R35.0 [place] [address] [address] Feb, Bipolar disorder, current episode mixed, severe, without psychotic features F31.63 ; PTSD (post-traumatic stress disorder) F43.10 ; Cannabis use disorder, mild, abuse F12.10 ; Opioid use disorder, severe, in sustained remission F11.21 ; Methamphetamine use disorder, mild, 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 and Increased frequency of urination R35.0 [place] [address] [address] Jan, Lower back pain M54.5 [place] [address] [address] Jan, Essential hypertension I10 [facility] [address] [place] [id number] Jan, Intractable migraine without aura and wi thout status migrainosus G43.019 and Essential hypertension I10 [place] [address] [address] Dec, Menorrhagia with regular cycle N92.[address] [address] Jun, [place] [address] [address] Jun, Muscle spasm M62.838 ; Acute left-sided low back pain without sciatica M54.5 and Bipolar disorder, current episode mixed, severe, without psychotic features F31.63 [place] [address] [address] Jun, [address] [address] May, Essential hypertension I10 ; Neuropathy G62.9 ; Acute non-recurrent maxillary sinusitis J01.00 ; Intractable migraine without aura and without status migrainosus G43.019 and Night terrors, adult F51.[address] [address] Apr, [address] [address] Apr, Bipolar disorder, current episode mixed, severe, without psychotic features F31.63 ; PTSD (post-traumatic stress disorder) F43.10 ; Cannabis use disorder, mild, abuse F12.10 ; Methamphetamine use disorder, mild, 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 and Opioid use disorder, severe, in sustained remission F11.21 [place] [address] [address] 06 Apr, 2017 Severe episode of recurrent major depres sive disorder, without psychotic features F33.2 ; Anxiety F41.9 and PTSD (post-traumatic stress disorder) F43.[address] [address] Feb, Muscle spasm M62.[address] [address] Feb, Intractable migraine without aura and wi thout status migrainosus G43.019 [facility] [address] [place] [id number] [place] [address] Jan, Rheumatoid factor positive with cyclic c itrullinated peptide (CCP) antibody negative R76.8 ; Muscle spasm M62.838 ; Folliculitis L73.9 ; Essential hypertension I10 and Obesity (BMI 30-39.9) E66.9 [facility] [address] [address] Jan, Intractable migraine without aura and wi thout status migrainosus G43.019 ; Dysuria R30.0 ; Essential hypertension I10 ; Anxiety F41.9 ; Vaginal discharge N89.8 ; Seizure R56.9 and Muscle spasm M62.838 [facility] [address] [facility] [id number] [place] [address] Dec, Lower back pain M54.5 [facility] [address] [address] Dec, Intractable migraine without aura and wi thout status migrainosus G43.019 ; Seizure R56.9 ; Muscle spasm M62.838 ; Pain in right elbow M25.521 ; Pain in left elbow M25.522 ; Pain in right hip M25.551 ; Pain in left hip M25.552 ; Rash and nonspecific skin eruption R21 and History of PCOS Z87.42 IMMUNIZATIONS No Known Immunizations SOCIAL HISTORY Never Assessed REASON FOR VISIT Annual physical (female)- NOEL Plzaa PLAN OF CARE Activity Details Follow Up next scheduled Reason:[facility] Height 5'4" in 2018-05-23 Weight 217.8 lbs 2018-05-23 Temperature 97.8 degrees Fahrenheit 2018-05-23 Heart Rate 90 bpm 2018-05-23 Respiratory Rate 2018-05-23 BMI 37.38 kg/m2 2018-05-23 Blood pressure systolic 130 mmHg 2018-05-23 Blood pressure diastolic 82 mmHg 2018-05-23 MEDICATIONS Medication Instructions Dosage Frequency Start Date End Date Duration S palmer Diltiazem HCl ER Beads 120 MG Orally Once a day 1 capsule 24h Apr, 30 day(s) Active Atenolol 100 mg Orally Once a day 1 tablet 24h 30 da ys Active Diclofenac Sodium 1 % Transdermal 2 times a day Apply 2 grams to lower back. 12h Jan, 14 days Active Flonase 50 MCG/ACT Nasally Once a day 1 spray in each nostril 24h May, 30 day(s) Active Topamax 25 MG Orally Twice a day 2 tablets 12h Dec, Active Pristiq 25 MG Orally Once a day 1 tablet 24h Active Gabapentin 300 MG Orally at bedtime 1 capsule Apr, 28 days Active Imitrex 25 MG Orally Twice a day prn 1 tablet as needed Jan, Active Imiquimod 3.75 % Externally Three times a Week at bedtime 1 application to affected area at bedtime May, Act napoleon Remeron 15 MG Orally Once a day 1 tablet at bedtime 24h Active Baclofen 10 mg Orally Three times a day 1 tablet with food or milk as needed 8h 30 days Active RESULTS No Results PROCEDURES Procedure Date Ordered Result Body Site SPECIMEN HANDLING May 23, 2018 INSTRUCTIONS MEDICATIONS ADMINISTERED No Known Medications MEDICAL (GENERAL) HISTORY Type Description Date Medical History HTN Medical History RA Medical History Depression Medical History Barretts esophagus Medical History SVT/Afib Medical History hx of conversion disorder se izure activity-hx of neurology in [place]. Medical History demyelinating disease Medical History Pain in right elbow Medical History Pain in left elbow Medical History Pain in right hip Medical History Pain in left hip Medical History Rash and nonspecific skin eruption Surgical History Right knee scope for meniscus tear Surgical History Appendectomy Surgical History Colonoscopy- reports of IBS Surgical History EGD- Barretts esophagus Surgical History D& C x 2 Hospitalization History Surgeries only Hospitalization History inpatient psychiatric treatm ent 2005 x 2 for OD and 2012 x 2 for OD in [place]
--- OUTSIDE RECORDS SUMMARY | 2019-05-15 09:34 | XMS REPORT | Continuity of Care Document ---
Author Organization Unknown Address Unknown Phone Unavailable Allergies Active Description [...] Severe RASH/HIVES/REDNESS/VOMITING 08/14/2013 Yes amoxicillin trihydrate amoxicillin tri hydrate Drug Allergy Moderate SAME PCN REACTION 08/14/2013 Yes hydromorphone HCl hydromorphone HCl Drug Allergy Moderate RASH 08/14/2013 Yes latex latex Drug Allergy Moderate RASH/HIVES/REDNESS 08/14/2013 Yes potassium clavulanate potassium clavul anate Drug Allergy Moderate SAME PCN REACTION 08/14/2013 Yes Penicillins [id number] Drug Aller gy Unknown N/A 12/05/2016 Yes hydromorphone [id number] Yury g Allergy Unknown ANAPHYLAXIS 06/09/2018 Yes latex [id number] Drug Allergy Unknown HIVES 06/09/2018 Yes hydromorphone [id number] Yury g Allergy Severe ANAPHYLAXIS 09/03/2018 Yes Penicillins [id number] Drug Aller gy Mild hives 09/03/2018 Yes morphine [id number] Drug Allergy Mild Rash 12/31/2018 Medications There is no data. Problems Date Dx Coded Attending Type Code Diagnosis Diagnosed By 08/18/2012 Alessandra Martinez MD Final 558.9 NONINF GASTROENT NEC NOS 08/18/2012 Alessandra Martinez MD Admitting 789.00 ABDOMINAL PAIN-SITE NOS 08/18/2012 Alessandra Martinez MD 789.0 9 ABDOMINAL PAIN-SITE NEC 05/21/2013 Final 300.00 ANXIETY STATE NOS 05/21/2013 Final 345.90 EPILEPSY NOS W/O INTRACT 05/21/2013 Final 401.9 H YPERTENSION NOS 05/21/2013 Final 590.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 05/21/2013 Final 714.0 R HEUMATOID ARTHRITIS 05/21/2013 Admitting 789.00 ABDOMINAL PAIN-SITE NOS [...] ACQUIRED ABSENCE OF OTHER SPECIFIED PART 12/26/2016 IMMI WEEKS MD Ot F12. 10 CANNABIS ABUSE, UNCOMPLICATED 12/26/2016 MIMI WEEKS MD Ot F17.210 NICOTINE DEPENDENCE, CIGARETTES, UNCOMPL 12/26/2016 MIMI WEEKS MD Ot G43.909 MIGRAINE, UNSP, NOT INTRACTABLE, WITHOUT 12/26/2016 MIMI WEEKS MD Ot Z87.448 PERSONAL HISTORY OF OTHER DISEASES OF UR 12/26/2016 MIMI WEEKS MD Ot Z90. 49 ACQUIRED ABSENCE OF OTHER SPECIFIED PART 12/27/2016 JOSE ENRIQUESRINI DITCHER OPERATOR Ot F17.210 NICOTINE DEPENDENCE, CIGARETTES, UNCOMPL 12/27/2016 JOSE ENRIQUESRINI Chatman DITCHER OPERATOR Ot G43.909 MIGRAINE, UNSP, NOT INTRACTABLE, WITHOUT 12/27/2016 JOSE ENRIQUESRINI Chatman DITCHER OPERATOR Ot Z87.448 PERSONAL HISTORY OF OTHER DISEASES OF UR 12/27/2016 JOSE ENRIQUE SRINI DITCHER OPERATOR Ot Z90.49 ACQUIRED ABSENCE OF OTHER SPECIFIED PART 02/27/2018 MIGEL ROMERO APRN Ot F41 .9 ANXIETY DISORDER, UNSPECIFIED 02/27/2018 MIGEL ROMERO APRN Ot G43.909 MIGRAINE, UNSP, NOT INTRACTABLE, WITHOUT 02/27/2018 MIGEL ROMERO APRN Ot R00 .2 PALPITATIONS 02/27/2018 MIGEL ROMERO APRN Ot R25 .9 UNSPECIFIED ABNORMAL INVOLUNTARY MOVEMEN 02/27/2018 MIGEL ROMERO APRN Ot R56 .9 UNSPECIFIED CONVULSIONS 02/27/2018 MIGEL ROMERO APRN Ot Z77.22 CNTCT W AND EXPSR TO ENVIRON TOBACCO SMO 02/27/2018 MIGEL ROMERO APRN Ot Z87.448 PERSONAL HISTORY OF OTHER DISEASES OF UR 02/27/2018 MIGEL ROMERO APRN Ot Z88 .0 ALLERGY STATUS TO PENICILLIN 02/27/2018 MIGEL ROMERO APRN Ot Z90.49 ACQUIRED ABSENCE OF OTHER SPECIFIED PART 02/27/2018 MIGEL ROMERO APRN Ot Z98.890 OTHER SPECIFIED POSTPROCEDURAL STATES 03/03/2018 MIGEL ROMERO APRN Ot F41 .9 ANXIETY DISORDER, UNSPECIFIED 03/03/2018 MIGEL ROMERO APRN Ot G43.909 MIGRAINE, UNSP, NOT INTRACTABLE, WITHOUT 03/03/2018 MIGEL ROMERO APRN Ot R00 .2 PALPITATIONS 03/03/2018 MIGEL ROMERO APRN Ot R25 .9 UNSPECIFIED ABNORMAL INVOLUNTARY MOVEMEN 03/03/2018 MIGEL ROMERO APRN Ot R56 .9 UNSPECIFIED CONVULSIONS 03/03/2018 MIGEL ROMERO APRN Ot Z77.22 CNTCT W AND EXPSR TO ENVIRON TOBACCO SMO 03/03/2018 MIGEL ROMERO APRN Ot Z87.448 PERSONAL HISTORY OF OTHER DISEASES OF UR 03/03/2018 MIGEL ROMERO APRN Ot Z88 .0 ALLERGY STATUS TO PENICILLIN 03/03/2018 MIGEL ROMERO APRN Ot Z90.49 ACQUIRED ABSENCE OF OTHER SPECIFIED PART 03/03/2018 MIGEL ROMERO APRN Ot Z98.890 OTHER SPECIFIED POSTPROCEDURAL STATES 06/09/2018 MIKIE FLAHERTY DO Ot Z01.8 18 ENCOUNTER FOR OTHER PREPROCEDURAL EXAMIN 06/13/2018 MIKIE FLAHERTY DO Ot D12.4 BENIGN NEOPLASM OF DESCENDING COLON 06/13/2018 MIKIE FLAHERTY DO Ot F17.2 10 NICOTINE DEPENDENCE, CIGARETTES, UNCOMPL 06/13/2018 MIKIE FLAHERTY DO Ot F32.9 MAJOR DEPRESSIVE DISORDER, SINGLE EPISOD 06/13/2018 MIKIE FLAHERTY DO Ot F41.9 ANXIETY DISORDER, UNSPECIFIED 06/13/2018 MIKIE FLAHERTY DO B Ot I10 ESSENTIAL (PRIMARY) HYPERTENSION 06/13/2018 MIKIE FLAHERTY DO Ot I48.2 CHRONIC ATRIAL FIBRILLATION 06/13/2018 MIKIE FLAHERTY DO B Ot K21.9 GASTRO-ESOPHAGEAL REFLUX DISEASE WITHOUT 06/13/2018 CLAUDINE FLAHERTY DOIC B Ot K29.5 0 UNSPECIFIED CHRONIC GASTRITIS WITHOUT BL 06/13/2018 DELMAN DO, MIKIE B Ot K31.7 POLYP OF STOMACH AND DUODENUM 06/13/2018 REYNOLD LIU, MIKIE B Ot K64.8 OTHER HEMORRHOIDS 06/13/2018 REYNOLD LIU, MIKIE B Ot R56.9 UNSPECIFIED CONVULSIONS 06/13/2018 REYNOLD LIU, MIKIE B Ot Z79.8 99 OTHER FASHION PATTERNMAKER (CURRENT) DRUG THERAPY 06/17/2018 REYNOLD LIU, MIKIE B Ot D12.4 BENIGN NEOPLASM OF DESCENDING COLON 06/17/2018 REYNOLD LIU MIKIE B Ot F17.2 10 NICOTINE DEPENDENCE, CIGARETTES, UNCOMPL 06/17/2018 REYNOLD LIU, MIKIE B Ot F32.9 MAJOR DEPRESSIVE DISORDER, SINGLE EPISOD 06/17/2018 REYNOLD LIU, MIKIE B Ot F41.9 ANXIETY DISORDER, UNSPECIFIED 06/17/2018 REYNOLD DO, MIKIE B Ot I10 ESSENTIAL (PRIMARY) HYPERTENSION 06/17/2018 REYNOLD LIU, MIKIE B Ot I48.2 CHRONIC ATRIAL FIBRILLATION 06/17/2018 REYNOLD LIU MIKIE B Ot K21.9 GASTRO-ESOPHAGEAL REFLUX DISEASE WITHOUT 06/17/2018 REYNOLD DO, MIKIE B Ot K29.5 0 UNSPECIFIED CHRONIC GASTRITIS WITHOUT BL 06/17/2018 REYNOLD LIU, MIKIE B Ot K31.7 POLYP OF STOMACH AND DUODENUM 06/17/2018 REYNOLD LIU MIKIE B Ot K64.8 OTHER HEMORRHOIDS 06/17/2018 REYNOLD LIU, MIKIE B Ot R56.9 UNSPECIFIED CONVULSIONS 06/17/2018 REYNOLD LIU, MIKIE B Ot Z79.8 99 OTHER [facility] (CURRENT) DRUG THERAPY 06/20/2018 REYNOLD LIU MIKIE B Ot D12.4 BENIGN NEOPLASM OF DESCENDING COLON 06/20/2018 REYNOLD LIU, MIKIE B Ot F17.2 10 NICOTINE DEPENDENCE, CIGARETTES, UNCOMPL 06/20/2018 REYNOLD DO, MIKIE B Ot F32.9 MAJOR DEPRESSIVE DISORDER, SINGLE EPISOD 06/20/2018 REYNOLD LIU MIKIE B Ot F41.9 ANXIETY DISORDER, UNSPECIFIED 06/20/2018 REYNOLD DO, MIKIE B Ot I10 ESSENTIAL (PRIMARY) HYPERTENSION 06/20/2018 REYNOLD DO, MIKIE B Ot I48.2 CHRONIC ATRIAL FIBRILLATION 06/20/2018 REYNOLD LIU, MIKIE B Ot K21.9 GASTRO-ESOPHAGEAL REFLUX DISEASE WITHOUT 06/20/2018 CLAUDINE FLAHERTY DOIC [place] Ot K29.5 0 UNSPECIFIED CHRONIC GASTRITIS WITHOUT BL 06/20/2018 MIKIE FLAHERTY DO Ot K31.7 POLYP OF STOMACH AND DUODENUM 06/20/2018 CLAUDINE FLAHERTY DOIC [place] Ot K64.8 OTHER HEMORRHOIDS 06/20/2018 CLAUDINE FLAHERTY DOIC [place] Ot R56.9 UNSPECIFIED CONVULSIONS 06/20/2018 MIKIE FLAHERTY DO B Ot Z79.8 99 OTHER FASHION PATTERNMAKER (CURRENT) DRUG THERAPY 09/03/2018 CAITLYN BECK, ERLINDA Beavers Ot E78.00 PURE HYPERCHOLESTEROLEMIA, UNSPECIFIED 09/03/2018 ERLINDA BRADY MD Ot F12.10 CANNABIS ABUSE, UNCOMPLICATED 09/03/2018 ERLINDA BRADY MD Ot F31.9 BIPOLAR DISORDER, UNSPECIFIED 09/03/2018 ERLINDA BRADY MD Ot F41.9 ANXIETY DISORDER, UNSPECIFIED 09/03/2018 ERLINDA BRADY MD Ot G40.909 EPILEPSY, UNSP, NOT INTRACTABLE, WITHOUT 09/03/2018 ERLINDA BRADY MD Ot G43.909 MIGRAINE, UNSP, NOT INTRACTABLE, WITHOUT 09/03/2018 ERLINDA BRADY MD Ot I10 ESSENTIAL (PRIMARY) HYPERTENSION 09/03/2018 ERLINDA BRADY MD, Ot M06.9 RHEUMATOID ARTHRITIS, UNSPECIFIED 09/03/2018 ERLINDA BRADY MD Ot M79.7 FIBROMYALGIA 09/03/2018 ERLINDA BRADY MD Ot R29.810 FACIAL WEAKNESS 09/03/2018 ERLINDA BRADY MD, Ot Z77.22 CNTCT W AND EXPSR TO ENVIRON TOBACCO SMO 09/03/2018 ERLINDA BRADY MD Ot Z88.0 ALLERGY STATUS TO PENICILLIN 09/03/2018 ERLINDA BRADY MD, Ot Z88.5 ALLERGY STATUS TO NARCOTIC AGENT STATUS 09/03/2018 ERLINDA BRADY MD Ot Z90.49 ACQUIRED ABSENCE OF OTHER SPECIFIED PART 09/03/2018 ERLINDA BRADY MD Ot Z91.040 LATEX ALLERGY STATUS 09/08/2018 ERLINDA BRADY MD Ot E78.00 PURE HYPERCHOLESTEROLEMIA, UNSPECIFIED 09/08/2018 ERLINDA BRADY MD Ot F12.10 CANNABIS ABUSE, UNCOMPLICATED 09/08/2018 ERLINDA BRADY MD Ot F31.9 BIPOLAR DISORDER, UNSPECIFIED 09/08/2018 ERLINDA BRADY MD Ot F41.9 ANXIETY DISORDER, UNSPECIFIED 09/08/2018 ERLINDA BRADY MD Ot G40.909 EPILEPSY, UNSP, NOT INTRACTABLE, WITHOUT 09/08/2018 ERLINDA BRADY MD Ot G43.909 MIGRAINE, UNSP, NOT INTRACTABLE, WITHOUT 09/08/2018 ERLINDA BRADY MD Ot I10 ESSENTIAL (PRIMARY) HYPERTENSION 09/08/2018 ERLINDA BRADY MD Ot M06.9 RHEUMATOID ARTHRITIS, UNSPECIFIED 09/08/2018 ERLINDA BRADY MD Ot M79.7 FIBROMYALGIA 09/08/2018 ERLINDA BRADY MD Ot R29.810 FACIAL WEAKNESS 09/08/2018 ERLINDA BRADY MD Ot Z77.22 CNTCT W AND EXPSR TO ENVIRON TOBACCO SMO 09/08/2018 ERLINDA BRADY MD Ot Z88.0 ALLERGY STATUS TO PENICILLIN 09/08/2018 ERLINDA BRADY MD Ot Z88.5 ALLERGY STATUS TO NARCOTIC AGENT STATUS 09/08/2018 ERLINDA BRADY MD Ot Z90.49 ACQUIRED ABSENCE OF OTHER SPECIFIED PART 09/08/2018 ERLINDA BRADY MD Ot Z91.040 LATEX ALLERGY STATUS 11/27/2018 VIVEK HORN MD Ot E78.00 PURE HYPERCHOLESTEROLEMIA, UNSPECIFIED 11/27/2018 VIVEK HORN MD Ot F17.210 NICOTINE DEPENDENCE, CIGARETTES, UNCOMPL 11/27/2018 VIVEK HORN MD Ot F31.9 BIPOLAR DISORDER, UNSPECIFIED 11/27/2018 VIVEK HORN MD Ot F41.9 ANXIETY DISORDER, UNSPECIFIED 11/27/2018 VIVEK HORN MD Ot G43.909 MIGRAINE, UNSP, NOT INTRACTABLE, WITHOUT 11/27/2018 VIVEK HORN MD Ot 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 11/27/2018 VIVEK HORN MD Ot I10 ESSENTIAL (PRIMARY) HYPERTENSION 11/27/2018 VIVEK HORN MD, Ot M06.9 RHEUMATOID ARTHRITIS, UNSPECIFIED 11/27/2018 VIVEK HORN MD Ot M79.7 FIBROMYALGIA 11/27/2018 VIVEK HORN MD Ot R29.810 FACIAL WEAKNESS 11/27/2018 VIVEK HORN MD Ot Z79.52 FASHION PATTERNMAKER (CURRENT) USE OF SYSTEMIC STER 11/27/2018 VIVEK HORN MD Ot Z88.0 ALLERGY STATUS TO PENICILLIN 11/27/2018 VIVEK HORN MD Ot Z88.5 ALLERGY STATUS TO NARCOTIC AGENT STATUS 11/27/2018 VIVEK HORN MD Ot Z90.49 ACQUIRED ABSENCE OF OTHER SPECIFIED PART 11/27/2018 VIVEK HORN MD Ot Z91.040 LATEX ALLERGY STATUS 12/01/2018 VIVEK HORN MD Ot E78.00 PURE HYPERCHOLESTEROLEMIA, UNSPECIFIED 12/01/2018 VIVEK HORN MD Ot F17.210 NICOTINE DEPENDENCE, CIGARETTES, UNCOMPL 12/01/2018 VIVEK HORN MD Ot F31.9 BIPOLAR DISORDER, UNSPECIFIED 12/01/2018 VIVEK HORN MD Ot F41.9 ANXIETY DISORDER, UNSPECIFIED 12/01/2018 VIVEK HRON MD Ot G43.909 MIGRAINE, UNSP, NOT INTRACTABLE, WITHOUT 12/01/2018 VIVEK HORN MD Ot 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 12/01/2018 VIVEK HORN MD Ot I10 ESSENTIAL (PRIMARY) HYPERTENSION 12/01/2018 VIVEK HORN MD Ot M06.9 RHEUMATOID ARTHRITIS, UNSPECIFIED 12/01/2018 VIVEK HORN MD Ot M79.7 FIBROMYALGIA 12/01/2018 VIVEK HORN MD Ot R29.810 FACIAL WEAKNESS 12/01/2018 VIVEK HORN MD Ot Z79.52 FPC (CURRENT) USE OF SYSTEMIC STER 12/01/2018 VIVEK HORN MD Ot Z88.0 ALLERGY STATUS TO PENICILLIN 12/01/2018 VIVEK HORN MD Ot Z88.5 ALLERGY STATUS TO NARCOTIC AGENT STATUS 12/01/2018 VIVEK HORN MD Ot Z90.49 ACQUIRED ABSENCE OF OTHER SPECIFIED PART 12/01/2018 VIVEK HORN MD Ot Z91.040 LATEX ALLERGY STATUS 12/25/2018 MIKIE FLAHERTY DO Ot Z01.8 18 ENCOUNTER FOR OTHER PREPROCEDURAL EXAMIN 12/31/2018 MIKIE FLAHERTY DO Ot F17.2 10 NICOTINE DEPENDENCE, CIGARETTES, UNCOMPL 12/31/2018 MIKIE FLAHERTY DO Ot F32.9 MAJOR DEPRESSIVE DISORDER, SINGLE EPISOD 12/31/2018 MIKIE FLAHERTY DO Ot 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 12/31/2018 MIKIE FLAHERTY DO Ot I10 ESSENTIAL (PRIMARY) HYPERTENSION 12/31/2018 MIKIE FLAHERTY DO Ot I47.1 SUPRAVENTRICULAR TACHYCARDIA 12/31/2018 MIKIE FLAHERTY DO Ot I48.9 1 UNSPECIFIED ATRIAL FIBRILLATION 12/31/2018 MIKIE FLAHERTY DO Ot K21.9 GASTRO-ESOPHAGEAL REFLUX DISEASE WITHOUT 12/31/2018 MIKIE FLAHERTY DO Ot 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 12/31/2018 MIKIE FLAHERTY DO Ot K29.5 0 UNSPECIFIED CHRONIC GASTRITIS WITHOUT BL 12/31/2018 MIKIE FLAHERTY DO Ot K31.7 POLYP OF STOMACH AND DUODENUM 12/31/2018 MIKIE FLAHERTY DO Ot K80.1 0 CALCULUS OF GALLBLADDER W CHRONIC CHOLEC 12/31/2018 MIKIE FLAHERTY DO Ot M06.9 RHEUMATOID ARTHRITIS, UNSPECIFIED 12/31/2018 MIKIE FLAHERTY DO Ot Z79.8 99 OTHER FASHION PATTERNMAKER (CURRENT) DRUG THERAPY 12/31/2018 MIKIE FLAHERTY DO Ot Z88.0 ALLERGY STATUS TO PENICILLIN 12/31/2018 MIKIE FLAHERTY DO Ot Z88.5 ALLERGY STATUS TO NARCOTIC AGENT STATUS 12/31/2018 MIKIE FLAHERTY DO Ot Z88.6 ALLERGY STATUS TO ANALGESIC AGENT STATUS 12/31/2018 MIKIE FLAHERTY DO Ot Z88.8 ALLERGY STATUS TO OTH DRUG/MEDS/BIOL SUB 12/31/2018 MIKIE FLAHERTY DO Ot Z91.0 40 LATEX ALLERGY STATUS 01/07/2019 MIKIE FLAHERTY DO Ot F17.2 10 NICOTINE DEPENDENCE, CIGARETTES, UNCOMPL 01/07/2019 MIKIE FLAHERTY DO Ot F32.9 MAJOR DEPRESSIVE DISORDER, SINGLE EPISOD 01/07/2019 MIKIE FLAHERTY DO Ot 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 01/07/2019 MIKIE FLAHERTY DO Ot I10 ESSENTIAL (PRIMARY) HYPERTENSION 01/07/2019 MIKIE FLAHERTY DO Ot I47.1 SUPRAVENTRICULAR TACHYCARDIA 01/07/2019 MIKIE FLAHERTY DO Ot I48.9 1 UNSPECIFIED ATRIAL FIBRILLATION 01/07/2019 MIKIE FLAHERTY DO Ot K21.9 GASTRO-ESOPHAGEAL REFLUX DISEASE WITHOUT 01/07/2019 MIKIE FLAHERTY DO Ot 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 01/07/2019 MIKIE FLAHERTY DO Ot K29.5 0 UNSPECIFIED CHRONIC GASTRITIS WITHOUT BL 01/07/2019 MIKIE FLAHERTY DO Ot K31.7 POLYP OF STOMACH AND DUODENUM 01/07/2019 MIKIE FLAHERTY DO Ot K80.1 0 CALCULUS OF GALLBLADDER W CHRONIC CHOLEC 01/07/2019 MIKIE FLAHERTY DO Ot M06.9 RHEUMATOID ARTHRITIS, UNSPECIFIED 01/07/2019 MIKIE FLAHERTY DO Ot Z79.8 99 OTHER FASHION PATTERNMAKER (CURRENT) DRUG THERAPY 01/07/2019 MIKIE FLAHERTY DO Ot Z88.0 ALLERGY STATUS TO PENICILLIN 01/07/2019 MIKIE FLAHERTY DO Ot Z88.5 ALLERGY STATUS TO NARCOTIC AGENT STATUS 01/07/2019 MIKIE FLAHERTY DO Ot Z88.6 ALLERGY STATUS TO ANALGESIC AGENT STATUS 01/07/2019 MIKIE FLAHERTY DO Ot Z88.8 ALLERGY STATUS TO OTH DRUG/MEDS/BIOL SUB 01/07/2019 MIKIE FLAHERTY DO Ot Z91.0 40 LATEX ALLERGY STATUS 01/09/2019 MIKIE FLAHERTY DO Ot F17.2 10 NICOTINE DEPENDENCE, CIGARETTES, UNCOMPL 01/09/2019 MIKIE FLAHERTY DO Ot F32.9 MAJOR DEPRESSIVE DISORDER, SINGLE EPISOD 01/09/2019 MIKIE FLAHERTY DO Ot 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 01/09/2019 MIKIE FLAHERTY DO Ot I10 ESSENTIAL (PRIMARY) HYPERTENSION 01/09/2019 MIKIE FLAHERTY DO B Ot I47.1 SUPRAVENTRICULAR TACHYCARDIA 01/09/2019 MIKIE FLAHERTY DO Ot I48.9 1 UNSPECIFIED ATRIAL FIBRILLATION 01/09/2019 MIKIE FLAHERTY DO B Ot K21.9 GASTRO-ESOPHAGEAL REFLUX DISEASE WITHOUT 01/09/2019 CLAUDINE FLAHERTY DOIC B Ot 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 01/09/2019 CLAUDINE FLAHERTY DOIC B Ot K29.5 0 UNSPECIFIED CHRONIC GASTRITIS WITHOUT BL 01/09/2019 CARLIEHAILE CLAUDINE LIUIC B Ot K31.7 POLYP OF STOMACH AND DUODENUM 01/09/2019 MIKIE FLAHERTY DO Ot K80.1 0 CALCULUS OF GALLBLADDER W CHRONIC CHOLEC 01/09/2019 MIKIE FLAHERTY DO B Ot M06.9 RHEUMATOID ARTHRITIS, UNSPECIFIED 01/09/2019 MIKIE FLAHERTY DO B Ot Z79.8 99 OTHER FASHION PATTERNMAKER (CURRENT) DRUG THERAPY 01/09/2019 MIKIE FLAHERTY DO B Ot Z88.0 ALLERGY STATUS TO PENICILLIN 01/09/2019 CLAUDINE FLAHERTY DOIC B Ot Z88.5 ALLERGY STATUS TO NARCOTIC AGENT STATUS 01/09/2019 MIKIE FLAHERTY DO Ot Z88.6 ALLERGY STATUS TO ANALGESIC AGENT STATUS 01/09/2019 MIKIE FLAHERTY DO Ot Z88.8 ALLERGY STATUS TO OTH DRUG/MEDS/BIOL SUB 01/09/2019 MIKIE FLAHERTY DO B Ot Z91.0 40 LATEX ALLERGY STATUS 03/02/2019 LIS MEDRANO DO Ot E28.2 POLYCYSTIC OVARIAN SYNDROME 03/02/2019 LIS MEDRANO DO Ot N80.9 ENDOMETRIOSIS, UNSPECIFIED 03/02/2019 LIS MEDRANO DO C Ot N83.2 01 UNSPECIFIED OVARIAN CYST, RIGHT SIDE 03/02/2019 LIS MEDRANO DO Ot N92.0 EXCESSIVE AND FREQUENT MENSTRUATION WITH 05/13/2019 LIS MEDRANO DO Ot E28.2 POLYCYSTIC OVARIAN SYNDROME 05/13/2019 LIS MEDRANO DO Ot N80.9 ENDOMETRIOSIS, UNSPECIFIED 05/13/2019 LIS MEDRANO DO Ot N83.2 01 UNSPECIFIED OVARIAN CYST, RIGHT SIDE 05/13/2019 LIS MEDRANO DO Ot N92.0 EXCESSIVE AND FREQUENT MENSTRUATION WITH Procedures There is no data. Results Test Result Range METABOLIC PANEL, COMPREHN - 08/19/12 13: 35 POTASSIUM 3.7 mmol/L 3.5-5.3 EST GFR (MDRD) [...] mg/dL 0.0-1.0 ALKALINE PHOSPHATASE TOTAL 60 Units/L 50 -136 LIPASE - 08/19/12 13:35 LIPASE 74 Units/L 73-393 CBC W/DIFF - 08/19/12 13:35 COMMENT REVIEWED GRANULOCYTE # 7.8 k/cumm 2.0-9.0 GRANULOCYTE % 83 % 50-75 LYMPHOCYTE # 1.1 k/cumm 1.0-4.0 LYMPHOCYTE % 12 % 20-30 MEAN CELL HGB 30.1 pg 27.0-33.0 MEAN CELL HGB CONCENTRATION 33.2 g/dl 32 .0-36.0 MEAN CELL VOLUME 90.5 fl 80.0-100.0 MONOCYTE # 0.5 k/cumm 0.1-1.0 MONOCYTE % 5 % 4-6 RED BLOOD CELL 4.97 m/cumm 4.00-6.00 RED CELL DISTRIBUTION WIDTH 13.5 % 11 .0-15.6 WHITE BLOOD CELL 9.4 k/cumm 5.0-10.0 HEMOGLOBIN 14.9 gm/dL 12.0-16.0 HEMATOCRIT 45.0 % 37.0-47.0 PLATELET COUNT 263 k/cumm 150-450 UR TEST - 08/19/12 13:55 UR TEST NEGATIVE NEGATIVE URINALYSIS WITH MICROSCOPIC - 08/19/12 1 3:55 UA LEUKOCYTE ESTERASE DIPSTICK 1+ NEGATIVE UA NITRITE DIPSTICK NEGATIVE NEGATIVE UA PROTEIN DIPSTICK 1+ NEGATIVE UA GLUCOSE DIPSTICK NEGATIVE NEGATIVE UA KETONE DIPSTICK TRACE NEGATIVE UA UROBILINOGEN DIPSTICK NORMAL ALLISON L UA BILIRUBIN DIPSTICK NEGATIVE NEGATIVE UA BLOOD DIPSTICK NEGATIVE NEGATIVE UA BACTERIA 2+ NEGATIVE UA EPITHELIAL CELLS 2+ epi/hpf 0 - 1+ UA MUCUS 1+ NEG TO 1+ UA RBC 0-3 rbc/hpf 0 - 3 UA VOLUME FOR EXAM 10.0 mL (12mL STD) UA WBC 2-5 wbc/hpf 0 - 5 UA SPECIFIC GRAVITY 1.020 1.015-1.02 5 UR PH 5.0 5.0-7.0 CAMPYLOBACTER ANTIGEN - 08/19/12 15:00 Uncategorized STOOL LEUKOCYTES - 08/19/12 15:00 Uncategorized URINALYSIS, ROUTINE - 05/12/13 02:03 UA LEUKOCYTE ESTERASE DIPSTICK TRACE NEGATIVE UA NITRITE DIPSTICK NEGATIVE NEGATIVE UA PROTEIN DIPSTICK NEGATIVE NEGATIVE UA GLUCOSE DIPSTICK NEGATIVE NEGATIVE UA KETONE DIPSTICK NEGATIVE NEGATIVE UA UROBILINOGEN DIPSTICK NORMAL ALLISON L UA BILIRUBIN DIPSTICK NEGATIVE NEGATIVE UA BLOOD DIPSTICK 4+ NEGATIVE UA BACTERIA 3+ NEGATIVE UA EPITHELIAL CELLS 2+ epi/hpf 0 - 1+ UA MUCUS 3+ NEG TO 1+ UA RBC 3-5 rbc/hpf 0 - 3 UA VOLUME FOR EXAM 12.0 mL (12mL STD) UA WBC 0-1 wbc/hpf 0 - 5 UA SPECIFIC GRAVITY 1.020 1.015-1.02 5 UR PH 6.0 5.0-7.0 CHEM/HEM PROFILE-BEDSIDE - 07/08/13 15:3 7 POTASSIUM 3.9 mmol/L 3.5-5.3 METHOD Bedside ANION [...] DIPSTICK NEGATIVE NEGATIVE UA UROBILINOGEN DIPSTICK NORMAL ALLISON L UA BILIRUBIN DIPSTICK POSITIVE NEGATIVE UA BLOOD DIPSTICK 2+ NEGATIVE UA SPECIFIC GRAVITY 1.010 1.015-1.02 5 UR PH 7.0 5.0-7.0 UA MICROSCOPIC - [...] DIPSTICK NEGATIVE NEGATIVE UA UROBILINOGEN DIPSTICK NORMAL ALLISON L UA BILIRUBIN DIPSTICK NEGATIVE NEGATIVE UA BLOOD DIPSTICK 3+ NEGATIVE UA SPECIFIC GRAVITY 1.025 1.015-1.02 5 UR PH 5.0 5.0-7.0 UA MICROSCOPIC - [...] 27.0-33.0 MEAN CELL HGB CONCENTRATION 34.3 g/dL 32 .0-37.0 MEAN CELL VOLUME 89.1 fl 80.0-100.0 MONOCYTE # 0.5 k/cumm 0.1-1.0 MONOCYTE % 8 % 4-6 RED BLOOD CELL 4.42 m/cumm 4.00-6.00 RED CELL DISTRIBUTION WIDTH 12.7 % 11 .0-15.6 WHITE BLOOD CELL 5.5 k/cumm 5.0-10.0 HEMOGLOBIN 13.5 gm/dL 12.0-16.0 HEMATOCRIT 39.4 % 37.0-47.0 PLATELET COUNT 186 k/cumm 150-450 METABOLIC PANEL, COMPREHN - 07/22/13 13: 55 POTASSIUM 3.8 mmol/L 3.5-5.3 EST GFR (MDRD) [...] mg/dL 0.0-1.0 ALKALINE PHOSPHATASE TOTAL 53 IU/L 45- 117 LIPASE - 07/22/13 13:55 LIPASE 120 Units/L 73-393 Complete blood count (CBC) with automate d white blood cell (WBC) differential - 12/05/16 15:10 Blood leukocytes automated count (number/volume) 6.5 10*3/uL 4.3-11.0 Blood erythrocytes automated count (number/volume) 4.76 10*6/uL 4.35-5.85 Venous blood hemoglobin measurement (mass/volume) 14.1 g/dL 11.5-16.0 Blood hematocrit (volume fraction) 42 % 35-52 Automated erythrocyte mean corpuscular volume 87 [ foz_us] 80-99 Automated erythrocyte mean corpuscular h emoglobin (mass per erythrocyte) 30 pg 25-34 Automated erythrocyte mean corpuscular h emoglobin concentration measurement (mass/volume) 34 g/dL 32-36 Automated erythrocyte distribution width ratio 13. 2 % 10.0- 14.5 Automated blood platelet count [...] 10*3 1.0-4.0 Blood monocytes automated count (number/volume) 0. 4 10*3 0.0-1.0 Automated eosinophil count 0.1 10*3/uL 0 .0-0.3 Automated blood basophil count (count/volume) 0.0 10*3/uL 0.0-0.1 PT panel in platelet poor plasma by coag ulation assay - 12/05/16 15:10 Prothrombin time (PT) in platelet poor plasma by coagu lation assay 12.5 s 12.2-14.7 INR in platelet poor plasma or blood by coagulation as say 0.9 0.8-1.4 Activated partial thromboplastin time (a PTT) in platelet poor plasma bycoagulation assay - 12/05/16 15:10 Activated partial thromboplastin time (a PTT) in platelet poor plasma bycoagulation assay 29 s 24-35 Serum or plasma choriogonadotropin (preg alessandra test) detection - 12/05/16 15:10 Serum or plasma choriogonadotropin ( test) de tection NEGATIVE NEGATIVE Comprehensive metabolic panel - 12/05/16 15:10 Serum or plasma sodium measurement (moles/volume) 137 mmol/L 135-145 Serum or plasma potassium measurement (moles/volume) 3.9 mmol/L 3.6-5.0 Serum or plasma chloride measurement (moles/volume) 108 mmol/L 98-107 Carbon dioxide 24 mmol/L 21-32 Serum or plasma anion gap determination (moles/volume) 5 mmol/L 5-14 Serum or plasma urea nitrogen measurement (mass/volume ) 13 mg/dL 7-18 Serum or plasma creatinine measurement (mass/volume) 0.73 mg/dL 0.60-1.30 Serum or plasma urea nitrogen/creatinine mass ratio 18 NRG Serum or plasma creatinine measurement w ith calculation of estimated glomerular filtration rate > NRG Serum or plasma glucose measurement (mass/volume) 92 mg/dL 70-105 Serum or plasma calcium measurement (mass/volume) 9.0 mg/dL 8.5-10.1 Serum or plasma total bilirubin measurement (mass/volu me) 0.4 mg/dL 0.1-1.0 Serum or plasma alkaline phosphatase martha surement (enzymatic activity/volume) 65 U/L 40-136 Serum or plasma aspartate aminotransfera se measurement (enzymatic activity/volume) 13 U/L 5-34 Serum or plasma alanine aminotransferase measurement (enzymatic activity/volume) 14 U/L 0-55 Serum or plasma protein measurement (mass/volume) 7.2 g/dL 6.4-8.2 Serum or plasma albumin measurement (mass/volume) 4.2 g/dL 3.2-4.5 Bacteria identification in genital speci men by aerobe culture - 12/05/16 16:50 FREE TEXT EXTERNAL PLUS NORMAL JELANI NR G QUANTITY OF GROWTH Scant Growth NRG Bacteria identification in genital specimen by aerobe culture [id number] NRG Microscopic examination by wet preparati on - 12/05/16 16:50 WET PREP RESULTS AT 1658, 17 BY NRG Neisseria gonorrhoeae DNA detection by p robe and signal amplification method - 12/05/16 16:50 Gonorrhea amp DNA-urine Not Detected No t Detected Chlamydia trachomatis DNA detection by p robe and signal amplification method - 12/05/16 16:50 Chlamydia trachomatis DNA detection by p robe and target amplification method Not Detected Not Detected A1C - 01/10/17 12:02 HEMOGLOBIN A1c 5.0 % of total Hgb <5.7 SUREPATH PAP AND HPV mRNA E6/E7 - 12:02 CLINICAL INFORMATION: NRG LMP: 01/04/17 NRG PREV. PAP: ABNORMAL NRG PREV. BX: NRG SOURCE: Cervix NRG STATEMENT OF ADEQUACY: NRG INTERPRETATION/RESULT: NRG PATIENT CARE SPECIALIST: NRG HPV mRNA E6/E7, SUREPATH VIAL Not Detected NOT DETECTED GENERAL CATEGORIZATION: NRG COMMENT: NRG PATHOLOGIST: NRG INSULIN LEVEL - 01/10/17 12:02 INSULIN 16.8 uIU/mL 2.0-19.6 ESR/SED RATE - 01/31/17 09:10 SED RATE BY MODIFIED WESTERGREN 11 mm/h < OR = 20 LIPID PANEL - 02/13/18 12:57 CHOLESTEROL, TOTAL 183 mg/dL <200 HDL CHOLESTEROL 37 mg/dL >50 TRIGLYCERIDES 229 mg/dL <150 LDL-CHOLESTEROL 111 mg/dL (calc) NRG CHOL/HDLC RATIO 4.9 (calc) <5.0 NON HDL CHOLESTEROL 146 mg/dL (calc) <13 0 Complete blood count (CBC) with automate d white blood cell (WBC) differential - 02/27/18 17:34 Blood leukocytes automated count (number/volume) 8.1 10*3/uL 4.3-11.0 Blood erythrocytes automated count (number/volume) 4.93 10*6/uL 4.35-5.85 Venous blood hemoglobin measurement (mass/volume) 14.5 g/dL 11.5-16.0 Blood hematocrit (volume fraction) 42 % 35-52 Automated erythrocyte mean corpuscular volume 86 [ foz_us] 80-99 Automated erythrocyte mean corpuscular h emoglobin (mass per erythrocyte) 29 pg 25-34 Automated erythrocyte mean corpuscular h emoglobin concentration measurement (mass/volume) 34 g/dL 32-36 Automated erythrocyte distribution width ratio 13. 7 % 10.0- 14.5 Automated blood platelet count [...] 10*3 1.0-4.0 Blood monocytes automated count (number/volume) 0. 7 10*3 0.0-1.0 Automated eosinophil count 0.2 10*3/uL 0 .0-0.3 Automated blood basophil count (count/volume) 0.0 10*3/uL 0.0-0.1 Fibrin D-dimer FEU measurement in platel et poor plasma (mass/volume) - 02/27/18 17:34 Fibrin [...] 5-14 Serum or plasma urea nitrogen measurement (mass/volume ) 17 mg/dL 7-18 Serum or plasma creatinine measurement (mass/volume) 0.82 mg/dL 0.60-1.30 Serum or plasma urea nitrogen/creatinine mass ratio 21 NRG Serum or plasma creatinine measurement w ith calculation of estimated glomerular filtration rate > NRG Serum or plasma glucose measurement (mass/volume) 104 mg/dL 70-105 Serum or plasma calcium measurement (mass/volume) 9.4 mg/dL 8.5-10.1 Serum or plasma total bilirubin measurement (mass/volu me) 0.4 mg/dL 0.1-1.0 Serum or plasma alkaline phosphatase martha surement (enzymatic activity/volume) 71 U/L 40-136 Serum or plasma aspartate aminotransfera se measurement (enzymatic activity/volume) 17 U/L 5-34 Serum or plasma alanine aminotransferase measurement (enzymatic activity/volume) 18 U/L 0-55 Serum or plasma protein measurement (mass/volume) 7.5 g/dL 6.4-8.2 Serum or plasma albumin measurement (mass/volume) 4.3 g/dL 3.2-4.5 CALCIUM CORRECTED 9.2 mg/dL 8.5-10.1 Serum or plasma troponin i.cardiac measu rement (mass/volume) - 02/27/18 17:34 Serum or plasma troponin i.cardiac measurement (mass/v olume) < ng/mL <0.30 Urine beta human chorionic gonadotropin (hCG) measurement - 02/27/18 18:16 Urine beta human chorionic gonadotropin (hCG) measurem ent NEGATIVE NEGATIVE Complete urinalysis with reflex to cultu re - 02/27/18 18:16 Urine color determination YELLOW NRG Urine clarity determination CLEAR NR G Urine pH measurement by test strip 7 5-9 Specific gravity of urine by test strip 1.015 1.016-1.022 Urine protein assay by test strip, semi-quantitative 1+ NEGATIVE Urine glucose detection by automated test strip NE GATIVE NEGATIVE Erythrocytes detection in urine sediment by light micr oscopy NEGATIVE NEGATIVE Urine ketones detection by automated test strip NE GATIVE NEGATIVE Urine nitrite detection by test strip NEGATIVE NEGATIVE Urine total bilirubin detection by test strip NEGA TIVE NEGATIVE Urine urobilinogen measurement by automated test strip (mass/volume) 1 mg/dL NORMAL Urine leukocyte esterase detection by dipstick 1+ NEGATIVE Automated urine sediment erythrocyte cou nt by microscopy (number/high power field) NONE NRG Automated urine sediment leukocyte count by microscopy (number/high power field) [HPF] NRG Bacteria detection in urine sediment by light microsco py NONE NRG Squamous epithelial cells detection in u rine sediment by light microscopy RARE NRG Crystals detection in urine sediment by light microsco py PRESENT NRG Casts detection in urine sediment by light microscopy NONE NRG Mucus detection in urine sediment by light microscopy NEGATIVE NRG Complete urinalysis with reflex to culture NO NRG Amorphous sediment detection in urine sediment by ligh t microscopy FEW DIXON URATES NRG RA (RHEUMATOID) FACTOR - 04/23/18 11:37 RHEUMATOID FACTOR 59 IU/mL <14 NICKI - 04/23/18 11:37 NICKI SCREEN, IFA NEGATIVE NEGATIVE SUREPATH PAP AND HPV mRNA E6/E7 - 15:22 CLINICAL INFORMATION: NRG LMP: NRG PREV. PAP: NRG PREV. BX: NRG SOURCE: Cervix NRG STATEMENT OF ADEQUACY: NRG INTERPRETATION/RESULT: NRG PATIENT CARE SPECIALIST: NRG HPV mRNA E6/E7, SUREPATH VIAL Not Detected NOT DETECTED REVIEW PATIENT CARE SPECIALIST: NRG INFECTION: NRG COMMENT NRG CBC - 08/11/18 16:35 WHITE BLOOD CELL COUNT 6.7 Thousand/uL 3 .8-10.8 RED BLOOD CELL COUNT 4.92 Million/uL 3.8 0-5.10 HEMOGLOBIN 14.2 g/dL 11.7-15.5 HEMATOCRIT 43.2 % 35.0-45.0 MCV 87.8 fL 80.0-100.0 MCH 28.9 pg 27.0-33.0 MCHC 32.9 g/dL 32.0-36.0 RDW 13.1 % 11.0-15.0 PLATELET COUNT 233 Thousand/uL 140-400 MPV 10.1 fL 7.5-12.5 ABSOLUTE NEUTROPHILS 4027 cells/uL 1500- 7800 ABSOLUTE LYMPHOCYTES 2198 cells/uL 850-3 900 ABSOLUTE MONOCYTES 369 cells/uL 200-950 ABSOLUTE EOSINOPHILS 80 cells/uL 15-500 ABSOLUTE BASOPHILS 27 cells/uL 0-200 NEUTROPHILS 60.1 % NRG LYMPHOCYTES 32.8 % NRG MONOCYTES 5.5 % NRG EOSINOPHILS 1.2 % NRG BASOPHILS 0.4 % NRG HEPATITIS PROFILE - 11/11/18 11:52 HEPATITIS A IGM NON-REACTIVE NON-REACTI VE HEPATITIS B SURFACE ANTIGEN NON-REACTIVE NON-REACTIVE HEPATITIS B CORE ANTIBODY (IGM) NON-REACTIVE NON-REACTIVE HEPATITIS C ANTIBODY NON-REACTIVE NON-R EACTIVE SIGNAL TO CUT-OFF 0.02 <1.00 Capillary blood glucose measurement by g lucometer (mass/volume) - 11/27/18 08:06 Capillary blood glucose measurement by glucometer (mas s/volume) 104 mg/dL 70-110 Complete blood count (CBC) with automate d white blood cell (WBC) differential - 11/27/18 08:12 Blood leukocytes automated count (number/volume) 5.5 10*3/uL 4.3-11.0 Blood erythrocytes automated count (number/volume) 4.99 10*6/uL 4.35-5.85 Venous blood hemoglobin measurement (mass/volume) 14.4 g/dL 11.5-16.0 Blood hematocrit (volume fraction) 43 % 35-52 Automated erythrocyte mean corpuscular volume 87 [ foz_us] 80-99 Automated erythrocyte mean corpuscular h emoglobin (mass per erythrocyte) 29 pg 25-34 Automated erythrocyte mean corpuscular h emoglobin concentration measurement (mass/volume) 33 g/dL 32-36 Automated erythrocyte distribution width ratio 13. 0 % 10.0- 14.5 Automated blood platelet count (count/volume) 196 10*3/uL 130-400 Automated blood platelet mean volume measurement 9.9 [foz_us] 7.4-10.4 Automated blood neutrophils/100 leukocytes 61 % 42-75 Automated blood lymphocytes/100 leukocytes 30 % 12-44 Blood monocytes/100 leukocytes 7 % 0-12 Automated blood eosinophils/100 leukocytes 1 % 0-10 Automated blood basophils/100 leukocytes 0 % 0-10 Blood neutrophils automated count (number/volume) 3.4 10*3 1.8-7.8 Blood lymphocytes automated count (number/volume) 1.7 10*3 1.0-4.0 Blood monocytes automated count (number/volume) 0. 4 10*3 0.0-1.0 Automated eosinophil count 0.1 10*3/uL 0 .0-0.3 Automated blood basophil count (count/volume) 0.0 10*3/uL 0.0-0.1 PT panel in platelet poor plasma by coag ulation assay - 11/27/18 08:12 Prothrombin time (PT) in platelet poor plasma by coagu lation assay 12.0 s 12.2-14.7 INR in platelet poor plasma or blood by coagulation as say 0.9 0.8-1.4 Activated partial thromboplastin time (a PTT) in platelet poor plasma bycoagulation assay - 11/27/18 08:12 Activated partial thromboplastin time (a PTT) in platelet poor plasma bycoagulation assay 29 s 24-35 Comprehensive metabolic panel - 11/27/18 08:12 Serum or plasma sodium measurement (moles/volume) 138 mmol/L 135-145 Serum or plasma potassium measurement (moles/volume) 4.0 mmol/L 3.6-5.0 Serum or plasma chloride measurement (moles/volume) 109 mmol/L 98-107 Carbon dioxide 22 mmol/L 21-32 Serum or plasma anion gap determination (moles/volume) 7 mmol/L 5-14 Serum or plasma urea nitrogen measurement (mass/volume ) 12 mg/dL 7-18 Serum or plasma creatinine measurement (mass/volume) 0.71 mg/dL 0.60-1.30 Serum or plasma urea nitrogen/creatinine mass ratio 17 NRG Serum or plasma creatinine measurement w ith calculation of estimated glomerular filtration rate > NRG Serum or plasma glucose measurement (mass/volume) 99 mg/dL 70-105 Serum or plasma calcium measurement (mass/volume) 9.0 mg/dL 8.5-10.1 Serum or plasma total bilirubin measurement (mass/volu me) 0.4 mg/dL 0.1-1.0 Serum or plasma alkaline phosphatase martha surement (enzymatic activity/volume) 68 U/L 40-136 Serum or plasma aspartate aminotransfera se measurement (enzymatic activity/volume) 15 U/L 5-34 Serum or plasma alanine aminotransferase measurement (enzymatic activity/volume) 16 U/L 0-55 Serum or plasma protein measurement (mass/volume) 7.2 g/dL 6.4-8.2 Serum or plasma albumin measurement (mass/volume) 4.3 g/dL 3.2-4.5 CALCIUM CORRECTED 8.8 mg/dL 8.5-10.1 Serum or plasma troponin i.cardiac measu rement (mass/volume) - 11/27/18 08:12 Serum or plasma troponin i.cardiac measurement (mass/v olume) < ng/mL <0.028 Fibrin D-dimer FEU measurement in platel et poor plasma (mass/volume) - 11/27/18 08:12 Fibrin D-dimer FEU measurement in platelet poor plasma (mass/volume) 0.73 ug/mL 0.00-0.49 Complete urinalysis with reflex to cultu re - 11/27/18 08:23 Urine color determination YELLOW NRG Urine clarity determination CLEAR NR G Urine pH measurement by test strip 5 5-9 Specific gravity of urine by test strip 1.025 1.016-1.022 Urine protein assay by test strip, semi-quantitative NEGATIVE NEGATIVE Urine glucose detection by automated test strip NE GATIVE NEGATIVE Erythrocytes detection in urine sediment by light micr oscopy 1+ NEGATIVE Urine ketones detection by automated test strip NE GATIVE NEGATIVE Urine nitrite detection by test strip NEGATIVE NEGATIVE Urine total bilirubin detection by test strip NEGA TIVE NEGATIVE Urine urobilinogen measurement by automated test strip (mass/volume) NORMAL NORMAL Urine leukocyte esterase detection by dipstick NEG ATIVE NEGATIVE Automated urine sediment erythrocyte cou nt by microscopy (number/high power field) RARE NRG Automated urine sediment leukocyte count by microscopy (number/high power field) [HPF] NRG Bacteria detection in urine sediment by light microsco py FEW NRG Squamous epithelial cells detection in u rine sediment by light microscopy 10-25 NRG Crystals detection in urine sediment by light microsco py NONE NRG Casts detection in urine sediment by light microscopy NONE NRG Mucus detection in urine sediment by light microscopy SMALL NRG Complete urinalysis with reflex to culture NO NRG Methicillin resistant Staphylococcus aur eus (MRSA) screening culture - 12/31/18 07:45 Methicillin resistant Staphylococcus aureus (MRSA) scr eening culture NEG NRG Complete blood count (CBC) with automate d white blood cell (WBC) differential - 05/13/19 12:26 Blood leukocytes automated count (number/volume) 9.7 10*3/uL 4.3-11.0 Blood erythrocytes automated count (number/volume) 5.54 10*6/uL 4.35-5.85 Venous blood hemoglobin measurement (mass/volume) 16.5 g/dL 11.5-16.0 Blood hematocrit (volume fraction) 49 % 35-52 Automated erythrocyte mean corpuscular volume 88 [ foz_us] 80-99 Automated erythrocyte mean corpuscular h emoglobin (mass per erythrocyte) 30 pg 25-34 Automated erythrocyte mean corpuscular h emoglobin concentration measurement (mass/volume) 34 g/dL 32-36 Automated erythrocyte distribution width ratio 14. 1 % 10.0- 14.5 Automated blood platelet count (count/volume) 285 10*3/uL 130-400 Automated blood platelet mean volume measurement 9.4 [foz_us] 7.4-10.4 Automated blood neutrophils/100 leukocytes 66 % 42-75 Automated blood lymphocytes/100 leukocytes 25 % 12-44 Blood monocytes/100 leukocytes 8 % 0-12 Automated blood eosinophils/100 leukocytes 1 % 0-10 Automated blood basophils/100 leukocytes 0 % 0-10 Blood neutrophils automated count (number/volume) 6.4 10*3 1.8-7.8 Blood lymphocytes automated count (number/volume) 2.4 10*3 1.0-4.0 Blood monocytes automated count (number/volume) 0. 8 10*3 0.0-1.0 Automated eosinophil count 0.1 10*3/uL 0 .0-0.3 Automated blood basophil count (count/volume) 0.0 10*3/uL 0.0-0.1 Comprehensive metabolic panel - 05/13/19 12:26 Serum or plasma sodium measurement (moles/volume) 140 mmol/L 135-145 Serum or plasma potassium measurement (moles/volume) 4.1 mmol/L 3.6-5.0 Serum or plasma chloride measurement (moles/volume) 106 mmol/L 98-107 Carbon dioxide 22 mmol/L 21-32 Serum or plasma anion gap determination (moles/volume) 12 mmol/L 5-14 Serum or plasma urea nitrogen measurement (mass/volume ) 15 mg/dL 7-18 Serum or plasma creatinine measurement (mass/volume) 0.90 mg/dL 0.60-1.30 Serum or plasma urea nitrogen/creatinine mass ratio 17 NRG Serum or plasma creatinine measurement w ith calculation of estimated glomerular filtration rate > NRG Serum or plasma glucose measurement (mass/volume) 92 mg/dL 70-105 Serum or plasma calcium measurement (mass/volume) 10.2 mg/dL 8.5-10.1 Serum or plasma total bilirubin measurement (mass/volu me) 0.4 mg/dL 0.1-1.0 Serum or plasma alkaline phosphatase martha surement (enzymatic activity/volume) 83 U/L 40-136 Serum or plasma aspartate aminotransfera se measurement (enzymatic activity/volume) 21 U/L 5-34 Serum or plasma alanine aminotransferase measurement (enzymatic activity/volume) 20 U/L 0-55 Serum or plasma protein measurement (mass/volume) 8.4 g/dL 6.4-8.2 Serum or plasma albumin measurement (mass/volume) 5.0 g/dL 3.2-4.5 Magnesium - 05/13/19 12:26 Magnesium 2.1 mg/dL 1.6-2.4 Serum or plasma choriogonadotropin (preg alessandra test) detection - 05/13/19 12:26 Serum or plasma choriogonadotropin ( test) de tection NEGATIVE NEGATIVE PT panel in platelet poor plasma by coag ulation assay - 05/13/19 12:26 Prothrombin time (PT) in platelet poor plasma by coagu lation assay 12.5 s 12.2-14.7 INR in platelet poor plasma or blood by coagulation as say 0.9 0.8-1.4 Activated partial thromboplastin time (a PTT) in platelet poor plasma bycoagulation assay - 05/13/19 12:26 Activated partial thromboplastin time (a PTT) in platelet poor plasma bycoagulation assay 29 s 24-35 Serum or plasma troponin i.cardiac measu rement (mass/volume) - 05/13/19 12:26 Serum or plasma troponin i.cardiac measurement (mass/v olume) < ng/mL <0.028 Serum or plasma thyrotropin measurement by detection limit <=0.05 miu/l (units/volume) - 05/13/19 12:26 Serum or plasma thyrotropin measurement by detection limit <=0.05 miu/l (units/volume) 0.91 u[iU]/mL 0.35-4.94 Fibrin D-dimer FEU measurement in platel et poor plasma (mass/volume) - 05/13/19 12:26 Fibrin D-dimer FEU measurement in platelet poor plasma (mass/volume) 0.47 ug/mL 0.00-0.49 Serum or plasma acetaminophen measuremen t (mass/volume) - 05/13/19 12:26 Serum or plasma acetaminophen measurement (mass/volume ) < ug/mL 10-30 Serum or plasma ethanol measurement (mas s/volume) - 05/13/19 12:26 Serum or plasma ethanol measurement (mass/volume) < mg/dL <10 Capillary blood glucose measurement by g lucometer (mass/volume) - 05/13/19 12:31 Capillary blood glucose measurement by glucometer (mas s/volume) 95 mg/dL 70-110 Complete urinalysis with reflex to cultu re - 05/13/19 13:02 Urine color determination YELLOW NRG Urine clarity determination CLEAR NR G Urine pH measurement by test strip 7.0 5-9 Specific gravity of urine by test strip 1.020 1.016-1.022 Urine protein assay by test strip, semi-quantitative NEGATIVE NEGATIVE Urine glucose detection by automated test strip NE GATIVE NEGATIVE Erythrocytes detection in urine sediment by light micr oscopy NEGATIVE NEGATIVE Urine ketones detection by automated test strip NE GATIVE NEGATIVE Urine nitrite detection by test strip NEGATIVE NEGATIVE Urine total bilirubin detection by test strip NEGA TIVE NEGATIVE Urine urobilinogen measurement by automated test strip (mass/volume) 0.2 mg/dL < = 1.0 Urine leukocyte esterase detection by dipstick NEG ATIVE NEGATIVE Automated urine sediment erythrocyte cou nt by microscopy (number/high power field) NONE NRG Automated urine sediment leukocyte count by microscopy (number/high power field) RARE NRG Bacteria detection in urine sediment by light microsco py TRACE NRG Squamous epithelial cells detection in u rine sediment by light microscopy 0-2 NRG Crystals detection in urine sediment by light microsco py PRESENT NRG Casts detection in urine sediment by light microscopy NONE NRG Mucus detection in urine sediment by light microscopy NEGATIVE NRG Complete urinalysis with reflex to culture NO NRG Amorphous sediment detection in urine sediment by ligh t microscopy FEW DIXON PHOSPHATE NRG Urine drug screening test - 05/13/19 13: 02 Urine phencyclidine detection by screening method NEGATIVE NEGATIVE Urine benzodiazepines detection by screening method NEGATIVE NEGATIVE Urine cocaine detection NEGATIVE NEGATI VE Urine amphetamines detection by screening method N EGATIVE NEGATIVE Urine methamphetamine detection by screening method NEGATIVE NEGATIVE Urine cannabinoids detection by screening method P OSITIVE NEGATIVE Urine opiates detection by screening method NEGATI VE NEGATIVE Urine barbiturates detection NEGATIVE N EGATIVE Screening urine tricyclic antidepressants detection NEGATIVE NEGATIVE Urine methadone detection by screening method NEGA TIVE NEGATIVE Urine oxycodone detection NEGATIVE NEGA TIVE Urine propoxyphene detection NEGATIVE N EGATIVE Serum or plasma troponin i.cardiac measu rement (mass/volume) - 05/13/19 15:35 Serum or plasma troponin i.cardiac measurement (mass/v olume) < ng/mL <0.028 Comprehensive metabolic panel - 05/14/19 02:35 Serum or plasma sodium measurement (moles/volume) 138 mmol/L 135-145 Serum or plasma potassium measurement (moles/volume) 4.0 mmol/L 3.6-5.0 Serum or plasma chloride measurement (moles/volume) 107 mmol/L 98-107 Carbon dioxide 18 mmol/L 21-32 Serum or plasma anion gap determination (moles/volume) 13 mmol/L 5-14 Serum or plasma urea nitrogen measurement (mass/volume ) 17 mg/dL 7-18 Serum or plasma creatinine measurement (mass/volume) 0.89 mg/dL 0.60-1.30 Serum or plasma urea nitrogen/creatinine mass ratio 19 NRG Serum or plasma creatinine measurement w ith calculation of estimated glomerular filtration rate > NRG Serum or plasma glucose measurement (mass/volume) 85 mg/dL 70-105 Serum or plasma calcium measurement (mass/volume) 9.0 mg/dL 8.5-10.1 Serum or plasma total bilirubin measurement (mass/volu me) 0.3 mg/dL 0.1-1.0 Serum or plasma alkaline phosphatase martha surement (enzymatic activity/volume) 71 U/L 40-136 Serum or plasma aspartate aminotransfera se measurement (enzymatic activity/volume) 15 U/L 5-34 Serum or plasma alanine aminotransferase measurement (enzymatic activity/volume) 16 U/L 0-55 Serum or plasma protein measurement (mass/volume) 7.0 g/dL 6.4-8.2 Serum or plasma albumin measurement (mass/volume) 4.1 g/dL 3.2-4.5 CALCIUM CORRECTED 8.9 mg/dL 8.5-10.1 Lipid 1996 panel - 05/14/19 02:35 Serum or plasma triglyceride measurement (mass/volume) 498 mg/dL <150 Serum or plasma cholesterol measurement (mass/volume) 188 mg/dL < 200 Serum or plasma cholesterol in HDL measurement (mass/v olume) 37 mg/dL 40-60 Cholesterol in LDL [mass/volume] in serum or plasma by direct assay 120 mg/dL 1-129 Serum or plasma cholesterol in VLDL measurement (mass/ volume) TNP 5-40 Complete blood count (CBC) with automate d white blood cell (WBC) differential - 05/14/19 03:16 Blood leukocytes automated count (number/volume) 8.8 10*3/uL 4.3-11.0 Blood erythrocytes automated count (number/volume) 5.00 10*6/uL 4.35-5.85 Venous blood hemoglobin measurement (mass/volume) 14.8 g/dL 11.5-16.0 Blood hematocrit (volume fraction) 45 % 35-52 Automated erythrocyte mean corpuscular volume 89 [ foz_us] 80-99 Automated erythrocyte mean corpuscular h emoglobin (mass per erythrocyte) 30 pg 25-34 Automated erythrocyte mean corpuscular h emoglobin concentration measurement (mass/volume) 33 g/dL 32-36 Automated erythrocyte distribution width ratio 14. 3 % 10.0- 14.5 Automated blood platelet count (count/volume) 246 10*3/uL 130-400 Automated blood platelet mean volume measurement 9.6 [foz_us] 7.4-10.4 Automated blood neutrophils/100 leukocytes 55 % 42-75 Automated blood lymphocytes/100 leukocytes 34 % 12-44 Blood monocytes/100 leukocytes 9 % 0-12 Automated blood eosinophils/100 leukocytes 1 % 0-10 Automated blood basophils/100 leukocytes 0 % 0-10 Blood neutrophils automated count (number/volume) 4.9 10*3 1.8-7.8 Blood lymphocytes automated count (number/volume) 3.0 10*3 1.0-4.0 Blood monocytes automated count (number/volume) 0. 8 10*3 0.0-1.0 Automated eosinophil count 0.1 10*3/uL 0 .0-0.3 Automated blood basophil count (count/volume) 0.0 10*3/uL 0.0-0.1 Radiology Report from [id number] on 013 10:18:00 Final ReportADMITTING DIAGNOSIS: Abd Pain ABD. PAINKUB,UPRIGHT /OR DECUB - 08/18/2012 [facility] RESULT: TIME:9:16 AM.INDICATION:Right lower quadrant [...] tion.IMPRESSION: Probable mild ileus.Dictated on workstation # [id number] BY: CHACORTA CRABTREE M.D., RADIOLOGISTELECTRONICALLY SIGNED BY: CHACORTA CRABTREE M.D., RADIOLOGISTD Aug 18 2012 9:19AT JM : Aug 18 2012 10:16AS Aug 18 2012 10:16A Radiology Report from [id number] on 013 16:08:00 Final ReportADMITTING DIAGNOSIS: Abd Pain ABD PAINGALLBLADDER SONO - 08/18/2012 [facility] ON [facility] RESULT: INDICATION: Right upper quadrant [...] be of further value.Dictated on workstation # [id number] RADIOLOGIST: SCOTT PACHECO M.D., RADIOLOGISTELECTRONICALLY SIGNED BY: SCOTT PACHECO M.D., RADIOLOGISTD Aug 18 2012 9:42AT RF : Aug 18 2012 4:05PS Aug 18 2012 4:05P Radiology Report from [id number] on 013 17:00:00 Final ReportADMITTING DIAGNOSIS: Abd Pain ABD. PAINCT ABD W W/O,PELVIS W - 08/18/2012 [facility] RESULT: PROCEDURE: CT abdomen with [...] the liver with normalspleen.Dictated on workstation # [id number] BY: NEGRA VALENZUELA M.D., RADIOLOGISTELECTRONICALLY SIGNED BY: NEGRA VALENZUELA M.D., RADIOLOGISTD Aug 18 2012 11:57AT KB : Aug 18 2012 4:57PS Aug 18 2012 4:57P Radiology Report from [facility] on 2012 16:38:00 DIAGNOSTIC UMU GING REPORT [facility] - [address] [place] [address] PHONE #: [phone] FAX #: [phone] Name: XUAN GALE Loc: W.EDW Radiology No: : 1980 Age: 32 Sex: F Status: DEP ER Unit No: [id number] Phys: Tobi Soares DO Acct: [id number] Reason For Exam: abd pain Exam Date: 08/19/2012 EXAMS: CPT CODE: [id number] ABD-KUB /FEB PA CHEST 42305 TIME OF STUDY: 08/19/2012 2:19 PM REASON [...] CC: Technologist: TOMMY AVILA Transcribed Date/Time: 08/19/2012 (0088)Inspector Conveyor Line: [id number] Printed Date/Time: 08/19/2012 (8885) BATCH NO: N/A PAGE 1 Signed Report Radiology Report from [id number] on 014 12:14:00 Final ReportADMITTING DIAGNOSIS: n/v, lower back [...] CT abdomen and pelvis.Dictated on workstation # [id number] BY: SCOTT PACHECO M.D., RADIOLOGISTELECTRONICALLY SIGNED BY: SCOTT PACHECO M.D., RADIOLOGISTD Jun 14 2013 5:59AT MK4: Jun 14 2013 12:10PS Jun 14 2013 12:10P Radiology Report from [facility] on 014 14:13:00 DIAGNOSTIC UMU GING REPORT [facility] - [address] [place] [address] PHONE #: [phone] FAX #: [phone] Name: XUAN GALE Loc: MATT Radiology No: : 1980 Age: 33 Sex: F Status: REG ER Unit No: [id number] Phys: RICKY - Fran Capone MD Acct: [id number] Reason For Exam: abd pain, suspect cnstipation Exam Date: 07/22/2013 EXAMS: CPT CODE: [id number] ABD-KUB /FEB PA CHEST 03283 Abdomen series The reason for examination: Abdominal [...] MD Technologist: TOMMY AVILA Transcribed Date/Time: 07/22/2013 (1404)Inspector Conveyor Line: LENNY Printed Date/Time: 07/22/2013 (5891) BATCH NO: N/A PAGE 1 Signed Report Radiology Report from [facility] on 014 15:17:00 DIAGNOSTIC UMU GING REPORT [facility] - [address] [place] [address] PHONE #: [phone] FAX #: [phone] Name: XUAN GALE Loc: DmEDW Radiology No: : 1980 Age: 33 Sex: F Status: REG ER Unit No: [id number] Phys: Fran Mendes MD Acct: [id number] Reason For Exam: abd pain abn kub Exam Date: 07/22/2013 EXAMS: CPT CODE: [id number] CT ABD/PELVIS WITH CONTRAST [id number] TIME OF STUDY: 07/22/2013 2:47 PM REASON [...] 1 Signed Report (CONTINUED) DIAGNOSTIC IMAGING REPORT [facility] - [address] [place] [address] PHONE #: [phone] FAX #: [phone] Name: XUAN GALE Loc: W.EDW Radiology No: : 1980 Age: 33 Sex: F Status: REG ER Unit No: [id number] Phys: Fran Mendes MD Acct: [id number] Reason For Exam: abd pain abn kub Exam Date: 07/22/2013 --------- EXAMS: CPT CODE: [id number] CT ABD/PELVIS WITH CONTRAST 91000 <Continued> CC: Fran Capone MD Technologist: TOMMY AVILA Transcribed Date/Time: 07/22/2013 (1506)Inspector Conveyor Line: JOANNE Printed Date/Time: 07/22/2013 (3623) BATCH NO: N/A PAGE 2 Signed Report Encounters ACCT No. Visit Date/Time Discharge Status Pt. Type Provider Facility Loc./Unit Complaint [id number] 05/04/2019 15:40:00 05/04/2019 23:59: 59 [facility] Outpatient KATHY GAONA [facility] [id number] 11/11/2018 13:00:00 Document Registration [id number] 08/11/2018 16:00:00 Document Registration [id number] 05/23/2018 12:20:00 Document Registration [id number] 04/23/2018 10:40:00 Document Registration [id number] 02/13/2018 13:00:00 Document Registration [id number] 01/31/2017 08:00:00 Document Registration [id number] 01/10/2017 10:40:00 Document Registration [id number] 05/13/2019 14:30:00 10:54:00 DIS Inpatient KALYAN BACK DO, [facility] ICU HYPERTENSIVE ENCEPHALOP ATHY [id number] 02/27/2019 15:18:00 23:59:59 CLS Outpatient LIS MEDRANO DO [facility] RAD PCOS [id number] 12/31/2018 06:57:00 12:55:00 DIS Outpatient MIKIE FLAHERTY DO [facility] SDC CHOLECYSTITIS/CHOLELITH IASIS [id number] 12/25/2018 05:32:00 13:31:00 DIS Outpatient MIKIE FLAHERTY DO [facility] PREOP CHOLECYSTITIS/CHOLELITH IASIS [id number] 12/09/2018 13:54:00 23:59:59 CLS Preadmit KATHY GAONA CHAR FILTER TANK TENDER [facility] REHAB LBP [id number] 11/27/2018 08:00:00 10:21:00 DIS Emergency JUSTINA BECK, VIVEK Jimenez [facility] ER LEFT SIDE FACIA L DROOP [id number] 09/03/2018 07:02:00 08:23:00 DIS Emergency CAITLYN BECK, ERLINDA Beavers [facility] ER FACE DROOPING,F ZENIA NUMB [id number] 07/09/2018 14:59:00 23:59:59 CLS Preadmit ROCHELLE LEIGH [facility] CARD ESSENTIAL HYPERTENSION, HEART PALPITATIONS [id number] 07/09/2018 14:53:00 23:59:59 CLS Preadmit ROCHELLE LEIGH DITCHER OPERATOR [facility] CARD ESSENTIAL HYPERTENSION, PALPITATIONS [id number] 07/09/2018 14:43:00 019 23:59:59 CLS Preadmit ROCHELLE LEIGH [facility] CARD ESSENTIAL HYPERTENSION, PALPITATIONS [id number] 06/13/2018 09:04:00 019 10:55:00 DIS Outpatient CARLIELAYTON MIKIE LIU [facility] ENDO RECTAL BLEEDING/HX POLLARD ETT'S [id number] 06/09/2018 06:45:00 019 15:51:00 DIS Outpatient MIKIE FLAHERTY DO [facility] PREOP COLONOSCOPY/EGD [id number] 02/27/2018 17:11:00 19:17:00 DIS Emergency MIGEL ROMERO APRN [facility] ER "HAD A SEIZURE 30 MINUT ES AGO" [id number] 12/27/2016 14:56:00 017 17:48:00 DIS Emergency SRINI QUISPE [facility] ER SEIZURE [id number] 12/26/2016 09:24:00 017 12:04:00 DIS Emergency MIMI WEEKS MD [facility] ER MIGRAINE [id number] 12/05/2016 14:26:00 017 17:27:00 DIS Emergency OZZIE JACKSON [facility] ER HEAVY MENSTRUAL BLEEDI NG FOR 7 WEEKS [id number] 05/21/2013 18:44:00 05/22/19 14 21:26:00 DIS Emergency Sree Samayoa III, MD [facility] on [place] FERM [id number] 08/18/2012 07:59:00 08/19/19 13 12:50:00 DIS Emergency Alessandra Martinez MD [facility] on [facility] TERM [id number] 09/16/2013 15:27:00 014 17:50:00 DIS Emergency Max BECK, Chepe [facility] W.EDN [id number] 07/22/2013 11:59:00 014 15:46:00 DIS Emergency Liborio BECK, [facility] W.EDW [id number] 07/08/2013 14:28:00 014 16:47:00 DIS Emergency Allen BECK, [facility] W.EDS [id number] 06/24/2013 11:54:00 014 12:53:00 DIS Emergency Reginald BECK, Jimy [facility] W.EDW [id number] 05/12/2013 00:58:00 014 02:54:00 DIS Emergency [facility] [id number] 08/19/2012 12:36:00 013 15:40:00 DIS Emergency Zachary LIU, Tobi [facility] W.EDW [id number] 03/23/2011 15:21:00 012 23:59:59 [facility] Emergency [id number] 06/13/2013 21:21:00 06/14/19 14 23:40:00 DIS Emergency Danita CHAVEZ MD, Sree [facility] on [place] GARY [id number] 05/21/2013 18:44:00 Document Registration
--- OUTSIDE RECORDS SUMMARY | 2019-05-15 15:57 | XMS REPORT | Continuity of Care Document ---
[...] Moderate SAME PCN REACTION 08/14/2013 Yes Penicillins [id number] Drug Aller gy Unknown N/A 12/05/2016 Yes hydromorphone [id number] Yury g Allergy Unknown ANAPHYLAXIS 06/09/2018 Yes latex [id number] Drug Allergy Unknown HIVES 06/09/2018 Yes hydromorphone [id number] Yury g Allergy Severe ANAPHYLAXIS 09/03/2018 Yes Penicillins [id number] Drug Aller gy Mild hives 09/03/2018 Yes morphine [id number] Drug Allergy Mild Rash 12/31/2018 Medications There [...] SPECIFIED PART 12/26/2016 MIMI WEEKS MD Ot F12. 10 CANNABIS ABUSE, UNCOMPLICATED 12/26/2016 MIMI WEEKS MD Ot F17.210 NICOTINE DEPENDENCE, CIGARETTES, UNCOMPL 12/26/2016 MIMI WEEKS MD Ot G43.909 MIGRAINE, UNSP, NOT INTRACTABLE, WITHOUT 12/26/2016 MIMI WEEKS MD Ot Z87.448 PERSONAL HISTORY OF OTHER DISEASES OF UR 12/26/2016 MIMI WEEKS MD Ot Z90. 49 ACQUIRED ABSENCE OF OTHER SPECIFIED PART 12/27/2016 JOSE ENRIQUESRINI DEICER FINISHER Ot F17.210 NICOTINE DEPENDENCE, CIGARETTES, UNCOMPL 12/27/2016 JOSE ENRIQUESRINI Chatman DEICER FINISHER Ot G43.909 MIGRAINE, UNSP, NOT INTRACTABLE, WITHOUT 12/27/2016 JOSE ENRIQUESRINI Chatman DEICER FINISHER Ot Z87.448 PERSONAL HISTORY OF OTHER DISEASES OF UR 12/27/2016 JOSE ENRIQUE SRINI DEICER FINISHER Ot Z90.49 ACQUIRED ABSENCE OF OTHER SPECIFIED [...] LIU, MIKIE B Ot Z79.8 99 OTHER CLIMATE CHANGE RISK ASSESSOR (CURRENT) DRUG THERAPY 06/17/2018 REYNOLD LIU, MIKIE [...] FLAHERTY DO B Ot Z79.8 99 OTHER CLIMATE CHANGE RISK ASSESSOR (CURRENT) DRUG THERAPY 09/03/2018 CAITLYN BECK, ERLINDA [...] WEAKNESS 11/27/2018 VIVEK HORN MD Ot Z79.52 CLIMATE CHANGE RISK ASSESSOR (CURRENT) USE OF SYSTEMIC STER 11/27/2018 VIVEK [...] MD Ot F31.9 BIPOLAR DISORDER, UNSPECIFIED 12/01/2018 VIEVK HORN MD Ot F41.9 ANXIETY DISORDER, UNSPECIFIED 12/01/2018 VIVEK HORN MD Ot G43.909 MIGRAINE, UNSP, [...] MIKIE FLAHERTY DO Ot Z79.8 99 OTHER CLIMATE CHANGE RISK ASSESSOR (CURRENT) DRUG THERAPY 12/31/2018 MIKIE FLAHERTY DO [...] MIKIE FLAHERTY DO Ot Z79.8 99 OTHER CLIMATE CHANGE RISK ASSESSOR (CURRENT) DRUG THERAPY 01/07/2019 MIKIE FLAHERTY DO [...] FLAHERTY DO B Ot Z79.8 99 OTHER CLIMATE CHANGE RISK ASSESSOR (CURRENT) DRUG THERAPY 01/09/2019 MIKIE FLAHERTY DO [...] identification in genital specimen by aerobe culture [id number] NRG Microscopic examination by wet preparati on [...] NRG STATEMENT OF ADEQUACY: NRG INTERPRETATION/RESULT: NRG GLASS BLOCK BENDER: NRG HPV mRNA E6/E7, SUREPATH VIAL Not [...] NRG STATEMENT OF ADEQUACY: NRG INTERPRETATION/RESULT: NRG GLASS BLOCK BENDER: NRG HPV mRNA E6/E7, SUREPATH VIAL Not Detected NOT DETECTED REVIEW GLASS BLOCK BENDER: NRG INFECTION: NRG COMMENT NRG CBC - [...] (count/volume) 0.0 10*3/uL 0.0-0.1 Radiology Report from [id number] on 013 10:18:00 Final ReportADMITTING DIAGNOSIS: Abd Pain ABD. PAINKUB,UPRIGHT /OR DECUB - 08/18/2012 [facility] ON [facility] RESULT: TIME:9:16 AM.INDICATION:Right lower quadrant [...] tion.IMPRESSION: Probable mild ileus.Dictated on workstation # [id number] BY: CHACORTA CRABTREE M.D., RADIOLOGISTELECTRONICALLY SIGNED BY: CHACORTA CRABTREE M.D., RADIOLOGISTD Aug 18 2012 9:19AT JM : Aug 18 2012 10:16AS Aug 18 2012 10:16A Radiology Report from [id number] on 013 16:08:00 Final ReportADMITTING DIAGNOSIS: Abd Pain ABD PAINGALLBLADDER SONO - 08/18/2012 [facility] ON [facility] RESULT: INDICATION: Right upper quadrant [...] be of further value.Dictated on workstation # [id number] RADIOLOGIST: SCOTT PACHECO M.D., RADIOLOGISTELECTRONICALLY SIGNED BY: SCOTT PACHECO M.D., RADIOLOGISTD Aug 18 2012 9:42AT RF : Aug 18 2012 4:05PS Aug 18 2012 4:05P Radiology Report from [id number] on 013 17:00:00 Final ReportADMITTING DIAGNOSIS: Abd Pain ABD. PAINCT ABD W W/O,PELVIS W - 08/18/2012 [facility] ON [facility] RESULT: PROCEDURE: CT abdomen with [...] the liver with normalspleen.Dictated on workstation # [id number] BY: NEGRA VALENZUELA M.D., RADIOLOGISTELECTRONICALLY SIGNED BY: NEGRA VALENZUELA M.D., RADIOLOGISTD Aug 18 2012 11:57AT KB : Aug 18 2012 4:57PS Aug 18 2012 4:57P Radiology Report from [facility] on 2012 16:38:00 DIAGNOSTIC UMU GING REPORT [facility] - [address] [place] [address] PHONE #: [phone] FAX #: [phone] Name: XUAN GALE Loc: W.EDW Radiology No: : 1980 Age: 32 Sex: F Status: DEP ER Unit No: [id number] Phys: Tobi Soares DO Acct: [id number] Reason For Exam: abd pain Exam Date: 08/19/2012 EXAMS: CPT CODE: [id number] ABD-KUB /FEB PA CHEST 08190 TIME OF STUDY: 08/19/2012 2:19 PM REASON [...] CC: Technologist: TOMMY AVILA Transcribed Date/Time: 08/19/2012 (1249)Asbestos Brake Lining Finisher Helper: PZARCADM Printed Date/Time: 08/19/2012 (9483) BATCH NO: N/A PAGE 1 Signed Report Radiology Report from [id number] on 014 12:14:00 Final ReportADMITTING DIAGNOSIS: n/v, [...] CT abdomen and pelvis.Dictated on workstation # [id number] BY: SCOTT PACHECO M.D., RADIOLOGISTELECTRONICALLY SIGNED BY: SCOTT PACHECO M.D., RADIOLOGISTD Jun 14 2013 5:59AT MK4: Jun 14 2013 12:10PS Jun 14 2013 12:10P Radiology Report from [facility] on 014 14:13:00 DIAGNOSTIC UMU GING REPORT [facility] - [address] [place] [address] PHONE #: [phone] FAX #: [phone] Name: XUAN GALE Loc: MATT Radiology No: : 1980 Age: 33 Sex: F Status: REG ER Unit No: [id number] Phys: RICKY - Fran Capone MD Acct: [id number] Reason For Exam: abd pain, suspect cnstipation Exam Date: 07/22/2013 EXAMS: CPT CODE: [id number] ABD-KUB /FEB PA CHEST 78986 Abdomen series The reason for examination: Abdominal [...] MD Technologist: TOMMY AVILA Transcribed Date/Time: 07/22/2013 (1402)Asbestos Brake Lining Finisher Helper: LENNY Printed Date/Time: 07/22/2013 (6723) BATCH NO: N/A PAGE 1 Signed Report Radiology Report from [facility] on 014 15:17:00 DIAGNOSTIC UMU GING REPORT [facility] - [address] [place] [address] PHONE #: [phone] FAX #: [phone] Name: XUAN GALE Loc: DmEDW Radiology No: : 1980 Age: 33 Sex: F Status: REG ER Unit No: [id number] Phys: Fran Mendes MD Acct: [id number] Reason For Exam: abd pain abn kub Exam Date: 07/22/2013 EXAMS: CPT CODE: [id number] CT ABD/PELVIS WITH CONTRAST 93788 TIME OF STUDY: 07/22/2013 2:47 PM REASON [...] 1 Signed Report (CONTINUED) DIAGNOSTIC IMAGING REPORT [facility] - [address] [place] [address] PHONE #: [phone] FAX #: [phone] Name: XUAN GALE Loc: W.EDW Radiology No: : 1980 Age: 33 Sex: F Status: REG ER Unit No: [id number] Phys: Fran Mendes MD Acct: [id number] Reason For Exam: abd pain abn kub Exam Date: 07/22/2013 --------- EXAMS: CPT CODE: [id number] CT ABD/PELVIS WITH CONTRAST 59285 <Continued> CC: Fran Capone MD Technologist: TOMMY AVILA Transcribed Date/Time: 07/22/2013 (1506)Asbestos Brake Lining Finisher Helper: JOANNE Printed Date/Time: 07/22/2013 (0530) BATCH NO: N/A PAGE 2 Signed Report Encounters ACCT No. Visit Date/Time Discharge Status Pt. Type Provider Facility Loc./Unit Complaint [id number] 05/04/2019 15:40:00 05/04/2019 23:59: 59 [facility] Outpatient KATHY GAONA [facility] [id number] 11/11/2018 13:00:00 Document Registration [id number] 08/11/2018 16:00:00 Document Registration [id number] 05/23/2018 12:20:00 Document Registration [id number] 04/23/2018 10:40:00 Document Registration [id number] 02/13/2018 13:00:00 Document Registration [id number] 01/31/2017 08:00:00 Document Registration [id number] 01/10/2017 10:40:00 Document Registration [id number] 05/13/2019 14:30:00 10:54:00 DIS Inpatient KALYAN BACK DO, V [facility] ICU HYPERTENSIVE ENCEPHALOP ATHY [id number] 02/27/2019 15:18:00 23:59:59 CLS Outpatient LIS MEDRANO DO [facility] RAD PCOS [id number] 12/31/2018 06:57:00 12:55:00 DIS Outpatient MIKIE FLAHERTY DO [facility] SDC CHOLECYSTITIS/CHOLELITH IASIS [id number] 12/25/2018 05:32:00 13:31:00 DIS Outpatient MIKIE FLAHERTY DO [facility] PREOP CHOLECYSTITIS/CHOLELITH IASIS [id number] 12/09/2018 13:54:00 23:59:59 CLS Preadmit KATHY GAONA BRIM STRETCHER [facility] REHAB LBP [id number] 11/27/2018 08:00:00 10:21:00 DIS Emergency JUSTINA BECK, VIVEK Jimenez [facility] ER LEFT SIDE FACIA L DROOP [id number] 09/03/2018 07:02:00 08:23:00 DIS Emergency CAITLYN BECK, ERLINDA Beavers [facility] ER FACE DROOPING,F ZENIA NUMB [id number] 07/09/2018 14:59:00 23:59:59 CLS Preadmit ROHCELLE LEIGH [facility] CARD ESSENTIAL HYPERTENSION, HEART PALPITATIONS [id number] 07/09/2018 14:53:00 23:59:59 CLS Preadmit ROCHELLE LEIGH DEICER FINISHER [facility] CARD ESSENTIAL HYPERTENSION, PALPITATIONS [id number] 07/09/2018 14:43:00 019 23:59:59 CLS Preadmit ROCHELLE LEIGH [facility] CARD ESSENTIAL HYPERTENSION, PALPITATIONS [id number] 06/13/2018 09:04:00 019 10:55:00 DIS Outpatient CARLIECOIN MIKIE LIU [facility] ENDO RECTAL BLEEDING/HX POLLARD ETT'S [id number] 06/09/2018 06:45:00 019 15:51:00 DIS Outpatient MIKIE FLAHERTY DO [facility] PREOP COLONOSCOPY/EGD [id number] 02/27/2018 17:11:00 19:17:00 DIS Emergency MIGEL ROMERO APRN [facility] ER "HAD A SEIZURE 30 MINUT ES AGO" [id number] 12/27/2016 14:56:00 017 17:48:00 DIS Emergency SRINI QUISPE [facility] ER SEIZURE [id number] 12/26/2016 09:24:00 017 12:04:00 DIS Emergency MIMI WEEKS MD [facility] ER MIGRAINE [id number] 12/05/2016 14:26:00 017 17:27:00 DIS Emergency OZZIE JACKSON [facility] ER HEAVY MENSTRUAL BLEEDI NG FOR 7 WEEKS [id number] 05/21/2013 18:44:00 05/22/19 14 21:26:00 DIS Emergency Sree Samayoa III, MD [facility] on [place] FERM [id number] 08/18/2012 07:59:00 08/19/19 13 12:50:00 DIS Emergency Alessandra Martinez MD [facility] on [facility] TERM [id number] 09/16/2013 15:27:00 014 17:50:00 DIS Emergency Max BECK, Chepe [facility] W.EDN [id number] 07/22/2013 11:59:00 014 15:46:00 DIS Emergency Liborio BECK, [facility] W.EDW [id number] 07/08/2013 14:28:00 014 16:47:00 DIS Emergency Allen BECK, [facility] W.EDS [id number] 06/24/2013 11:54:00 014 12:53:00 DIS Emergency Reginald BECK, Jimy [facility] W.EDW [id number] 05/12/2013 00:58:00 014 02:54:00 DIS Emergency [facility] [id number] 08/19/2012 12:36:00 013 15:40:00 DIS Emergency Zachary LIU, Tobi [facility] W.EDW [id number] 03/23/2011 15:21:00 012 23:59:59 [facility] Emergency [id number] 06/13/2013 21:21:00 06/14/19 14 23:40:00 DIS Emergency Danita CHAVEZ MD, S[facility] on [place] GARY [id number] 05/21/2013 18:44:00 Document Registration
== END 2019-05-14 10:54 | disposition home or self-care (01) ==
LOC: EDUNIT# 12:23 → ER 12:24 → ICU 14:30
PROVIDERS: ADMIT Internal Medicine; ATTEND Internal Medicine
DX: I67.4 Hypertensive encephalopathy (principal); I61.1 Nontraumatic intracerebral hemorrhage in hemisphere, cortical; G43.909 Migraine, unspecified, not intractable, without status migrainosus; K21.0 Gastro-esophageal reflux disease with esophagitis; M79.7 Fibromyalgia; M06.9 Rheumatoid arthritis, unspecified; G47.9 Sleep disorder, unspecified; G45.2 Multiple and bilateral precerebral artery syndromes; G51.0 Bell's palsy; F44.4 Conversion disorder with motor symptom or deficit; F31.9 Bipolar disorder, unspecified; F41.9 Anxiety disorder, unspecified; F17.210 Nicotine dependence, cigarettes, uncomplicated; Z88.0 Allergy status to penicillin; Z88.5 Allergy status to narcotic agent; Z91.040 Latex allergy status; Z79.82 Long term (current) use of aspirin; Z79.899 Other long term (current) drug therapy; Z90.89 Acquired absence of other organs; Z90.49 Acquired absence of other specified parts of digestive tract
CPT/HCPCS: 36415; 70450; 70496; 70498; 71045; 80053; 80061; 80306; 80320; 80329; 81000; 82962; 83735; 84443; 84484; 84703; 85025; 85379; 85610; 85730; 93005; 93041; 93306

== ENCOUNTER 2019-06-11 21:06 | Emergency (ER) | payer OTHER ==
[~2019-06-11 21:06] MED LIST changes: +AMLO5TAB9 PO; +ASPI-999 PO; +ATOR40TA70 PO; +LISI10TA2 PO; +MTP100TCR PO
--- OUTSIDE RECORDS SUMMARY | 2019-06-11 21:13 | XMS REPORT | Continuity of Care Document ---
[...] Moderate SAME PCN REACTION 08/14/2013 Yes Penicillins [id number] Drug Aller gy Unknown N/A 12/05/2016 Yes hydromorphone [id number] Yury g Allergy Unknown ANAPHYLAXIS 06/09/2018 Yes latex [id number] Drug Allergy Unknown HIVES 06/09/2018 Yes hydromorphone [id number] Yury g Allergy Severe ANAPHYLAXIS 09/03/2018 Yes Penicillins [id number] Drug Aller gy Mild hives 09/03/2018 Yes morphine [id number] Drug Allergy Mild Rash 12/31/2018 Medications There [...] OF OTHER SPECIFIED PART 12/27/2016 JOSE ENRIQUESRINI WASHING MACHINE OPERATOR Ot F17.210 NICOTINE DEPENDENCE, CIGARETTES, UNCOMPL 12/27/2016 JOSE ENRIQUESRINI Chatman WASHING MACHINE OPERATOR Ot G43.909 MIGRAINE, UNSP, NOT INTRACTABLE, WITHOUT 12/27/2016 JOSE ENRIQUESRINI Chatman WASHING MACHINE OPERATOR Ot Z87.448 PERSONAL HISTORY OF OTHER DISEASES OF UR 12/27/2016 JOSE ENRIQUE SRINI WASHING MACHINE OPERATOR Ot Z90.49 ACQUIRED ABSENCE OF OTHER [...] Ot K64.8 OTHER HEMORRHOIDS 06/13/2018 REYNOLD LIU, MIKEI B Ot R56.9 UNSPECIFIED CONVULSIONS 06/13/2018 REYNOLD LIU, MIKIE B Ot Z79.8 99 OTHER ENGINE RESEARCH ENGINEER (CURRENT) DRUG THERAPY 06/17/2018 REYNOLD LIU, MIKIE [...] LIU, MIKIE B Ot Z79.8 99 OTHER CORRECTION (CURRENT) DRUG THERAPY 06/20/2018 REYNOLD LIU MIKIE [...] FLAHERTY DO B Ot Z79.8 99 OTHER ENGINE RESEARCH ENGINEER (CURRENT) DRUG THERAPY 09/03/2018 CAITLYN BECK, ERLINDA [...] WEAKNESS 11/27/2018 VIVEK HORN MD Ot Z79.52 ENGINE RESEARCH ENGINEER (CURRENT) USE OF SYSTEMIC STER 11/27/2018 VIVEK [...] MD Ot I10 ESSENTIAL (PRIMARY) HYPERTENSION 12/01/2018 VIEVK HORN MD Ot M06.9 RHEUMATOID ARTHRITIS, UNSPECIFIED 12/01/2018 VIVEK HORN MD Ot M79.7 FIBROMYALGIA 12/01/2018 VIVEK HORN MD Ot R29.810 FACIAL WEAKNESS 12/01/2018 VIVEK HORN MD Ot Z79.52 CORRECTION (CURRENT) USE OF SYSTEMIC STER 12/01/2018 VIVEK [...] MIKIE FLAHERTY DO Ot Z79.8 99 OTHER ENGINE RESEARCH ENGINEER (CURRENT) DRUG THERAPY 12/31/2018 MIKIE FLAHERTY DO [...] MIKIE FLAHERTY DO Ot Z79.8 99 OTHER ENGINE RESEARCH ENGINEER (CURRENT) DRUG THERAPY 01/07/2019 MIKIE FLAHERTY DO [...] FLAHERTY DO B Ot Z79.8 99 OTHER ENGINE RESEARCH ENGINEER (CURRENT) DRUG THERAPY 01/09/2019 MIKIE FLAHERTY DO [...] 01 UNSPECIFIED OVARIAN CYST, RIGHT SIDE 05/13/2019 MITCHELL LIS Ot N92.0 EXCESSIVE AND FREQUENT MENSTRUATION WITH 05/14/2019 BACK DO, KALYAN Ot F17.21 0 NICOTINE DEPENDENCE, CIGARETTES, UNCOMPL 05/14/2019 BACK DO, KALYAN Ot F31.9 BIPOLAR DISORDER, UNSPECIFIED 05/14/2019 BACK DO, KALYAN Ot F41.9 ANXIETY DISORDER, UNSPECIFIED 05/14/2019 BACK DO, KALYAN Ot 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 05/14/2019 BACK DO, KALYAN Ot G43.90 9 MIGRAINE, UNSP, NOT INTRACTABLE, WITHOUT 05/14/2019 BACK DO, KALYAN Ot G45.2 MULTIPLE AND BILATERAL PRECEREBRAL ARTER 05/14/2019 BACK DO, KALYAN Ot G47.9 SLEEP DISORDER, UNSPECIFIED 05/14/2019 BACK DO, KALYAN Ot 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 05/14/2019 BACK DO, KALYAN Ot I61.1 NONTRAUMATIC INTCRBL HEMORRHAGE IN HEMIS 05/14/2019 BACK DO, KALYAN Ot I67.4 HYPERTENSIVE ENCEPHALOPATHY 05/14/2019 BACK DO, KALYAN Ot K21.0 GASTRO-ESOPHAGEAL REFLUX DISEASE WITH ES 05/14/2019 BACK DO, KALYAN Ot M06.9 RHEUMATOID ARTHRITIS, UNSPECIFIED 05/14/2019 BACK DO, KALYAN Ot M79.7 FIBROMYALGIA 05/14/2019 BACK DO, KALYAN Ot Z79.82 ENGINE RESEARCH ENGINEER (CURRENT) USE OF ASPIRIN 05/14/2019 NAZANIN DO KALYAN Ot Z79.89 9 OTHER CORRECTION (CURRENT) DRUG THERAPY 05/14/2019 NAZANIN DO KALYAN Ot Z88.0 ALLERGY STATUS TO PENICILLIN 05/14/2019 BACK DO, KALYAN Ot Z88.5 ALLERGY STATUS TO NARCOTIC AGENT STATUS 05/14/2019 NAZANIN DO, KALYAN Ot Z90.49 ACQUIRED ABSENCE OF OTHER SPECIFIED PART 05/14/2019 NAZANIN DO, KALYAN Ot Z90.89 ACQUIRED ABSENCE OF OTHER ORGANS 05/14/2019 NAZANIN DO, KALYAN Ot Z91.04 0 LATEX ALLERGY STATUS 05/14/2019 BACK DO, KALYAN Ot F17.21 0 NICOTINE DEPENDENCE, CIGARETTES, UNCOMPL 05/14/2019 BACK DO, KALYAN Ot F31.9 BIPOLAR DISORDER, UNSPECIFIED 05/14/2019 BACK DO KALYAN Ot F41.9 ANXIETY DISORDER, UNSPECIFIED 05/14/2019 NAZANIN LIU KALYAN Ot 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 05/14/2019 NAZANIN LIU KALYAN Ot G43.90 9 MIGRAINE, UNSP, NOT INTRACTABLE, WITHOUT 05/14/2019 NAZANIN LIU KALYAN Ot G45.2 MULTIPLE AND BILATERAL PRECEREBRAL ARTER 05/14/2019 NAZANIN LIU KALYAN Ot G47.9 SLEEP DISORDER, UNSPECIFIED 05/14/2019 NAZANIN LIU KALYAN Ot 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 05/14/2019 NAZANIN LIU KALYAN Ot I61.1 NONTRAUMATIC INTCRBL HEMORRHAGE IN HEMIS 05/14/2019 NAZANIN LIU KALYAN Ot I67.4 HYPERTENSIVE ENCEPHALOPATHY 05/14/2019 NAZANIN LIU KALYAN Ot K21.0 GASTRO-ESOPHAGEAL REFLUX DISEASE WITH ES 05/14/2019 NAZANIN LIU KALYAN Ot M06.9 RHEUMATOID ARTHRITIS, UNSPECIFIED 05/14/2019 NAZANIN LIU KALYAN Ot M79.7 FIBROMYALGIA 05/14/2019 NAZANIN LIU KALYAN Ot Z79.82 ENGINE RESEARCH ENGINEER (CURRENT) USE OF ASPIRIN 05/14/2019 NAZANIN LIU KALYAN Ot Z79.89 9 OTHER CORRECTION (CURRENT) DRUG THERAPY 05/14/2019 NAZANIN LIU KALYAN Ot Z88.0 ALLERGY STATUS TO PENICILLIN 05/14/2019 NAZANIN LIU KALYAN Ot Z88.5 ALLERGY STATUS TO NARCOTIC AGENT STATUS 05/14/2019 NAZANIN LIU KALYAN Ot Z90.49 ACQUIRED ABSENCE OF OTHER SPECIFIED PART 05/14/2019 NAZANIN LIU KALYAN Ot Z90.89 ACQUIRED ABSENCE OF OTHER ORGANS 05/14/2019 NAZANIN LIU KALYAN Ot Z91.04 0 LATEX ALLERGY STATUS 05/29/2019 NAZANIN LIU KALYAN Ot F17.21 0 NICOTINE DEPENDENCE, CIGARETTES, UNCOMPL 05/29/2019 NAZANIN LIU KALYAN Ot F31.9 BIPOLAR DISORDER, UNSPECIFIED 05/29/2019 NAZANIN LIU KALYAN Ot F41.9 ANXIETY DISORDER, UNSPECIFIED 05/29/2019 NAZANIN LIU KALYAN Ot 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 05/29/2019 NAZANIN LIU KALYAN Ot G43.90 9 MIGRAINE, UNSP, NOT INTRACTABLE, WITHOUT 05/29/2019 NAZANIN LIU KALYAN Ot G45.2 MULTIPLE AND BILATERAL PRECEREBRAL ARTER 05/29/2019 NAZANIN LIU KALYAN Ot G47.9 SLEEP DISORDER, UNSPECIFIED 05/29/2019 NAZANIN LIU KALYAN Ot 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 05/29/2019 NAZANIN LIU KALYAN Ot I61.1 NONTRAUMATIC INTCRBL HEMORRHAGE IN HEMIS 05/29/2019 NAZANIN LIU KALYAN Ot I67.4 HYPERTENSIVE ENCEPHALOPATHY 05/29/2019 NAZANIN LIU KALYAN Ot K21.0 GASTRO-ESOPHAGEAL REFLUX DISEASE WITH ES 05/29/2019 NAZANIN LIU KALYAN Ot M06.9 RHEUMATOID ARTHRITIS, UNSPECIFIED 05/29/2019 NAZANIN LIU KALYAN Ot M79.7 FIBROMYALGIA 05/29/2019 NAZANIN LIU KALYAN Ot Z79.82 ENGINE RESEARCH ENGINEER (CURRENT) USE OF ASPIRIN 05/29/2019 NAZANIN LIU KALYAN Ot Z79.89 9 OTHER ENGINE RESEARCH ENGINEER (CURRENT) DRUG THERAPY 05/29/2019 NAZANIN LIU KALYAN Ot Z88.0 ALLERGY STATUS TO PENICILLIN 05/29/2019 NAZANIN LIU KALYAN Ot Z88.5 ALLERGY STATUS TO NARCOTIC AGENT STATUS 05/29/2019 NAZANIN LIU KALYAN Ot Z90.49 ACQUIRED ABSENCE OF OTHER SPECIFIED PART 05/29/2019 NAZANIN LIU KALYAN Ot Z90.89 ACQUIRED ABSENCE OF OTHER ORGANS 05/29/2019 NAZANIN LIU KALYAN Ot Z91.04 0 LATEX ALLERGY STATUS 05/29/2019 NAZANIN LIU KALYAN Ot F17.21 0 NICOTINE DEPENDENCE, CIGARETTES, UNCOMPL 05/29/2019 NAZANIN LIU KALYAN Ot F31.9 BIPOLAR DISORDER, UNSPECIFIED 05/29/2019 NAZANIN LIU KALYAN Ot F41.9 ANXIETY DISORDER, UNSPECIFIED 05/29/2019 NAZANIN LIU KALYAN Ot 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 05/29/2019 NAZANIN LIU KALYAN Ot G43.90 9 MIGRAINE, UNSP, NOT INTRACTABLE, WITHOUT 05/29/2019 NAZANIN LIU KALYAN Ot G45.2 MULTIPLE AND BILATERAL PRECEREBRAL ARTER 05/29/2019 NAZANIN LIU KALYAN Ot G47.9 SLEEP DISORDER, UNSPECIFIED 05/29/2019 KALYAN BACK DO Ot 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 05/29/2019 NAZANIN LIU KALYAN Ot I61.1 NONTRAUMATIC INTCRBL HEMORRHAGE IN HEMIS 05/29/2019 NAZANIN LIU KALYAN Ot I67.4 HYPERTENSIVE ENCEPHALOPATHY 05/29/2019 NAZANIN LIU KALYAN Ot K21.0 GASTRO-ESOPHAGEAL REFLUX DISEASE WITH ES 05/29/2019 KALYAN BACK DO Ot M06.9 RHEUMATOID ARTHRITIS, UNSPECIFIED 05/29/2019 RAMY BACK DOI Ot M79.7 FIBROMYALGIA 05/29/2019 NAZANIN LIU KALYAN Ot Z79.82 ENGINE RESEARCH ENGINEER (CURRENT) USE OF ASPIRIN 05/29/2019 RAMY BACK DOI Ot Z79.89 9 OTHER CORRECTION (CURRENT) DRUG THERAPY 05/29/2019 NAZANIN LIU KALYAN Ot Z88.0 ALLERGY STATUS TO PENICILLIN 05/29/2019 RAMY BACK DOI Ot Z88.5 ALLERGY STATUS TO NARCOTIC AGENT STATUS 05/29/2019 KALYAN BACK DO Ot Z90.49 ACQUIRED ABSENCE OF OTHER SPECIFIED PART 05/29/2019 NAZANIN LIU KALYAN Ot Z90.89 ACQUIRED ABSENCE OF OTHER ORGANS 05/29/2019 NAZANIN LIU KALYAN Ot Z91.04 0 LATEX ALLERGY STATUS 05/29/2019 LIS MEDRANO DO Ot E28.2 POLYCYSTIC OVARIAN SYNDROME 05/29/2019 LIS MEDARNO DO Ot N80.9 ENDOMETRIOSIS, UNSPECIFIED 05/29/2019 LIS MEDRANO DO C Ot N83.2 01 UNSPECIFIED OVARIAN CYST, RIGHT SIDE 05/29/2019 LIS MEDRANO DO Ot N92.0 EXCESSIVE AND [...] s 24-35 Serum or plasma choriogonadotropin (preg alsesandra test) detection - 12/05/16 15:10 Serum or [...] identification in genital specimen by aerobe culture [id number] NRG Microscopic examination by wet preparati on - 12/05/16 16:50 WET PREP RESULTS AT 1658, 12-06-16 BY NRG Neisseria gonorrhoeae DNA detection by [...] NRG STATEMENT OF ADEQUACY: NRG INTERPRETATION/RESULT: NRG COPIER AND PRINTER FIELD TECHNICIAN: NRG HPV mRNA E6/E7, SUREPATH VIAL Not [...] NRG STATEMENT OF ADEQUACY: NRG INTERPRETATION/RESULT: NRG COPIER AND PRINTER FIELD TECHNICIAN: NRG HPV mRNA E6/E7, SUREPATH VIAL Not Detected NOT DETECTED REVIEW COPIER AND PRINTER FIELD TECHNICIAN: NRG INFECTION: NRG COMMENT NRG CBC - [...] (count/volume) 0.0 10*3/uL 0.0-0.1 Radiology Report from [id number] on 013 10:18:00 Final ReportADMITTING DIAGNOSIS: Abd Pain ABD. PAINKUB,UPRIGHT /OR DECUB - 08/18/2012 [facility] ON [facility] RESULT: TIME:9:16 AM.INDICATION:Right lower quadrant pain.FINDINGS:Supine [...] tion.IMPRESSION: Probable mild ileus.Dictated on workstation # [id number] BY: CHACORTA CRABTREE M.D., RADIOLOGISTELECTRONICALLY SIGNED BY: CHACORTA CRABTREE M.D., RADIOLOGISTD Aug 18 2012 9:19AT JM : Aug 18 2012 10:16AS Aug 18 2012 10:16A Radiology Report from [id number] on 013 16:08:00 Final ReportADMITTING DIAGNOSIS: Abd Pain ABD PAINGALLBLADDER SONO - 08/18/2012 [facility] RESULT: INDICATION: Right upper quadrant pain.COMPARISON: [...] be of further value.Dictated on workstation # [id number] RADIOLOGIST: SCOTT PACHECO M.D., RADIOLOGISTELECTRONICALLY SIGNED BY: SCOTT PACHECO M.D., RADIOLOGISTD Aug 18 2012 9:42AT RF : Aug 18 2012 4:05PS Aug 18 2012 4:05P Radiology Report from [id number] on 013 17:00:00 Final ReportADMITTING DIAGNOSIS: Abd Pain ABD. PAINCT ABD W W/O,PELVIS W - 08/18/2012 [facility] ON [facility] RESULT: PROCEDURE: CT abdomen with and [...] the liver with normalspleen.Dictated on workstation # [id number] BY: NEGRA VALENZUELA M.D., RADIOLOGISTELECTRONICALLY SIGNED BY: NEGRA VALENZUELA M.D., RADIOLOGISTD Aug 18 2012 11:57AT KB : Aug 18 2012 4:57PS Aug 18 2012 4:57P Radiology Report from [facility] on 2012 16:38:00 DIAGNOSTIC UMU GING REPORT [facility] - [address] [place] [address] PHONE #: [phone] FAX #: [phone] Name: YURIYCHERRYMICHAEL JACKSON Loc: [facility]ADISLAV Radiology No: : 1980 Age: 32 Sex: F Status: DEP ER Unit No: [id number] Phys: Tobi Soares DO Acct: [id number] Reason For Exam: abd pain Exam Date: 08/19/2012 EXAMS: CPT CODE: [id number] ABD-KUB /FEB PA CHEST 29344 TIME OF STUDY: 08/19/2012 2:19 PM REASON [...] CC: Technologist: TOMMY AVILA Transcribed Date/Time: 08/19/2012 (6870)Animal Husbandry Professor: PZARCADM Printed Date/Time: 08/19/2012 (9448) BATCH NO: N/A PAGE 1 Signed Report Radiology Report from [id number] on 014 12:14:00 Final ReportADMITTING DIAGNOSIS: n/v, lower back pain, hist of painCT URINARY TRACT R/O STONES - 06/13/2013 [facility] RESULT: PROCEDURE: CT urinary tract r/o kidney [...] CT abdomen and pelvis.Dictated on workstation # [id number] BY: SCOTT PACHECO M.D., RADIOLOGISTELECTRONICALLY SIGNED BY: SCOTT PACHECO M.D., RADIOLOGISTD Jun 14 2013 5:59AT MK4: Jun 14 2013 12:10PS Jun 14 2013 12:10P Radiology Report from [facility] on 014 14:13:00 DIAGNOSTIC UMU GING REPORT [facility] - [address] [place] [address] PHONE #: [phone] FAX #: [phone] Name: XUAN GALE Loc: [facility] Radiology No: : 1980 Age: 33 Sex: F Status: REG ER Unit No: [id number] Phys: Fran Mendes MD Acct: [id number] Reason For Exam: abd pain, suspect cnstipation Exam Date: 07/22/2013 EXAMS: CPT CODE: [id number] ABD-KUB /FEB DE CHEST 27768 Abdomen series The reason for examination: Abdominal [...] or perforation. at 140 Reported and signed by: MYKE GARCIA MD CC: Fran Capone MD Technologist: TOMMY AVILA Transcribed Date/Time: 07/22/2013 (5449)Animal Husbandry Professor: LENNY Printed Date/Time: 07/22/2013 (1779) BATCH NO: N/A PAGE 1 Signed Report Radiology Report from [facility] on 014 15:17:00 DIAGNOSTIC UMU GING REPORT [facility] - [address] [place] [address] PHONE #: [phone] FAX #: [phone] Name: YURIYCHERRYMICHAEL JACKSON Loc: [facility] Radiology No: : 1980 Age: 33 Sex: F Status: REG ER Unit No: [id number] Phys: [facility] - Fran Capone MD Acct: [id number] Reason For Exam: abd pain abn kub Exam Date: 07/22/2013 EXAMS: CPT CODE: [id number] CT ABD/PELVIS WITH CONTRAST 28491 TIME OF STUDY: 07/22/2013 2:47 PM REASON [...] or corrected the resident physician's interpretation. at 4455 RESIDENT: BABITA BOB MD Reported and signed by: TOBI SHAH MD PAGE 1 Signed Report (CONTINUED) DIAGNOSTIC IMAGING REPORT [facility] - [address] [place] [address] PHONE #: [phone] FAX #: [phone] Name: XUAN GALE Loc: [facility] Radiology No: : 1980 Age: 33 Sex: F Status: REG ER Unit No: [id number] Phys: Fran Mendes MD Acct: [id number] Reason For Exam: abd pain abn kub Exam Date: 07/22/2013 --------- EXAMS: CPT CODE: [id number] CT ABD/PELVIS WITH CONTRAST 04829 <Continued> CC: Fran Capone MD Technologist: TOMMY AVILA Transcribed Date/Time: 07/22/2013 (1506)Animal Husbandry Professor: JOANNE Printed Date/Time: 07/22/2013 (1519) BATCH NO: N/A PAGE 2 Signed Report Encounters ACCT No. Visit Date/Time Discharge Status Pt. Type Provider Facility Loc./Unit Complaint [id number] 05/04/2019 15:40:00 05/04/2019 23:59: 59 CLS Outpatient KATHY GAONA [facility] [id number] 11/11/2018 13:00:00 Document Registration [id number] 08/11/2018 16:00:00 Document Registration [id number] 05/23/2018 12:20:00 Document Registration [id number] 04/23/2018 10:40:00 Document Registration [id number] 02/13/2018 13:00:00 Document Registration [id number] 01/31/2017 08:00:00 Document Registration [id number] 01/10/2017 10:40:00 Document Registration [id number] 05/13/2019 16:20:00 09:57:00 DIS Outpatient KALYAN BACK DO Via [facility] ICU HYPERTENSIVE ENCEPHALOP ATHY [id number] 02/27/2019 15:18:00 23:59:59 CLS Outpatient LIS MEDRANO DO Via [facility] RAD PCOS [id number] 12/31/2018 06:57:00 12:55:00 DIS Outpatient MIKIE FLAHERTY DO Via [facility] SDC CHOLECYSTITIS/CHOLELITH IASIS [id number] 12/25/2018 05:32:00 13:31:00 DIS Outpatient MIKIE FLAHERTY DO Via [facility] PREOP CHOLECYSTITIS/CHOLELITH IASIS [id number] 12/09/2018 13:54:00 23:59:59 CLS Preadmit KATHY GAONA E LEARNING MANAGER Via [facility] REHAB LBP [id number] 11/27/2018 08:00:00 10:21:00 DIS Emergency JUSTINA BECK, VIVEK Jimenez [facility] ER LEFT SIDE FACIA L DROOP [id number] 09/03/2018 07:02:00 08:23:00 DIS Emergency CAITLYN BECK, ERLINDA Beavers [facility] ER FACE DROOPING,F ZENIA NUMB [id number] 07/09/2018 14:59:00 23:59:59 CLS Preadmit BAIMA, ROCHELLE L WASHING MACHINE OPERATOR [facility] CARD ESSENTIAL HYPERTENSION, HEART PALPITATIONS [id number] 07/09/2018 14:53:00 23:59:59 CLS Preadmit BAIMA, ROCHELLE L WASHING MACHINE OPERATOR [facility] CARD ESSENTIAL HYPERTENSION, PALPITATIONS [id number] 07/09/2018 14:43:00 23:59:59 CLS Preadmit BAIMA, ROCHELLE L WASHING MACHINE OPERATOR [facility] CARD ESSENTIAL HYPERTENSION, PALPITATIONS [id number] 06/13/2018 09:04:00 10:55:00 DIS Outpatient MIKIE FLAHERTY DO [facility] ENDO RECTAL BLEEDING/HX POLLARD ETT'S [id number] 06/09/2018 06:45:00 15:51:00 DIS Outpatient MIKIE FLAHERTY DO [facility] PREOP COLONOSCOPY/EGD [id number] 02/27/2018 17:11:00 19:17:00 DIS Emergency MIGEL ROMERO APRN [facility] ER "HAD A SEIZURE 30 MINUT ES AGO" [id number] 12/27/2016 14:56:00 17:48:00 DIS Emergency SRINI QUISPE [facility] ER SEIZURE [id number] 12/26/2016 09:24:00 12:04:00 DIS Emergency MIMI WEEKS MD [facility] ER MIGRAINE [id number] 12/05/2016 14:26:00 17:27:00 DIS Emergency OZZIE JACKSON [facility] ER HEAVY MENSTRUAL BLEEDI NG FOR 7 WEEKS [id number] 05/21/2013 18:44:00 05/22/19 14 21:26:00 DIS Emergency Danita CHAVEZ MD, Sree Haque [facility] on [place] FERM [id number] 08/18/2012 07:59:00 08/19/19 13 12:50:00 DIS Emergency Michelle BECK, Alessandra Wren [facility] on [facility] TERM [id number] 09/16/2013 15:27:00 17:50:00 DIS Emergency Max BECK, Chepe [facility] W.EDN [id number] 07/22/2013 11:59:00 15:46:00 DIS Emergency Liborio BECK, [facility] W.EDW [id number] 07/08/2013 14:28:00 014 16:47:00 DIS Emergency [facility] [id number] 06/24/2013 11:54:00 12:53:00 DIS Emergency Reginald BECK, Jimy [facility] W.EDW [id number] 05/12/2013 00:58:00 02:54:00 DIS Emergency Adrian BECK, Hardeep Quinones [facility] W.EDW [id number] 08/19/2012 12:36:00 013 15:40:00 DIS Emergency Zachary LIU, [facility] W.EDW [id number] 03/23/2011 15:21:00 012 23:59:59 CLS Emergency [id number] 06/13/2013 21:21:00 06/14/19 14 23:40:00 DIS Emergency Danita CHAVEZ MD, Sree Haque [facility] on [place] GARY [id number] 05/21/2013 18:44:00 Document Registration
--- NOTE | 2019-06-11 21:17 | ED Cardiac General ---
History of Present Illness General Chief Complaint: Cardiac/General Problems Stated Complaint: CHEST TIGHTNESS / SEIZURE Source: patient Exam Limitations: no limitations History of Present Illness Date Seen by Provider: Jun 11, 2019 Time Seen by Provider: 21:15 Initial Comments To ER with about 2 hours of shakiness, flushed, palpitations and chest tightness. Feels a bit better now in regards to the palpitations tightness and shakiness. Does have a history of SVT, suspects she may have been in it. Timing/Duration: changing over time Severity: moderate Activities at Onset: none NTG SL HOLLOW TILE PARTITION ERECTOR: No ASA po HOLLOW TILE PARTITION ERECTOR: No Allergies and Home Medications Allergies Coded Allergies: hydromorphone (Verified Allergy, Severe, ANAPHYLAXIS, 09/03/18) Penicillins (Unverified Allergy, Mild, hives, 09/03/18) morphine (Verified Allergy, Mild, Rash, 12/31/18) latex (Verified Allergy, Unknown, HIVES, 06/09/18) Home Medications Amlodipine Besylate 5 Mg Tablet, 5 MG PO DAILY Prescribed by: BARRETT DELONG on 05/14/19 0730 Aspirin 81 Mg Tab.chew, 81 MG PO DAILY@0900 Prescribed by: KALYAN BACK on 05/14/19 1000 Atorvastatin Calcium 40 Mg Tablet, 40 MG PO DAILY Prescribed by: KALYAN BACK on 05/14/19 1000 Baclofen 10 Mg Tablet, 10 MG PO TID, (Reported) Gabapentin 300 Mg Capsule, 300 MG PO DAILY, (Reported) Lisinopril 10 Mg Tablet, 10 MG PO DAILY Prescribed by: BARRETT DELONG on 05/14/19 0732 Metoprolol Succinate 100 Mg Tab.er.24h, 100 MG PO DAILY Prescribed by: BARRETT DELONG on 05/14/19 0730 Omeprazole 20 Mg Tablet.dr, 20 MG PO DAILY, (Reported) Topiramate 50 Mg Tablet, 50 MG PO BID, (Reported) Patient Home Medication List Home Medication List Reviewed: Yes Review of Systems Review of Systems Constitutional: see HPI EENTM: No Symptoms Reported Respiratory: No Symptoms Reported; Denies Shortness of Air, Denies SOA at Rest Cardiovascular: See HPI, Chest Pain, Palpitations Gastrointestinal: No Symptoms Reported Genitourinary: No Symptoms Reported Skin: no symptoms reported Psychiatric/Neurological: No Symptoms Reported Endocrine: No Symptoms Reported Past Pmexgeu-Uqzkdt-Mkbqje Hx Patient Social History Drug of Choice: HX OF BEING AN ADDICT-IV METH, RX PILLS ABUSE, UDS + FOR THC 05/13/19 Type Used: Cigarettes 2nd Hand Smoke Exposure: Yes Recent Foreign Travel: No Contact w/Someone Who Travel: No Recent Hopitalizations: No Immunizations Up To Date Date of Influenza Vaccine: Dec 12, 2018 Seasonal Allergies Seasonal Allergies: Yes Past Medical History Surgeries: Yes ( genital wart destruction, knee scope, LIVER BIOPSY WITH LAP YONAS) Appendectomy, Gallbladder, Orthopedic Respiratory: No Cardiac: Yes Hypertension Neurological: Yes (BELLS PALSY LEFT SIDE) Headaches /Migraines Reproductive Disorders: Yes (ovarian cysts) Female Reproductive Disorders: Polycystic Ovarian Dis Sexually Transmitted Disease: Yes (hx of genital warts) HIV/AIDS: No Genitourinary: Yes (FREQUENCY, ANTHONY) Gastrointestinal: Yes (CHRONIC RECTAL BLEEDING; CYST ON LIVER; S/P CHOLECYSTECTOMY) Gastroesophageal Reflux, Stoddard's Esophagus, Hemorrhoids, Gall Bladder Disease Musculoskeletal: Yes (KNEE SCOPE; RESTLESS LEGS/CHRONIC LEG PAIN ) Fibromyalgia Endocrine: Yes (OBEISTY) HEENT: Yes (VISION CORRECTED WITH CONTACTS) Cancer: No Psychosocial: Yes (MOOD DISORDER, FIBROMYLGIA, CONVERSION DIORDER) Sleep Difficulties, Anxiety, Bipolar, Depression Integumentary: No Blood Disorders: No Family Medical History No Pertinent Family Hx Physical Exam Vital Signs Vital Signs - First Documented 06/11/19 21:11 Temp 37.1 Pulse 116 Resp 18 B/P (MAP) 145/109 (121) Pulse Ox 96 O2 Delivery Room Air Capillary Refill : Height, Weight, BMI Height: 5'4.00" Weight: 215lbs. 0.0oz. 97.859643qh; 38.63 BMI Method:Stated General Appearance: No Apparent Distress, WD/WN HEENT: PERRL/EOMI, TMs Normal Neck: Full Range of Motion, Normal Inspection Respiratory: No Accessory Muscle Use, No Respiratory Distress Cardiovascular: Regular Rate, Rhythm, Normal Peripheral Pulses, Other (narrow complex regular tachycardia rate of 113) Gastrointestinal: Non Tender, Soft Neurologic/Psychiatric: Alert, Oriented x3 Skin: Normal Color, Warm/Dry Progress/Results/Core Measures Results/Orders Lab Results Laboratory Tests Test 06/11/19 21:19 Range/Units White Blood Count 7.7 4.3-11.0 10^3/uL Red Blood Count 5.08 4.35-5.85 10^6/uL Hemoglobin 15.2 11.5-16.0 G/DL Hematocrit 44 35-52 % Mean Corpuscular Volume 87 80-99 FL Mean Corpuscular Hemoglobin 30 25-34 PG Mean Corpuscular Hemoglobin Concent 34 32-36 G/DL Red Cell Distribution Width 13.8 10.0-14.5 % Platelet Count 211 130-400 10^3/uL Mean Platelet Volume 9.5 7.4-10.4 FL Neutrophils (%) (Auto) 56 42-75 % Lymphocytes (%) (Auto) 35 12-44 % Monocytes (%) (Auto) 8 0-12 % Eosinophils (%) (Auto) 1 0-10 % Basophils (%) (Auto) 0 0-10 % Neutrophils # (Auto) 4.3 1.8-7.8 X 10^3 Lymphocytes # (Auto) 2.7 1.0-4.0 X 10^3 Monocytes # (Auto) 0.6 0.0-1.0 X 10^3 Eosinophils # (Auto) 0.1 0.0-0.3 10^3/uL Basophils # (Auto) 0.0 0.0-0.1 10^3/uL Sodium Level 137 135-145 MMOL/L Potassium Level 3.7 3.6-5.0 MMOL/L Chloride Level 108 H 98-107 MMOL/L Carbon Dioxide Level 17 L 21-32 MMOL/L Anion Gap 12 5-14 MMOL/L Blood Urea Nitrogen 16 7-18 MG/DL Creatinine 0.91 0.60-1.30 MG/DL Estimat Glomerular Filtration Rate > 60 BUN/Creatinine Ratio 18 Glucose Level 91 70-105 MG/DL Calcium Level 9.6 8.5-10.1 MG/DL Corrected Calcium 9.2 8.5-10.1 MG/DL Magnesium Level 1.7 1.6-2.4 MG/DL Total Bilirubin 0.4 0.1-1.0 MG/DL Aspartate Amino Transf (AST/SGOT) 15 5-34 U/L Alanine Aminotransferase (ALT/SGPT) 17 0-55 U/L Alkaline Phosphatase 69 40-136 U/L Troponin I < 0.028 <0.028 NG/ML Total Protein 7.5 6.4-8.2 GM/DL Albumin 4.5 3.2-4.5 GM/DL Thyroid Stimulating Hormone (TSH) 0.66 0.35-4.94 UIU/ML Free Thyroxine 1.24 0.70-1.48 NG/DL Serum Test, Qualitative NEGATIVE NEGATIVE My Orders Orders - MIGEL ROMERO APRN Cbc With Automated Diff (06/11/19 21:08) Comprehensive Metabolic Panel (06/11/19 21:08) Ua Culture If Indicated (06/11/19 21:08) Drug Screen Stat (Urine) (06/11/19 21:08) Troponin I (06/11/19 21:08) Chest 1 View, Ap/Pa Only (06/11/19 21:08) Ed Iv/Invasive Line Start (06/11/19 21:08) Hcg,Qualitative Serum (06/11/19 21:08) Magnesium (06/11/19 21:19) Thyroid Stimulating Hormone (06/11/19 21:19) Free T4 (Free Thyroxine) (06/11/19 21:19) Ekg Tracing (06/11/19 21:20) Metoprolol Tartrate Injection (Lopressor (06/11/19 21:30) Medications Given in ED Current Medications Medications Dose Ordered Sig/[place] Route Start Time Stop Time Status Last Admin Dose Admin Metoprolol Tartrate 5 mg ONCE ONCE IV 06/11/19 21:30 06/11/19 21:31 DC 06/11/19 21:24 5 MG Vital Signs/I&O 06/11/19 21:11 Temp 37.1 Pulse 116 Resp 18 B/P (MAP) 145/109 (121) Pulse Ox 96 O2 Delivery Room Air Departure Impression Primary Impression: Sinus tachycardia Disposition: 01 HOME, SELF-CARE Condition: Stable Departure-Patient Inst. Decision time for Depature: 22:05 Referrals: [facility] (PCP/Family) Primary Care Physician Patient Instructions: Sinus Tachycardia (DC) Add. Discharge Instructions: 1. Return to ER for any concerns 2. Follow-up with doctor next week 3. All discharge instructions reviewed with patient and/or family. Voiced understanding. Work/School Note: Work Release Form Date Seen in the Emergency Department: Jun 11, 2019 Return to Work: Jun 12, 2019 MIGEL ROMERO APRN Jun 11, 2019 21:17
[2019-06-11 21:27] LABS: BASOPHILS % (AUTO) 0 % (0-10); EOSINOPHILS # (AUTO) 0.1 10^3/uL (0.0-0.3); EOSINOPHILS % (AUTO) 1 % (0-10); HEMATOCRIT 44 % (35-52); HEMOGLOBIN 15.2 G/DL (11.5-16.0); LYMPHOCYTES # (AUTO) 2.7 X 10^3 (1.0-4.0); LYMPHOCYTES % (AUTO) 35 % (12-44); MEAN CORPUSCULAR HEMOGLOBIN 30 PG (25-34); MEAN CORPUSCULAR HGB CONC 34 G/DL (32-36); MEAN CORPUSCULAR VOLUME 87 FL (80-99); MEAN PLATELET VOLUME 9.5 FL (7.4-10.4); MONOCYTES # (AUTO) 0.6 X 10^3 (0.0-1.0); MONOCYTES % (AUTO) 8 % (0-12); NEUTROPHILS # (AUTO) 4.3 X 10^3 (1.8-7.8); NEUTROPHILS % (AUTO) 56 % (42-75); PLATELET COUNT 211 10^3/uL (130-400); RED CELL DISTRIBUTION WIDTH 13.8 % (10.0-14.5); WHITE BLOOD COUNT 7.7 10^3/uL (4.3-11.0)
[2019-06-11] MEDS ORDERED: meTOprolol 5 MG/5 ML (LOPRESSOR) VIAL IV ONE (21:30)
[2019-06-11 21:36] LABS: ALBUMIN 4.5 GM/DL (3.2-4.5); CHLORIDE 108 MMOL/L (98-107); POTASSIUM 3.7 MMOL/L (3.6-5.0); SODIUM 137 MMOL/L (135-145)
[2019-06-11 21:37] LABS: CALCIUM 9.6 MG/DL (8.5-10.1)
[2019-06-11 21:38] LABS: GLUCOSE 91 MG/DL (70-105)
[2019-06-11 21:39] LABS: TOTAL PROTEIN 7.5 GM/DL (6.4-8.2)
[2019-06-11 21:40] LABS: BILIRUBIN,TOTAL 0.4 MG/DL (0.1-1.0); CARBON DIOXIDE 17 MMOL/L (21-32)
[2019-06-11 21:42] LABS: ALKALINE PHOSPHATASE 69 U/L (40-136); CREATININE SERUM 0.91 MG/DL (0.60-1.30); GFR ESTIMATED > 60
[2019-06-11 21:43] LABS: BUN/CREATININE RATIO 18
[2019-06-11 21:45] LABS: ALANINE AMINOTRANSFERASE 17 U/L (0-55); MAGNESIUM 1.7 MG/DL (1.6-2.4)
[2019-06-11 22:07] LABS: FREE T4 (FREE THYROXINE) 1.24 NG/DL (0.70-1.48)
[2019-06-11 22:14] LABS: BILIRUBIN,URINE NEGATIVE (NEGATIVE); CLARITY,URINE SL CLOUDY; COLOR,URINE YELLOW; GLUCOSE, URINE (UA) NEGATIVE (NEGATIVE); KETONES,URINE NEGATIVE (NEGATIVE); LEUKOCYTE ESTERASE ,URINE NEGATIVE (NEGATIVE); NITRITE,URINE NEGATIVE (NEGATIVE); PH,URINE 5.5 (5-9); PROTEIN,URINE NEGATIVE (NEGATIVE)
[2019-06-11 22:26] LABS: BACTERIA,URINE NEGATIVE /HPF; SQUAMOUS EPITHELIAL CELL,UR 0-2 /HPF
[2019-06-11 22:29] LABS: AMPHETAMINE SCREEN, URINE NEGATIVE (NEGATIVE); BARBITURATE SCREEN URINE NEGATIVE (NEGATIVE); BENZODIAZEPINES SCREEN URINE NEGATIVE (NEGATIVE); CANNABINOID SCREEN, URINE POSITIVE (NEGATIVE); COCAINE SCREEN URINE NEGATIVE (NEGATIVE); METHADONE STAT NEGATIVE (NEGATIVE); METHAMPHETAMINE SCREEN URINE S NEGATIVE (NEGATIVE); OPIATE SCREEN URINE NEGATIVE (NEGATIVE); OXYCODONE STAT NEGATIVE (NEGATIVE); PROPOXYPHENE STAT NEGATIVE (NEGATIVE); TRICYCLIC ANTIDEPRESSANTS SCRE NEGATIVE (NEGATIVE)
[2019-06-11 22:37] VITALS: BP 134/98
--- NOTE | 2019-06-12 07:08 | Diagnostic Imaging Report ---
INDICATION: Heart palpitations COMPARISON: 05/13/2019 TECHNIQUE: Single radiograph of the chest dated 06/11/2019. FINDINGS: The cardiac silhouette and pulmonary vasculature are within normal limits. The lungs are clear. No pleural effusion. No pneumothorax. No acute osseous abnormality. IMPRESSION: Stable examination without acute cardiopulmonary abnormality. Dictated by: Dictated on workstation # [id number]
== END 2019-06-11 22:40 | disposition home or self-care (01) ==
LOC: EDUNIT# 21:06 → ER 21:08
DX: R00.0 Tachycardia, unspecified (principal); I10 Essential (primary) hypertension; M79.7 Fibromyalgia; F41.9 Anxiety disorder, unspecified; F32.9 Major depressive disorder, single episode, unspecified
CPT/HCPCS: 36415; 71045; 80053; 80306; 81000; 83735; 84439; 84443; 84484; 84703; 85025

== ENCOUNTER 2019-07-17 08:47 | Outpatient (RCR) | payer OTHER ==
[2019-07-17] MEDS ORDERED: NS 100 ML (IVPB) BAG IV ONE (09:15)
[2019-07-17] MEDS ORDERED: HOLD METFORMIN - RECEIVED CONTRAST 20 ML VIAL IV SCH (09:15)
[2019-07-17] MEDS ORDERED: IOHEXOL 350 MG/ML 100 ML (OMNIPAQUE 350) VIAL IV ONE (09:15)
[2019-07-17] MEDS ORDERED: CATHETER FLUSH 10 ML SYR IV PRN (09:15)
--- NOTE | 2019-07-17 10:55 | Diagnostic Imaging Report ---
PROCEDURE: CT Angio Abdomen/Pelvis with. TECHNIQUE: Multiple contiguous axial images were obtained through the abdomen and pelvis after the uneventful bolus administration of intravenous contrast. Sagittal and coronal MIP reconstructions with then performed. All CT scans use one or more of the following dose optimizing techniques: automated exposure control, MA and/or KvP adjustment based on a patient size and exam type, or iterative reconstruction. INDICATION: Hypertensive and tachycardia. FINDINGS: There is no arterial phase contrast extravasation. There were no findings of abdominal pelvic intra or extraperitoneal hemorrhage. No basilar pleural fluid. The lower lobes where visualized showed normal aeration and expansion and were clear. Liver, spleen, adrenals and pancreas negative. There is patency of the bilateral renal arteries with accessory arteries to both lower poles. Kidneys appeared well-perfused. The abdominal aorta is patent and nonaneurysmal showed no luminal irregularity, dissection, rupture or inflammatory process. The mesenteric vessels widely patent. No findings of end organ ischemia. Previous appendectomy has been performed. The abdominal wall appeared intact. Cyst in the left ovary likely dominant follicle. No suspicious adnexal lesion. The uterus and urinary bladder unremarkable. Iliac and visualized femoral vascularity patent. No left thrombus or vascular obstruction. No hemodynamically significant stenoses. IMPRESSION: Unremarkable arterial phase CT angiography of abdomen and pelvis. In particular no hemorrhage, findings of end organ ischemia, thrombus or vascular pathology apparent. Dictated by: Dictated on workstation # [id number]
[2019-07-22] MEDS ORDERED: ATOR20TA49 PO (08:38)
[2019-09-14] MEDS ORDERED: GABA300C PO (15:12)
== END 2019-10-15 | disposition home or self-care (01) ==
LOC: CARD 08:47
PROVIDERS: ATTEND Internal Medicine Cardiovascular Disease
DX: I11.0 Hypertensive heart disease with heart failure (principal); I50.30 Unspecified diastolic (congestive) heart failure; I67.4 Hypertensive encephalopathy
CPT/HCPCS: 74174

== ENCOUNTER 2019-07-22 08:03 | Emergency (ER) | payer OTHER ==
[~2019-07-22] VITALS: Ht 162 cm; Wt 98.0 kg
[2019-07-22] MEDS ORDERED: ONDANSETRON 4 MG/2 ML (SDV) Z0FRAN ONE (08:10)
--- OUTSIDE RECORDS SUMMARY | 2019-07-22 08:13 | XMS REPORT | Continuity of Care Document ---
Demographics Preferred Language Unknown Marital Status Unknown Catholic Affiliation Unknown Race Unknown Ethnic Group Unknown Author Organization Unknown Address Unknown Phone Unavailable [...] Moderate SAME PCN REACTION 08/14/2013 Yes Penicillins [id number] Drug Aller gy Unknown N/A 12/05/2016 Yes hydromorphone [id number] Yury g Allergy Unknown ANAPHYLAXIS 06/09/2018 Yes latex [id number] Drug Allergy Unknown HIVES 06/09/2018 Yes hydromorphone [id number] Yury g Allergy Severe ANAPHYLAXIS 09/03/2018 Yes Penicillins [id number] Drug Aller gy Mild hives 09/03/2018 Yes morphine [id number] Drug Allergy Mild Rash 12/31/2018 Medications Medication Packaging Start Date St op Date Route Dosage Sig DILTIAZEM HCL [id number] 11/13/2012 12/13/2012 ORAL [id number] Problems Date Dx Coded Attending Type Code Diagnosis Diagnosed By 08/09/2012 F 300.00 Luis Alfredo Carroll MD, Carrol Haque 08/09/2012 F 311 Luis Alfredo Carroll MD, Carrol Haque 08/09/2012 F 401.9 Luis Alfredo Carroll MD, Carrol Haque 08/09/2012 F 786.59 Luis Alfredo Carroll MD, Carrol Haque 08/09/2012 F 787.02 Luis Alfredo Carroll MD, Carrol Haque 08/18/2012 Alessandra Martinez MD Final [...] ABNORMAL UTERINE AND VAGINAL BLEEDING, U 12/05/2016 HIRA CHURCHILL OZZIE Sukhi Ot Z87.448 PERSONAL HISTORY OF OTHER DISEASES OF UR 12/05/2016 HIRA CHURCHILL OZZIE Sukhi Ot Z90.49 ACQUIRED ABSENCE OF OTHER SPECIFIED PART 12/11/2016 HIRA CHURCHILL OZZIE Sukhi Ot 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 12/11/2016 HRIA CHURCHILL OZZIE Sukhi Ot B96.89 OTH BACTERIAL AGENTS THE CAUSE OF DIS 12/11/2016 HIRA CHURCHILL OZZIE Sukhi Ot F17.210 NICOTINE DEPENDENCE, CIGARETTES, UNCOMPL 12/11/2016 HIRA CHURCHILL OZZIE Sukhi Ot N76.0 ACUTE VAGINITIS 12/11/2016 HIRA CHURCHILL OZZIE Sukhi Ot N92.0 EXCESSIVE AND FREQUENT MENSTRUATION WITH 12/11/2016 HIRA CHURCHILL OZZIE Sukhi Ot N93.9 ABNORMAL UTERINE AND VAGINAL BLEEDING, U 12/11/2016 HIRA CHURCHILL OZZIE Sukhi Ot Z87.448 PERSONAL HISTORY OF [...] ACQUIRED ABSENCE OF OTHER SPECIFIED PART 12/27/2016 SRINI QUISPE Ot F17.210 NICOTINE DEPENDENCE, CIGARETTES, UNCOMPL 12/27/2016 SRINI QUISPE Ot G43.909 MIGRAINE, UNSP, NOT INTRACTABLE, WITHOUT 12/27/2016 SRINI QUISPE Ot Z87.448 PERSONAL HISTORY OF OTHER DISEASES OF UR 12/27/2016 SRINI QUISPE Ot Z90.49 ACQUIRED ABSENCE OF OTHER SPECIFIED [...] F17.2 10 NICOTINE DEPENDENCE, CIGARETTES, UNCOMPL 06/13/2018 REYNOLD DO, MIKIE B Ot F32.9 MAJOR DEPRESSIVE DISORDER, SINGLE EPISOD 06/13/2018 DELHAILE DO, MIKIE B Ot F41.9 ANXIETY DISORDER, UNSPECIFIED 06/13/2018 DELMAN DO, MIKIE B Ot I10 ESSENTIAL (PRIMARY) HYPERTENSION 06/13/2018 REYNOLD DO, MIKIE B Ot I48.2 CHRONIC ATRIAL FIBRILLATION 06/13/2018 REYNOLD DO, MIKIE B Ot K21.9 GASTRO-ESOPHAGEAL REFLUX DISEASE WITHOUT 06/13/2018 DELMAN DO, MIKIE B Ot K29.5 0 UNSPECIFIED CHRONIC GASTRITIS WITHOUT BL 06/13/2018 REYNOLD DO, MIKIE B Ot K31.7 POLYP OF STOMACH AND DUODENUM 06/13/2018 CARLIEHAILE DO, MIKIE B Ot K64.8 OTHER HEMORRHOIDS 06/13/2018 REYNOLD DO, MIKIE B Ot R56.9 UNSPECIFIED CONVULSIONS 06/13/2018 REYNOLD DO, MIKIE B Ot Z79.8 99 OTHER DETENTION (CURRENT) DRUG THERAPY 06/17/2018 CARLIEHAILE DO, MIKIE B Ot D12.4 BENIGN NEOPLASM OF DESCENDING COLON 06/17/2018 REYNOLD DO, MIKIE B Ot F17.2 10 NICOTINE DEPENDENCE, CIGARETTES, UNCOMPL 06/17/2018 REYNOLD DO, MIKIE B Ot F32.9 MAJOR DEPRESSIVE DISORDER, SINGLE EPISOD 06/17/2018 REYNOLD DO, MIKIE B Ot F41.9 ANXIETY DISORDER, UNSPECIFIED 06/17/2018 REYNOLD DO, MIKIE B Ot I10 ESSENTIAL (PRIMARY) HYPERTENSION 06/17/2018 REYNOLD DO, MIKIE B Ot I48.2 CHRONIC ATRIAL FIBRILLATION 06/17/2018 REYNOLD DO, MIKIE B Ot K21.9 GASTRO-ESOPHAGEAL REFLUX DISEASE WITHOUT 06/17/2018 DELMAN DO, MIKIE B Ot K29.5 0 UNSPECIFIED CHRONIC GASTRITIS WITHOUT BL 06/17/2018 CARLIEHAILE DO, MIKIE B Ot K31.7 POLYP OF STOMACH AND DUODENUM 06/17/2018 DELHAILE DO, MIKIE B Ot K64.8 OTHER HEMORRHOIDS 06/17/2018 CARLIEHAILE DO, MIKIE B Ot R56.9 UNSPECIFIED CONVULSIONS 06/17/2018 CARLIEHAILE DO, MIKIE B Ot Z79.8 99 OTHER MERCHANDISE CARRIER (CURRENT) DRUG THERAPY 06/20/2018 DELMAN DO, MIKIE B Ot D12.4 BENIGN NEOPLASM OF DESCENDING COLON 06/20/2018 CLAUDINE FLAHERTY DOIC B Ot F17.2 10 NICOTINE DEPENDENCE, CIGARETTES, UNCOMPL 06/20/2018 REYNOLD LIU MIKIE B Ot F32.9 MAJOR DEPRESSIVE DISORDER, SINGLE EPISOD 06/20/2018 REYNOLD LIU MIKIE B Ot F41.9 ANXIETY DISORDER, UNSPECIFIED 06/20/2018 REYNOLD LIU MIKIE B Ot I10 ESSENTIAL (PRIMARY) HYPERTENSION 06/20/2018 REYNOLD LIU MIKIE B Ot I48.2 CHRONIC ATRIAL FIBRILLATION 06/20/2018 REYNOLD LIU MIKIE B Ot K21.9 GASTRO-ESOPHAGEAL REFLUX DISEASE WITHOUT 06/20/2018 REYNOLD LIU MIKIE B Ot K29.5 0 UNSPECIFIED CHRONIC GASTRITIS WITHOUT BL 06/20/2018 REYNOLD LIU MIKIE B Ot K31.7 POLYP OF STOMACH AND DUODENUM 06/20/2018 REYNOLD LIU MIKIE B Ot K64.8 OTHER HEMORRHOIDS 06/20/2018 REYNOLD LIU MIKIE B Ot R56.9 UNSPECIFIED CONVULSIONS 06/20/2018 REYNOLD LIU MIKIE B Ot Z79.8 99 OTHER MERCHANDISE CARRIER (CURRENT) DRUG THERAPY 09/03/2018 CAITLYN BECK, ERLINDA [...] I10 ESSENTIAL (PRIMARY) HYPERTENSION 09/03/2018 ERLINDA BRADY MD Ot M06.9 RHEUMATOID ARTHRITIS, UNSPECIFIED 09/03/2018 ERLINDA BRADY MD Ot M79.7 FIBROMYALGIA 09/03/2018 ERLINDA BRADY MD Ot R29.810 FACIAL WEAKNESS 09/03/2018 ERLINDA BRADY MD Ot Z77.22 CNTCT W AND EXPSR TO ENVIRON TOBACCO SMO 09/03/2018 ERLINDA BRADY MD Ot Z88.0 ALLERGY STATUS TO PENICILLIN 09/03/2018 ERLINDA BRADY MD Ot Z88.5 ALLERGY STATUS [...] ACQUIRED ABSENCE OF OTHER SPECIFIED PART 09/08/2018 CAITLYN BECK, ERLINDA Beavers Ot Z91.040 LATEX ALLERGY STATUS 11/27/2018 VIVEK HORN MD, Ot E78.00 PURE HYPERCHOLESTEROLEMIA, UNSPECIFIED 11/27/2018 VIVEK HORN MD Ot F17.210 NICOTINE DEPENDENCE, CIGARETTES, UNCOMPL 11/27/2018 VIVEK HORN MD Ot F31.9 BIPOLAR DISORDER, UNSPECIFIED 11/27/2018 VIVEK HORN MD, Ot F41.9 ANXIETY DISORDER, UNSPECIFIED 11/27/2018 VIVEK HORN MD Ot G43.909 MIGRAINE, UNSP, NOT INTRACTABLE, WITHOUT 11/27/2018 VIVEK HORN MD Ot 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 11/27/2018 VIVEK HORN MD Ot I10 ESSENTIAL (PRIMARY) HYPERTENSION 11/27/2018 VIVEK HORN MD Ot M06.9 RHEUMATOID ARTHRITIS, UNSPECIFIED 11/27/2018 VIVEK HORN MD Ot M79.7 FIBROMYALGIA 11/27/2018 VIVEK HORN MD Ot R29.810 FACIAL WEAKNESS 11/27/2018 VIVEK HORN MD Ot Z79.52 DETENTION (CURRENT) USE OF SYSTEMIC STER 11/27/2018 VIVEK [...] NICOTINE DEPENDENCE, CIGARETTES, UNCOMPL 12/01/2018 VIVEK HORN MD, Ot F31.9 BIPOLAR DISORDER, UNSPECIFIED 12/01/2018 VIVEK HORN MD Ot F41.9 ANXIETY DISORDER, UNSPECIFIED 12/01/2018 VIVEK HORN MD Ot G43.909 MIGRAINE, UNSP, NOT INTRACTABLE, WITHOUT 12/01/2018 VIVEK HORN MD, Ot 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 12/01/2018 VIVEK HORN MD Ot I10 ESSENTIAL (PRIMARY) HYPERTENSION 12/01/2018 VIVEK HORN MD Ot M06.9 RHEUMATOID ARTHRITIS, UNSPECIFIED 12/01/2018 VIVEK HORN MD Ot M79.7 FIBROMYALGIA 12/01/2018 VIVEK HORN MD Ot R29.810 FACIAL WEAKNESS 12/01/2018 VIVEK HORN MD, Ot Z79.52 DETENTION (CURRENT) USE OF SYSTEMIC STER 12/01/2018 VIVEK HORN MD Ot Z88.0 ALLERGY STATUS TO PENICILLIN 12/01/2018 VIVEK HORN MD, Ot Z88.5 ALLERGY STATUS TO NARCOTIC [...] MIKIE FLAHERTY DO Ot Z79.8 99 OTHER MERCHANDISE CARRIER (CURRENT) DRUG THERAPY 12/31/2018 MIKIE FLAHERTY DO [...] GASTRITIS WITHOUT BL 01/07/2019 MIKIE FLAHERTY DO B Ot K31.7 POLYP OF STOMACH AND DUODENUM 01/07/2019 MIKIE FLAHERTY DO Ot K80.1 0 CALCULUS OF GALLBLADDER W CHRONIC CHOLEC 01/07/2019 MIKIE FLAHERTY DO Ot M06.9 RHEUMATOID ARTHRITIS, UNSPECIFIED 01/07/2019 MIKIE FLAHERTY DO Ot Z79.8 99 OTHER MERCHANDISE CARRIER (CURRENT) DRUG THERAPY 01/07/2019 MIKIE FLAHERTY DO Ot Z88.0 ALLERGY STATUS TO PENICILLIN 01/07/2019 MIKIE FLAHERTY DO Ot Z88.5 ALLERGY STATUS TO NARCOTIC AGENT STATUS 01/07/2019 MIKIE FLAHERTY DO Ot Z88.6 ALLERGY STATUS TO ANALGESIC AGENT STATUS 01/07/2019 MIKIE FLAHERTY DO Ot Z88.8 ALLERGY STATUS TO OTH DRUG/MEDS/BIOL SUB 01/07/2019 MIKIE FLAHERTY DO B Ot Z91.0 40 LATEX ALLERGY STATUS 01/09/2019 MIKIE FLAHERTY DO Ot F17.2 10 NICOTINE DEPENDENCE, CIGARETTES, UNCOMPL 01/09/2019 MIKIE FLAHERTY DO Ot F32.9 MAJOR DEPRESSIVE DISORDER, SINGLE EPISOD 01/09/2019 MIKIE FLAHERTY DO B Ot 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 01/09/2019 MIKIE FLAHERTY DO Ot I10 ESSENTIAL (PRIMARY) HYPERTENSION 01/09/2019 MIKIE FLAHERTY DO Ot I47.1 SUPRAVENTRICULAR TACHYCARDIA 01/09/2019 MIKIE FLAHERTY DO Ot I48.9 1 UNSPECIFIED ATRIAL FIBRILLATION 01/09/2019 MIKIE FLAHERTY DO Ot K21.9 GASTRO-ESOPHAGEAL REFLUX DISEASE WITHOUT 01/09/2019 MIKIE FLAHERTY DO Ot 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 01/09/2019 MIKIE FLAHERTY DO B Ot K29.5 0 UNSPECIFIED CHRONIC GASTRITIS WITHOUT BL 01/09/2019 MIKIE FLAHERTY DO Ot K31.7 POLYP OF STOMACH AND DUODENUM 01/09/2019 MIKIE FLAHERTY DO B Ot K80.1 0 CALCULUS OF GALLBLADDER W CHRONIC CHOLEC 01/09/2019 MIKIE FLAHERTY DO Ot M06.9 RHEUMATOID ARTHRITIS, UNSPECIFIED 01/09/2019 MIKIE FLAHERTY DO Ot Z79.8 99 OTHER DETENTION (CURRENT) DRUG THERAPY 01/09/2019 MIKIE FLAHERTY DO Ot Z88.0 ALLERGY STATUS TO PENICILLIN 01/09/2019 MIKIE FLAHERTY DO Ot Z88.5 ALLERGY STATUS TO NARCOTIC AGENT STATUS 01/09/2019 MIKIE FLAHERTY DO Ot Z88.6 ALLERGY STATUS TO ANALGESIC AGENT STATUS 01/09/2019 MIIKE FLAHERTY DO Ot Z88.8 ALLERGY STATUS TO OTH DRUG/MEDS/BIOL SUB 01/09/2019 MIKIE FLAHERTY DO Ot Z91.0 40 LATEX ALLERGY STATUS 03/02/2019 MEDRANO DO, LIS C Ot E28.2 POLYCYSTIC OVARIAN SYNDROME 03/02/2019 MEDRANO DO, LIS C Ot N80.9 ENDOMETRIOSIS, UNSPECIFIED 03/02/2019 MEDRANO DO, LIS C Ot N83.2 01 UNSPECIFIED OVARIAN CYST, RIGHT SIDE 03/02/2019 MEDRANO DO, LIS C Ot N92.0 EXCESSIVE AND FREQUENT MENSTRUATION WITH 05/13/2019 MEDRANO DO, LIS C Ot E28.2 POLYCYSTIC OVARIAN SYNDROME 05/13/2019 MEDRANO DO, LIS C Ot N80.9 ENDOMETRIOSIS, UNSPECIFIED 05/13/2019 MEDRANO DO, LIS C Ot N83.2 01 UNSPECIFIED OVARIAN CYST, RIGHT SIDE 05/13/2019 MEDRANO DO, LIS C Ot N92.0 EXCESSIVE AND FREQUENT MENSTRUATION WITH 05/14/2019 BACK DO, KALYAN Ot F17.21 0 NICOTINE DEPENDENCE, CIGARETTES, UNCOMPL 05/14/2019 NAZANIN LIU KALYAN Ot F31.9 BIPOLAR DISORDER, UNSPECIFIED 05/14/2019 NAZANIN LIU KALYAN Ot F41.9 ANXIETY DISORDER, UNSPECIFIED 05/14/2019 BACK DO KALYAN Ot 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 05/14/2019 NAZANIN LIU KALYAN Ot G43.90 9 MIGRAINE, UNSP, NOT INTRACTABLE, WITHOUT 05/14/2019 NAZANIN DO, KALYAN Ot G45.2 MULTIPLE AND BILATERAL [...] FIBROMYALGIA 05/14/2019 NAZANIN LIU KALYAN Ot Z79.82 DETENTION (CURRENT) USE OF ASPIRIN 05/14/2019 NAZANIN LIU KALYAN Ot Z79.89 9 OTHER MERCHANDISE CARRIER (CURRENT) DRUG THERAPY 05/14/2019 NAZANIN LIU KALYAN Ot Z88.0 ALLERGY STATUS TO PENICILLIN 05/14/2019 NAZANIN LIU KALYAN Ot Z88.5 ALLERGY STATUS TO NARCOTIC AGENT STATUS 05/14/2019 NAZANIN LIU KALYAN Ot Z90.49 ACQUIRED ABSENCE OF OTHER SPECIFIED PART 05/14/2019 NAZANIN LIU KALYAN Ot Z90.89 ACQUIRED ABSENCE OF OTHER ORGANS 05/14/2019 NAZANIN LIU KALYAN Ot Z91.04 0 LATEX ALLERGY STATUS 05/14/2019 NAZANIN LIU KALYAN Ot F17.21 0 NICOTINE DEPENDENCE, CIGARETTES, UNCOMPL 05/14/2019 NAZANIN LIU KALYAN Ot F31.9 BIPOLAR DISORDER, UNSPECIFIED 05/14/2019 NAZANIN LIU KALYAN Ot F41.9 ANXIETY DISORDER, UNSPECIFIED 05/14/2019 [...] FIBROMYALGIA 05/14/2019 NAZANIN LIU KALYAN Ot Z79.82 MERCHANDISE CARRIER (CURRENT) USE OF ASPIRIN 05/14/2019 NAZANIN LIU KALYAN Ot Z79.89 9 OTHER DETENTION (CURRENT) DRUG THERAPY 05/14/2019 NAZANIN LIU KALYAN [...] FIBROMYALGIA 05/29/2019 NAZANIN LIU KALYAN Ot Z79.82 MERCHANDISE CARRIER (CURRENT) USE OF ASPIRIN 05/29/2019 NAZANIN LIU KALYAN Ot Z79.89 9 OTHER DETENTION (CURRENT) DRUG THERAPY 05/29/2019 NAZANIN LIU KALYAN [...] FIBROMYALGIA 05/29/2019 NAZANIN LIU KALYAN Ot Z79.82 MERCHANDISE CARRIER (CURRENT) USE OF ASPIRIN 05/29/2019 NAZANIN LIU KALYAN Ot Z79.89 9 OTHER MERCHANDISE CARRIER (CURRENT) DRUG THERAPY 05/29/2019 NAZANIN LIU KALYAN [...] Ot E28.2 POLYCYSTIC OVARIAN SYNDROME 05/29/2019 LIS MEDRANO DO Ot N80.9 ENDOMETRIOSIS, UNSPECIFIED 05/29/2019 LIS MEDRANO DO Ot N83.2 01 UNSPECIFIED OVARIAN CYST, RIGHT SIDE 05/29/2019 MEDRANO DO, LIS C Ot N92.0 EXCESSIVE AND FREQUENT MENSTRUATION WITH 06/11/2019 MIGEL ROMERO APRN Ot F32 .9 MAJOR DEPRESSIVE DISORDER, SINGLE EPISOD 06/11/2019 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 Ot F41 .9 ANXIETY DISORDER, UNSPECIFIED 06/11/2019 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 Ot I10 ESSENTIAL (PRIMARY) HYPERTENSION 06/11/2019 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 Ot M79 .7 FIBROMYALGIA 06/11/2019 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 Ot R00 .0 TACHYCARDIA, UNSPECIFIED 06/11/2019 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 Ot R07.89 OTHER CHEST PAIN 07/17/2019 MEDRANO DO, LIS C Ot E28.2 POLYCYSTIC OVARIAN SYNDROME 07/17/2019 MEDRANO DO, LIS C Ot N80.9 ENDOMETRIOSIS, UNSPECIFIED 07/17/2019 MEDRANO DO, LIS C Ot N83.2 01 UNSPECIFIED OVARIAN CYST, RIGHT SIDE 07/17/2019 MEDRANO DO, LIS C Ot N92.0 EXCESSIVE AND FREQUENT MENSTRUATION WITH 07/20/2019 BARRETT DELONG MD Ot I11. 0 HYPERTENSIVE HEART DISEASE WITH HEART FA 07/20/2019 BARRETT DELONG MD, Ot I50. 30 UNSPECIFIED DIASTOLIC (CONGESTIVE) HEART 07/20/2019 BARRETT DELONG MD, Ot I67. 4 HYPERTENSIVE ENCEPHALOPATHY Procedures There is no data. Results Test Result Range METABOLIC PANEL, [facility] - 08/19/12 13: 35 POTASSIUM 3.7 mmol/L [...] identification in genital specimen by aerobe culture [id number] NRG Microscopic examination by wet preparati on [...] NRG STATEMENT OF ADEQUACY: NRG INTERPRETATION/RESULT: NRG HOST HOSTESS: NRG HPV mRNA E6/E7, SUREPATH VIAL Not [...] NRG STATEMENT OF ADEQUACY: NRG INTERPRETATION/RESULT: NRG HOST HOSTESS: NRG HPV mRNA E6/E7, SUREPATH VIAL Not Detected NOT DETECTED REVIEW HOST HOSTESS: NRG INFECTION: NRG COMMENT NRG CBC - [...] blood basophil count (count/volume) 0.0 10*3/uL 0.0-0.1 Complete blood count (CBC) with automate d white blood cell (WBC) differential - 06/11/19 21:19 Blood leukocytes automated count (number/volume) 7.7 10*3/uL 4.3-11.0 Blood erythrocytes automated count (number/volume) 5.08 10*6/uL 4.35-5.85 Venous blood hemoglobin measurement (mass/volume) 15.2 g/dL 11.5-16.0 Blood hematocrit (volume fraction) 44 % 35-52 Automated erythrocyte mean corpuscular volume 87 [ foz_us] 80-99 Automated erythrocyte mean corpuscular h emoglobin (mass per erythrocyte) 30 pg 25-34 Automated erythrocyte mean corpuscular h emoglobin concentration measurement (mass/volume) 34 g/dL 32-36 Automated erythrocyte distribution width ratio 13. 8 % 10.0- 14.5 Automated blood platelet count (count/volume) 211 10*3/uL 130-400 Automated blood platelet mean volume measurement 9.5 [foz_us] 7.4-10.4 Automated blood neutrophils/100 leukocytes 56 % 42-75 Automated blood lymphocytes/100 leukocytes 35 % 12-44 Blood monocytes/100 leukocytes 8 % 0-12 Automated blood eosinophils/100 leukocytes 1 % 0-10 Automated blood basophils/100 leukocytes 0 % 0-10 Blood neutrophils automated count (number/volume) 4.3 10*3 1.8-7.8 Blood lymphocytes automated count (number/volume) 2.7 10*3 1.0-4.0 Blood monocytes automated count (number/volume) 0. 6 10*3 0.0-1.0 Automated eosinophil count 0.1 10*3/uL 0 .0-0.3 Automated blood basophil count (count/volume) 0.0 10*3/uL 0.0-0.1 Comprehensive metabolic panel - 06/11/19 21:19 Serum or plasma sodium measurement (moles/volume) 137 mmol/L 135-145 Serum or plasma potassium measurement (moles/volume) 3.7 mmol/L 3.6-5.0 Serum or plasma chloride measurement (moles/volume) 108 mmol/L 98-107 Carbon dioxide 17 mmol/L 21-32 Serum or plasma anion gap determination (moles/volume) 12 mmol/L 5-14 Serum or plasma urea nitrogen measurement (mass/volume ) 16 mg/dL 7-18 Serum or plasma creatinine measurement (mass/volume) 0.91 mg/dL 0.60-1.30 Serum or plasma urea nitrogen/creatinine mass ratio 18 NRG Serum or plasma creatinine measurement w ith calculation of estimated glomerular filtration rate > NRG Serum or plasma glucose measurement (mass/volume) 91 mg/dL 70-105 Serum or plasma calcium measurement (mass/volume) 9.6 mg/dL 8.5-10.1 Serum or plasma total bilirubin measurement (mass/volu me) 0.4 mg/dL 0.1-1.0 Serum or plasma alkaline phosphatase martha surement (enzymatic activity/volume) 69 U/L 40-136 Serum or plasma aspartate aminotransfera se measurement (enzymatic activity/volume) 15 U/L 5-34 Serum or plasma alanine aminotransferase measurement (enzymatic activity/volume) 17 U/L 0-55 Serum or plasma protein measurement (mass/volume) 7.5 g/dL 6.4-8.2 Serum or plasma albumin measurement (mass/volume) 4.5 g/dL 3.2-4.5 CALCIUM CORRECTED 9.2 mg/dL 8.5-10.1 Serum or plasma choriogonadotropin (preg alessandra test) detection - 06/11/19 21:19 Serum or plasma choriogonadotropin ( test) de tection NEGATIVE NEGATIVE Magnesium - 06/11/19 21:19 Magnesium 1.7 mg/dL 1.6-2.4 Serum or plasma troponin i.cardiac measu rement (mass/volume) - 06/11/19 21:19 Serum or plasma troponin i.cardiac measurement (mass/v olume) < ng/mL <0.028 THYROID STIMULATING HORMONE - 06/11/19 2 1:19 THYROID STIMULATING HORMONE 0.66 u[iU]/mL 0.35-4.94 Serum or plasma thyroxine (T4) free ariana urement (mass/volume) - 06/11/19 21:19 Serum or plasma thyroxine (T4) free measurement (mass/ volume) 1.24 ng/dL 0.70-1.48 Complete urinalysis with reflex to cultu re - 06/11/19 21:58 Urine color determination YELLOW NRG Urine clarity determination SL CLOUDY N RG Urine pH measurement by test strip 5.5 5-9 Specific gravity of urine by test strip >= 1.016-1.022 Urine protein assay by test strip, [...] leukocyte count by microscopy (number/high power field) NONE NRG Bacteria detection in urine sediment by light microsco py NEGATIVE NRG Squamous epithelial cells detection in u rine sediment by light microscopy 0-2 NRG Crystals detection in urine sediment by light microsco py NONE NRG Casts detection in urine sediment by light microscopy NONE NRG Mucus detection in urine sediment by light microscopy SMALL NRG Complete urinalysis with reflex to culture NO NRG Urine drug screening test - 06/11/19 21: 58 Urine phencyclidine detection by screening method NEGATIVE [...] TIVE Urine propoxyphene detection NEGATIVE N EGATIVE Radiology Report from [id number] on 10:18:00 Final ReportADMITTING DIAGNOSIS: Abd Pain ABD. PAINKUB,UPRIGHT /OR DECUB - 08/18/2012 [facility] RESULT: TIME:9:16 AM.INDICATION:Right lower quadrant pain.FINDINGS:Supine [...] tion.IMPRESSION: Probable mild ileus.Dictated on workstation # [id number] BY: CHACORTA CRABTREE M.D., RADIOLOGISTELECTRONICALLY SIGNED BY: CHACORTA CRABTREE M.D., RADIOLOGISTD Aug 18 2012 9:19AT JM : Aug 18 2012 10:16AS Aug 18 2012 10:16A Radiology Report from [id number] on 16:08:00 Final ReportADMITTING DIAGNOSIS: Abd Pain ABD PAINGALLBLADDER SONO - 08/18/2012 [facility] RESULT: INDICATION: Right upper quadrant pain.COMPARISON: [...] be of further value.Dictated on workstation # [id number] RADIOLOGIST: SCOTT PACHECO M.D., RADIOLOGISTELECTRONICALLY SIGNED BY: SCOTT PACHECO M.D., RADIOLOGISTD Aug 18 2012 9:42AT RF : Aug 18 2012 4:05PS Aug 18 2012 4:05P Radiology Report from [id number] on 013 17:00:00 Final ReportADMITTING DIAGNOSIS: Abd Pain ABD. PAINCT ABD W W/O,PELVIS W - 08/18/2012 [facility] RESULT: PROCEDURE: CT abdomen with and [...] the liver with normalspleen.Dictated on workstation # [id number] BY: NEGRA VALENZUELA M.D., RADIOLOGISTELECTRONICALLY SIGNED BY: NEGRA VALENZUELA M.D., RADIOLOGISTD Aug 18 2012 11:57AT KB : Aug 18 2012 4:57PS Aug 18 2012 4:57P Radiology Report from [id number] on 2012 16:38:00 DIAGNOSTIC UMU GING REPORT [facility] - [address] [address] PHONE #: [phone] FAX #: [phone] Name: XUAN YANCHACEBrigid Loc: W.ED Radiology No: : 1980 Age: 32 Sex: F Status: [facility] ER Unit No: [id number] Phys: NIKUNJ Davis Da Sharma Acct: [id number] Reason For Exam: abd pain Exam Date: 08/19/2012 EXAMS: CPT CODE: [id number] ABD-KUB [place] CHEST 43688 TIME OF STUDY: 08/19/2012 2:19 PM REASON [...] CC: Technologist: TOMMY AVILA Transcribed Date/Time: 08/19/2012 (1632)Instructional Systems Design Consultant: [email or web address] Printed Date/Time: 08/19/2012 (5746) BATCH NO: N/A PAGE 1 Signed Report Radiology Report from [id number] on 014 12:14:00 Final ReportADMITTING DIAGNOSIS: n/v, lower back pain, hist of painCT URINARY TRACT R/O STONES - 06/13/2013 [facility] RESULT: PROCEDURE: CT urinary tract r/o kidney [...] CT abdomen and pelvis.Dictated on workstation # [id number] BY: SCOTT PCAHECO M.D., RADIOLOGISTELECTRONICALLY SIGNED BY: SCOTT PACHECO M.D., RADIOLOGISTD Jun 14 2013 5:59AT MK4: Jun 14 2013 12:10PS Jun 14 2013 12:10P Radiology Report from [facility] on 014 14:13:00 DIAGNOSTIC UMU GING REPORT [facility] - [address] [place] [address] PHONE #: [phone] FAX #: [phone] Name: XUAN YAN Loc: MATTW Radiology No: : 1980 Age: 33 Sex: F Status: REG ER Unit No: [id number] Phys: Fran Mendes MD Acct: [id number] Reason For Exam: abd pain, suspect cnstipation Exam Date: 07/22/2013 EXAMS: CPT CODE: [id number] ABD-KUB /FEB PA CHEST 66299 Abdomen series The reason for examination: Abdominal [...] evidence of bowel obstruction or perforation. at 2229 Reported and signed by: MYKE GARCIA MD CC: Fran Capone MD Technologist: TOMMY AVILA Transcribed Date/Time: 07/22/2013 (7617)Instructional Systems Design Consultant: [email or web address] Printed Date/Time: 07/22/2013 (4605) BATCH NO: N/A PAGE 1 Signed Report Radiology Report from [facility] on 014 15:17:00 DIAGNOSTIC UMU GING REPORT [facility] - [address] [address] PHONE #: [phone] FAX #: [phone] Name: XUAN YAN Loc: DmEDW Radiology No: : 1980 Age: 33 Sex: F Status: REG ER Unit No: [id number] Phys: Fran Mendes MD Acct: [id number] Reason For Exam: abd pain abn kub Exam Date: 07/22/2013 EXAMS: CPT CODE: [id number] CT ABD/PELVIS WITH CONTRAST 72555 TIME OF STUDY: 07/22/2013 2:47 PM REASON [...] or corrected the resident physician's interpretation. at 1812 RESIDENT: BABITA BOB MD Reported and signed by: DA SHAH MD PAGE 1 Signed Report (CONTINUED) DIAGNOSTIC IMAGING REPORT [facility] - [address] [address] PHONE #: [phone] FAX #: [phone] Name: XUAN YAN Loc: W.ED Radiology No: : 1980 Age: 33 Sex: F Status: REG ER Unit No: [id number] Phys: Fran Mendes MD Acct: [id number] Reason For Exam: abd pain abn kub Exam Date: 07/22/2013 --------- EXAMS: CPT CODE: [id number] CT ABD/PELVIS WITH CONTRAST 78292 <Continued> CC: Fran Capone MD Technologist: TOMMY AVILA Transcribed Date/Time: 07/22/2013 (3435)Instructional Systems Design Consultant: JOANNE Printed Date/Time: 07/22/2013 (0887) BATCH NO: N/A PAGE 2 Signed Report Encounters ACCT No. Visit Date/Time Discharge Status Pt. Type Provider Facility Loc./Unit Complaint [id number] 04/02/2014 09:51:00 Document Registration [id number] 02/05/2014 13:09:00 Document Registration [id number] 05/21/2013 18:44:00 05/22/19 14 21:26:00 DIS Emergency Sree Samayoa III, MD [facility] on [facility] [facility] [id number] 08/18/2012 07:59:00 08/19/19 13 12:50:00 DIS Emergency Alessandra Martinez MD [facility] on [facility] TERM [id number] 06/13/2013 21:21:00 06/14/19 14 23:40:00 DIS Emergency Sree aSmayoa III, MD [facility] on [address] [place] [id number] 05/21/2013 18:44:00 Document Registration [id number] 07/17/2019 08:47:00 23:59:59 CLS Outpatient BARRETT DELONG MD [facility] CARD HTN [id number] 06/11/2019 21:08:00 22:40:00 DIS Emergency MIGEL ROMERO APRN [facility] ER CHEST TIGHTNESS / SEIZU RE [id number] 05/13/2019 16:20:00 09:57:00 DIS Inpatient KALYAN BACK DO, [facility] ICU HYPERTENSIVE ENCEPHALOP ATHY [id number] 02/27/2019 15:18:00 23:59:59 CLS Outpatient LIS MEDRANO DO [facility] RAD PCOS [id number] 12/31/2018 06:57:00 12:55:00 DIS Outpatient MIKIE FLAHERTY DO [facility] SDC CHOLECYSTITIS/CHOLELITH IASIS [id number] 12/25/2018 05:32:00 13:31:00 DIS Outpatient [facility] DO [facility] [facility] CHOLECYSTITIS/CHOLELITH IASIS [id number] 12/09/2018 13:54:00 23:59:59 CLS Preadmit JIMENEZKATHY 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 [facility] REHAB LBP [id number] 11/27/2018 08:00:00 10:21:00 DIS Emergency JUSTINA BECK, VIVEK Jimenez [facility] ER LEFT SIDE FACIA L DROOP [id number] 09/03/2018 07:02:00 08:23:00 DIS Emergency CAITLYN BECK, ERLINDA Beavers [facility] ER FACE DROOPING,F ZENIA NUMB [id number] 07/09/2018 14:59:00 23:59:59 CLS Preadmit BAINOEL 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 [facility] CARD ESSENTIAL HYPERTENSION, HEART PALPITATIONS [id number] 07/09/2018 14:53:00 23:59:59 CLS Preadmit BAINOEL 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 [facility] CARD ESSENTIAL HYPERTENSION, PALPITATIONS [id number] 07/09/2018 14:43:00 23:59:59 CLS Preadmit BAIMA, 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 [facility] CARD ESSENTIAL HYPERTENSION, PALPITATIONS [id number] 06/13/2018 09:04:00 10:55:00 DIS Outpatient MIKIE FLAHERTY DO [facility] ENDO RECTAL BLEEDING/HX POLLARD ETT'S [id number] 06/09/2018 06:45:00 15:51:00 DIS Outpatient MIKIE FLAHERTY DO [facility] PREOP COLONOSCOPY/EGD [id number] 02/27/2018 17:11:00 19:17:00 DIS Emergency 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 [facility] ER "HAD A SEIZURE 30 MINUT ES AGO" [id number] 12/27/2016 14:56:00 17:48:00 DIS Emergency SRINI QUISPE 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 [facility] ER SEIZURE [id number] 12/26/2016 09:24:00 017 12:04:00 DIS Emergency MIMI WEEKS MD [facility] ER MIGRAINE [id number] 12/05/2016 14:26:00 017 17:27:00 DIS Emergency OZZIE JACKSON [facility] ER HEAVY MENSTRUAL BLEEDI NG FOR 7 WEEKS [id number] 05/04/2019 15:40:00 05/04/2019 23:59: 59 [address] [facility] [id number] 11/11/2018 13:00:00 Document Registration [id number] 08/11/2018 16:00:00 Document Registration [id number] 05/23/2018 12:20:00 Document Registration [id number] 04/23/2018 10:40:00 Document Registration [id number] 02/13/2018 13:00:00 Document Registration [id number] 01/31/2017 08:00:00 Document Registration [id number] 01/10/2017 10:40:00 Document Registration [id number] 08/04/2012 22:29:00 Document Registration [id number] 06/23/2015 12:42:05 06/22 12:42:05 DIS Outpatient [id number] 06/23/2015 12:42:03 06/22 12:42:03 DIS Outpatient [id number] 06/11/2014 09:04:41 06/11 09:04:41 DIS Outpatient [id number] 06/11/2014 09:04:32 06/11 09:04:32 DIS Outpatient [id number] 10/29/2013 09:54:35 10/29 09:54:35 DIS Outpatient [id number] 08/31/2013 17:20:46 08/31 17:20:46 DIS Outpatient [id number] 06/01/2013 11:02:08 06/01 11:02:08 DIS Outpatient [id number] 05/12/2013 14:28:28 05/12 14:28:28 DIS Outpatient [id number] 05/12/2013 14:27:07 05/12 14:27:07 DIS Outpatient [id number] 06/01/2013 10:55:48 Document Registration [id number] 03/17/2013 12:43:21 Document Registration [id number] 09/16/2013 15:27:00 014 17:50:00 DIS Emergency Max BECK, Chepe [facility] W.EDN [id number] 07/22/2013 11:59:00 014 15:46:00 DIS Emergency Liborio BECK, [facility] W.EDW [id number] 07/08/2013 14:28:00 16:47:00 DIS Emergency Allen BECK, [facility] [id number] 06/24/2013 11:54:00 014 12:53:00 DIS Emergency [facility] [id number] 05/12/2013 00:58:00 014 02:54:00 DIS Emergency Adrian BECK, Hardeep Quinones W.EDW [id number] 08/19/2012 12:36:00 013 15:40:00 DIS Emergency Zachary LIU, Da Isbell W.EDW [id number] 03/23/2011 15:21:00 012 23:59:59 CLS Emergency
[2019-07-22 08:15] LABS: BASOPHILS % (AUTO) 0 % (0-10); EOSINOPHILS # (AUTO) 0.1 10^3/uL (0.0-0.3); EOSINOPHILS % (AUTO) 1 % (0-10); HEMATOCRIT 46 % (35-52); HEMOGLOBIN 15.8 G/DL (11.5-16.0); LYMPHOCYTES # (AUTO) 4.1 X 10^3 (1.0-4.0); LYMPHOCYTES % (AUTO) 42 % (12-44); MEAN CORPUSCULAR HEMOGLOBIN 30 PG (25-34); MEAN CORPUSCULAR HGB CONC 34 G/DL (32-36); MEAN CORPUSCULAR VOLUME 89 FL (80-99); MEAN PLATELET VOLUME 10.1 FL (7.4-10.4); MONOCYTES # (AUTO) 0.7 X 10^3 (0.0-1.0); MONOCYTES % (AUTO) 7 % (0-12); NEUTROPHILS # (AUTO) 4.8 X 10^3 (1.8-7.8); NEUTROPHILS % (AUTO) 49 % (42-75); PLATELET COUNT 261 10^3/uL (130-400); RED CELL DISTRIBUTION WIDTH 14.1 % (10.0-14.5); WHITE BLOOD COUNT 9.7 10^3/uL (4.3-11.0)
[2019-07-22 08:27] LABS: ALBUMIN 4.8 GM/DL (3.2-4.5); CHLORIDE 108 MMOL/L (98-107); POTASSIUM 3.1 MMOL/L (3.6-5.0); SODIUM 140 MMOL/L (135-145)
[2019-07-22 08:28] LABS: PROTHROMBIN TIME PATIENT 13.2 SEC (12.2-14.7)
[2019-07-22 08:29] LABS: CALCIUM 9.6 MG/DL (8.5-10.1)
[2019-07-22 08:30] LABS: GLUCOSE 117 MG/DL (70-105); TOTAL PROTEIN 8.2 GM/DL (6.4-8.2)
[2019-07-22] MEDS ORDERED: ONDANSETRON 4 MG/2 ML (SDV) Z0FRAN IVP ONE (08:30)
[2019-07-22 08:31] LABS: CARBON DIOXIDE 18 MMOL/L (21-32)
[2019-07-22 08:32] LABS: BILIRUBIN,TOTAL 0.8 MG/DL (0.1-1.0)
[2019-07-22 08:33] LABS: ALKALINE PHOSPHATASE 79 U/L (40-136); CREATININE SERUM 0.86 MG/DL (0.60-1.30); GFR ESTIMATED > 60
[2019-07-22 08:35] LABS: BUN/CREATININE RATIO 15
[2019-07-22 08:36] LABS: ALANINE AMINOTRANSFERASE 24 U/L (0-55); MAGNESIUM 2.1 MG/DL (1.6-2.4)
[2019-07-22] MEDS ORDERED: ATOR20TA49 PO (08:38)
--- NOTE | 2019-07-22 08:47 | Diagnostic Imaging Report ---
PATIENT HISTORY: Tachycardia. Chest pain. TECHNIQUE: Single frontal view of the chest. COMPARISON: 06/11/2019. FINDINGS: The lung volumes are normal. No focal consolidation is seen. No large pleural effusion or pneumothorax is seen. The cardiomediastinal silhouette is normal in size and contour. No acute osseous abnormality is seen. IMPRESSION: No acute pulmonary abnormality seen. Dictated by: Dictated on workstation # [id number]
[2019-07-22] MEDS ORDERED: KCL 10 MEQ TAB (MICRO K) PO ONE (09:15)
--- NOTE | 2019-07-22 09:22 | ED Chest Pain ---
General Chief Complaint: Chest Pain Stated Complaint: CP Nursing Triage Note: PT ARRIVED PER EMS PT HAD RAPID HR AT HOME 140'S FOR EMS, AND CHEST PAIN. PT IS CHEST PAIN FREE AT THIS X AND STATES ONLY HAS SL PRESSURE. PT IS SL TEARFUL AT THIS X. PT HAS SL IN L AC BY EMS. PT STATES WAS WEARING A HEART MONITOR BUT TOOK OFF LAST NITE D/T SKIN IRRITATION FROM LEAD PATCHES. PT STATES HAS BEEN GOING ON INTERMITTENTLY SINCE MAY SO TRYING TO FIND OUT WHY SHE KEEPS HAVING EPISODES, PT STATES DOES HAVE HX OF ANXIETY Nursing Sepsis Screen: No Definite Risk Source: patient Exam Limitations: no limitations History of Present Illness Date Seen by Provider: July 22, 2019 Time Seen by Provider: 08:04 Initial Comments This 39-year-old woman presents to the emergency room room with pounding chest pain that started abruptly this morning. She reportedly had a heart rate around 160 at home. By the time emergency services arrived her heart rate was 142 and sinus tachycardia. She has a suspected history of atrial fibrillation. She has been wearing an external monitoring tech but removed it last night due to skin reaction to the adhesive. Symptoms started around 07:10, proximally one hour prior to arrival. She has associated shortness of breath. Last heart rate obtained by EMS was 108. Blood sugar was 107. Pain ranged from 2-6 on a [address] 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 Her primary care is with [facility]. Allergies and Home Medications Allergies Coded Allergies: hydromorphone (Verified Allergy, Severe, ANAPHYLAXIS, 09/03/18) Penicillins (Unverified Allergy, Mild, hives, 09/03/18) morphine (Verified Allergy, Mild, Rash, 12/31/18) latex (Verified Allergy, Unknown, HIVES, 06/09/18) Home Medications Amlodipine Besylate 5 Mg Tablet, 5 MG PO DAILY Prescribed by: BARRETT KESSLER on 05/14/19 0730 Aspirin 81 Mg Tab.chew, 81 MG PO DAILY@0900 Prescribed by: KALYAN BACK on 05/14/19 1000 Atorvastatin Calcium 40 Mg Tablet, 40 MG PO DAILY Prescribed by: KALYAN BACK on 05/14/19 1000 Baclofen 10 Mg Tablet, 10 MG PO TID, (Reported) Gabapentin 300 Mg Capsule, 300 MG PO DAILY, (Reported) Lisinopril 10 Mg Tablet, 10 MG PO DAILY Prescribed by: BARRETT KESSLER on 05/14/19 0732 Metoprolol Succinate 100 Mg Tab.er.24h, 100 MG PO DAILY Prescribed by: BARRETT KESSLER on 05/14/19 0730 Omeprazole 20 Mg Tablet.dr, 20 MG PO DAILY, (Reported) Topiramate 50 Mg Tablet, 50 MG PO BID, (Reported) Patient Home Medication List Home Medication List Reviewed: Yes Review of Systems Review of Systems Constitutional: no symptoms reported EENTM: No Symptoms Reported Respiratory: See HPI Cardiovascular: See HPI Gastrointestinal: No Symptoms Reported Genitourinary: No Symptoms Reported Musculoskeletal: no symptoms reported Skin: no symptoms reported Psychiatric/Neurological: See HPI Endocrine: No Symptoms Reported Hematologic/Lymphatic: No Symptoms Reported Past Sgfrohm-Effbzd-Ktncdz Hx Past Med/Social Hx: Reviewed Nursing Past Med/Soc Hx Patient Social History Alcohol Use: Denies Use Recreational Drug Use: Yes Drug of Choice: HX OF BEING AN ADDICT-IV METH, RX PILLS ABUSE, UDS + FOR THC 05/13/19 Smoking Status: Current Everyday Smoker Type Used: Cigarettes 2nd Hand Smoke Exposure: Yes Recent Foreign Travel: No Contact w/Someone Who Travel: No Recent Infectious Disease Expo: No Recent Hopitalizations: No Physical Abuse: No Sexual Abuse: No Immunizations Up To Date Date of Influenza Vaccine: Dec 12, 2018 Seasonal Allergies Seasonal Allergies: Yes Past Medical History Surgeries: Yes ( genital wart destruction, knee scope, LIVER BIOPSY WITH LAP YONAS) Appendectomy, Gallbladder, Orthopedic Respiratory: No Cardiac: Yes (arrhythmia, possibly A. fib) High Cholesterol, Hypertension Neurological: Yes (BELLS PALSY LEFT SIDE) Headaches /Migraines Reproductive Disorders: Yes (ovarian cysts) Female Reproductive Disorders: Polycystic Ovarian Dis Sexually Transmitted Disease: Yes (hx of genital warts) HIV/AIDS: No Genitourinary: Yes (FREQUENCY, ANTHONY) Gastrointestinal: Yes (CHRONIC RECTAL BLEEDING; CYST ON LIVER; S/P CHOLECYSTECTOMY) Gastroesophageal Reflux, Stoddard's Esophagus, Hemorrhoids, Gall Bladder Disease Musculoskeletal: Yes (KNEE SCOPE; RESTLESS LEGS/CHRONIC LEG PAIN ) Fibromyalgia Endocrine: Yes (OBEISTY) HEENT: Yes (VISION CORRECTED WITH CONTACTS) Cancer: No Psychosocial: Yes (MOOD DISORDER, FIBROMYLGIA, CONVERSION DIORDER) Sleep Difficulties, Anxiety, Bipolar, Depression Integumentary: No Blood Disorders: No Family Medical History No Pertinent Family Hx Physical Exam Vital Signs Vital Signs - First Documented Capillary Refill : Less Than 3 Seconds Height, Weight, BMI Height: 5'4.00" Weight: 215lbs. 0.0oz. 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 Norm as Tested, Other (mildly anxious) Skin: Normal Color, Warm/Dry Progress/Results/Core Measures Results/Orders Lab Results Laboratory Tests Test 07/22/19 08:04 07/22/19 10:03 Range/Units White Blood Count 9.7 4.3-11.0 10^3/uL Red Blood Count 5.21 4.35-5.85 10^6/uL Hemoglobin 15.8 11.5-16.0 G/DL Hematocrit 46 35-52 % Mean Corpuscular Volume 89 80-99 FL Mean Corpuscular Hemoglobin 30 25-34 PG Mean Corpuscular Hemoglobin Concent 34 32-36 G/DL Red Cell Distribution Width 14.1 10.0-14.5 % Platelet Count 261 130-400 10^3/uL Mean Platelet Volume 10.1 7.4-10.4 FL Neutrophils (%) (Auto) 49 42-75 % Lymphocytes (%) (Auto) 42 12-44 % Monocytes (%) (Auto) 7 0-12 % Eosinophils (%) (Auto) 1 0-10 % Basophils (%) (Auto) 0 0-10 % Neutrophils # (Auto) 4.8 1.8-7.8 X 10^3 Lymphocytes # (Auto) 4.1 H 1.0-4.0 X 10^3 Monocytes # (Auto) 0.7 0.0-1.0 X 10^3 Eosinophils # (Auto) 0.1 0.0-0.3 10^3/uL Basophils # (Auto) 0.0 0.0-0.1 10^3/uL Prothrombin Time 13.2 12.2-14.7 SEC INR Comment 1.0 0.8-1.4 Activated Partial Thromboplast Time 29 24-35 SEC Sodium Level 140 135-145 MMOL/L Potassium Level 3.1 L 3.6-5.0 MMOL/L Chloride Level 108 H 98-107 MMOL/L Carbon Dioxide Level 18 L 21-32 MMOL/L Anion Gap 14 5-14 MMOL/L Blood Urea Nitrogen 13 7-18 MG/DL Creatinine 0.86 0.60-1.30 MG/DL Estimat Glomerular Filtration Rate > 60 BUN/Creatinine Ratio 15 Glucose Level 117 H 70-105 MG/DL Calcium Level 9.6 8.5-10.1 MG/DL Corrected Calcium 8.5-10.1 MG/DL Magnesium Level 2.1 1.6-2.4 MG/DL Total Bilirubin 0.8 0.1-1.0 MG/DL Aspartate Amino Transf (AST/SGOT) 17 5-34 U/L Alanine Aminotransferase (ALT/SGPT) 24 0-55 U/L Alkaline Phosphatase 79 40-136 U/L Myoglobin 32.8 10.0-92.0 NG/ML Troponin I < 0.028 < 0.028 <0.028 NG/ML Total Protein 8.2 6.4-8.2 GM/DL Albumin 4.8 H 3.2-4.5 GM/DL My Orders Orders - ERLINDA BRADY MD Cbc With Automated Diff (07/22/19 08:08) Magnesium (07/22/19 08:08) Chest 1 View, Ap/Pa Only (07/22/19 08:08) Ekg Tracing (07/22/19 08:08) Comprehensive Metabolic Panel (07/22/19 08:08) Myoglobin Serum (07/22/19 08:08) Protime With Inr (07/22/19 08:08) Partial Thromboplastin Time (07/22/19 08:08) O2 (07/22/19 08:08) Monitor-Rhythm Ecg Trace Only (07/22/19 08:08) Ed Iv/Invasive Line Start (07/22/19 08:08) Troponin I (07/22/19 08:08) Ondansetron Injection (Zofran Injectio (07/22/19 08:30) Ondansetron Injection (Zofran Injectio (07/22/19 08:10) Potassium Chloride (Tablet) (Klor Con Ta (07/22/19 09:15) Troponin I (07/22/19 10:05) Medications Given in ED Current Medications Medications Dose Ordered Sig/Franklin Route Start Time Stop Time Status Last Admin Dose Admin Ondansetron HCl 8 mg ONCE ONCE IVP 07/22/19 08:30 07/22/19 08:31 DC 07/22/19 08:20 8 MG Potassium Chloride 40 meq ONCE ONCE PO 07/22/19 09:15 07/22/19 09:16 DC 07/22/19 09:22 40 MEQ Vital Signs/I&O 07/22/19 07/22/19 07/22/19 08:03 08:03 11:13 Temp 36.7 36.7 Pulse 106 79 Resp 24 18 B/P (MAP) 136/85 (102) 121/86 (102) Pulse Ox 98 97 O2 Delivery Room Air Room Air Room Air Blood Pressure Mean: 102 Progress Progress Note #1: Time: 09:20 Progress Note Patient is feeling much improved. Tachycardia has resolved. Initial workup is unremarkable. I discussed the case with Dr. Kessler who would like me to obtain a repeat troponin. This was ordered for 10:05. He would also like to consider an implantable loop recorder and would consider doing that while she is in the ER since she did not tolerate the adhesive of the external monitor. Progress Note #2: Progress Note Repeat troponin was negative. Patient's symptoms resolved and did not recur. She was dismissed and sent to [employer] [facility] for placement of a loop recorder. Initial ECG Impression Date: July 22, 2019 Initial ECG Impression Time: 08:06 Initial ECG Rate: 97 Initial ECG Rhythm: Normal Sinus Initial ECG Intervals: Normal Initial ECG Impression: Normal Comment Normal sinus rhythm with no ST elevation or depression. No abnormal intervals or axis deviation. Diagnostic Imaging Diagonstic Imaging: Xray Plain Films/CT/US/NM/MRI: chest Comments NAME: XUAN YAN [employer]) REC#: [id number] PT STATUS: REG ER : 1980 PHYSICIAN: ERLINDA BRADY MD ADMIT DATE: 07/22/19/ER Draft Date of Exam:07/22/19 CHEST 1 VIEW, AP/PA ONLY PATIENT HISTORY: Tachycardia. Chest pain. TECHNIQUE: Single frontal view of the chest. COMPARISON: 06/11/2019. FINDINGS: The lung volumes are normal. No focal consolidation is seen. No large pleural effusion or pneumothorax is seen. The cardiomediastinal silhouette is normal in size and contour. No acute osseous abnormality is seen. IMPRESSION: No acute pulmonary abnormality seen. Dictated on workstation # [id number] Dict: 07/22/19 0846 Trans: 07/22/19 0847 [id number] Interpreted by: ROSELIA POWELL MD Departure Impression Primary Impression: Chest pain Qualified Codes: R07.9 - Chest pain, unspecified Additional Impressions: Tachycardia Hypokalemia Disposition: HOME, SELF-CARE Condition: Improved Departure-Patient Inst. Decision time for Depature: 11:03 Referrals: [facility] (PCP/Family) Primary Care Physician Patient Instructions: Chest Pain Add. Discharge Instructions: Continue with care and workup as directed by Dr. Kessler. 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 Return to the ER if you have worsening symptoms again. All discharge instructions reviewed with patient and/or family. Voiced understanding. Copy Copies To 1: BARRETT KESSLER MD Copies To 2: VIRGIL FLANAGAN JOSHUA T MD July 22, 2019 09:22
[2019-07-22 11:13] VITALS: BP 121/86
--- NOTE | 2019-07-22 11:15 | Consultation-Cardiology ---
HPI-Cardiology Cardiology Consultation Date of Consultation 07/22/19 Date of Admission Time Seen by Provider: 11:18 Indication: Palpitation HPI 39-year-old lady with history of recurrent palpitation, seen in my office and scheduled for an event recorder, patient developed allergic reaction to the adhesive tape of the recorder and took it off yesterday, reported that she started to have chest pain and palpitation today with a heart rate 160 per heart pounding and fast. Called EMS, according to the fire department her heart rate was 140 by the time the EMS arrived and did then EKG her heart rate was a little bit over 100. Since then she has been laying down comfortably denied any further episodes Home Medications & Allergies Allergies: Coded Allergies: hydromorphone (Verified Allergy, Severe, ANAPHYLAXIS, 09/03/18) Penicillins (Unverified Allergy, Mild, hives, 09/03/18) morphine (Verified Allergy, Mild, Rash, 12/31/18) latex (Verified Allergy, Unknown, HIVES, 06/09/18) Home Medication List Reviewed: Yes PCO-Kacjar-Aedtkj Hx Patient Social History Employed/Student: employed Alcohol Use: Denies Use Recreational Drug Use: Yes Drug of Choice: HX OF BEING AN ADDICT-IV METH, RX PILLS ABUSE, UDS + FOR THC 05/13/19 Smoking Status: Current Everyday Smoker Type Used: Cigarettes 2nd Hand Smoke Exposure: Yes Recent Foreign Travel: No Recent Infectious Disease Expo: No Recent Hopitalizations: No Immunizations Up To Date Date of Influenza Vaccine: Dec 12, 2018 Past Medical History discussed below Family Medical History Significant Family History: No Pertinent Family Hx Review of Systems-General Review of Systems Constitutional: no symptoms reported, see HPI EENTM: see HPI, no symptoms reported Respiratory: see HPI Cardiovascular: No no symptoms reported; see HPI, chest pain; No edema, No Hx of Intervention; palpitations; No syncope, No vascular heart diseas, No other Gastrointestinal: see HPI Genitourinary: see HPI Musculoskeletal: no symptoms reported, see HPI Skin: no symptoms reported, see HPI Psychiatric/Neurological: See HPI Physical Exam Physical Exam Vital Signs Vital Signs - First Documented Capillary Refill : Less Than 3 Seconds Height, Weight, BMI Height: 5'4.00" Weight: 215lbs. 0.0oz. 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 Had a Holter monitor in the past. Had an episode of heart rate 160 EMS. I am planning to evaluate a loop recorder. Resistant hypertension, on multiple medication, patient is concerned that she has been suffering from hypertension since she was 10 years old. She has lost weight and monitoring her diet and complaining with her medication is still having difficulty with her blood pressure, has history of hypertensive encephalopathy. I will evaluate CT angiogram of the abdominal aorta and renal arteries with IV contrast. Planning to evaluate homocystine and VMA level History of hypertensive encephalopathy, questionable history of TIA. Better at this time. History of López's palsy Echocardiogram done in May 2019 showing normal LV size with EF 55-65 percent, left atrium is mildly dilated 4.1 cm, PA pressure 30-35 mmHg. Continue to monitor History of polycystic ovary disease History of IVDA in the past, no recent intravenous drug use. Tobaccoism, working on smoking cessation. Clinical Quality Measures AMI/AHF: ASA po Prior to arrival: BARRETT Mcgee MD July 22, 2019 11:15
== END 2019-07-22 11:10 | disposition home or self-care (01) ==
LOC: EDUNIT# 08:03 → ER 08:04
DX: R07.89 Other chest pain (principal); R00.0 Tachycardia, unspecified; E87.6 Hypokalemia; I10 Essential (primary) hypertension; E78.00 Pure hypercholesterolemia, unspecified; K21.9 Gastro-esophageal reflux disease without esophagitis; E66.9 Obesity, unspecified; G43.909 Migraine, unspecified, not intractable, without status migrainosus; F17.210 Nicotine dependence, cigarettes, uncomplicated; Z88.0 Allergy status to penicillin; Z91.040 Latex allergy status; Z88.5 Allergy status to narcotic agent; Z79.82 Long term (current) use of aspirin; Z68.37 Body mass index [BMI] 37.0-37.9, adult
CPT/HCPCS: 36415; 71045; 80053; 83735; 83874; 84484; 85025; 85610; 85730; 93005; 93041

== ENCOUNTER 2019-07-22 11:45 | Day surgery (SDC) | payer OTHER ==
[~2019-07-22] VITALS: Ht 163 cm; Wt 98.0 kg
[~2019-07-22 11:45] MED LIST changes: +ATOR20TA49 PO; +LIDOCAINE 1% INJ 20 ML 20 ML VIAL ONE
[2019-07-22 11:57] VITALS: BP 116/87
[2019-07-22] MEDS ORDERED: LIDOCAINE 1% INJ 20 ML 20 ML VIAL INJ ONE (12:00)
--- NOTE | 2019-07-22 12:30 | Implantation of Loop Monitor ---
Implant of Loop Monitior IMPLANTATION OF LOOP MONITOR REPORT DATE OF PROCEDURE: 07/22/19 PREOP DIAGNOSIS: Palpitation, tachycardia POSTOP DIAGNOSIS: Palpitation, tachycardia PROCEDURE DETAILS: The patient is a 39 female with history of CVA/TIA, had recurrent palpitation, had a Holter monitor and allergic reaction to that is if date of the monitor, removed yesterday and started today to have palpitation with a heart rate 160. Brought to the emergency room by then her heart rate was settled down. Workup was negative. Therefore implantable loop recorder was discussed and agreed with the patient. Informed consent was taken. All risks and complications were discussed at length. The patient was draped and prepped in the usual sterile fashion. Local anesthesia was lidocaine, which was given in the substernal area close to the 4th intercostal space. Loop monitor [employer] [id number] was implanted according to the protocol. Steri-Strips were placed at the end of the procedure. There were no complications and the patient tolerated the procedure well. The device was interrogated with a voltage of. ANESTHESIA: Local anesthesia with lidocaine. COMPLICATIONS: None CONTRAST/FLUOROSCOPY: None CONCLUSION: Successful implantation of loop recorder with no complication FINAL DIAGNOSIS: Recurrent palpitation Supraventricular tachycardia CVA BARRETT DELONG MD July 22, 2019 12:30
--- OUTSIDE RECORDS SUMMARY | 2019-07-22 14:19 | XMS REPORT | Continuity of Care Document ---
Demographics Preferred Language Unknown Marital Status Unknown Zoroastrianism Affiliation Unknown Race Unknown Ethnic Group Unknown [...] Moderate SAME PCN REACTION 08/14/2013 Yes Penicillins [id number] Drug Aller gy Unknown N/A 12/05/2016 Yes hydromorphone [id number] Yury g Allergy Unknown ANAPHYLAXIS 06/09/2018 Yes latex [id number] Drug Allergy Unknown HIVES 06/09/2018 Yes hydromorphone [id number] Yury g Allergy Severe ANAPHYLAXIS 09/03/2018 Yes Penicillins [id number] Drug Aller gy Mild hives 09/03/2018 Yes morphine [id number] Drug Allergy Mild Rash 12/31/2018 Medications Medication Packaging Start Date St op Date Route Dosage Sig DILTIAZEM HCL [id number] 11/13/2012 12/13/2012 ORAL [id number] Problems Date Dx Coded Attending Type Code [...] Sukhi Ot 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 12/11/2016 HIRA CHURCHILL OZZIE Sukhi Ot B96.89 OTH BACTERIAL AGENTS THE CAUSE OF DIS 12/11/2016 HIRA CHURCHILL OZZIE Sukhi Ot F17.210 NICOTINE DEPENDENCE, CIGARETTES, UNCOMPL 12/11/2016 HIRA CHURCHILL OZZIE Sukhi Ot N76.0 ACUTE VAGINITIS 12/11/2016 IHRA CHURCHILL OZZIE Sukhi Ot N92.0 EXCESSIVE AND [...] DO, MIKIE B Ot Z79.8 99 OTHER JAIL (CURRENT) DRUG THERAPY 06/17/2018 CARLIEHAILE DO, MIKIE [...] DO, MIKIE B Ot Z79.8 99 OTHER GLUING MACHINE FEEDER (CURRENT) DRUG THERAPY 06/20/2018 DELMAN DO, MIKIE B Ot D12.4 BENIGN NEOPLASM OF DESCENDING COLON 06/20/2018 CLAUDINE FLAHRETY DOIC B Ot F17.2 10 NICOTINE DEPENDENCE, CIGARETTES, UNCOMPL 06/20/2018 REYNOLD LIU MIKIE B Ot F32.9 MAJOR DEPRESSIVE DISORDER, SINGLE EPISOD 06/20/2018 REYNOLD LIU MIKIE B Ot F41.9 ANXIETY DISORDER, UNSPECIFIED 06/20/2018 REYNOLD LIU MIKIE B Ot I10 ESSENTIAL (PRIMARY) HYPERTENSION 06/20/2018 REYNOLD LIU MIIKE B Ot I48.2 CHRONIC ATRIAL FIBRILLATION 06/20/2018 [...] LIU MIKIE B Ot Z79.8 99 OTHER GLUING MACHINE FEEDER (CURRENT) DRUG THERAPY 09/03/2018 CAITLYN BECK, ERLINDA Beavers Ot E78.00 PURE HYPERCHOLESTEROLEMIA, UNSPECIFIED 09/03/2018 ERLINDA BRADY MD Ot F12.10 CANNABIS ABUSE, UNCOMPLICATED 09/03/2018 ERLINDA BRADY MD Ot F31.9 BIPOLAR DISORDER, UNSPECIFIED 09/03/2018 ERLINDA BRADY MD Ot F41.9 ANXIETY DISORDER, UNSPECIFIED 09/03/2018 ERLINDA BRADY MD Ot G40.909 EPILEPSY, UNSP, NOT INTRACTABLE, WITHOUT 09/03/2018 ERLINDA BRADY MD Ot G43.909 MIGRAINE, UNSP, NOT INTRACTABLE, WITHOUT 09/03/2018 ELRINDA BRADY MD Ot I10 ESSENTIAL (PRIMARY) HYPERTENSION [...] WEAKNESS 11/27/2018 VIVEK HORN MD Ot Z79.52 JAIL (CURRENT) USE OF SYSTEMIC STER 11/27/2018 VIVEK [...] WEAKNESS 12/01/2018 VIVEK HORN MD, Ot Z79.52 JAIL (CURRENT) USE OF SYSTEMIC STER 12/01/2018 VIVEK [...] MIKIE FLAHERTY DO Ot Z79.8 99 OTHER GLUING MACHINE FEEDER (CURRENT) DRUG THERAPY 12/31/2018 MIKIE FLAHERTY DO [...] POLYP OF STOMACH AND DUODENUM 01/07/2019 MIKIE FALHERTY DO Ot K80.1 0 CALCULUS OF GALLBLADDER W CHRONIC CHOLEC 01/07/2019 MIKIE FLAHERTY DO Ot M06.9 RHEUMATOID ARTHRITIS, UNSPECIFIED 01/07/2019 MIKIE FLAHERTY DO Ot Z79.8 99 OTHER GLUING MACHINE FEEDER (CURRENT) DRUG THERAPY 01/07/2019 MIKIE FLAHERTY DO [...] MIKIE FLAHERTY DO Ot Z79.8 99 OTHER JAIL (CURRENT) DRUG THERAPY 01/09/2019 MIKIE FLAHERTY DO [...] FIBROMYALGIA 05/14/2019 NAZANIN LIU KALYAN Ot Z79.82 JAIL (CURRENT) USE OF ASPIRIN 05/14/2019 NAZANIN LIU KALYAN Ot Z79.89 9 OTHER GLUING MACHINE FEEDER (CURRENT) DRUG THERAPY 05/14/2019 NAZANIN LIU KALYAN [...] FIBROMYALGIA 05/14/2019 NAZANIN LIU KALYAN Ot Z79.82 GLUING MACHINE FEEDER (CURRENT) USE OF ASPIRIN 05/14/2019 NAZANIN LIU KALYAN Ot Z79.89 9 OTHER JAIL (CURRENT) DRUG THERAPY 05/14/2019 NAZANIN LIU KALYAN [...] FIBROMYALGIA 05/29/2019 NAZANIN LIU KALYAN Ot Z79.82 GLUING MACHINE FEEDER (CURRENT) USE OF ASPIRIN 05/29/2019 NAZANIN LIU KALYAN Ot Z79.89 9 OTHER JAIL (CURRENT) DRUG THERAPY 05/29/2019 NAZANIN LIU KALYAN [...] FIBROMYALGIA 05/29/2019 NAZANIN LIU KALYAN Ot Z79.82 GLUING MACHINE FEEDER (CURRENT) USE OF ASPIRIN 05/29/2019 NAZANIN LIU KALYAN Ot Z79.89 9 OTHER GLUING MACHINE FEEDER (CURRENT) DRUG THERAPY 05/29/2019 NAZANIN LIU KALYAN [...] DEPRESSIVE DISORDER, SINGLE EPISOD 06/11/2019 MIGEL ROMERO NURSE FIRST ASSIST Ot F41 .9 ANXIETY DISORDER, UNSPECIFIED 06/11/2019 MIGEL ROMERO NURSE FIRST ASSIST Ot I10 ESSENTIAL (PRIMARY) HYPERTENSION 06/11/2019 MIGEL ROMERO NURSE FIRST ASSIST Ot M79 .7 FIBROMYALGIA 06/11/2019 MIGEL ROMERO NURSE FIRST ASSIST Ot R00 .0 TACHYCARDIA, UNSPECIFIED 06/11/2019 MIGEL ROMERO NURSE FIRST ASSIST Ot R07.89 OTHER CHEST PAIN 07/17/2019 MEDRANO [...] data. Results Test Result Range METABOLIC PANEL, [facility] - 08/19/12 13: 35 POTASSIUM 3.7 [...] identification in genital specimen by aerobe culture [id number] NRG Microscopic examination by wet preparati on [...] NRG STATEMENT OF ADEQUACY: NRG INTERPRETATION/RESULT: NRG ROLL SCALE MAN: NRG HPV mRNA E6/E7, SUREPATH VIAL Not [...] NRG STATEMENT OF ADEQUACY: NRG INTERPRETATION/RESULT: NRG ROLL SCALE MAN: NRG HPV mRNA E6/E7, SUREPATH VIAL Not Detected NOT DETECTED REVIEW ROLL SCALE MAN: NRG INFECTION: NRG COMMENT NRG CBC - [...] detection NEGATIVE N EGATIVE Radiology Report from [id number] on 10:18:00 Final ReportADMITTING DIAGNOSIS: Abd Pain ABD. PAINKUB,UPRIGHT /OR DECUB - 08/18/2012 [facility] RESULT: TIME:9:16 AM.INDICATION:Right lower quadrant [...] tion.IMPRESSION: Probable mild ileus.Dictated on workstation # [id number] BY: CHACORTA CRABTREE M.D., RADIOLOGISTELECTRONICALLY SIGNED BY: CHACORTA CRABTREE M.D., RADIOLOGISTD Aug 18 2012 9:19AT JM : Aug 18 2012 10:16AS Aug 18 2012 10:16A Radiology Report from [id number] on 16:08:00 Final ReportADMITTING DIAGNOSIS: Abd Pain ABD PAINGALLBLADDER SONO - 08/18/2012 [facility] RESULT: INDICATION: Right upper quadrant [...] be of further value.Dictated on workstation # [id number] RADIOLOGIST: SCOTT PACHECO M.D., RADIOLOGISTELECTRONICALLY SIGNED BY: SCOTT PACHECO M.D., RADIOLOGISTD Aug 18 2012 9:42AT RF : Aug 18 2012 4:05PS Aug 18 2012 4:05P Radiology Report from [id number] on 013 17:00:00 Final ReportADMITTING DIAGNOSIS: Abd Pain ABD. PAINCT ABD W W/O,PELVIS W - 08/18/2012 [facility] RESULT: PROCEDURE: CT abdomen with [...] the liver with normalspleen.Dictated on workstation # [id number] BY: NEGRA VALENZUELA M.D., RADIOLOGISTELECTRONICALLY SIGNED BY: NEGRA VALENZUELA M.D., RADIOLOGISTD Aug 18 2012 11:57AT KB : Aug 18 2012 4:57PS Aug 18 2012 4:57P Radiology Report from NIKUNJ on 2012 16:38:00 DIAGNOSTIC UMU GING REPORT [facility] - [address] [address] PHONE #: [phone] FAX #: [phone] Name: XUAN YANCHACEBrigid Loc: W.ED Radiology No: : 1980 Age: 32 Sex: F Status: [facility] ER Unit No: [id number] Phys: NIKUNJ Davis Da Sharma Acct: [id number] Reason For Exam: abd pain Exam Date: 08/19/2012 EXAMS: CPT CODE: [id number] ABD-KUB MO CHEST 25000 TIME OF STUDY: 08/19/2012 2:19 PM REASON [...] CC: Technologist: TOMMY AVILA Transcribed Date/Time: 08/19/2012 (1632)Global President: [email or web address] Printed Date/Time: 08/19/2012 (8748) BATCH NO: N/A PAGE 1 Signed Report Radiology Report from [id number] on 014 12:14:00 Final ReportADMITTING DIAGNOSIS: n/v, lower back pain, hist of painCT URINARY TRACT R/O STONES - 06/13/2013 [facility] RESULT: PROCEDURE: CT urinary tract r/o kidney [...] CT abdomen and pelvis.Dictated on workstation # [id number] BY: SCOTT PACHECO M.D., RADIOLOGISTELECTRONICALLY SIGNED BY: SCOTT PACHECO M.D., RADIOLOGISTD Jun 14 2013 5:59AT MK4: Jun 14 2013 12:10PS Jun 14 2013 12:10P Radiology Report from [facility] on 014 14:13:00 DIAGNOSTIC UMU GING REPORT [facility] - [address] [place] [address] PHONE #: [phone] FAX #: [phone] Name: XUAN YAN Loc: MATTW Radiology No: : 1980 Age: 33 Sex: F Status: REG ER Unit No: [id number] Phys: Fran Mendes MD Acct: [id number] Reason For Exam: abd pain, suspect cnstipation Exam Date: 07/22/2013 EXAMS: CPT CODE: [id number] ABD-KUB /FEB PA CHEST 13196 Abdomen series The reason for examination: Abdominal [...] evidence of bowel obstruction or perforation. at 6844 Reported and signed by: MYKE GARCIA MD CC: Fran Capone MD Technologist: TOMMY AVILA Transcribed Date/Time: 07/22/2013 (2463)Global President: PBRAKDA Printed Date/Time: 07/22/2013 (1547) BATCH NO: N/A PAGE 1 Signed Report Radiology Report from RICKY on 014 15:17:00 DIAGNOSTIC UMU GING REPORT [facility] - [address] [address] PHONE #: [phone] FAX #: [phone] Name: XUAN YAN Loc: DmEDW Radiology No: : 1980 Age: 33 Sex: F Status: REG ER Unit No: [id number] Phys: Fran Mendes MD Acct: [id number] Reason For Exam: abd pain abn kub Exam Date: 07/22/2013 EXAMS: CPT CODE: [id number] CT ABD/PELVIS WITH CONTRAST 35334 TIME OF STUDY: 07/22/2013 2:47 PM REASON [...] or corrected the resident physician's interpretation. at 9752 RESIDENT: BABITA BOB MD Reported and signed by: DA SHAH MD PAGE 1 Signed Report (CONTINUED) DIAGNOSTIC IMAGING REPORT [facility] - [address] [address] PHONE #: [phone] FAX #: [phone] Name: XUAN YAN Loc: W.ED Radiology No: : 1980 Age: 33 Sex: F Status: REG ER Unit No: [id number] Phys: Fran Mendes MD Acct: [id number] Reason For Exam: abd pain abn kub Exam Date: 07/22/2013 --------- EXAMS: CPT CODE: [id number] CT ABD/PELVIS WITH CONTRAST 83034 <Continued> CC: Fran Capone MD Technologist: TOMMY AVILA Transcribed Date/Time: 07/22/2013 (4608)Global President: JOANNE Printed Date/Time: 07/22/2013 (0016) BATCH NO: N/A PAGE 2 Signed Report Encounters ACCT No. Visit Date/Time Discharge Status Pt. Type Provider Facility Loc./Unit Complaint [id number] 04/02/2014 09:51:00 Document Registration [id number] 02/05/2014 13:09:00 Document Registration [id number] 05/21/2013 18:44:00 05/22/19 14 21:26:00 DIS Emergency Sree Samaoya III, MD [facility] on [facility] [id number] 08/18/2012 07:59:00 08/19/19 13 12:50:00 DIS Emergency Alessandra Martinez MD [facility] TERM [id number] 06/13/2013 21:21:00 06/14/19 14 23:40:00 DIS Emergency Sree Samayoa III, MD [facility] on [place] [id number] 05/21/2013 18:44:00 Document Registration [id number] 07/17/2019 08:47:00 23:59:59 CLS Outpatient BARRETT DELONG MD Via [facility] CARD HTN [id number] 06/11/2019 21:08:00 22:40:00 DIS Emergency MIGEL ROMERO APRN [facility] ER CHEST TIGHTNESS / SEIZU RE [id number] 05/13/2019 16:20:00 09:57:00 DIS Inpatient KALYAN BACK DO, V [facility] ICU HYPERTENSIVE ENCEPHALOP ATHY [id number] 02/27/2019 15:18:00 23:59:59 CLS Outpatient LIS MEDRANO DO Via [facility] RAD PCOS [id number] 12/31/2018 06:57:00 12:55:00 DIS Outpatient MIKIE FLAHERTY DO Via [facility] SDC CHOLECYSTITIS/CHOLELITH IASIS [id number] 12/25/2018 05:32:00 13:31:00 DIS Outpatient MIKIE FLAHERTY DO Via [facility] PREOP CHOLECYSTITIS/CHOLELITH IASIS [id number] 12/09/2018 13:54:00 23:59:59 CLS Preadmit JIMENEZKATHY Tony NURSE FIRST ASSIST Via [facility] REHAB LBP [id number] 11/27/2018 08:00:00 10:21:00 DIS Emergency JUSTINA BECK, VIVEK Jimenez [facility] ER LEFT SIDE FACIA L DROOP [id number] 09/03/2018 07:02:00 08:23:00 DIS Emergency CAITLYN BECK, ERLINDA Beavers Via [facility] ER FACE DROOPING,F ZENIA NUMB [id number] 07/09/2018 14:59:00 23:59:59 CLS Preadmit BAINOEL ROCHELLE L COOK HELPER PASTRY Via [facility] CARD ESSENTIAL HYPERTENSION, HEART PALPITATIONS [id number] 07/09/2018 14:53:00 23:59:59 CLS Preadmit BAINOEL ROCHELLE L COOK HELPER PASTRY Via [facility] CARD ESSENTIAL HYPERTENSION, PALPITATIONS [id number] 07/09/2018 14:43:00 23:59:59 CLS Preadmit BAIMA, ROCHELLE L COOK HELPER PASTRY Via [facility] CARD ESSENTIAL HYPERTENSION, PALPITATIONS [id number] 06/13/2018 09:04:00 10:55:00 DIS Outpatient MIKIE FLAHERTY DO Via [facility] ENDO RECTAL BLEEDING/HX POLLARD ETT'S [id number] 06/09/2018 06:45:00 15:51:00 DIS Outpatient MIKIE FLAHERTY DO Via [facility] PREOP COLONOSCOPY/EGD [id number] 02/27/2018 17:11:00 19:17:00 DIS Emergency MIGEL ROMERO NURSE FIRST ASSIST Via [facility] ER "HAD A SEIZURE 30 MINUT ES AGO" [id number] 12/27/2016 14:56:00 17:48:00 DIS Emergency SRINI QUISPE COOK HELPER PASTRY Via [facility] ER SEIZURE [id number] 12/26/2016 09:24:00 017 12:04:00 DIS Emergency MIMI WEEKS MD Via [facility] ER MIGRAINE [id number] 12/05/2016 14:26:00 017 17:27:00 DIS Emergency OZZIE JACKSON Via [facility] ER HEAVY MENSTRUAL BLEEDI NG FOR 7 WEEKS [id number] 05/04/2019 15:40:00 05/04/2019 23:59: 59 CLS Outpatient KATHY GAONA [facility] [id number] 11/11/2018 13:00:00 Document Registration [id number] 08/11/2018 16:00:00 Document Registration [id number] 05/23/2018 12:20:00 Document Registration [id number] 04/23/2018 10:40:00 Document Registration [id number] 02/13/2018 13:00:00 Document Registration [id number] 01/31/2017 08:00:00 Document Registration [id number] 01/10/2017 10:40:00 Document Registration [id number] 08/04/2012 22:29:00 Document Registration [id number] 06/23/2015 12:42:05 06/22 12:42:05 DIS Outpatient [id number] 06/23/2015 12:42:03 06/22 12:42:03 DIS Outpatient [id number] 06/11/2014 09:04:41 06/11 09:04:41 DIS Outpatient [id number] 06/11/2014 09:04:32 06/11 09:04:32 DIS Outpatient [id number] 10/29/2013 09:54:35 10/29 09:54:35 DIS Outpatient [id number] 08/31/2013 17:20:46 08/31 17:20:46 DIS Outpatient [id number] 06/01/2013 11:02:08 06/01 11:02:08 DIS Outpatient [id number] 05/12/2013 14:28:28 05/12 14:28:28 DIS Outpatient [id number] 05/12/2013 14:27:07 05/12 14:27:07 DIS Outpatient [id number] 06/01/2013 10:55:48 Document Registration [id number] 03/17/2013 12:43:21 Document Registration [id number] 09/16/2013 15:27:00 014 17:50:00 DIS Emergency Max BECK, [facility] W.EDN [id number] 07/22/2013 11:59:00 014 15:46:00 DIS Emergency Liborio BECK, [facility] W.EDW [id number] 07/08/2013 14:28:00 16:47:00 DIS Emergency Allen BECK, [facility] [id number] 06/24/2013 11:54:00 014 12:53:00 DIS Emergency [facility] [id number] 05/12/2013 00:58:00 014 02:54:00 DIS Emergency Adrian BECK, Hardeep Quinones [facility] W.EDW [id number] 08/19/2012 12:36:00 013 15:40:00 DIS Emergency Zachary LIU, Da Isbell [facility] W.EDW [id number] 03/23/2011 15:21:00 012 23:59:59 CLS Emergency
== END 2019-07-22 12:50 | disposition home or self-care (01) ==
LOC: CATH 11:45
PROVIDERS: ATTEND Internal Medicine Cardiovascular Disease
DX: R00.2 Palpitations (principal); I47.1 Supraventricular tachycardia; I10 Essential (primary) hypertension; F17.210 Nicotine dependence, cigarettes, uncomplicated; Z86.73 Personal history of transient ischemic attack (TIA), and cerebral infarction without residual deficits; Z91.048 Other nonmedicinal substance allergy status; Z91.040 Latex allergy status; Z88.5 Allergy status to narcotic agent; Z88.0 Allergy status to penicillin; Z79.899 Other long term (current) drug therapy
CPT/HCPCS: 33285

== ENCOUNTER 2019-09-17 07:16 | Outpatient (RCR) | payer OTHER ==
[~2019-09-17] VITALS: Ht 162 cm; Wt 100.0 kg
[~2019-09-17 07:16] MED LIST changes: +GABA300C PO; -LIDOCAINE 1% INJ 20 ML 20 ML VIAL ONE
== END 2019-09-17 09:50 | disposition home or self-care (01) ==
LOC: PREOP 07:16
PROVIDERS: ATTEND Surgery
DX: Z01.818 Encounter for other preprocedural examination (principal)

== ENCOUNTER 2019-10-24 15:12 | Emergency (ER) | payer OTHER ==
[~2019-10-24] VITALS: Ht 162 cm; Wt 97.5 kg
[2019-10-24 15:35] VITALS: BP_SYST 136; BP_SYST 144; BP_SYST 151; BP_DIAS 105; BP_DIAS 90; BP_DIAS 99
[2019-10-24] MEDS ORDERED: NS IV 500 ML 500 ML IV ONE (15:43)
--- NOTE | 2019-10-24 15:43 | ED Cardiac General ---
History of Present Illness General Chief Complaint: Cardiac/General Problems Stated Complaint: LEFT SIDE OF BODY NUMB / CHEST TIGHTNESS Nursing Triage Note: PT PRESENTS TO ED WITH COMPLAINTS OF HEART RACING, CHEST TIGHTNESS, AND R ARM NUMBNESS STARTING APROX 1 HR PRIOR TO ARRIVAL. PT REPORTS SHE TESTED POSITIVE FOR FLU B AND HAD PNEUMONIA RECENTLY. PT REPORTS THEY SWABBED HER FOR COVID AND IT CAME BACK NEG. Source: patient Exam Limitations: no limitations History of Present Illness Date Seen by Provider: Oct 24, 2019 Time Seen by Provider: 15:15 Initial Comments Patient has ER by private conveyance from home with chief complaint that she is having some palpitations and feeling like her heart was racing which started cause tightness and pressure in her left chest. She also started having some weakness and paresthesias in her left upper extremity and left lower extremity down to the knee. She says she had a TIA a few months ago and those were the same symptoms including facial droop and left-sided facial numbness. Patient's not having any facial asymmetry or slurred speech today. She is not having fevers chills cough shortness of air hemoptysis dysuria diarrhea constipation or nausea or vomiting. She does have a history of several years ago using methamphetamines. She has been following with Dr. Kessler who has her on statins and blood pressure medicines and she had an echocardiogram which showed she had right-sided heart failure. She's been taking her medications as prescribed. She's not on a blood thinner but she does take aspirin daily. She has a history of atrial fibrillation, paroxysmal. She says she does get palpitations like this from time to time they usually go away in about 20-30 minutes. Today however they persisted for about an hour and she started getting chest pressure and numbness on her left side and that prompted her to return to the ER. Allergies and Home Medications Allergies Coded Allergies: hydromorphone (Verified Allergy, Severe, ANAPHYLAXIS, 09/14/19) Penicillins (Unverified Allergy, Mild, hives, 09/14/19) morphine (Verified Allergy, Mild, Rash, 09/14/19) latex (Verified Allergy, Unknown, HIVES, 09/14/19) Home Medications Amlodipine Besylate 5 Mg Tablet, 5 MG PO DAILY Prescribed by: BARRETT KESSLER on 05/14/19 0730 Aspirin 81 Mg Tab.chew, 81 MG PO DAILY@0900 Prescribed by: KALYAN BACK on 05/14/19 1000 Atorvastatin Calcium 40 Mg Tablet, 40 MG PO DAILY Prescribed by: KALYAN BACK on 05/14/19 1000 Baclofen 10 Mg Tablet, 10 MG PO TID, (Reported) Gabapentin 300 Mg Capsule, 300 MG PO DAILY, (Reported) Lisinopril 10 Mg Tablet, 10 MG PO DAILY Prescribed by: BARRETT KESSLER on 05/14/19 0732 Metoprolol Succinate 100 Mg Tab.er.24h, 100 MG PO DAILY Prescribed by: BARRETT KESSLER on 05/14/19 0730 Omeprazole 20 Mg Tablet.dr, 20 MG PO DAILY, (Reported) Topiramate 50 Mg Tablet, 50 MG PO BID, (Reported) Patient Home Medication List Home Medication List Reviewed: Yes Review of Systems Review of Systems Constitutional: No chills, No fever, No malaise EENTM: No Blurred Vision, No Double Vision Respiratory: Denies Cough, Denies Shortness of Air Cardiovascular: Denies Chest Pain, Denies Edema Gastrointestinal: Denies Abdominal Pain, Denies Constipated, Denies Diarrhea, Denies Nausea Genitourinary: Denies Burning, Denies Discharge Musculoskeletal: No back pain, No joint pain Skin: No pruritus, No rash Psychiatric/Neurological: Denies Headache, Denies Numbness All Other Systems Reviewed Negative Unless Noted: Yes Past Bwajpab-Shyowg-Arijov Hx Patient Social History Alcohol Use: Denies Use Recreational Drug Use: No Drug of Choice: HX OF BEING AN ADDICT-IV METH, RX PILLS ABUSE, UDS + FOR THC 05/13/19 Smoking Status: Current Everyday Smoker Type Used: Cigarettes 2nd Hand Smoke Exposure: Yes Recent Foreign Travel: No Contact w/Someone Who Travel: No Recent Infectious Disease Expo: No Recent Hopitalizations: Yes (MAY-HYPERTENSION CRISIS/TIA) Physical Abuse: No Sexual Abuse: No Mistreated: No Fear: No Immunizations Up To Date Tetanus Booster (TDap): Unknown Date of Influenza Vaccine: Dec 12, 2018 Seasonal Allergies Seasonal Allergies: Yes Past Medical History Surgeries: Yes ( genital wart destruction, knee scope, LIVER BIOPSY WITH LAP YONAS) Appendectomy, Gallbladder, Orthopedic Respiratory: No Cardiac: Yes (SVT, LOOP RECORDER) Atrial Fibrillation, High Cholesterol, Hypertension Neurological: Yes (BELLS PALSY LEFT SIDE) Headaches /Migraines Reproductive Disorders: Yes (ovarian cysts) Female Reproductive Disorders: Ovarian Cyst, Polycystic Ovarian Dis Sexually Transmitted Disease: Yes (hx of genital warts) HIV/AIDS: No Genitourinary: Yes (FREQUENCY, ANTHONY) Gastrointestinal: Yes (CHRONIC RECTAL BLEEDING; HX CYST ON LIVER (POSSIBLY REMOVED WITH GB)) Gastroesophageal Reflux, Stoddard's Esophagus, Hemorrhoids Musculoskeletal: Yes (KNEE SCOPE; RESTLESS LEGS/CHRONIC LEG PAIN ) Fibromyalgia Endocrine: Yes (OBEISTY) HEENT: Yes (CONTACTS) Loss of Vision: Denies Hearing Impairment: Denies Cancer: No Psychosocial: Yes (MOOD DISORDER, FIBROMYLGIA, CONVERSION DIORDER) Sleep Difficulties, Anxiety, Bipolar, Depression Integumentary: Yes (DRY SKIN/RASH ) Blood Disorders: No Adverse Reaction/Blood Tranf: No (N/A) Family Medical History No Pertinent Family Hx Physical Exam Vital Signs Vital Signs - First Documented 10/24/19 15:23 Temp 37.6 Pulse 111 Resp 24 B/P (MAP) 158/112 (127) Pulse Ox 100 Capillary Refill : Less Than 3 Seconds Height, Weight, BMI Height: 5'4.00" Weight: 215lbs. 0.0oz. 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 No facial droop. Paresthesia in the left upper extremity but still has sensation.) Skin: Normal Color, Warm/Dry Progress/Results/Core Measures Results/Orders Lab Results Laboratory Tests Test 10/24/19 15:20 10/24/19 16:45 Range/Units White Blood Count 7.7 4.3-11.0 10^3/uL Red Blood Count 4.89 4.35-5.85 10^6/uL Hemoglobin 14.6 11.5-16.0 G/DL Hematocrit 43 35-52 % Mean Corpuscular Volume 88 80-99 FL Mean Corpuscular Hemoglobin 30 25-34 PG Mean Corpuscular Hemoglobin Concent 34 32-36 G/DL Red Cell Distribution Width 12.9 10.0-14.5 % Platelet Count 225 130-400 10^3/uL Mean Platelet Volume 10.0 7.4-10.4 FL Neutrophils (%) (Auto) 53 42-75 % Lymphocytes (%) (Auto) 40 12-44 % Monocytes (%) (Auto) 6 0-12 % Eosinophils (%) (Auto) 1 0-10 % Basophils (%) (Auto) 0 0-10 % Neutrophils # (Auto) 4.0 1.8-7.8 X 10^3 Lymphocytes # (Auto) 3.0 1.0-4.0 X 10^3 Monocytes # (Auto) 0.5 0.0-1.0 X 10^3 Eosinophils # (Auto) 0.1 0.0-0.3 10^3/uL Basophils # (Auto) 0.0 0.0-0.1 10^3/uL Prothrombin Time 13.1 12.2-14.7 SEC INR Comment 1.0 0.8-1.4 Activated Partial Thromboplast Time 29 24-35 SEC Sodium Level 140 135-145 MMOL/L Potassium Level 3.0 L 3.6-5.0 MMOL/L Chloride Level 110 H 98-107 MMOL/L Carbon Dioxide Level 18 L 21-32 MMOL/L Anion Gap 12 5-14 MMOL/L Blood Urea Nitrogen 15 7-18 MG/DL Creatinine 0.87 0.60-1.30 MG/DL Estimat Glomerular Filtration Rate > 60 BUN/Creatinine Ratio 17 Glucose Level 112 H 70-105 MG/DL Calcium Level 9.4 8.5-10.1 MG/DL Corrected Calcium 9.0 8.5-10.1 MG/DL Magnesium Level 1.8 1.6-2.4 MG/DL Total Bilirubin 0.5 0.1-1.0 MG/DL Aspartate Amino Transf (AST/SGOT) 13 5-34 U/L Alanine Aminotransferase (ALT/SGPT) 16 0-55 U/L Alkaline Phosphatase 73 40-136 U/L Myoglobin 49.7 10.0-92.0 NG/ML Troponin I < 0.028 <0.028 NG/ML Total Protein 7.6 6.4-8.2 GM/DL Albumin 4.5 3.2-4.5 GM/DL Urine Color YELLOW Urine Clarity CLEAR Urine pH 6.5 5-9 Urine Specific [place] 1.020 1.016-1.022 Urine Protein NEGATIVE NEGATIVE Urine Glucose (UA) NEGATIVE NEGATIVE Urine Ketones TRACE H NEGATIVE Urine Nitrite NEGATIVE NEGATIVE Urine Bilirubin NEGATIVE NEGATIVE Urine Urobilinogen 0.2 < = 1.0 MG/DL Urine Leukocyte Esterase NEGATIVE NEGATIVE Urine RBC (Auto) 1+ H NEGATIVE Urine RBC 0-2 /HPF Urine WBC 2-5 /HPF Urine Squamous Epithelial Cells 5-10 /HPF Urine Crystals NONE /LPF Urine Bacteria NEGATIVE /HPF Urine Casts NONE /LPF Urine Mucus NEGATIVE /LPF Urine Culture Indicated NO My Orders Orders - MIMI WEEKS Cbc With Automated Diff (10/24/19 15:35) Magnesium (10/24/19 15:35) Chest 1 View, Ap/Pa Only (10/24/19 15:35) Ekg Tracing (10/24/19 15:35) Comprehensive Metabolic Panel (10/24/19 15:35) Myoglobin Serum (10/24/19 15:35) Protime With Inr (10/24/19 15:35) Partial Thromboplastin Time (10/24/19 15:35) O2 (10/24/19 15:35) Monitor-Rhythm Ecg Trace Only (10/24/19 15:35) Lipid Panel (10/25/19 06:00) Ed Iv/Invasive Line Start (10/24/19 15:35) Troponin I (10/24/19 15:35) Aspirin Chewable Tablet (Baby Aspirin Ch (10/24/19 15:45) Acetaminophen Tablet (Tylenol Tablet) (10/24/19 15:45) Orthostatic Vital Signs (Adult (10/24/19 15:35) Ua Culture If Indicated (10/24/19 15:37) Ed Iv/Invasive Line Start (10/24/19 15:43) Ns Iv 500 Ml (Sodium Chloride 0.9%) (10/24/19 15:43) Urine Bedside (10/24/19 16:51) Medications Given in ED Current Medications Medications Dose Ordered Sig/[place] Route Start Time Stop Time Status Last Admin Dose Admin Acetaminophen 1,000 mg ONCE ONCE PO 10/24/19 15:45 10/24/19 15:46 DC 10/24/19 15:45 1,000 MG Aspirin 324 mg ONCE ONCE PO 10/24/19 15:45 10/24/19 15:46 DC 10/24/19 15:45 324 MG Sodium Chloride 500 ml @ 0 mls/hr Q0M ONCE IV 10/24/19 15:43 10/24/19 15:44 DC 10/24/19 15:48 0 MLS/HR Vital Signs/I&O 10/24/19 10/24/19 15:23 15:35 Temp 37.6 Pulse 111 100 98 117 Resp 24 B/P (MAP) 158/112 (127) 136/105 (115) 144/90 (108) 151/99 (116) Pulse Ox 100 2 Blood Pressure Mean: 127 Progress Progress Note #1: Time: 15:58 Progress Note Differential for sinus tachycardia includes anxiety, pain, hypovolemia, hypoxia, anemia, dysrhythmia, infection, etc. Plan to check some labs, urine, EKG. We'll give her some aspirin to cover for her chest tightness against possible coronary artery disease. She has several risk factors including family history, smoking, hypertension, hyperlipidemia, obesity, history of TIA. Her chest pressure/tightness seems to be associated with palpitations and just before she arrived here. Is possible she was in SVT or atrial fibrillation with rapid ventricular response. We'll keep her on the monitor while she is here. If she has a negative troponin sure heart score would be 3 points. Low risk; 0.9-1.7% 30-day MACE. Repeat troponin at 3 hours and if negative, discharge home with outpatient follow-up. Her orthostatic vital signs were borderline positive with a 17 beat racing heart rate. Plan to give her half a liter of fluids to help out with her tachycardia. The patient had a loop recorder implanted 3 months ago. We will query this. Progress Note #2: Time: 17:47 Progress Note After soliciting extensive help from [employer] we were finally able to interrogate the link device and found out that she did not have any recorded dysrhythmias since 3 days ago. At that time she had 3 episodes that were missed daily as atrial fibrillation however upon reviewing the strips they appeared to be sinus arrhythmia is with clear P waves seen. We did share this information with the patient and encourage her to follow-up with Dr. Kessler this week for an appointment. We will encourage her to continue taking her metoprolol. We gave conservative counseling for how to manage rapid dysrhythmias and encourage retu rn precautions. Initial ECG Impression Date: Oct 24, 2019 Initial ECG Impression Time: 15:17 Initial ECG Rate: 108 Initial ECG Rhythm: S.Tach Initial ECG Intervals: Normal Initial ECG Impression: Normal Comment Sinus tachycardia without clinically relevant ST elevation or depression. Diagnostic Imaging Diagonstic Imaging: Xray Plain Films/CT/US/NM/MRI: chest (1v) Comments [facility] [place] NAME: XUAN YAN [facility] REC#: [id number] PT STATUS: DEP ER : [id number] PHYSICIAN: ERLINDA BRADY MD ADMIT DATE: 07/22/19/ER Signed Date of Exam:07/22/19 CHEST 1 VIEW, AP/PA ONLY PATIENT HISTORY: Tachycardia. Chest pain. TECHNIQUE: Single frontal view of the chest. COMPARISON: 06/11/2019. FINDINGS: The lung volumes are normal. No focal consolidation is seen. No large pleural effusion or pneumothorax is seen. The cardiomediastinal silhouette is normal in size and contour. No acute osseous abnormality is seen. IMPRESSION: No acute pulmonary abnormality seen. Dictated by: Dictated on workstation # [id number] Dict: 07/22/19 0846 Trans: 07/22/19 1653 [id number] Interpreted by: ROSELIA POWELL MD Electronically signed by: ROSELIA POWELL MD 07/22/19 1653 Reviewed: Reviewed by Me Departure Impression Primary Impression: Palpitations Disposition: 01 HOME, SELF-CARE Condition: Stable Departure-Patient Inst. Decision time for Depature: 17:48 Referrals: [facility] [place] (PCP/Family) Primary Care Physician BARRETT KESSLER MD Patient Instructions: Palpitations (DC) Add. Discharge Instructions: Make sure drinking plenty of water. Make sure you're taking your medications as prescribed. Plan follow-up with Dr. Kessler by calling for an appointment Aki morning. If you get into a period of palpitations again work on your deep breathing exercises and trying to push air out through a coffee stirrer. Use cold washcloth on the forehead. If you cannot get palpitations to stop after 30-60 minutes or if you develop chest pain/tightness then please return to the nearest ER. All discharge instructions reviewed with patient and/or family. Voiced understanding. Copy Copies To 1: BARRETT KESSLER MD, TITUS J Oct 24, 2019 15:43
[2019-10-24] MEDS ORDERED: ASPIRIN 81 MG CHEW (CHILDREN'S ASA) PO ONE (15:45)
[2019-10-24] MEDS ORDERED: ACETAMINOPHEN 500 MG TAB (TYLENOL) PO ONE (15:45)
[2019-10-24 15:48] LABS: BASOPHILS % (AUTO) 0 % (0-10); EOSINOPHILS # (AUTO) 0.1 10^3/uL (0.0-0.3); EOSINOPHILS % (AUTO) 1 % (0-10); HEMATOCRIT 43 % (35-52); HEMOGLOBIN 14.6 G/DL (11.5-16.0); LYMPHOCYTES % (AUTO) 40 % (12-44); MEAN CORPUSCULAR HEMOGLOBIN 30 PG (25-34); MEAN CORPUSCULAR HGB CONC 34 G/DL (32-36); MEAN CORPUSCULAR VOLUME 88 FL (80-99); MONOCYTES # (AUTO) 0.5 X 10^3 (0.0-1.0); MONOCYTES % (AUTO) 6 % (0-12); NEUTROPHILS % (AUTO) 53 % (42-75); PLATELET COUNT 225 10^3/uL (130-400); PROTHROMBIN TIME PATIENT 13.1 SEC (12.2-14.7); RED CELL DISTRIBUTION WIDTH 12.9 % (10.0-14.5); WHITE BLOOD COUNT 7.7 10^3/uL (4.3-11.0)
[2019-10-24 16:10] LABS: ALANINE AMINOTRANSFERASE 16 U/L (0-55); ALBUMIN 4.5 GM/DL (3.2-4.5); ALKALINE PHOSPHATASE 73 U/L (40-136); BILIRUBIN,TOTAL 0.5 MG/DL (0.1-1.0); BUN/CREATININE RATIO 17; CALCIUM 9.4 MG/DL (8.5-10.1); CARBON DIOXIDE 18 MMOL/L (21-32); CHLORIDE 110 MMOL/L (98-107); CREATININE SERUM 0.87 MG/DL (0.60-1.30); GFR ESTIMATED > 60; GLUCOSE 112 MG/DL (70-105); MAGNESIUM 1.8 MG/DL (1.6-2.4); SODIUM 140 MMOL/L (135-145); TOTAL PROTEIN 7.6 GM/DL (6.4-8.2)
[2019-10-24 16:58] LABS: BILIRUBIN,URINE NEGATIVE (NEGATIVE); CLARITY,URINE CLEAR; COLOR,URINE YELLOW; GLUCOSE, URINE (UA) NEGATIVE (NEGATIVE); KETONES,URINE TRACE (NEGATIVE); LEUKOCYTE ESTERASE ,URINE NEGATIVE (NEGATIVE); NITRITE,URINE NEGATIVE (NEGATIVE); PH,URINE 6.5 (5-9); PROTEIN,URINE NEGATIVE (NEGATIVE)
[2019-10-24 17:07] LABS: BACTERIA,URINE NEGATIVE /HPF; RBC,URINE 0-2 /HPF
--- NOTE | 2019-10-24 17:11 | Diagnostic Imaging Report ---
EXAM: Chest 1 view, AP/PA only INDICATION: Chest pain. COMPARISON: 07/22/2019. FINDINGS: Normal heart size and central pulmonary vascularity. No focal pulmonary opacity, pleural effusion or pneumothorax. Implanted loop recorder. No acute osseous finding. IMPRESSION: No acute cardiopulmonary finding. Dictated by: Dictated on workstation # [id number]
[2019-10-24 18:00] VITALS: BP 151/99
== END 2019-10-24 18:00 | disposition home or self-care (01) ==
LOC: EDUNIT# 15:12 → ER 15:14
DX: R00.2 Palpitations (principal); I10 Essential (primary) hypertension; E78.00 Pure hypercholesterolemia, unspecified; G51.0 Bell's palsy; G43.909 Migraine, unspecified, not intractable, without status migrainosus; K21.9 Gastro-esophageal reflux disease without esophagitis; E66.9 Obesity, unspecified; M79.7 Fibromyalgia; F17.210 Nicotine dependence, cigarettes, uncomplicated; Z68.37 Body mass index [BMI] 37.0-37.9, adult; Z79.82 Long term (current) use of aspirin; Z88.0 Allergy status to penicillin; Z88.5 Allergy status to narcotic agent; Z91.040 Latex allergy status
CPT/HCPCS: 36415; 71045; 80053; 81000; 83735; 83874; 84484; 85025; 85610; 85730; 93041

== ENCOUNTER → 2019-11-25 | Outpatient (CLI) | payer OTHER ==
[~2019-11-25] VITALS: Ht 162 cm; Wt 97.0 kg
[~2019-11-25] MED LIST changes: +CATHETER FLUSH 10 ML SYR IV PRN; +REGADENOSON 0.4 MG/5 ML SYR (LEXISCAN) IV ONE
[2019-11-25 08:55] VITALS: BP 126/87
--- NOTE | 2019-11-25 11:29 | Cardiology Stress Test Report ---
Stress Test Report Date of Procedure/Referring: Date of Procedure: Nov 25, 2019 PCP Barrett Kessler MD Admitting Physician Center/[facility] Indications: Hypertension Baseline Heart Rate: 58 Baseline Blood Pressure: Blood Pressure Systolic: 126 Blood Pressure Diastolic: 87 Baseline Vitals Vital Signs Date Time Temp Pulse Resp B/P (MAP) Pulse Ox O2 Delivery O2 Flow Rate FiO2 11/25/19 08:55 55 14 126/87 (100) 98 Room Air Baseline EKG: Baseline EKG: normal sinus rhythm Summary After explaining the procedure to the patient, she signed a consent and then brought to the stress nuclear laboratory. Patient received 0.4 mg Lexiscan for stress test, ECG, heart rate and blood pressure were monitored continuously. Resting and stress dose of radio tracer were injected, imaging was acquired and reviewed in short axis, horizontal long axis and vertical long axis views. TID: 1.04 SSS: 6 SDS: 6 EF: 53 1. Patient tolerated Lexiscan well 2. Breast attenuation with mild decrease uptake at the mid to apical anterior septum with mild reversibility, probably due to breast attenuation. No significant ischemia or infarction on SPECT images 3. Normal left ventricular size, EF 53 percent BARRETT KESSLER MD Nov 25, 2019 11:29
== END ==
LOC: CARD 07:30
PROVIDERS: ATTEND Internal Medicine Cardiovascular Disease
DX: I11.9 Hypertensive heart disease without heart failure (principal); I67.4 Hypertensive encephalopathy; Z72.0 Tobacco use
CPT/HCPCS: 78452; 93017; A9502

== ENCOUNTER 2019-11-26 05:38 | Outpatient (RCR) | payer OTHER ==
[~2019-11-26] VITALS: Ht 167.7 cm; Wt 99.1 kg
[~2019-11-26 05:38] MED LIST changes: -CATHETER FLUSH 10 ML SYR IV PRN; -REGADENOSON 0.4 MG/5 ML SYR (LEXISCAN) IV ONE
== END 2019-11-27 09:53 | disposition home or self-care (01) ==
LOC: PREOP 05:38
PROVIDERS: ATTEND Surgery
DX: Z01.812 Encounter for preprocedural laboratory examination (principal); K92.1 Melena; Z20.828 Contact with and (suspected) exposure to other viral communicable diseases
CPT/HCPCS: 87635

== ENCOUNTER 2019-12-21 05:41 | Outpatient (RCR) | payer OTHER ==
[~2019-12-21 05:41] MED LIST changes: +AMLO-250 PO; -AMLO5TAB9 PO; +MIRT-96 PO; -MIRT15TA PO
== END 2020-03-20 | disposition home or self-care (01) ==
LOC: PREOP 05:41
PROVIDERS: ATTEND Surgery
DX: Z01.818 Encounter for other preprocedural examination (principal)

== ENCOUNTER 2021-04-10 08:11 | Emergency (ER) | payer SELFPAY ==
[~2021-04-10] VITALS: Ht 162 cm; Wt 99.7 kg
[~2021-04-10 08:11] MED LIST changes: -ACYC400T PO; +ACYC400T21 PO; +CYCL10TA25 PO; -CYCL10TA9 PO; -LISI10TA2 PO; +LISI10TA25 PO
[2021-04-10] MEDS ORDERED: diphenhydrAMINE 50 MG/ML INJ (BENADRYL) IV ONE (09:00)
[2021-04-10] MEDS ORDERED: KETOROLAC 30 MG/ML VIAL IVP ONE (09:00)
[2021-04-10] MEDS ORDERED: NS IV 1000 ML 1,000 ML IV SCH (09:00)
[2021-04-10] MEDS ORDERED: METOCLOPRAMIDE INJ 10 MG/2 ML (REGLAN) IVP ONE (09:00)
--- NOTE | 2021-04-10 09:05 | ED Headache ---
General Chief Complaint: Head/Cervical Problems Stated Complaint: MIGRAINE/UTI SYMPTOMS Nursing Triage Note: PT PRESENTS TO ED VIA POV FROM HOME WITH COMPLAINTS OF INCREASED MIGRAINED SINCE HAVING COVID IN MARCH. PT ALSO THINKS SHE HAS A UTI. PT STATES HER WORK WANTS HER TESTED FOR COVID AGAIN. Source: patient Exam Limitations: no limitations History of Present Illness Date Seen by Provider: Apr 10, 2021 Time Seen by Provider: 08:50 Initial Comments Patient is a 41-year-old female who presents to the emergency room with a chief complaint of severe migraine, onset about 3 weeks ago after she had Covid. Patient states in the last 2 days its been significantly worse. She has been alternating Tylenol and ibuprofen without any relief of symptoms. Last ibuprofen was last night, last Tylenol was about 430 this morning. She also took 2 doses of Imitrex yesterday without any relief of symptoms. She states this is significantly different than her usual migraine headache. Light makes it worse. She is profoundly nauseous. Denies any problems with balance, coordination, strength or sensation. No vision changes. No trouble swallowing. Chronic diarrhea. Complains of increased urinary frequency and was treated a few weeks ago with an shot of antibiotics and then cefdinir. States her symptoms have continued. Denies abnormal vaginal discharge. States that she is not . All other review of systems reviewed and negative except as stated. Timing/Duration: other (2-3 weeks worse over the last 2 days) Severity/Quality: severe, achy, constant, pressure, sharp, throbbing Location: temporal (right) Prior Headaches/Recent Trauma: occasional headaches Modifying Factors: worse with exposure to light Associated Symptoms: other (urinary frequency) Allergies and Home Medications Allergies Coded Allergies: hydromorphone (Verified Allergy, Severe, ANAPHYLAXIS, 09/14/19) Penicillins (Unverified Allergy, Mild, hives, 09/14/19) morphine (Verified Allergy, Mild, Rash, 09/14/19) latex (Verified Allergy, Unknown, HIVES, 09/14/19) Patient Home Medication List Home Medication List Reviewed: Yes Amlodipine Besylate (Amlodipine Besylate) 5 Mg Tablet, 5 MG PO DAILY Prescribed by: BARRETT DELONG on 05/14/19 0730 Aspirin (Aspirin) 81 Mg Tab.chew, 81 MG PO DAILY@0900 Prescribed by: KALYAN BACK on 05/14/19 1000 Atorvastatin Calcium (Atorvastatin Calcium) 40 Mg Tablet, 40 MG PO DAILY Prescribed by: KALYAN BACK on 05/14/19 1000 Baclofen (Baclofen) 10 Mg Tablet, 10 MG PO TID, (Reported) Entered as Reported by: RADHA VENCES on 02/27/18 173 Gabapentin (Neurontin) 300 Mg Capsule, 300 MG PO DAILY, (Reported) Entered as Reported by: IAN DE LEÓN on 09/14/19 1512 Lisinopril (Lisinopril) 10 Mg Tablet, 10 MG PO DAILY Prescribed by: BARRETT DELONG on 05/14/19 0732 Metoprolol Succinate (Metoprolol Succinate) 100 Mg Tab.er.24h, 100 MG PO DAILY Prescribed by: BARRETT DELONG on 05/14/19 0730 Omeprazole (Omeprazole) 20 Mg Tablet.dr, 20 MG PO DAILY, (Reported) Entered as Reported by: NUBIA LADD on 12/31/18 0824 Topiramate (Topamax) 50 Mg Tablet, 50 MG PO BID, (Reported) Entered as Reported by: RADHA VENCES on 02/27/18 1732 Review of Systems Review of Systems Constitutional: see HPI Eyes: Photophobia Ears, Nose, Mouth, Throat: see HPI (right facial pain) Respiratory: no symptoms reported Cardiovascular: no symptoms reported Gastrointestinal: diarrhea (chronic), nausea, vomiting Genitourinary: dysuria (slight), frequency : No Musculoskeletal: no symptoms reported Skin: no symptoms reported Psychiatric/Neurological: Headache Past Rohgllk-Edhses-Dvzrje Hx Patient Social History Tobacco Use?: Yes Tobacco type used: Cigarettes Smoking Status: Current Everyday Smoker Substance use?: No Additional substance use comme: SOBER 7 YEARS Alcohol Use?: Yes Alcohol Frequency: Rarely Pt feels they are or have been: No Immunizations Up To Date Tetanus Booster (TDap): Unknown Seasonal Allergies Seasonal Allergies: Yes Past Medical History Surgery/Hospitalization HX: PMH: HTN, DIASTOLIC DYS, Surgeries: Yes ( genital wart destruction, knee scope, LIVER BIOPSY WITH LAP YONAS) Appendectomy, Gallbladder, Orthopedic Respiratory: No Cardiac: Yes (SVT, LOOP RECORDER) Atrial Fibrillation, High Cholesterol, Hypertension Neurological: Yes (BELLS PALSY LEFT SIDE) Headaches /Migraines Reproductive Disorders: Yes (ovarian cysts) Female Reproductive Disorders: Ovarian Cyst, Polycystic Ovarian Dis Sexually Transmitted Disease: Yes (hx of genital warts) HIV/AIDS: No Genitourinary: Yes (FREQUENCY, ANTHONY) Gastrointestinal: Yes (CHRONIC RECTAL BLEEDING; HX CYST ON LIVER (POSSIBLY RE MOVED WITH GB)) Gastroesophageal Reflux, Stoddard's Esophagus, Hemorrhoids Musculoskeletal: Yes (KNEE SCOPE; RESTLESS LEGS/CHRONIC LEG PAIN ) Fibromyalgia Endocrine: Yes (OBEISTY) HEENT: Yes (CONTACTS) Loss of Vision: Denies Hearing Impairment: Denies Cancer: No Psychosocial: Yes (MOOD DISORDER, FIBROMYLGIA, CONVERSION DIORDER) Sleep Difficulties, Anxiety, Bipolar, Depression Integumentary: Yes (DRY SKIN/RASH ) Blood Disorders: No Adverse Reaction/Blood Tranf: No (N/A) Family Medical History No Pertinent Family Hx Physical Exam Vital Signs Vital Signs - First Documented 04/10/21 08:48 Temp 36.6 Pulse 80 Resp 20 B/P (MAP) 154/116 (129) Pulse Ox 94 Capillary Refill : Less Than 3 Seconds Height, Weight, BMI Height: 5'4.00" Weight: 215lbs. 0.0oz. 97.053326cf; 37.00 BMI Method:Stated General Appearance: WD/WN, no apparent distress HEENT: PERRL/EOMI, normal ENT inspection, TMs normal, pharynx normal Neck: non-tender, full range of motion, supple, normal inspection, other (no meningismus) Cardiovascular: regular rate, rhythm Respiratory: lungs clear, normal breath sounds, no respiratory distress, no accessory muscle use Gastrointestinal: normal bowel sounds, non tender, soft Extremities: normal range of motion, non-tender, normal inspection, no pedal edema, no calf tenderness Psychiatric: alert, oriented x 3 Crainal Nerves: normal hearing, normal speech, PERRL; No abnormal pupil position, No abnormal speech, No facial droop, No facial paresthesias, No facial weakness, No gaze palsy, No tongue deviation to R, No tongue deviation to L Coordination/Gait: normal finger to nose, normal gait, negative Romberg's sign Motor/Sensory: no motor deficit, no sensory deficit, no pronator drift Skin: normal color, warm/dry Progress/Results/Core Measures Results/Orders Lab Results Laboratory Tests Test 04/10/21 09:00 04/10/21 10:03 Range/Units Urine Color YELLOW Urine Clarity CLEAR Urine pH 8.0 5-9 Urine Specific [place] 1.010 L 1.016-1.022 Urine Protein NEGATIVE NEGATIVE Urine Glucose (UA) NEGATIVE NEGATIVE Urine Ketones NEGATIVE NEGATIVE Urine Nitrite NEGATIVE NEGATIVE Urine Bilirubin NEGATIVE NEGATIVE Urine Urobilinogen 0.2 < = 1.0 MG/DL Urine Leukocyte Esterase NEGATIVE NEGATIVE Urine RBC (Auto) NEGATIVE NEGATIVE Urine RBC NONE /HPF Urine WBC RARE /HPF Urine Squamous Epithelial Cells 5-10 /HPF Urine Crystals PRESENT H /LPF Urine Amorphous Sediment FEW DIXON PHOSPHATE H /LPF Urine Bacteria NEGATIVE /HPF Urine Casts NONE /LPF Urine Mucus NEGATIVE /LPF Urine Culture Indicated NO Glucometer 107 70-110 MG/DL My Orders Orders - ALISA LUTZ MD Ua Culture If Indicated (04/10/21 08:47) Urine Bedside (04/10/21 08:47) Ct Head Wo (04/10/21 08:58) Ed Iv/Invasive Line Start (04/10/21 08:58) Metoclopramide Injection (Reglan Injecti (04/10/21 09:00) Diphenhydramine Injection (Benadryl Inje (04/10/21 09:00) Ketorolac Injection (Toradol Injection) (04/10/21 09:00) Dexamethasone Injection (Decadron Injec (04/10/21 09:00) Ns Iv 1000 Ml (Sodium Chloride 0.9%) (04/10/21 09:00) Accucheck Stat ONCE (04/10/21 09:58) Medications Given in ED Current Medications Medications Dose Ordered Sig/[place] Route Start Time Stop Time Status Last Admin Dose Admin Dexamethasone Sodium Phosphate 4 mg ONCE ONCE IV 04/10/21 09:00 04/10/21 09:01 DC 04/10/21 09:21 4 MG Diphenhydramine HCl 25 mg ONCE ONCE IV 04/10/21 09:00 04/10/21 09:01 DC 04/10/21 09:21 25 MG Ketorolac Tromethamine 15 mg ONCE ONCE IVP 04/10/21 09:00 04/10/21 09:01 DC 04/10/21 09:21 15 MG Metoclopramide HCl 10 mg ONCE ONCE IVP 04/10/21 09:00 04/10/21 09:01 DC 04/10/21 09:21 10 MG Vital Signs/I&O 04/10/21 08:48 Temp 36.6 Pulse 80 Resp 20 B/P (MAP) 154/116 (129) Pulse Ox 94 Blood Pressure Mean: 129 Progress Progress Note : Time: 10:01 Progress Note Feeling much better after medications. Has about 200 cc of fluids left. We will check a blood sugar prior to dispo. Plan on sending her home with a little bit of Fioricet. Caution advised with this medication. Follow-up with [facility] recommended. Patient verbalized understanding. All questions are sought and answered Diagnostic Imaging Diagonstic Imaging: CT Plain Films/CT/US/NM/MRI: head Comments [facility], [place] NAME: XUAN YAN [facility] REC#: [id number] PT STATUS: REG ER : 1980 PHYSICIAN: ALISA LUTZ MD ADMIT DATE: 04/10/21/ER Draft Date of Exam:04/10/21 CT HEAD WO PROCEDURE: CT head without contrast. TECHNIQUE: Multiple contiguous axial images were obtained through the brain without the use of intravenous contrast. Auto Exposure Controls were utilized during the CT exam to meet ALARA standards for radiation dose reduction. INDICATION: Severe headache. COMPARISON: 05/13/2019. FINDINGS: The ventricles are normal in size, shape, and position. There is no midline shift or mass effect. There is no hemorrhage or evidence of acute ischemia. No extra-axial fluid collection or mass is seen. The bony calvarium, paranasal sinuses, and mastoids are clear. IMPRESSION: No acute intracranial abnormalities. Dictated on workstation # [id number] Dict: 04/10/21913 Trans: 04/10/21919 [id number] Interpreted by: GALINA PACHECO Electronically signed by: Departure Impression Primary Impression: Migraine Qualified Codes: G43.009 - Migraine without aura, not intractable, without status migrainosus Additional Impression: Urinary frequency Disposition: HOME, SELF-CARE Condition: Improved Departure-Patient Inst. Decision time for Depature: 10:38 Referrals: [facility] (PCP/Family) Primary Care Physician Patient Instructions: Migraines (DC) Add. Discharge Instructions: Drink plenty of fluids to stay well-hydrated. You can take rvdz-eji-vwagezl ibuprofen 600 mg which is 3 tablets every 6 hours with food for headache. Your muscle relaxers may also help with headache. I have written you some Fioricet or butalbital with caffeine and acetaminophen. You can take 1 every 6-8 hours for severe headache. This medication may make you sleepy. It can become habit forming/addictive. Do not drive and take it. Follow-up with your primary care physician at [facility]. Return to the emergency department for any new, concerning or emergent complaints. Scripts Butalbital/Aspirin/Caffeine (Rvwfioiowc-IKK-Crgxvqhd Cap) 1 Each Capsule 1 EACH PO Q8H PRN for severe headache, #10 CAP Prov: ALISA LUTZ MD 04/10/21 Work/School Note: Work Release Form Date Seen in the Emergency Department: Apr 10, 2021 Return to Work: Apr 11, 2021 Copy Copies To 1: VIRGIL FLANAGAN KATHRYN M MD Apr 10, 2021 09:05
[2021-04-10 09:07] LABS: BILIRUBIN,URINE NEGATIVE (NEGATIVE); CLARITY,URINE CLEAR; COLOR,URINE YELLOW; GLUCOSE, URINE (UA) NEGATIVE (NEGATIVE); KETONES,URINE NEGATIVE (NEGATIVE); LEUKOCYTE ESTERASE ,URINE NEGATIVE (NEGATIVE); NITRITE,URINE NEGATIVE (NEGATIVE); PROTEIN,URINE NEGATIVE (NEGATIVE)
--- NOTE | 2021-04-10 09:21 | Diagnostic Imaging Report ---
PROCEDURE: CT head without contrast. TECHNIQUE: Multiple contiguous axial images were obtained through the brain without the use of intravenous contrast. Auto Exposure Controls were utilized during the CT exam to meet ALARA standards for radiation dose reduction. INDICATION: Severe headache. COMPARISON: 05/13/2019. FINDINGS: The ventricles are normal in size, shape, and position. There is no midline shift or mass effect. There is no hemorrhage or evidence of acute ischemia. No extra-axial fluid collection or mass is seen. The bony calvarium, paranasal sinuses, and mastoids are clear. IMPRESSION: No acute intracranial abnormalities. Dictated by: Dictated on workstation # [id number]
[2021-04-10 09:27] LABS: AMORPHOUS SEDIMENT,UR FEW AMOR PHOSPHATE /LPF; BACTERIA,URINE NEGATIVE /HPF; WBC,URINE RARE /HPF
[2021-04-10] MEDS ORDERED: BUTA1CAP3 PO (10:39)
[2021-04-10 10:43] VITALS: BP 157/106
== END 2021-04-10 10:43 | disposition home or self-care (01) ==
LOC: EDUNIT# 08:11 → ER 08:14
DX: G43.909 Migraine, unspecified, not intractable, without status migrainosus (principal); R35.0 Frequency of micturition; I10 Essential (primary) hypertension; E78.00 Pure hypercholesterolemia, unspecified; I48.91 Unspecified atrial fibrillation; K21.9 Gastro-esophageal reflux disease without esophagitis; M79.7 Fibromyalgia; G25.81 Restless legs syndrome; F41.9 Anxiety disorder, unspecified; F31.9 Bipolar disorder, unspecified; G47.9 Sleep disorder, unspecified; E66.9 Obesity, unspecified; F17.210 Nicotine dependence, cigarettes, uncomplicated; Z68.37 Body mass index [BMI] 37.0-37.9, adult; Z88.5 Allergy status to narcotic agent; Z91.040 Latex allergy status; Z79.82 Long term (current) use of aspirin; Z79.899 Other long term (current) drug therapy
CPT/HCPCS: 70450; 81000; 82947; 84703